=== PATIENT | male | born 1940 | race Caucasian/White ===

== ENCOUNTER 2024-02-17 14:50 | Inpatient (IN) | payer MEDICARE, OTHER, SELFPAY ==
[2024-02-17 15:16] VITALS: BP 117/46; PULSE 66; RESP 18; TEMP 36.5; O2SAT 97
[2024-02-17 15:28] VITALS: BMI 24.0
--- NOTE | 2024-02-17 21:42 | PCM.HP.STD ---
HPI - General General Date of Admission: 02/17/24 Date of Service: 02/17/24 Chief Complaint: Here for rehabilitation, wound care. HPI Narrative MATTY MASON JR, is a 83 M who presents 02/09/2024 Admit to [facility] with change in mental status. Confused, pulled over by police officers. Dizzy while driving, right 5th toe gangrene, patient was driving to urgent care. Presented to [place] [facility], then transferred to [facility]. WBC 18, Troponin ok, Urinalysis okay, CT brain negative. 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 Vancomycin/Zosyn given for right foot infection. Evaluate for stroke. Zosyn/Rocephin, consult podiatry, consult vascular, for right 5th toe wet gangrene. 02/10/2024 Dr. Piper performed right transmetatarsal amputation. 02/11/2024 Rocephin/Zithromax right foot infection. MRI brain showed left occipital stroke. 02/12/2024 Foot culture growing morganella morganii, continue Vancomycin/Rocephin. Vascular surgery recommended no surgery. Aspirin, statin, Eliquis for stroke. 02/13/2024 Right foot wound VAC yesterday. Continue IV antibiotics. Eliquis 5mg bid for stroke 2/2 Xarelto failure. Normal saline 1 liter iv bolus for acute kidney injury. 02/14/2024 PT/OT for discharge planning. 02/15/2024 Right foot incision and drainage, sharp excision, debridement partial right foot, defer primary closure right foot. 02/16/2024 Bactrim for 5 more days. Neurology does not think av fistula is real. Aspirin, statin, Eliquis for stroke. PT/OT SNF. 02/17/2024 Admit to TCU with debility, here for rehabilitation, strengthening, wound care, prior to discharge home with . [facility] Medical History (Updated 02/17/24 @ 22:[address] Nash Horne MD) History of cardioversion Venous insufficiency Coronary artery disease Chronic heart failure with preserved ejection fraction (HFpEF) GERD (gastroesophageal reflux disease) Hyperlipidemia Essential (primary) hypertension Acute kidney injury Stroke Acute encephalopathy Gangrene of toe of right foot Debility Home Medications ?Medication ?Instructions ?Recorded ?Last Taken ?Type acetaminophen 325 mg tablet 1 - 2 tab PO Q6H PRN PRN Mild 12/21/14 Unknown History (Tylenol) pain, headache, fever metoprolol succinate 200 mg 200 mg PO DAILY 12/21/14 Unknown History tablet,extended release 24 hr warfarin 5 mg tablet (Jantoven) 2.5 mg PO SUSA blood thinner 12/21/14 Unknown History warfarin 5 mg tablet (Jantoven) 5 mg PO MOTUWETHFR blood thinner 12/21/14 Unknown History amiodarone 200 mg tablet 200 mg PO DAILYCM Heart rate #24 12/28/14 Unknown Rx TABLETS atorvastatin 40 mg tablet 40 mg PO QHS Cholesterol #30 12/28/14 Unknown Rx TABLETS colchicine 0.6 mg capsule 0.6 mg PO BID gout #11 TABLETS 12/28/14 Unknown Rx colchicine 0.6 mg capsule 0.6 mg PO DAILY Gout #30 TABLETS 12/28/14 Unknown Rx furosemide 20 mg tablet 20 mg PO DAILY Fluid Retention #30 12/28/14 Unknown Rx TABLETS heparin, porcine (PF) 100 unit/mL 500 unit (5 mL) IV UD PRN Heparin 12/28/14 Unknown Rx intravenous syringe (Monoject Flush ##10 Prefill Advanced (PF)) metoprolol succinate 100 mg 100 mg PO DAILY BP #30 TABLETS 12/28/14 Unknown Rx tablet,extended release 24 hr multivitamin with folic acid 400 1 tab PO DAILYCM Supplement #0 12/28/14 Unknown Rx mcg tablet (Thera) TABLETS nafcillin 2 gram solution for 2 g IV Q4 Antibiotic #38 vials 12/28/14 Unknown Rx injection pantoprazole 20 mg tablet,delayed 20 mg PO DAILY GERD #24 TABLETS 12/28/14 Unknown Rx release warfarin 2.5 mg tablet (Jantoven) 2.5 mg PO SuMoTuThFr@1700 Blood 12/28/14 Unknown Rx thinner #30 TABLETS warfarin 3 mg tablet (Jantoven) 3 mg PO WeSa@1700 blood thinner 12/28/14 Unknown Rx #10 TABLETS amlodipine 10 mg tablet 10 mg PO QHS BP 02/17/24 02/16/24 20:25 History apixaban 5 mg tablet 5 mg PO BID Anticoagulant 02/17/24 02/17/24 08:25 History aspirin 81 mg tablet,delayed 81 mg PO DAILY Heart 02/17/24 Unknown History release (Adult Low Dose Aspirin) clobetasol 0.05 % topical ointment 1 applic topical BID Skin treatment 02/17/24 Unknown History ezetimibe 10 mg tablet 10 mg PO DAILY Cholesterol 02/17/24 02/17/24 08:25 History fluticasone propionate 50 2 spray intranasal DAILY Allergies 02/17/24 Unknown History mcg/actuation nasal spray,suspension folic acid 1 mg tablet 1 mg PO DAILY Supplement 02/17/24 02/17/24 08:25 History lisinopril 40 mg tablet 40 mg PO DAILY BP 02/17/24 Unknown History metoprolol succinate 50 mg 100 mg PO DAILY BP 02/17/24 02/17/24 08:25 History tablet,extended release 24 hr rosuvastatin 40 mg tablet 40 mg PO QHS Cholesterol 02/17/24 02/16/24 History sulfamethoxazole 800 1 tab PO BID Antibiotic 02/17/24 02/17/24 08:25 History mg-trimethoprim 160 mg tablet (Bactrim DS) Allergy/AdvReac Type Severity Reaction Status Date / Time hydrochlorothiazide AdvReac Unknown Verified 01/17/15 11:53 Family History (Updated 02/17/24 @ 22:[address] Nash Horne MD) Mother , 56 years old. Breast cancer Sister Breast cancer Grandmother Breast cancer Aunt Breast cancer Father , 78 years old. Prostate cancer PAD (peripheral artery disease) Surgical History (Updated 02/17/24 @ 22:[address] Nash Horne MD) History of right inguinal hernia repair History of cataract surgery History of colonoscopy History of aortic valve replacement Status post transmetatarsal amputation of right foot Social History (Updated 02/17/24 @ 22:[address] Nash Horne MD) household members: spouse Smoking Status: Never smoker alcohol intake: current alcohol intake frequency: 0-2 drinks per day Alcohol type: wine details: 7 glasses of wine per week. substance use type: does not use ROS Constitutional Constitutional: Reports weakness; Denies chills, fever(s) or weight gain ENT HEENT: Denies headache(s), nasal congestion or nasal discharge Cardiovascular Cardiovascular: Denies chest pain or palpitations Respiratory/Chest Respiratory/Chest: Denies cough, excessive phlegm production or shortness of breath with exertion Gastrointestinal Gastrointestinal: Denies abdominal pain, nausea or vomiting Genitourinary Genitourinary: Denies dysuria Musculoskeletal Musculoskeletal: Denies joint pain or joint swelling Integumentary Integumentary: Denies rash or wounds Neurologic Neurologic: Denies focal weakness, numbness or tingling Psychiatric Psychiatric: Denies anxiety, auditory hallucinations, depression, homicidal ideation or suicidal ideation Vital Signs Vital Signs Vital Signs: 02/17/24 15:16 02/17/24 15:16 Temperature 97.7 F L Temperature Source Oral Pulse Rate 66 Pulse Rhythm Regular Pulse Strength Normal (2+) Respiratory Rate 18 Respiratory Effort Normal Non-Labored Respiratory Depth Normal Respiratory Pattern Normal Blood Pressure 117/46 L Blood Pressure Mean 69 Blood Pressure Source Monitor Blood Pressure Position Sitting Blood Pressure Location Left Arm Pulse Ox 97 Oxygen Delivery Method Room Air Room Air Weight Weight: 78.29 kg Body Mass Index (BMI) 24.0 Physical Exam Const alert General Appearance: cooperative HEENT normocephalic Eyes PERRL and EOMs intact bilaterally Neck supple, no JVD and no carotid bruits Resp normal respiratory effort, normal air movement and clear to auscultation bilaterally Cardio regular rate and regular rhythm GI normal to inspection, nondistended, normoactive bowel sounds, non-tender and non-distended Extremity normal capillary refill Extremity Narrative: Right foot dressed. General Extremity: Negative for edema Skin no rashes or lesions noted General Skin Exam: no breakdown Psych affect normal Appearance: appropriate Assessment & Plan Assessment/Plan (1) Debility: (2) Gangrene of toe of right foot: (3) Acute encephalopathy: (4) Stroke: (5) Status post transmetatarsal amputation of right foot: (6) Acute kidney injury: (7) Essential (primary) hypertension: (8) Hyperlipidemia: (9) Atrial fibrillation: (10) GERD (gastroesophageal reflux disease): (11) Chronic heart failure with preserved ejection fraction (HFpEF): (12) Coronary artery disease: (13) MYRON (obstructive sleep apnea): (14) Venous insufficiency: PLAN: Plan 83 year old male with below past medical history hospitalized for acute encephalopathy 2/2 left occipital stroke, complicated by right foot gangrene requiring transmetatarsal amputation, acute kidney injury, admitted to TCU with debility, here for rehabilitation, strengthening, prior to discharge home with . Debility - PT/OT. Pain - Tylenol 1000mg q6 prn pain (1-5), Oxycodone 2.5mg q4 prn pain (6-10). Bowel - senna/colace 1 tablet bid, Magnesium citrate 300ml po daily prn. Adult immunization - Administer pneumonia vaccine, covid vaccine, flu vaccine as appropriate. DVT prophylaxis - on Eliquis. Hypertension - Metoprolol succinate 100mg daily, Lisinopril 40mg daily, Amlodipine 10mg qhs. Atrial fibrillation - Metoprolol succinate 100mg daily, Eliquis 5mg bid. Coronary artery disease - Metoprolol succinate 100mg daily, Lisinopril 40mg daily, Aspirin 81mg daily. Left occipital stroke - Eliquis 5mg bid, Aspirin 81mg daily, consider deescalating to Eliquis alone. Hyperlipidemia - Atorvastatin 80mg qhs, Zetia 10mg daily. Rash - Clobetasol cream topical bid. Allergic rhinitis - Fluticasone nasal spray 2 sprays nasal daily. Folate deficiency - Folic acid 1mg daily. Chronic HFpEF - Metoprolol succinate 100mg daily, Lisinopril 40mg daily, Furosemide 20mg daily. Skin irritation - Calmoseptine topical bid. Right foot gangrene s/p transmetatarsal amputation - culture Morganella Morganii, Bactrim DS 1 tablet bid thru 02/22/2024.
[2024-02-17] MEDS: APIXABAN 5 MG TABLET PO (21:49)
[2024-02-17] MEDS: amLODIPine 10 MG Tablet PO (21:49)
[2024-02-17] MEDS: Atorvastatin Calcium 80 MG Tablet PO (21:49)
[2024-02-17] MEDS: Smz/Tmp Ds Tablet 1 TABLET PO (21:49)
[2024-02-17] MEDS: Clobetasol Propionate 0.05% Ointment 1 APPLIC TOPICAL (21:49)
[2024-02-18] MEDS: Menthol/Lanolin/Calamine/Znox 113 GM Tube 1 APPLIC TOPICAL ×3 (04:10→20:58)
--- NOTE | 2024-02-18 05:39 | NURSING ---
Pt refused labs this morning, when this nurse asked why he stated look at my veins, I do not want labs done today when this nurse stated the importance of labwork pt continued to decline and agreed he would eventually have labs done but not today. Pt has had intermittent confusion throughout this night and is easily redirected but for short periods of time only.
[2024-02-18] MEDS: Folic Acid 1 MG Tablet PO (09:37)
[2024-02-18] MEDS: Smz/Tmp Ds Tablet 1 TABLET PO ×2 (09:37→20:58)
[2024-02-18] MEDS: Ezetimibe 10 MG Tablet PO (09:37)
[2024-02-18] MEDS: Furosemide 20 MG Tablet PO (09:37)
[2024-02-18 09:38] VITALS: BP 129/49; PULSE 74
[2024-02-18] MEDS: Lisinopril 40 MG Tablet PO (09:38)
[2024-02-18] MEDS: Metoprolol(XL)Succ 100 MG Tablet PO (09:38)
[2024-02-18] MEDS: Clobetasol Propionate 0.05% Ointment 1 APPLIC TOPICAL ×2 (09:39→20:54)
[2024-02-18] MEDS: Tuberculin,Purif.prot.deriv. 50 TU/ML Vial 0.1 ML ID (09:39)
[2024-02-18] MEDS: Fluticasone 0.05% 1 SPRAY NASAL.SRY 2 SPRAY NASAL (09:40)
[2024-02-18] MEDS: Aspirin E.C. 81 MG Tablet PO (09:40)
[2024-02-18] MEDS: APIXABAN 5 MG TABLET PO ×2 (09:40→20:58)
--- NOTE | 2024-02-18 09:48 | NURSING ---
Call from Stephanie at [facility], she says resident will have vascular procedure on 02/25/24 in the afternoon. Depending on what they find he may be admitted to the hospital. He need eliquis held starting Thursday02/23/24, and needs to be NPO day of surgery. Ok to continue giving aspirin and for him to take schedule meds morning of surgery. Called to discuss with , left SHEELA.
[2024-02-18 10:05] LABS: Absolute Lymphocyte Count 1.49 X10^3/uL (0.83-4.51); Absolute Neutrophil Count 26.4 X10^3/uL (2.0-7.7); Basophil# 0.07 X10^3/uL; Basophil% 0.2 % (0-1); Eosinophil# 0.02 X10^3/uL; Eosinophils% 0.1 % (0-5); Hematocrit 37.1 % (40-54); Lymphocyte # 1.49 X10^3/ul (0.83-4.51); Lymphocyte % 4.8 % (19-41); Mean Corp Hgb Conc 32.3 g/dL (32-36); Mean Corpuscular Hgb 31.2 pg (27.0-32.0); Mean Corpuscular Volume 96.4 fL (80-94); Mean Platelet Vol. 10.8 fl (6.2-12.0); Monocyte# 3.14 X10^3/uL; NRBC Flagged by Analyzer 0 % (0-5); Neutrophil # 26.35 X10^3/uL (2.7-7.7); Neutrophil % 84.2 % (47-70); POSITIVE COUNT YES; POSITIVE DIFFERENTIAL YES; Platelet Count 348 K/mm3 (150-450); RBC Distribution Width CV 12.2 % (11.6-14.6); RBC Distribution Width SD 43.2 fl (35.1-43.9); Red Blood Count 3.85 M/mm3 (4.6-6.2)
[2024-02-18 10:13] LABS: Anion Gap 6 (5-15); BUN 26 mg/dL (7-18); BUN/Creat Ratio 17.3 RATIO (10-20); Calcium,Total 9.2 mg/dL (8.5-10.1); Chloride 104 mmol/L (98-107); EST Glomerular Filtration Rate 48 mL/min (>60); Est Glom Filt Rate - Afr Amer 57 mL/min (>60); Estimated Creatinine Clearance 39.74 ml/min; Glucose 191 mg/dL (74-106); Potassium 4.9 mmol/L (3.5-5.1); Sodium Level 133 mmol/L (136-145)
[2024-02-18 10:18] LABS: Differential Indicated SCAN CRITERIA MET; White Blood Count 31.3 K/mm3 (4.4-11.0)
--- NOTE | 2024-02-18 10:27 | WOUNDNOTE ---
wound photo: right foot
--- NOTE | 2024-02-18 10:28 | WOUNDNOTE ---
wound photo: right foot
--- NOTE | 2024-02-18 10:30 | NURSING ---
This Nurse received critical lab value for WBC. This nurse notified Dr. Ozzie Christianson received for Chest X-ray, KUB, Urinalysis with culture, resp panel, covid panel, and repeat labs on 02/19/24. Orders read back.
--- NOTE | 2024-02-18 10:50 | RAD_ITS ---
STUDY: X-RAY CHEST REASON FOR EXAM: Male, 83 years old. Increased WBC TECHNIQUE: AP and lateral views of the chest. COMPARISON: Comparison is made with prior study March 25, 2006. FINDINGS: I suspect early left lower lobe infiltrate. Blunting of the left costophrenic angle. Sternal cerclage wires and vascular clips are present from a prior sternotomy and coronary artery bypass graft procedure (CABG). Normal mediastinum and chris. Normal visualized pulmonary arteries. There is atherosclerotic calcification of the aortic arch with tortuosity. There are diffuse degenerative changes of the visualized thoracic spine. Loss of height of the superior endplate of the T12 vertebrae. Normal visualized ribs, clavicles, and shoulders. There is no demonstrated abnormality of the visualized soft tissue structures of the upper abdomen. RAD/Chest PA and Lateral IMPRESSION: I suspect an early left lower lobe infiltrate with blunting of the left costophrenic angle. Electronically Signed: Roc Talley MD at 11:03 EDT ,
--- NOTE | 2024-02-18 10:50 | RAD_ITS ---
STUDY: X-RAY - ABDOMEN/PELVIS REASON FOR EXAM: Male, 83 years old. Increased WBC TECHNIQUE: Single AP view of the abdomen / pelvis. COMPARISON: None. FINDINGS: Small amount of air is seen within the soft tissues overlying the right groin. Clinical correlation recommended. Moderate amount of fecal material is seen in the colon. There is no demonstrated free abdominal air. The visualized liver, spleen and kidneys are grossly normal in size and morphology. Aortic calcification. Evidence of prior right inguinal hernia repair. Mild degree of joint space narrowing of both hip joints. RAD/Abdomen Single View IMPRESSION: Small amount of air is seen within the soft tissues overlying the right groin. Clinical correlation recommended. Electronically Signed: Roc Talley MD at 11:54 EDT ,
[2024-02-18 12:04] LABS: Bacteria 0 SEEN /hpf (None Seen); Mucous, Urine 0 SEEN /hpf (<or=2+); Red Blood Cells-Urine 0 SEEN /hpf (0-5); Squamous Epithelial Cells - UA 0 SEEN /hpf (0-5)
[2024-02-18 12:15] LABS: Color, Urine Yellow (Yellow); Glucose, Dipstick Normal (Normal); Ketone-Dipstick Negative (Negative); Leukocyte Esterase-Dipstick 25 /ul (Negative); Nitrite-Dipstick Negative (Negative); Occult Blood-Urine 10 /ul (Negative); Protein-Dipstick 30 mg/dl (Negative); Specific Gravity, Urine 1.015 (1.002-1.030); Urine Bilirubin Dipstick 1 mg/dL (Negative); Urine Clarity Clear (Clear); Urine Urobilinogen 1 mg/dl (Normal)
[2024-02-18 12:28] LABS: Amorphous Sediment 1+; White Blood Cells 0-5 SEEN /hpf (0-5)
[2024-02-18 14:24] VITALS: BP 108/48; PULSE 66; RESP 16; TEMP 37.2; O2SAT 97
[2024-02-18] MEDS: 0.9% Normal Saline (250mL Bag) 250 ML 15 ML IV (14:54)
[2024-02-18] MEDS: levoFLOXacin IV 750 MG/150 ML BAG 100 MG IV (14:54)
[2024-02-18] MEDS: Atorvastatin Calcium 80 MG Tablet PO (20:58)
[2024-02-18 21:02] VITALS: BP 102/45; RESP 67
[2024-02-19 04:55] VITALS: BP 101/48; PULSE 63; RESP 16; TEMP 36.6; O2SAT 96
--- NOTE | 2024-02-19 05:51 | NURSING ---
[employer] Directional Surveyor reports patient refuses lab draw as ordered this AM, written communication left for Dr. Horne
[2024-02-19] MEDS: Folic Acid 1 MG Tablet PO (08:37)
[2024-02-19] MEDS: APIXABAN 5 MG TABLET PO ×2 (09:15→22:30)
[2024-02-19] MEDS: Furosemide 20 MG Tablet PO (09:15)
[2024-02-19] MEDS: Clobetasol Propionate 0.05% Ointment 1 APPLIC TOPICAL ×2 (09:15→22:31)
[2024-02-19] MEDS: Aspirin E.C. 81 MG Tablet PO (09:15)
[2024-02-19] MEDS: Fluticasone 0.05% 1 SPRAY NASAL.SRY 2 SPRAY NASAL (09:15)
[2024-02-19] MEDS: Smz/Tmp Ds Tablet 1 TABLET PO ×2 (09:16→22:29)
[2024-02-19] MEDS: Menthol/Lanolin/Calamine/Znox 113 GM Tube 1 APPLIC TOPICAL ×2 (09:16→22:29)
[2024-02-19] MEDS: Ezetimibe 10 MG Tablet PO (09:16)
[2024-02-19 09:23] VITALS: BP 90/36; PULSE 63
--- NOTE | 2024-02-19 09:26 | PHA.CONS_ITS ---
Documented by User: Candi Jaquez 02/19/24 09:46 TCU RX Drug Regimen Review Subjective/Objective Subjective/Objective: Subjective: TCU Admission. 83 YOM presented to outside ER with confusion/toe gangrene. Hospitalized for acute encephalopathy 2/2 left occipital stroke, c omplicated by right foot gangrene requiring transmetatarsal amputation, acute kidney injury. Admitted to TCU with debility for strengthening and rehabilitation. Objective: Allergies hydrochlorothiazide Adverse Reaction (Verified 01/17/15 11:53) Unknown Current Medications Generic Name Dose Route Start Last Admin Trade Name Freq PRN Reason Stop Dose Admin Acetaminophen 1,000 mg 02/17/24 22:16 Acetaminophen 500 Mg Tablet PO Q6H PRN PRN Pain Score 1-5 Amlodipine Besylate 10 mg 02/17/24 22:00 02/18/24 20:57 Amlodipine 10 Mg Tablet PO Not Given QHS REAL Protocol Apixaban 5 mg 02/17/24 22:00 02/19/24 09:15 Apixaban 5 Mg Tablet PO 5 mg BID REAL Administration Aspirin 81 mg 02/18/24 10:00 02/19/24 09:15 Aspirin E.C. 81 Mg Tablet PO 81 mg DAILY REAL Administration Atorvastatin Calcium 80 mg 02/17/24 22:00 02/18/24 20:58 Atorvastatin Calcium 80 Mg Tablet PO 80 mg QHS REAL Administration Calamine/Phenol 1 applic 02/17/24 22:00 02/19/24 09:16 Menthol/Lanolin/Calamine/Znox 113 Gm Tube TOPICAL 1 applic BID REAL Administration Protocol Clobetasol Propionate 1 applic 02/17/24 22:00 02/19/24 09:15 Clobetasol Propionate 0.05% Ointment TOPICAL 1 applic BID REAL Administration Protocol Ezetimibe 10 mg 02/18/24 10:00 02/19/24 09:16 Ezetimibe 10 Mg Tablet PO 10 mg DAILY REAL Administration Fluticasone Propionate 2 spray 02/18/24 10:00 02/19/24 09:15 Fluticasone 0.05% 1 [place] Nasal.Sry NASAL 2 spray DAILY REAL Administration Folic Acid 1 mg 02/18/24 08:00 02/19/24 08:37 Folic Acid 1 Mg Tablet PO 1 mg DAILYCM REAL Administration Furosemide 20 mg 02/18/24 10:00 02/19/24 09:15 Furosemide 20 Mg Tablet PO 20 mg DAILY REAL Administration Protocol Sodium Chloride 250 mls @ 15 mls/hr 02/18/24 13:53 02/18/24 23:53 IV 0 mls/hr .[id number] PRN Infusion Additional IVPB Infusion Sodium Chloride 250 mls @ 15 mls/hr 02/18/24 13:53 IV .[id number] PRN Saline Flush Levofloxacin 750 mg in 150 mls @ 100 mls/hr 02/18/24 14:00 02/18/24 16:48 Levaquin Iv IV 02/25/24 14:01 Infused Q48 REAL Infusion Lisinopril 40 mg 02/18/24 10:00 02/19/24 09:25 Lisinopril 40 Mg Tablet PO Not Given DAILY [facility] Protocol Lorazepam 0.5 mg 02/18/24 17:16 Lorazepam 0.5 Mg Tablet PO Q4H PRN PRN ANXIETY/RESTLESSNESS/SLEEP Magnesium Citrate 300 ml 02/17/24 22:16 Magnesium Citrate 300 Ml PO DAILY PRN Constipation Metoprolol Succinate 100 mg 02/18/24 10:00 02/19/24 09:23 Metoprolol(Xl)Succ 100 Mg Tablet PO Not Given DAILY [facility] Protocol Oxycodone HCl 2.5 mg 02/17/24 22:16 Oxycodone 5 Mg Tablet PO Q4H PRN PRN Pain Score 6-10 or Pre PT/OT Senna/Docusate Sodium 1 tablet 02/18/24 10:00 02/19/24 09:16 Senna/Docusate Sodium 1 Tablet PO Not Given BID [facility] Trimethoprim/Sulfamethoxazole 1 tablet 02/17/24 22:00 02/19/24 09:16 Smz/Tmp Ds Tablet PO 02/22/24 22:01 1 tablet BID [facility] Administration Tuberculin PPD 0.1 ml 02/25/24 10:00 Tuberculin,Purif.Prot.Deriv. 50 Tu/Ml Vial ID 02/25/24 10:01 X1 ONE Problem List Venous insufficiency (Acute) Coronary artery disease (Acute) Chronic heart failure with preserved ejection fraction (HFpEF) (Acute) GERD (gastroesophageal reflux disease) (Acute) Hyperlipidemia (Acute) Essential (primary) hypertension (Acute) Acute kidney injury (Acute) Status post transmetatarsal amputation of right foot (Acute) Stroke (Acute) Acute encephalopathy (Acute) Gangrene of toe of right foot (Acute) Debility (Acute) MYRON (obstructive sleep apnea) (Chronic) Atrial fibrillation (Acute) Vital Signs Temp Pulse Resp BP Pulse Ox O2 Del Method 97.8 F 63 16 90/36 L 96 Room Air 02/19/24 04:55 02/19/24 09:23 02/19/24 04:55 02/19/24 09:23 02/19/24 04:55 02/19/24 04:55 Oxygen Delivery Method Room Air Weight: 78.29 kg Body Mass Index (BMI) 24.0 Sodium 133 mmol/L (136-145) L 02/18/24 09:54 Potassium 4.9 mmol/L (3.5-5.1) 02/18/24 09:54 Chloride 104 mmol/L (98-107) 02/18/24 09:54 Carbon Dioxide 23.0 mmol/L (21.0-32.0) 02/18/24 09:54 Anion Gap 6 (5-15) 02/18/24 09:54 BUN 26 mg/dL (7-18) H 02/18/24 09:54 Creatinine 1.50 mg/dL (0.70-1.30) H 02/18/24 09:54 Est GFR (MDRD) Af Amer 57 mL/min (>60) L 02/18/24 09:54 Est GFR (MDRD) Non-Af 48 mL/min (>60) L 02/18/24 09:54 BUN/Creatinine Ratio 17.3 RATIO (10-20) 02/18/24 09:54 Glucose 191 mg/dL (74-106) H 02/18/24 09:54 Assessment/Plan: 1. Pain: acetaminophen 1000mg PO Q6H PRN pain 1-5 and oxycodone 2.5mg PO Q4H PRN pain 6-10. Resident has not had any PRN doses. Please continue to monitor for increased pain and PRN usage. 2. Bowel: senna/docusate 1T PO BID and magnesium citrate 300mg PO daily PRN constipation. Resident has refused 2/2 doses of senna/docusate. Please consider changing to PRN. Thanks. Please continue to monitor for PRN usage (no doses given) and constipation. Last documented bowel movement was 9/12. 3. Hypertension/atrial fibrillation/CAD/stroke/HFpEF: metoprolol succinate 100mg PO daily, furosemide 20mg PO daily, lisinopril 40mg PO daily, amlodipine 10mg PO QHS, aspirin 81mg PO daily, apixaban 5mg PO BID (hold starting 02/22 for procedure). Please continue to monitor BP (last 101/48), HR (last 63), SCr (last 1.5 mg/dL), potassium (last 4.9mmol/L), S/S of bleeding, hemoglobin (last 12g/dL), swelling. 4. Pneumonia (infiltrate on chest X-ray 02/17): levofloxacin 750mg IV Q48 thru 02/25/24. Please continue to monitor for S/S of infection, WBC, renal function, tendon pain (black box warning) and diarrhea. 5. 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 Please continue to monitor for S/S of inf ection, renal function, potassium and rash. 6. Hyperlipidemia: atorvastatin 80mg PO QHS and ezetimibe 10mg PO daily. Please consider ordering a lipid panel as there is no panel in the chart. Thanks. Please continue to monitor for muscle pain. 7. Allergic rhinitis: fluticasone nasal spray 2 sprays nasal daily. Please continue to monitor for S/S of allergies and nosebleeds. 8. Folate deficiency: folic acid 1mg PO daily. Please continue to monitor. 9. Skin irritation/rash: Calmoseptine topical bid and Clobetasol cream topical bid. Please continue to monitor. Assessment/Plan for indications treated with psychotropic medications: 1. Anxiety: lorazepam 0.5mg PO Q4H PRN anxiety/restlessness/sleep. This medication was just started, GDR not appropriate at this time. Please continue to monitor for anxiety/restlessness/sleep and PRN usage. No doses given at this time. Medical chart and medication regimen reviewed. The following medication irregularities or issues were identified: 1. Senna/docusate 1T PO BID. Resident has refused 2/2 doses of senna/docusate. Please consider changing to PRN. Thanks. 2. Atorvastatin 80mg PO QHS and ezetimibe 10mg PO daily. Please consider ordering a lipid panel as there is no panel in the chart. Thanks. Date Date of Note:: 02/19/24 Documented by User: Dr. Nash Horne MD 02/19/24 09:53 TCU RX Drug Regimen Review Provider Comments Provider responsibility Provider Comments to Recommendations by Pharmacy: Agree
[2024-02-19 10:46] VITALS: BP 92/42; PULSE 62; RESP 16; TEMP 36.9; O2SAT 98
[2024-02-19 11:29] LABS: Absolute Lymphocyte Count 1.94 X10^3/uL (0.83-4.51); Absolute Neutrophil Count 21.8 X10^3/uL (2.0-7.7); Basophil# 0.09 X10^3/uL; Basophil% 0.3 % (0-1); Eosinophil# 0.12 X10^3/uL; Eosinophils% 0.4 % (0-5); Hematocrit 34.6 % (40-54); Hemoglobin 10.9 g/dL (13.0-16.5); Lymphocyte # 1.94 X10^3/ul (0.83-4.51); Lymphocyte % 7.2 % (19-41); Mean Corp Hgb Conc 31.5 g/dL (32-36); Mean Corpuscular Hgb 31.3 pg (27.0-32.0); Mean Corpuscular Volume 99.4 fL (80-94); Mean Platelet Vol. 10.8 fl (6.2-12.0); Monocyte# 2.66 X10^3/uL; Monocyte% 9.9 % (0-10); NRBC Flagged by Analyzer 0 % (0-5); Neutrophil # 21.76 X10^3/uL (2.7-7.7); Neutrophil % 81.2 % (47-70); POSITIVE DIFFERENTIAL YES; Platelet Count 327 K/mm3 (150-450); RBC Distribution Width CV 12.8 % (11.6-14.6); RBC Distribution Width SD 46.3 fl (35.1-43.9); Red Blood Count 3.48 M/mm3 (4.6-6.2); White Blood Count 26.8 K/mm3 (4.4-11.0)
[2024-02-19 11:31] LABS: Differential Indicated SCAN CRITERIA MET
[2024-02-19 11:58] LABS: Anion Gap 10 (5-15); BUN 45 mg/dL (7-18); BUN/Creat Ratio 18.5 RATIO (10-20); Calcium,Total 8.5 mg/dL (8.5-10.1); Chloride 105 mmol/L (98-107); Creatinine, Serum 2.43 mg/dL (0.70-1.30); EST Glomerular Filtration Rate 27 mL/min (>60); Est Glom Filt Rate - Afr Amer 33 mL/min (>60); Estimated Creatinine Clearance 24.53 ml/min; Glucose 117 mg/dL (74-106); Potassium 5.2 mmol/L (3.5-5.1); Sodium Level 132 mmol/L (136-145)
[2024-02-19 14:27] LABS: Pathologist Review Reviewed
--- NOTE | 2024-02-19 16:05 | CASEMGMT ---
Social Work SW met with patient to complete initial assessment. Introduced self and role. Verified/updated contacts. Patient confirmed code status as full code. SW requested provide copies of advanced directives. SW educated to Medicare benefit and copay coverage. Encouraged to contact secondary insurance to ensure copay coverage. 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 Pt is confused and disoriented to time. Pt has IV ATB through 02/24 and wound care. SW will continue to follow to assist with DC planning. PATEL Abarca EXTENSION EDGER
[2024-02-19] MEDS: Juven (unflavored) Packet 1 PACKET PO (16:55)
[2024-02-19 17:05] VITALS: BP 91/37
[2024-02-19 19:50] VITALS: BP 101/44; PULSE 63; RESP 16; O2SAT 99
[2024-02-19 20:00] VITALS: PULSE 64; RESP 16; O2SAT 99
--- NOTE | 2024-02-19 20:35 | NURSING ---
Patient BP 101/44, updated on BP, Hold HS dose of Norvasc 10mg.
[2024-02-19] MEDS: Atorvastatin Calcium 80 MG Tablet PO (22:30)
[2024-02-19] MEDS: Nystatin Powder 15gm Bottle 1 APPLIC TOPICAL (22:36)
[2024-02-19] MEDS: 0.9% Saline Lock 10 ML Syringe IV (23:54)
[2024-02-20 02:56] VITALS: PULSE 66; RESP 16; O2SAT 94
[2024-02-20 08:43] LABS: Absolute Lymphocyte Count 1.82 X10^3/uL (0.83-4.51); Absolute Neutrophil Count 15.8 X10^3/uL (2.0-7.7); Basophil# 0.05 X10^3/uL; Basophil% 0.3 % (0-1); Eosinophil# 0.17 X10^3/uL; Eosinophils% 0.9 % (0-5); Hematocrit 31.8 % (40-54); Hemoglobin 10.4 g/dL (13.0-16.5); Lymphocyte # 1.82 X10^3/ul (0.83-4.51); Lymphocyte % 9.5 % (19-41); Mean Corp Hgb Conc 32.7 g/dL (32-36); Mean Corpuscular Hgb 31.4 pg (27.0-32.0); Mean Corpuscular Volume 96.1 fL (80-94); Mean Platelet Vol. 10.8 fl (6.2-12.0); Monocyte# 1.24 X10^3/uL; Monocyte% 6.5 % (0-10); NRBC Flagged by Analyzer 0 % (0-5); Neutrophil # 15.75 X10^3/uL (2.7-7.7); Neutrophil % 81.9 % (47-70); Platelet Count 340 K/mm3 (150-450); RBC Distribution Width CV 12.7 % (11.6-14.6); RBC Distribution Width SD 44.2 fl (35.1-43.9); Red Blood Count 3.31 M/mm3 (4.6-6.2); White Blood Count 19.2 K/mm3 (4.4-11.0)
[2024-02-20 09:26] LABS: Anion Gap 11 (5-15); BUN 63 mg/dL (7-18); BUN/Creat Ratio 22.6 RATIO (10-20); Calcium,Total 8.8 mg/dL (8.5-10.1); Chloride 103 mmol/L (98-107); Creatinine, Serum 2.79 mg/dL (0.70-1.30); EST Glomerular Filtration Rate 23 mL/min (>60); Est Glom Filt Rate - Afr Amer 28 mL/min (>60); Estimated Creatinine Clearance 21.37 ml/min; Glucose 154 mg/dL (74-106); Potassium 4.4 mmol/L (3.5-5.1); Sodium Level 131 mmol/L (136-145)
[2024-02-20 10:10] VITALS: BP 88/40; PULSE 69
--- NOTE | 2024-02-20 10:13 | US_ITS ---
EXAM: US RETROPERITONEAL LIMITED, RENAL CLINICAL INDICATION: Acute kidney injury TECHNIQUE: Limited grayscale and color Doppler sonographic evaluation of the retroperitoneum was performed. COMPARISON: No relevant prior studies available. FINDINGS: RIGHT KIDNEY: Simple right renal cyst measures 5 cm. No required imaging follow-up needed given high likelihood of benign nature. No hydronephrosis. No shadowing calculus. No perinephric collection is demonstrated. LEFT KIDNEY: Unremarkable. No hydronephrosis. No shadowing calculus. No focal lesion. No perinephric collection is demonstrated. BLADDER: No bladder wall thickening. Prostate appears enlarged measuring 66 mL. Right ureter jet is visualized. Left ureteral jet is not seen. Moderate postvoid residual volume (131 mL). US/Kidney and Bladder IMPRESSION: 1. No hydronephrosis. 2. Prostatomegaly. 3. Moderate post void residual retention. Electronically Signed: Malik Miranda MD ([place]) at 15:43 EDT ,
[2024-02-20] MEDS: Folic Acid 1 MG Tablet PO (10:24)
[2024-02-20] MEDS: Aspirin E.C. 81 MG Tablet PO (10:24)
[2024-02-20] MEDS: Fluticasone 0.05% 1 SPRAY NASAL.SRY 2 SPRAY NASAL (10:25)
[2024-02-20] MEDS: Nystatin Powder 15gm Bottle 1 APPLIC TOPICAL ×2 (10:25→23:08)
[2024-02-20] MEDS: Juven (unflavored) Packet 1 PACKET PO ×2 (10:25→17:49)
[2024-02-20] MEDS: Ezetimibe 10 MG Tablet PO (10:25)
[2024-02-20] MEDS: APIXABAN 5 MG TABLET PO ×2 (10:25→23:09)
[2024-02-20] MEDS: Clobetasol Propionate 0.05% Ointment 1 APPLIC TOPICAL ×2 (10:26→22:57)
[2024-02-20] MEDS: Menthol/Lanolin/Calamine/Znox 113 GM Tube 1 APPLIC TOPICAL ×2 (10:26→23:07)
[2024-02-20] MEDS: 0.9% Normal Saline (500mL Bag) 500 ML 999 ML IV (10:27)
[2024-02-20] MEDS: 0.9% Saline Lock 10 ML Syringe IV (10:33)
[2024-02-20] MEDS: Ceftriaxone 1 GM/50 ML BAG IV (11:03)
[2024-02-20] MEDS: 0.9% Normal Saline (1000mL) 1,000 ML 75 ML IV (11:04)
[2024-02-20 12:00] VITALS: BP 98/40
[2024-02-20] MEDS: levoFLOXacin IV 750 MG/150 ML BAG 100 MG IV (12:04)
[2024-02-20 15:32] VITALS: BP 94/42; PULSE 71; RESP 18; TEMP 36.2; O2SAT 98
--- NOTE | 2024-02-20 16:42 | NURSING ---
Pt BP 88/40 Pulse [address] Horne updated on BP, BUN and CR. N.O. received to hold Toprol XL, Discontinue Lisinopril,Amlodipine, give 500ml bolus of NS and repeat CBC BMP on 02/21/24.
--- NOTE | 2024-02-20 16:47 | NURSING ---
Dr. Horne notified this nurse and would like Ahuja inserted for retention and consult Dr. Buck. Dr. Buck updated on consult for Acute Kidney Injury VIA text.
[2024-02-20 22:52] VITALS: BP 105/47; PULSE 70
[2024-02-20] MEDS: Atorvastatin Calcium 80 MG Tablet PO (23:09)
[2024-02-21] MEDS: 0.9% Normal Saline (1000mL) 1,000 ML 75 ML IV ×2 (00:36→14:42)
[2024-02-21 06:52] LABS: Absolute Lymphocyte Count 1.52 X10^3/uL (0.83-4.51); Basophil# 0.06 X10^3/uL; Basophil% 0.4 % (0-1); Eosinophil# 0.05 X10^3/uL; Eosinophils% 0.4 % (0-5); Hematocrit 33.4 % (40-54); Hemoglobin 10.7 g/dL (13.0-16.5); Lymphocyte # 1.52 X10^3/ul (0.83-4.51); Lymphocyte % 10.7 % (19-41); Mean Corpuscular Hgb 31.1 pg (27.0-32.0); Mean Corpuscular Volume 97.1 fL (80-94); Monocyte# 1.43 X10^3/uL; Monocyte% 10.1 % (0-10); NRBC Flagged by Analyzer 0 % (0-5); Neutrophil % 77.4 % (47-70); Platelet Count 298 K/mm3 (150-450); RBC Distribution Width CV 12.9 % (11.6-14.6); RBC Distribution Width SD 45.6 fl (35.1-43.9); Red Blood Count 3.44 M/mm3 (4.6-6.2); White Blood Count 14.2 K/mm3 (4.4-11.0)
[2024-02-21] MEDS: Fluticasone 0.05% 1 SPRAY NASAL.SRY 2 SPRAY NASAL (09:23)
[2024-02-21] MEDS: Clobetasol Propionate 0.05% Ointment 1 APPLIC TOPICAL ×2 (09:24→21:20)
[2024-02-21] MEDS: Ceftriaxone 1 GM/50 ML BAG IV (09:25)
[2024-02-21 09:26] VITALS: BP 117/50; PULSE 70
[2024-02-21] MEDS: Ezetimibe 10 MG Tablet PO (09:26)
[2024-02-21] MEDS: Nystatin Powder 15gm Bottle 1 APPLIC TOPICAL ×2 (09:26→21:18)
[2024-02-21] MEDS: Aspirin E.C. 81 MG Tablet PO (09:26)
[2024-02-21] MEDS: Metoprolol(XL)Succ 100 MG Tablet PO (09:26)
[2024-02-21] MEDS: Folic Acid 1 MG Tablet PO (09:27)
[2024-02-21] MEDS: Juven (unflavored) Packet 1 PACKET PO ×2 (09:27→17:15)
[2024-02-21] MEDS: APIXABAN 5 MG TABLET PO ×2 (09:27→21:21)
[2024-02-21 09:31] LABS: Anion Gap 8 (5-15); BUN 53 mg/dL (7-18); BUN/Creat Ratio 28.5 RATIO (10-20); Calcium,Total 8.6 mg/dL (8.5-10.1); Chloride 111 mmol/L (98-107); Creatinine, Serum 1.86 mg/dL (0.70-1.30); EST Glomerular Filtration Rate 37 mL/min (>60); Est Glom Filt Rate - Afr Amer 45 mL/min (>60); Estimated Creatinine Clearance 32.05 ml/min; Glucose 99 mg/dL (74-106); Potassium 5.3 mmol/L (3.5-5.1); Sodium Level 138 mmol/L (136-145)
[2024-02-21] MEDS: Menthol/Lanolin/Calamine/Znox 113 GM Tube 1 APPLIC TOPICAL ×2 (09:42→21:19)
[2024-02-21] MEDS: Sodium Polystyrene Sulfonate 15 GM/60 ML UDC 30 GM PO (12:44)
[2024-02-21 13:58] VITALS: BP 110/58; PULSE 62; RESP 16; TEMP 36.8; O2SAT 99
[2024-02-21] MEDS: Atorvastatin Calcium 80 MG Tablet PO (21:21)
[2024-02-21 21:30] VITALS: BP 130/54; PULSE 67
[2024-02-22] MEDS: 0.9% Normal Saline (1000mL) 1,000 ML 75 ML IV (04:05)
[2024-02-22 05:57] LABS: Absolute Lymphocyte Count 1.97 X10^3/uL (0.83-4.51); Absolute Neutrophil Count 8.3 X10^3/uL (2.0-7.7); Basophil# 0.09 X10^3/uL; Basophil% 0.7 % (0-1); Eosinophil# 0.55 X10^3/uL; Eosinophils% 4.3 % (0-5); Hematocrit 31.8 % (40-54); Hemoglobin 10.2 g/dL (13.0-16.5); Lymphocyte # 1.97 X10^3/ul (0.83-4.51); Lymphocyte % 15.5 % (19-41); Mean Corp Hgb Conc 32.1 g/dL (32-36); Mean Corpuscular Hgb 30.6 pg (27.0-32.0); Mean Corpuscular Volume 95.5 fL (80-94); Mean Platelet Vol. 10.9 fl (6.2-12.0); Monocyte% 13.3 % (0-10); NRBC Flagged by Analyzer 0 % (0-5); Neutrophil # 8.26 X10^3/uL (2.7-7.7); Neutrophil % 64.9 % (47-70); POSITIVE DIFFERENTIAL YES; Platelet Count 313 K/mm3 (150-450); RBC Distribution Width CV 12.8 % (11.6-14.6); RBC Distribution Width SD 44.7 fl (35.1-43.9); Red Blood Count 3.33 M/mm3 (4.6-6.2); White Blood Count 12.7 K/mm3 (4.4-11.0)
[2024-02-22 06:08] LABS: Differential Indicated SCAN CRITERIA MET
[2024-02-22 06:26] LABS: Anion Gap 3 (5-15); BUN 37 mg/dL (7-18); BUN/Creat Ratio 30.3 RATIO (10-20); Calcium,Total 8.6 mg/dL (8.5-10.1); Chloride 112 mmol/L (98-107); Creatinine, Serum 1.22 mg/dL (0.70-1.30); EST Glomerular Filtration Rate 60 mL/min (>60); Est Glom Filt Rate - Afr Amer 73 mL/min (>60); Estimated Creatinine Clearance 48.86 ml/min; Glucose 106 mg/dL (74-106); Potassium 4.2 mmol/L (3.5-5.1); Sodium Level 138 mmol/L (136-145)
[2024-02-22 06:33] LABS: Differential Comment SCANNED
[2024-02-22 09:14] LABS: Pathologist Review Reviewed
[2024-02-22 09:24] LABS: Pathologist Review Reviewed
[2024-02-22] MEDS: Juven (unflavored) Packet 1 PACKET PO ×2 (09:34→16:30)
[2024-02-22 09:35] VITALS: PULSE 88
[2024-02-22] MEDS: Folic Acid 1 MG Tablet PO (09:35)
[2024-02-22] MEDS: Aspirin E.C. 81 MG Tablet PO (09:35)
[2024-02-22] MEDS: Metoprolol(XL)Succ 100 MG Tablet PO (09:35)
[2024-02-22] MEDS: Ezetimibe 10 MG Tablet PO (09:35)
[2024-02-22] MEDS: APIXABAN 5 MG TABLET PO ×2 (09:35→22:13)
[2024-02-22] MEDS: Fluticasone 0.05% 1 SPRAY NASAL.SRY 2 SPRAY NASAL (09:36)
[2024-02-22] MEDS: Nystatin Powder 15gm Bottle 1 APPLIC TOPICAL ×2 (09:36→22:13)
[2024-02-22] MEDS: Ceftriaxone 1 GM/50 ML BAG IV (09:42)
[2024-02-22] MEDS: Clobetasol Propionate 0.05% Ointment 1 APPLIC TOPICAL ×2 (09:45→22:13)
[2024-02-22] MEDS: Menthol/Lanolin/Calamine/Znox 113 GM Tube 1 APPLIC TOPICAL ×2 (09:46→22:12)
[2024-02-22 10:00] VITALS: PULSE 65; RESP 14; O2SAT 95
[2024-02-22 14:26] VITALS: BP 108/45; PULSE 71; RESP 16; TEMP 36.4; O2SAT 97
--- NOTE | 2024-02-22 15:08 | NURSING ---
wound nurse changed dressing to rt foot today.
--- NOTE | 2024-02-22 15:15 | WOUNDNOTE ---
wound photo: right foot
--- NOTE | 2024-02-22 15:16 | WOUNDNOTE ---
wound photo: right lateral foot
--- NOTE | 2024-02-22 15:16 | WOUNDNOTE ---
wound photo: right foot
[2024-02-22] MEDS: Tamsulosin HCl 0.4 MG Capsule PO (16:30)
[2024-02-22] MEDS: Atorvastatin Calcium 80 MG Tablet PO (22:13)
[2024-02-22] MEDS: 0.9% Saline Lock 10 ML Syringe IV (22:17)
--- NOTE | 2024-02-22 22:21 | NURSING ---
Addendum entered by Sasha Horne 02/23/24 07:08: Pt allowed this nurse to d/c IV at this time. Original Note: When this nurse attempted to flush pt's IV, it was noted to be occluded and pt yelled out that it was painful; pt refused to let this nurse d/c IV and stated it can wait until the morning.
[2024-02-23 06:03] LABS: Absolute Lymphocyte Count 2.01 X10^3/uL (0.83-4.51); Absolute Neutrophil Count 7.2 X10^3/uL (2.0-7.7); Basophil# 0.06 X10^3/uL; Basophil% 0.5 % (0-1); Eosinophil# 0.53 X10^3/uL; Eosinophils% 4.5 % (0-5); Hematocrit 30.6 % (40-54); Hemoglobin 9.8 g/dL (13.0-16.5); Lymphocyte # 2.01 X10^3/ul (0.83-4.51); Lymphocyte % 16.9 % (19-41); Mean Corpuscular Hgb 30.8 pg (27.0-32.0); Mean Corpuscular Volume 96.2 fL (80-94); Mean Platelet Vol. 10.7 fl (6.2-12.0); Monocyte# 1.87 X10^3/uL; Monocyte% 15.7 % (0-10); NRBC Flagged by Analyzer 0 % (0-5); Neutrophil # 7.22 X10^3/uL (2.7-7.7); Neutrophil % 60.7 % (47-70); POSITIVE DIFFERENTIAL YES; Platelet Count 274 K/mm3 (150-450); RBC Distribution Width CV 12.8 % (11.6-14.6); RBC Distribution Width SD 45.4 fl (35.1-43.9); Red Blood Count 3.18 M/mm3 (4.6-6.2); White Blood Count 11.9 K/mm3 (4.4-11.0)
[2024-02-23 06:06] LABS: Differential Indicated SCAN CRITERIA MET
[2024-02-23 06:35] LABS: Anion Gap 4 (5-15); BUN 31 mg/dL (7-18); BUN/Creat Ratio 30.7 RATIO (10-20); Calcium,Total 8.5 mg/dL (8.5-10.1); Chloride 108 mmol/L (98-107); Creatinine, Serum 1.01 mg/dL (0.70-1.30); EST Glomerular Filtration Rate 75 mL/min (>60); Est Glom Filt Rate - Afr Amer 91 mL/min (>60); Estimated Creatinine Clearance 59.02 ml/min; Glucose 109 mg/dL (74-106); Potassium 4.2 mmol/L (3.5-5.1); Sodium Level 136 mmol/L (136-145)
[2024-02-23] MEDS: Juven (unflavored) Packet 1 PACKET PO ×2 (08:05→18:03)
[2024-02-23] MEDS: Folic Acid 1 MG Tablet PO (08:05)
[2024-02-23] MEDS: Fluticasone 0.05% 1 SPRAY NASAL.SRY 2 SPRAY NASAL (08:05)
[2024-02-23] MEDS: Clobetasol Propionate 0.05% Ointment 1 APPLIC TOPICAL ×2 (08:06→20:39)
[2024-02-23] MEDS: Ezetimibe 10 MG Tablet PO (08:06)
[2024-02-23] MEDS: Aspirin E.C. 81 MG Tablet PO (08:06)
[2024-02-23] MEDS: Menthol/Lanolin/Calamine/Znox 113 GM Tube 1 APPLIC TOPICAL ×2 (08:08→20:37)
[2024-02-23] MEDS: Nystatin Powder 15gm Bottle 1 APPLIC TOPICAL ×2 (08:08→20:39)
[2024-02-23] MEDS: 0.9% Saline Lock 10 ML Syringe IV ×3 (08:13→19:24)
[2024-02-23 08:14] VITALS: BP 107/53; PULSE 64
[2024-02-23] MEDS: Metoprolol(XL)Succ 100 MG Tablet PO (08:14)
[2024-02-23 08:34] LABS: Differential Comment SCANNED
[2024-02-23 08:47] VITALS: BMI 24.6
[2024-02-23] MEDS: Ceftriaxone 1 GM/50 ML BAG IV (09:36)
[2024-02-23 09:46] VITALS: BP 102/42; PULSE 63; RESP 18; TEMP 36.7; O2SAT 96
--- NOTE | 2024-02-23 13:02 | NURSING ---
Offered covid vaccine, VIS provided. Resident refuses.
--- NOTE | 2024-02-23 13:14 | CASEMGMT ---
Social Work SW conducted BIMS (02/20) and PHQ-2 () completed for MDS assessment. Emily Green MSW STATE ATTORNEY
[2024-02-23] MEDS: Tamsulosin HCl 0.4 MG Capsule PO (18:03)
[2024-02-23 20:00] VITALS: PULSE 64; RESP 16; O2SAT 95
[2024-02-23] MEDS: Atorvastatin Calcium 80 MG Tablet PO (20:40)
--- NOTE | 2024-02-23 22:39 | NURSING ---
Patient and family requesting A&D ointment for buttock, family brought in A&D ointment, Dr. Horne updated on request via communication board.
[2024-02-24 06:45] VITALS: PULSE 66; RESP 16; O2SAT 98
[2024-02-24] MEDS: Ceftriaxone 1 GM/50 ML BAG IV (10:06)
[2024-02-24] MEDS: Folic Acid 1 MG Tablet PO (10:07)
[2024-02-24] MEDS: Ezetimibe 10 MG Tablet PO (10:07)
[2024-02-24] MEDS: Juven (unflavored) Packet 1 PACKET PO ×2 (10:07→17:23)
[2024-02-24] MEDS: Nystatin Powder 15gm Bottle 1 APPLIC TOPICAL ×2 (10:07→20:12)
[2024-02-24] MEDS: Fluticasone 0.05% 1 SPRAY NASAL.SRY 2 SPRAY NASAL (10:07)
[2024-02-24] MEDS: Aspirin E.C. 81 MG Tablet PO (10:07)
[2024-02-24] MEDS: 0.9% Saline Lock 10 ML Syringe IV ×2 (10:07→20:07)
[2024-02-24] MEDS: Menthol/Lanolin/Calamine/Znox 113 GM Tube 1 APPLIC TOPICAL ×2 (10:08→20:12)
[2024-02-24 10:18] VITALS: BP 108/45; PULSE 66
[2024-02-24] MEDS: Metoprolol(XL)Succ 100 MG Tablet PO (10:18)
[2024-02-24] MEDS: Clobetasol Propionate 0.05% Ointment 1 APPLIC TOPICAL ×2 (10:18→20:11)
--- NOTE | 2024-02-24 10:39 | CASEMGMT ---
Social Work IDT met with patient, and son for care plan meeting. Discussed patient's progress in PT/OT/ST/SN. Educated to Medicare benefit. Provided pt/family with written communication on insurance process and copay coverage during stay. stated she canceled the procedure in [place] on 02/24. Pt is on IV ATB scheduled to stop 02/24. Pt is NWB RLE and using knee sling to walker. If pt needs DME at DC, SW to coordinate. is unable to physically assist pt at DC. Broached topic of needing an alternative plan for DC. Educated to option of nonskilled ESCAPEMENT MATCHER if pt can improve to x1 assist but if is x2 assist, recommending SNF for care. Educated to financial liability for both options. is also strong-willed and voices her concerns and opinions. appears unrealistic to pt's deficits and prognosis. requesting to see how pt is next week and would like to reschedule procedure for next week when feels pt will be able to transport pt and undergo procedure. IDT currently recommending take over all IADLs, meds/finances, and pt will not be cleared to drive until PCP determines pt is safe to drive. SW educated and provided resources for [employer] [facility]. SW will continue to follow along with pt's progress and assist with DC planning. PATEL Abarca
[2024-02-24 11:16] VITALS: BP 103/49; PULSE 73; RESP 14; TEMP 36; O2SAT 100
--- NOTE | 2024-02-24 13:26 | NURSING ---
This nurse talked with Leni from [facility] [phone]) Procedure is rescheduled for 03/01/24 @1130am and procedure hold Eliquis Starting Tuesday 02/27 all other meds okay to give prior to surgery. PT to Be NPO after midnight on 03/01/24. Will talk to about getting wheelchair transport.
[2024-02-24] MEDS: Tamsulosin HCl 0.4 MG Capsule PO (17:23)
[2024-02-24] MEDS: Atorvastatin Calcium 80 MG Tablet PO (20:14)
[2024-02-24] MEDS: Senna/Docusate Sodium 1 Tablet PO (20:21)
[2024-02-25 09:15] VITALS: BP 117/52; PULSE 62; RESP 15; TEMP 37; O2SAT 95
[2024-02-25] MEDS: Aspirin E.C. 81 MG Tablet PO (09:18)
[2024-02-25 09:19] VITALS: PULSE 62
[2024-02-25] MEDS: Menthol/Lanolin/Calamine/Znox 113 GM Tube 1 APPLIC TOPICAL ×2 (09:19→21:58)
[2024-02-25] MEDS: Juven (unflavored) Packet 1 PACKET PO ×2 (09:19→16:39)
[2024-02-25] MEDS: Metoprolol(XL)Succ 100 MG Tablet PO (09:19)
[2024-02-25] MEDS: Folic Acid 1 MG Tablet PO (09:19)
[2024-02-25] MEDS: Clobetasol Propionate 0.05% Ointment 1 APPLIC TOPICAL ×2 (09:20→21:59)
[2024-02-25] MEDS: Nystatin Powder 15gm Bottle 1 APPLIC TOPICAL ×2 (09:20→21:59)
[2024-02-25] MEDS: Fluticasone 0.05% 1 SPRAY NASAL.SRY 2 SPRAY NASAL (09:20)
[2024-02-25] MEDS: Ezetimibe 10 MG Tablet PO (09:21)
[2024-02-25] MEDS: Ceftriaxone 1 GM/50 ML BAG IV (09:26)
[2024-02-25] MEDS: APIXABAN 5 MG TABLET PO ×2 (09:27→22:00)
--- NOTE | 2024-02-25 10:39 | NURSING ---
Addendum entered by Tigist He 02/25/24 11:50: Talked with Leni at vascular [facility], per her they plan to keep resident overnight for observation after procedure. Original Note: and son at bedside, discussed transport to procedure on 03/01. They say they are able to take patient. Expressed concern with them transporting patient as he's been a x2 assist for staff. They are open to trying a transfer with therapy. Discussed with Lyn ACE. She will speak with .
[2024-02-25] MEDS: Tuberculin,Purif.prot.deriv. 50 TU/ML Vial 0.1 ML ID (11:44)
[2024-02-25 13:03] LABS: Pathologist Review Reviewed
[2024-02-25 14:26] VITALS: PULSE 70; RESP 15; O2SAT 96
[2024-02-25] MEDS: Tamsulosin HCl 0.4 MG Capsule PO (16:39)
--- NOTE | 2024-02-25 18:49 | NURSING ---
Addendum entered by Tigist He 02/26/24 10:18: and son came to desk, said Leandra had left them a VM yesterday. Updated them about stool sample and EGD. Instructed them not to let give patient anything to eat/drink. Original Note: Attempted to notify of pt having EGD tomorrow. message left on phone, awaiting return call.
[2024-02-25] MEDS: 0.9% Saline Lock 10 ML Syringe IV (20:28)
[2024-02-25] MEDS: Atorvastatin Calcium 80 MG Tablet PO (22:00)
--- NOTE | 2024-02-26 09:08 | NURSING ---
Sports Complex Attendant Note; MDS for 02/24/2024 Complete
[2024-02-26] MEDS: Ceftriaxone 1 GM/50 ML BAG IV (09:26)
[2024-02-26] MEDS: 0.9% Saline Lock 10 ML Syringe IV (09:27)
[2024-02-26] MEDS: Clobetasol Propionate 0.05% Ointment 1 APPLIC TOPICAL ×2 (10:45→23:14)
[2024-02-26] MEDS: Nystatin Powder 15gm Bottle 1 APPLIC TOPICAL ×2 (10:46→23:15)
[2024-02-26] MEDS: Menthol/Lanolin/Calamine/Znox 113 GM Tube 1 APPLIC TOPICAL ×2 (10:47→23:14)
[2024-02-26 15:02] VITALS: BP 113/48; PULSE 60
[2024-02-26] MEDS: Metoprolol(XL)Succ 100 MG Tablet PO (15:02)
[2024-02-26] MEDS: Ezetimibe 10 MG Tablet PO (15:03)
[2024-02-26] MEDS: Fluticasone 0.05% 1 SPRAY NASAL.SRY 2 SPRAY NASAL (15:03)
[2024-02-26] MEDS: Folic Acid 1 MG Tablet PO (15:03)
[2024-02-26] MEDS: Aspirin E.C. 81 MG Tablet PO (15:03)
[2024-02-26 15:07] VITALS: BP 113/48; PULSE 60; RESP 18; TEMP 36.4; O2SAT 96
--- NOTE | 2024-02-26 15:19 | NURSING ---
Pt returned from Surgery no new orders.
[2024-02-26] MEDS: Tamsulosin HCl 0.4 MG Capsule PO (17:17)
[2024-02-26] MEDS: Juven (unflavored) Packet 1 PACKET PO (17:17)
[2024-02-26 20:00] VITALS: PULSE 68; RESP 16; O2SAT 97
[2024-02-26] MEDS: APIXABAN 5 MG TABLET PO (23:16)
[2024-02-26] MEDS: Atorvastatin Calcium 80 MG Tablet PO (23:16)
[2024-02-27 06:32] VITALS: PULSE 70; RESP 16; O2SAT 94
[2024-02-27 09:22] VITALS: BP 108/50; PULSE 58; RESP 17; TEMP 36.6; O2SAT 98
[2024-02-27] MEDS: Folic Acid 1 MG Tablet PO (09:25)
[2024-02-27] MEDS: Aspirin E.C. 81 MG Tablet PO (09:26)
[2024-02-27] MEDS: Menthol/Lanolin/Calamine/Znox 113 GM Tube 1 APPLIC TOPICAL ×2 (09:26→22:49)
[2024-02-27] MEDS: Juven (unflavored) Packet 1 PACKET PO ×2 (09:26→17:15)
[2024-02-27] MEDS: Fluticasone 0.05% 1 SPRAY NASAL.SRY 2 SPRAY NASAL (09:26)
[2024-02-27] MEDS: APIXABAN 5 MG TABLET PO ×2 (09:26→22:50)
[2024-02-27] MEDS: Clobetasol Propionate 0.05% Ointment 1 APPLIC TOPICAL ×2 (09:27→22:50)
[2024-02-27] MEDS: Nystatin Powder 15gm Bottle 1 APPLIC TOPICAL ×2 (09:27→22:50)
[2024-02-27 09:28] VITALS: PULSE 58
[2024-02-27] MEDS: Metoprolol(XL)Succ 100 MG Tablet PO (09:28)
[2024-02-27] MEDS: Ezetimibe 10 MG Tablet PO (09:28)
[2024-02-27] MEDS: Tamsulosin HCl 0.4 MG Capsule PO (17:15)
[2024-02-27] MEDS: Atorvastatin Calcium 80 MG Tablet PO (22:50)
[2024-02-28 08:35] VITALS: BP 114/46; PULSE 58; RESP 16; TEMP 36.6; O2SAT 98
[2024-02-28] MEDS: Folic Acid 1 MG Tablet PO (08:37)
[2024-02-28] MEDS: Juven (unflavored) Packet 1 PACKET PO ×2 (08:37→17:17)
[2024-02-28] MEDS: Menthol/Lanolin/Calamine/Znox 113 GM Tube 1 APPLIC TOPICAL ×2 (08:37→22:33)
[2024-02-28] MEDS: Aspirin E.C. 81 MG Tablet PO (08:38)
[2024-02-28] MEDS: Clobetasol Propionate 0.05% Ointment 1 APPLIC TOPICAL ×2 (08:38→22:34)
[2024-02-28] MEDS: Fluticasone 0.05% 1 SPRAY NASAL.SRY 2 SPRAY NASAL (08:38)
[2024-02-28] MEDS: Nystatin Powder 15gm Bottle 1 APPLIC TOPICAL ×2 (08:38→22:34)
[2024-02-28 08:39] VITALS: PULSE 58
[2024-02-28] MEDS: Ezetimibe 10 MG Tablet PO (08:39)
[2024-02-28] MEDS: Metoprolol(XL)Succ 100 MG Tablet PO (08:39)
[2024-02-28 10:00] VITALS: PULSE 66; O2SAT 95
[2024-02-28] MEDS: Tamsulosin HCl 0.4 MG Capsule PO (17:17)
[2024-02-28] MEDS: Atorvastatin Calcium 80 MG Tablet PO (22:34)
--- NOTE | 2024-02-29 02:53 | NURSING ---
This nurse noted a skin tear to pt's left AC, pt stated it was because of tape from a recent lab draw. Area cleansed with soap and water, adaptic and gauze applied and wrapped with kerlix. No tape applied to pt's direct skin as his skin is very fragile. Pt marian. well and denied further needs at this time.
[2024-02-29 08:16] VITALS: BP 114/53; PULSE 60
[2024-02-29] MEDS: Metoprolol(XL)Succ 100 MG Tablet PO (08:16)
[2024-02-29] MEDS: Juven (unflavored) Packet 1 PACKET PO ×2 (08:16→16:53)
[2024-02-29] MEDS: Aspirin E.C. 81 MG Tablet PO (08:18)
[2024-02-29] MEDS: Fluticasone 0.05% 1 SPRAY NASAL.SRY 2 SPRAY NASAL (08:18)
[2024-02-29] MEDS: Ezetimibe 10 MG Tablet PO (08:18)
[2024-02-29] MEDS: Folic Acid 1 MG Tablet PO (08:18)
[2024-02-29] MEDS: Clobetasol Propionate 0.05% Ointment 1 APPLIC TOPICAL ×2 (08:18→22:08)
[2024-02-29] MEDS: Nystatin Powder 15gm Bottle 1 APPLIC TOPICAL ×2 (08:19→22:08)
[2024-02-29] MEDS: Menthol/Lanolin/Calamine/Znox 113 GM Tube 1 APPLIC TOPICAL ×2 (08:19→22:08)
--- NOTE | 2024-02-29 15:45 | WOUNDNOTE ---
wound photo: right foot
--- NOTE | 2024-02-29 15:46 | WOUNDNOTE ---
wound photo: right foot
[2024-02-29 16:00] VITALS: BP 110/48; PULSE 59; RESP 16; TEMP 36.6; O2SAT 97
[2024-02-29] MEDS: Tamsulosin HCl 0.4 MG Capsule PO (16:53)
[2024-02-29] MEDS: Atorvastatin Calcium 80 MG Tablet PO (22:07)
[2024-03-01] MEDS: Juven (unflavored) Packet 1 PACKET PO (08:45)
[2024-03-01] MEDS: Folic Acid 1 MG Tablet PO (08:45)
[2024-03-01] MEDS: Aspirin E.C. 81 MG Tablet PO (08:45)
[2024-03-01 08:48] VITALS: BP 120/62; PULSE 54; RESP 16; TEMP 36.6; O2SAT 98
[2024-03-01 08:50] VITALS: PULSE 54
[2024-03-01] MEDS: Ezetimibe 10 MG Tablet PO (08:50)
[2024-03-01] MEDS: Metoprolol(XL)Succ 100 MG Tablet PO (08:50)
[2024-03-01] MEDS: Clobetasol Propionate 0.05% Ointment 1 APPLIC TOPICAL ×2 (08:51→20:53)
[2024-03-01] MEDS: Nystatin Powder 15gm Bottle 1 APPLIC TOPICAL ×2 (08:52→20:53)
[2024-03-01] MEDS: Menthol/Lanolin/Calamine/Znox 113 GM Tube 1 APPLIC TOPICAL ×2 (08:52→20:53)
[2024-03-01] MEDS: Fluticasone 0.05% 1 SPRAY NASAL.SRY 2 SPRAY NASAL (08:52)
--- NOTE | 2024-03-01 08:58 | MDS.RN ---
Information for the MDS was obtained from review of the clinical record, interview of resident, staff, and direct observation of resident?s care.
[2024-03-01 09:12] VITALS: PULSE 55; RESP 16; O2SAT 95
--- NOTE | 2024-03-01 10:35 | NURSING ---
pt off unit via WC with , son & CLOTH LAMINATING SUPERVISOR for WC transfer to personal vehicle.
--- NOTE | 2024-03-01 15:55 | CASEMGMT ---
Social Work SW conducted BIMS (12/20) and PHQ-2 () for MDS assessment PATEL AbarcaW
--- NOTE | 2024-03-01 17:01 | NURSING ---
report called from [facility], pt will be done with Bedrest at 7pm and family to transport back to [facility].
[2024-03-01 20:10] VITALS: BP 125/47; PULSE 56; RESP 16; TEMP 36.4; O2SAT 99
--- NOTE | 2024-03-01 20:10 | NURSING ---
Patient arrived back on unit via WC with family, per report pt is to have dressing removed tomorrow morning, ok to shower, no lifting more than 10lbs for 24 hours, no strenuous activity for 5 days, if incision bleeds for greater than 2 minutes nursing to notify MD.
[2024-03-01] MEDS: Tamsulosin HCl 0.4 MG Capsule PO (20:50)
[2024-03-01] MEDS: Atorvastatin Calcium 80 MG Tablet PO (20:50)
--- NOTE | 2024-03-02 06:54 | NURSING ---
PER AFTER VISIT SUMMARY FROM [facility] POST-OP INSTRUCTION PROVIDED BY SPOUSE, PORTER KLINE 03/02/24
[2024-03-02 09:11] VITALS: BP 116/55; PULSE 56; RESP 16; TEMP 36.5; O2SAT 99
[2024-03-02 09:13] VITALS: PULSE 56
[2024-03-02] MEDS: Aspirin E.C. 81 MG Tablet PO (09:13)
[2024-03-02] MEDS: Folic Acid 1 MG Tablet PO (09:13)
[2024-03-02] MEDS: Clobetasol Propionate 0.05% Ointment 1 APPLIC TOPICAL ×2 (09:13→21:16)
[2024-03-02] MEDS: Metoprolol(XL)Succ 100 MG Tablet PO (09:13)
[2024-03-02] MEDS: Ezetimibe 10 MG Tablet PO (09:13)
[2024-03-02] MEDS: Juven (unflavored) Packet 1 PACKET PO ×2 (09:13→17:03)
[2024-03-02] MEDS: Menthol/Lanolin/Calamine/Znox 113 GM Tube 1 APPLIC TOPICAL ×2 (09:14→21:17)
[2024-03-02] MEDS: Fluticasone 0.05% 1 SPRAY NASAL.SRY 2 SPRAY NASAL (09:14)
[2024-03-02] MEDS: Nystatin Powder 15gm Bottle 1 APPLIC TOPICAL ×2 (09:14→21:16)
[2024-03-02] MEDS: APIXABAN 5 MG TABLET PO ×2 (10:00→21:18)
--- NOTE | 2024-03-02 10:43 | CASEMGMT ---
Social Work SW notified by [facility] Electrocardiograph Repairer that pt is now accepted to transfer to IRU. SW phoned to offer transfer. does not recall original plan for pt to transfer to [facility] once improved, but does not want pt transferred. states pt has adjusted well to TCU and improving. SW expressed understanding and pt will remain on TCU. SW updated Electrocardiograph Repairer. Emily Green, COUNSELOR AIDE ACCESS COORDINATOR
--- NOTE | 2024-03-02 12:50 | NURSING ---
lt groin dressing removed at this time, area with puncture site, scabbed over. left ROWENA. pt tolerated fairly well, skin very sensitive. Mepilex applied to RT andrade abrasion to protect from rubbing when using knee walker with therapy.
[2024-03-02] MEDS: Tamsulosin HCl 0.4 MG Capsule PO (17:03)
[2024-03-02 20:00] VITALS: PULSE 66; O2SAT 97
[2024-03-02] MEDS: Atorvastatin Calcium 80 MG Tablet PO (21:18)
[2024-03-03 07:29] LABS: Absolute Lymphocyte Count 2.71 X10^3/uL (0.83-4.51); Absolute Neutrophil Count 7.7 X10^3/uL (2.0-7.7); Basophil# 0.06 X10^3/uL; Basophil% 0.5 % (0-1); Eosinophils% 5.6 % (0-5); Hematocrit 32.8 % (40-54); Hemoglobin 10.4 g/dL (13.0-16.5); Lymphocyte # 2.71 X10^3/ul (0.83-4.51); Lymphocyte % 21.5 % (19-41); Mean Corp Hgb Conc 31.7 g/dL (32-36); Mean Corpuscular Hgb 30.5 pg (27.0-32.0); Mean Corpuscular Volume 96.2 fL (80-94); Mean Platelet Vol. 10.9 fl (6.2-12.0); Monocyte# 1.26 X10^3/uL; NRBC Flagged by Analyzer 0 % (0-5); Neutrophil # 7.74 X10^3/uL (2.7-7.7); Neutrophil % 61.5 % (47-70); Platelet Count 222 K/mm3 (150-450); RBC Distribution Width CV 13.5 % (11.6-14.6); RBC Distribution Width SD 47.4 fl (35.1-43.9); Red Blood Count 3.41 M/mm3 (4.6-6.2); White Blood Count 12.6 K/mm3 (4.4-11.0)
[2024-03-03 07:48] LABS: Anion Gap 4 (5-15); BUN 26 mg/dL (7-18); BUN/Creat Ratio 29.9 RATIO (10-20); Calcium,Total 8.9 mg/dL (8.5-10.1); Chloride 111 mmol/L (98-107); Creatinine, Serum 0.87 mg/dL (0.70-1.30); EST Glomerular Filtration Rate 89 mL/min (>60); Est Glom Filt Rate - Afr Amer 108 mL/min (>60); Estimated Creatinine Clearance 66.43 ml/min; Glucose 107 mg/dL (74-106); Potassium 4.4 mmol/L (3.5-5.1); Sodium Level 139 mmol/L (136-145)
[2024-03-03 08:43] VITALS: BP 121/44; PULSE 62
[2024-03-03] MEDS: Juven (unflavored) Packet 1 PACKET PO ×2 (08:43→17:48)
[2024-03-03] MEDS: Aspirin E.C. 81 MG Tablet PO (08:43)
[2024-03-03] MEDS: Metoprolol(XL)Succ 100 MG Tablet PO (08:43)
[2024-03-03] MEDS: Menthol/Lanolin/Calamine/Znox 113 GM Tube 1 APPLIC TOPICAL ×2 (08:44→21:14)
[2024-03-03] MEDS: Fluticasone 0.05% 1 SPRAY NASAL.SRY 2 SPRAY NASAL (08:44)
[2024-03-03] MEDS: APIXABAN 5 MG TABLET PO ×2 (08:44→21:15)
[2024-03-03] MEDS: Folic Acid 1 MG Tablet PO (08:44)
[2024-03-03] MEDS: Nystatin Powder 15gm Bottle 1 APPLIC TOPICAL ×2 (08:45→21:14)
[2024-03-03] MEDS: Clobetasol Propionate 0.05% Ointment 1 APPLIC TOPICAL ×2 (08:45→21:14)
[2024-03-03 09:03] VITALS: BP 121/44; PULSE 62; RESP 19; TEMP 35.8; O2SAT 99
[2024-03-03] MEDS: Ezetimibe 10 MG Tablet PO (11:11)
[2024-03-03 13:43] VITALS: BP 106/46; PULSE 53; RESP 16; TEMP 35.9; O2SAT 100
[2024-03-03] MEDS: Tamsulosin HCl 0.4 MG Capsule PO (17:48)
[2024-03-03] MEDS: Atorvastatin Calcium 80 MG Tablet PO (21:15)
[2024-03-04 09:18] VITALS: BP 108/44; PULSE 56; RESP 16; TEMP 36.3; O2SAT 99
[2024-03-04] MEDS: Clobetasol Propionate 0.05% Ointment 1 APPLIC TOPICAL ×2 (09:22→20:14)
[2024-03-04] MEDS: Juven (unflavored) Packet 1 PACKET PO ×2 (09:22→17:03)
[2024-03-04] MEDS: Folic Acid 1 MG Tablet PO (09:22)
[2024-03-04] MEDS: Aspirin E.C. 81 MG Tablet PO (09:22)
[2024-03-04] MEDS: Fluticasone 0.05% 1 SPRAY NASAL.SRY 2 SPRAY NASAL (09:22)
[2024-03-04] MEDS: APIXABAN 5 MG TABLET PO ×2 (09:22→20:14)
[2024-03-04 09:23] VITALS: PULSE 56
[2024-03-04] MEDS: Metoprolol(XL)Succ 100 MG Tablet PO (09:23)
[2024-03-04] MEDS: Ezetimibe 10 MG Tablet PO (09:23)
[2024-03-04] MEDS: Menthol/Lanolin/Calamine/Znox 113 GM Tube 1 APPLIC TOPICAL ×2 (09:26→20:15)
[2024-03-04] MEDS: Nystatin Powder 15gm Bottle 1 APPLIC TOPICAL ×2 (09:26→20:15)
[2024-03-04] MEDS: Tamsulosin HCl 0.4 MG Capsule PO (17:03)
[2024-03-04] MEDS: Atorvastatin Calcium 80 MG Tablet PO (20:15)
[2024-03-05 08:33] VITALS: BP 114/45; PULSE 67; RESP 18; TEMP 37.1; O2SAT 99
[2024-03-05] MEDS: Folic Acid 1 MG Tablet PO (08:35)
[2024-03-05] MEDS: Fluticasone 0.05% 1 SPRAY NASAL.SRY 2 SPRAY NASAL (08:35)
[2024-03-05] MEDS: Menthol/Lanolin/Calamine/Znox 113 GM Tube 1 APPLIC TOPICAL ×2 (08:35→20:01)
[2024-03-05] MEDS: APIXABAN 5 MG TABLET PO ×2 (08:35→20:01)
[2024-03-05] MEDS: Aspirin E.C. 81 MG Tablet PO (08:35)
[2024-03-05] MEDS: Juven (unflavored) Packet 1 PACKET PO ×2 (08:35→17:03)
[2024-03-05 08:36] VITALS: PULSE 67
[2024-03-05] MEDS: Metoprolol(XL)Succ 100 MG Tablet PO (08:36)
[2024-03-05] MEDS: Nystatin Powder 15gm Bottle 1 APPLIC TOPICAL ×2 (08:36→20:02)
[2024-03-05] MEDS: Clobetasol Propionate 0.05% Ointment 1 APPLIC TOPICAL ×2 (08:36→20:00)
[2024-03-05] MEDS: Ezetimibe 10 MG Tablet PO (08:36)
[2024-03-05] MEDS: Tamsulosin HCl 0.4 MG Capsule PO (17:03)
[2024-03-05] MEDS: Atorvastatin Calcium 80 MG Tablet PO (20:01)
[2024-03-06 08:39] VITALS: BP 104/47; PULSE 60; RESP 16; O2SAT 99
[2024-03-06] MEDS: Juven (unflavored) Packet 1 PACKET PO ×2 (08:41→17:12)
[2024-03-06] MEDS: Menthol/Lanolin/Calamine/Znox 113 GM Tube 1 APPLIC TOPICAL ×2 (08:41→22:40)
[2024-03-06] MEDS: Folic Acid 1 MG Tablet PO (08:41)
[2024-03-06] MEDS: Aspirin E.C. 81 MG Tablet PO (08:42)
[2024-03-06] MEDS: APIXABAN 5 MG TABLET PO ×2 (08:42→22:40)
[2024-03-06] MEDS: Clobetasol Propionate 0.05% Ointment 1 APPLIC TOPICAL ×2 (08:42→22:40)
[2024-03-06] MEDS: Nystatin Powder 15gm Bottle 1 APPLIC TOPICAL ×2 (08:42→22:40)
[2024-03-06] MEDS: Fluticasone 0.05% 1 SPRAY NASAL.SRY 2 SPRAY NASAL (08:42)
[2024-03-06 08:43] VITALS: PULSE 60
[2024-03-06] MEDS: Metoprolol(XL)Succ 100 MG Tablet PO (08:43)
[2024-03-06] MEDS: Ezetimibe 10 MG Tablet PO (08:43)
[2024-03-06 11:58] VITALS: TEMP 36.3
[2024-03-06] MEDS: Tamsulosin HCl 0.4 MG Capsule PO (17:12)
[2024-03-06] MEDS: Atorvastatin Calcium 80 MG Tablet PO (22:40)
[2024-03-07] MEDS: Aspirin E.C. 81 MG Tablet PO (08:02)
[2024-03-07] MEDS: Ezetimibe 10 MG Tablet PO (08:02)
[2024-03-07 08:03] VITALS: PULSE 76
[2024-03-07] MEDS: Menthol/Lanolin/Calamine/Znox 113 GM Tube 1 APPLIC TOPICAL ×2 (08:03→22:01)
[2024-03-07] MEDS: Metoprolol(XL)Succ 100 MG Tablet PO (08:03)
[2024-03-07] MEDS: Folic Acid 1 MG Tablet PO (08:03)
[2024-03-07] MEDS: Juven (unflavored) Packet 1 PACKET PO ×2 (08:03→18:03)
[2024-03-07] MEDS: Fluticasone 0.05% 1 SPRAY NASAL.SRY 2 SPRAY NASAL (08:03)
[2024-03-07] MEDS: APIXABAN 5 MG TABLET PO ×2 (08:03→22:00)
[2024-03-07] MEDS: Clobetasol Propionate 0.05% Ointment 1 APPLIC TOPICAL ×2 (08:03→22:01)
[2024-03-07] MEDS: Nystatin Powder 15gm Bottle 1 APPLIC TOPICAL ×2 (08:03→22:01)
--- NOTE | 2024-03-07 14:09 | NURSING ---
Addendum entered by Rosenda Kearns 03/07/24 16:41: [facility] called, xrays were already prior completed before transfer back to TCU. Original Note: Resident returned from wound center appt, order for doxycycline 100mg BID x10 days. Instructions mention xrays. RN called to clarify if xrays need done at [facility]. Await return call.
[2024-03-07 16:00] VITALS: BP 106/78; PULSE 67; RESP 14; TEMP 36.4; O2SAT 98
--- NOTE | 2024-03-07 16:37 | NURSING ---
[facility]. They removed a foreign object and biopsied the 4th toe on the left foot. Foot was still bleeding upon arrival to unit. Packed w/ surgifoam and wrapped with a guaze and rodrigo. It is a 1x1x1 surgical wound that is open and bone/tendon is visible
[2024-03-07] MEDS: Tamsulosin HCl 0.4 MG Capsule PO (18:03)
[2024-03-07] MEDS: Doxycycline 100 MG CAPSULE PO (22:01)
[2024-03-07] MEDS: Atorvastatin Calcium 80 MG Tablet PO (22:01)
[2024-03-08 09:07] VITALS: BP 120/53; PULSE 63
[2024-03-08] MEDS: Juven (unflavored) Packet 1 PACKET PO ×2 (09:09→17:08)
[2024-03-08] MEDS: APIXABAN 5 MG TABLET PO ×2 (09:09→22:22)
[2024-03-08 09:10] VITALS: PULSE 63
[2024-03-08] MEDS: Fluticasone 0.05% 1 SPRAY NASAL.SRY 2 SPRAY NASAL (09:10)
[2024-03-08] MEDS: Folic Acid 1 MG Tablet PO (09:10)
[2024-03-08] MEDS: Ezetimibe 10 MG Tablet PO (09:10)
[2024-03-08] MEDS: Metoprolol(XL)Succ 100 MG Tablet PO (09:10)
[2024-03-08] MEDS: Aspirin E.C. 81 MG Tablet PO (09:10)
[2024-03-08] MEDS: Doxycycline 100 MG CAPSULE PO ×2 (09:10→22:22)
[2024-03-08] MEDS: Nystatin Powder 15gm Bottle 1 APPLIC TOPICAL ×2 (09:11→22:21)
[2024-03-08] MEDS: Menthol/Lanolin/Calamine/Znox 113 GM Tube 1 APPLIC TOPICAL ×2 (09:11→22:20)
[2024-03-08] MEDS: Clobetasol Propionate 0.05% Ointment 1 APPLIC TOPICAL ×2 (09:18→22:21)
[2024-03-08 11:38] VITALS: BMI 24.7
--- NOTE | 2024-03-08 12:51 | NURSING ---
Addendum entered by Tigist He 03/08/24 14:55: Call back that wound care orders are the same for all wounds, including new left foot toe site. Original Note: CALLED [facility] (R' APPT FROM YESTERDAY) TO VERIFY WOUND ORDERS TO LEFT FOOT 4TH TOE. LEFT VM.
[2024-03-08 13:58] VITALS: BP 116/47; PULSE 54; RESP 17; TEMP 37; O2SAT 99
--- NOTE | 2024-03-08 14:53 | WOUNDNOTE ---
wound photo: right foot
--- NOTE | 2024-03-08 14:53 | WOUNDNOTE ---
wound photo: right foot
--- NOTE | 2024-03-08 14:54 | WOUNDNOTE ---
wound photo: right foot
--- NOTE | 2024-03-08 14:55 | WOUNDNOTE ---
wound photo: right heel
--- NOTE | 2024-03-08 14:55 | WOUNDNOTE ---
wound photo: left 3rd toe
[2024-03-08] MEDS: Tamsulosin HCl 0.4 MG Capsule PO (17:08)
[2024-03-08] MEDS: Atorvastatin Calcium 80 MG Tablet PO (22:22)
[2024-03-09 09:26] VITALS: BP 110/47; PULSE 64; RESP 16; TEMP 36.6; O2SAT 96
[2024-03-09 09:29] VITALS: PULSE 64
[2024-03-09] MEDS: Folic Acid 1 MG Tablet PO (09:29)
[2024-03-09] MEDS: Aspirin E.C. 81 MG Tablet PO (09:29)
[2024-03-09] MEDS: Metoprolol(XL)Succ 100 MG Tablet PO (09:29)
[2024-03-09] MEDS: Doxycycline 100 MG CAPSULE PO ×2 (09:29→19:58)
[2024-03-09] MEDS: Juven (unflavored) Packet 1 PACKET PO ×2 (09:29→17:46)
[2024-03-09] MEDS: APIXABAN 5 MG TABLET PO ×2 (09:29→19:58)
[2024-03-09] MEDS: Ezetimibe 10 MG Tablet PO (09:29)
[2024-03-09] MEDS: Nystatin Powder 15gm Bottle 1 APPLIC TOPICAL ×2 (09:30→19:59)
[2024-03-09] MEDS: Clobetasol Propionate 0.05% Ointment 1 APPLIC TOPICAL ×2 (09:30→19:59)
[2024-03-09] MEDS: Fluticasone 0.05% 1 SPRAY NASAL.SRY 2 SPRAY NASAL (09:30)
[2024-03-09] MEDS: Tamsulosin HCl 0.4 MG Capsule PO (17:46)
[2024-03-09] MEDS: Atorvastatin Calcium 80 MG Tablet PO (19:58)
[2024-03-10 05:59] LABS: Absolute Lymphocyte Count 2.11 X10^3/uL (0.83-4.51); Absolute Neutrophil Count 5.2 X10^3/uL (2.0-7.7); Basophil# 0.03 X10^3/uL; Basophil% 0.3 % (0-1); Eosinophil# 0.53 X10^3/uL; Eosinophils% 5.9 % (0-5); Hematocrit 33.2 % (40-54); Hemoglobin 10.4 g/dL (13.0-16.5); Lymphocyte # 2.11 X10^3/ul (0.83-4.51); Lymphocyte % 23.6 % (19-41); Mean Corp Hgb Conc 31.3 g/dL (32-36); Mean Corpuscular Hgb 30.1 pg (27.0-32.0); Mean Platelet Vol. 11.8 fl (6.2-12.0); Monocyte# 1.01 X10^3/uL; Monocyte% 11.3 % (0-10); NRBC Flagged by Analyzer 0 % (0-5); Neutrophil # 5.22 X10^3/uL (2.7-7.7); Neutrophil % 58.3 % (47-70); Platelet Count 161 K/mm3 (150-450); RBC Distribution Width CV 13.8 % (11.6-14.6); RBC Distribution Width SD 48.3 fl (35.1-43.9); Red Blood Count 3.46 M/mm3 (4.6-6.2)
[2024-03-10 06:52] LABS: Anion Gap 3 (5-15); BUN 31 mg/dL (7-18); BUN/Creat Ratio 35.5 RATIO (10-20); Calcium,Total 8.8 mg/dL (8.5-10.1); Chloride 112 mmol/L (98-107); Creatinine, Serum 0.87 mg/dL (0.70-1.30); EST Glomerular Filtration Rate 89 mL/min (>60); Est Glom Filt Rate - Afr Amer 107 mL/min (>60); Estimated Creatinine Clearance 66.43 ml/min; Glucose 104 mg/dL (74-106); Potassium 4.4 mmol/L (3.5-5.1); Sodium Level 141 mmol/L (136-145)
[2024-03-10 08:10] VITALS: PULSE 74
[2024-03-10] MEDS: Aspirin E.C. 81 MG Tablet PO (08:10)
[2024-03-10] MEDS: Folic Acid 1 MG Tablet PO (08:10)
[2024-03-10] MEDS: Doxycycline 100 MG CAPSULE PO ×2 (08:10→21:31)
[2024-03-10] MEDS: Juven (unflavored) Packet 1 PACKET PO ×2 (08:10→17:41)
[2024-03-10] MEDS: APIXABAN 5 MG TABLET PO ×2 (08:10→21:31)
[2024-03-10] MEDS: Metoprolol(XL)Succ 100 MG Tablet PO (08:10)
[2024-03-10] MEDS: Ezetimibe 10 MG Tablet PO (08:11)
[2024-03-10] MEDS: Fluticasone 0.05% 1 SPRAY NASAL.SRY 2 SPRAY NASAL (08:11)
[2024-03-10] MEDS: Nystatin Powder 15gm Bottle 1 APPLIC TOPICAL ×2 (08:11→21:32)
[2024-03-10] MEDS: Clobetasol Propionate 0.05% Ointment 1 APPLIC TOPICAL ×2 (08:11→21:31)
[2024-03-10 10:29] VITALS: BP 135/45; PULSE 74; RESP 16; TEMP 36.3; O2SAT 97
[2024-03-10] MEDS: Tamsulosin HCl 0.4 MG Capsule PO (17:41)
[2024-03-10] MEDS: Atorvastatin Calcium 80 MG Tablet PO (21:31)
[2024-03-11 09:01] VITALS: PULSE 88
[2024-03-11] MEDS: Juven (unflavored) Packet 1 PACKET PO ×2 (09:01→16:11)
[2024-03-11] MEDS: Metoprolol(XL)Succ 100 MG Tablet PO (09:01)
[2024-03-11] MEDS: Doxycycline 100 MG CAPSULE PO ×2 (09:01→22:31)
[2024-03-11] MEDS: APIXABAN 5 MG TABLET PO ×2 (09:01→22:31)
[2024-03-11] MEDS: Folic Acid 1 MG Tablet PO (09:01)
[2024-03-11] MEDS: Aspirin E.C. 81 MG Tablet PO (09:01)
[2024-03-11] MEDS: Fluticasone 0.05% 1 SPRAY NASAL.SRY 2 SPRAY NASAL (09:02)
[2024-03-11] MEDS: Ezetimibe 10 MG Tablet PO (09:02)
[2024-03-11] MEDS: Clobetasol Propionate 0.05% Ointment 1 APPLIC TOPICAL ×2 (09:03→22:31)
[2024-03-11] MEDS: Nystatin Powder 15gm Bottle 1 APPLIC TOPICAL ×2 (09:03→22:31)
--- NOTE | 2024-03-11 09:23 | CASEMGMT ---
Social Work SW left VM with , requesting a return call. Son's phone number is not in chart. PATEL AbarcaW
--- NOTE | 2024-03-11 14:33 | CASEMGMT ---
Social Work SW phoned to request son's phone number - received. stated son works from 12-5 today, and it would be better to call him another day. SW to follow up on the next business day (Thursday). Emily Green, SALES AND MANAGEMENT TRAINEE BLACKTOP SPREADER
[2024-03-11 14:48] VITALS: BP 125/47; PULSE 58; RESP 19; TEMP 35.8; O2SAT 98
[2024-03-11] MEDS: Tamsulosin HCl 0.4 MG Capsule PO (16:11)
[2024-03-11 22:30] VITALS: PULSE 70; O2SAT 99
[2024-03-11] MEDS: Atorvastatin Calcium 80 MG Tablet PO (22:31)
[2024-03-12 05:14] VITALS: PULSE 59; O2SAT 98
[2024-03-12] MEDS: Doxycycline 100 MG CAPSULE PO ×2 (07:55→22:38)
[2024-03-12] MEDS: Fluticasone 0.05% 1 SPRAY NASAL.SRY 2 SPRAY NASAL (07:55)
[2024-03-12] MEDS: Juven (unflavored) Packet 1 PACKET PO ×2 (07:55→16:41)
[2024-03-12] MEDS: APIXABAN 5 MG TABLET PO ×2 (07:55→22:38)
[2024-03-12] MEDS: Folic Acid 1 MG Tablet PO (07:55)
[2024-03-12] MEDS: Aspirin E.C. 81 MG Tablet PO (07:55)
[2024-03-12] MEDS: Ezetimibe 10 MG Tablet PO (07:56)
[2024-03-12] MEDS: Nystatin Powder 15gm Bottle 1 APPLIC TOPICAL ×2 (07:56→22:37)
[2024-03-12] MEDS: Clobetasol Propionate 0.05% Ointment 1 APPLIC TOPICAL ×2 (07:56→22:39)
[2024-03-12 07:57] VITALS: PULSE 63
[2024-03-12] MEDS: Metoprolol(XL)Succ 100 MG Tablet PO (07:57)
[2024-03-12 13:02] VITALS: BP 142/76; PULSE 63; RESP 18; TEMP 36.3; O2SAT 99
[2024-03-12] MEDS: Tamsulosin HCl 0.4 MG Capsule PO (16:41)
[2024-03-12] MEDS: Atorvastatin Calcium 80 MG Tablet PO (22:38)
[2024-03-13] MEDS: Folic Acid 1 MG Tablet PO (08:18)
[2024-03-13] MEDS: Juven (unflavored) Packet 1 PACKET PO ×2 (08:18→16:49)
[2024-03-13] MEDS: APIXABAN 5 MG TABLET PO ×2 (10:13→20:46)
[2024-03-13] MEDS: Aspirin E.C. 81 MG Tablet PO (10:13)
[2024-03-13] MEDS: Doxycycline 100 MG CAPSULE PO ×2 (10:13→20:45)
[2024-03-13] MEDS: Ezetimibe 10 MG Tablet PO (10:14)
[2024-03-13] MEDS: Fluticasone 0.05% 1 SPRAY NASAL.SRY 2 SPRAY NASAL (10:14)
[2024-03-13] MEDS: Clobetasol Propionate 0.05% Ointment 1 APPLIC TOPICAL ×2 (10:16→20:46)
[2024-03-13] MEDS: Nystatin Powder 15gm Bottle 1 APPLIC TOPICAL ×2 (10:16→20:46)
--- NOTE | 2024-03-13 12:02 | NURSING ---
Pt noted to DRAPERY HEAD FORMER this am that his was planning to take him out today at lunch.DRAPERY HEAD FORMER informed pt that AMANDO is required. This nurse spoke with pt and confirmed this policy. Pt verbalized understanding an acknowledged that his would bring dinner here. Discussed alternative of leaving the floor in wheelchair for change of scenery as long as he stayed on hospital grounds. Pt spouse arrived and expressed frustration that no one had previously advised them of this policy.
[2024-03-13 15:03] VITALS: BP 124/46; PULSE 63; RESP 17; TEMP 36.6; O2SAT 99
[2024-03-13] MEDS: Tamsulosin HCl 0.4 MG Capsule PO (16:49)
[2024-03-13 20:00] VITALS: PULSE 66; RESP 16; O2SAT 94
[2024-03-13] MEDS: Atorvastatin Calcium 80 MG Tablet PO (20:46)
[2024-03-14 07:51] VITALS: BP 143/47; PULSE 73; RESP 17; TEMP 36.5; O2SAT 97
[2024-03-14] MEDS: APIXABAN 5 MG TABLET PO ×2 (07:59→21:01)
[2024-03-14] MEDS: Doxycycline 100 MG CAPSULE PO ×2 (07:59→21:01)
[2024-03-14] MEDS: Folic Acid 1 MG Tablet PO (07:59)
[2024-03-14] MEDS: Aspirin E.C. 81 MG Tablet PO (07:59)
[2024-03-14 08:00] VITALS: PULSE 73
[2024-03-14] MEDS: Fluticasone 0.05% 1 SPRAY NASAL.SRY 2 SPRAY NASAL (08:00)
[2024-03-14] MEDS: Nystatin Powder 15gm Bottle 1 APPLIC TOPICAL ×2 (08:00→21:01)
[2024-03-14] MEDS: Clobetasol Propionate 0.05% Ointment 1 APPLIC TOPICAL (08:00)
[2024-03-14] MEDS: Metoprolol(XL)Succ 100 MG Tablet PO (08:00)
[2024-03-14] MEDS: Ezetimibe 10 MG Tablet PO (08:01)
[2024-03-14] MEDS: Juven (unflavored) Packet 1 PACKET PO ×2 (08:42→17:41)
--- NOTE | 2024-03-14 15:05 | CASEMGMT ---
Social Work SW left with son requesting return call. Emily Green, MILLER HELPER DISTILLERY CROSSCUTTER ROLLED GLASS
[2024-03-14] MEDS: Tamsulosin HCl 0.4 MG Capsule PO (17:41)
--- NOTE | 2024-03-14 20:00 | PN.TCU_ITS ---
Subjective Subjective Resident seen, examined. He is in good spirits. He has no new problems, concerns, issues, complaints. Objective Data Objective Data Vital Signs: Vital Signs Temp Pulse Resp BP Pulse Ox O2 Del Method 97.7 F L 73 17 143/47 H 97 Room Air 03/14/24 07:51 03/14/24 08:00 03/14/24 07:51 03/14/24 07:51 03/14/24 07:51 03/14/24 07:51 Oxygen Delivery Method Room Air Weight: 78.018 kg Body Mass Index (BMI) 24.7 Intake & Output: Intake and Output for Last 24 Hours 03/12/24 03/13/24 03/14/24 23:59 23:59 23:59 Intake Total 1200 / 1200 1020 / 1020 960 / 960 Output Total 400 / 400 900 / 900 Balance 800 / 800 1020 / 1020 60 / 60 Lab / Micro Data 03/10/24 05:08 03/10/24 05:08 Micro: Microbiology 03/08/24 05:00 Nasal Secretion SARS-CoV-2 Antigen (Rapid) - Final 02/25/24 07:15 Stool Stool Occult Blood (BRIANA) - Final Occult Blood Positive 02/18/24 11:41 Urine, Catheterized Urine Culture - Final Culture exhibits no growth. 02/18/24 11:12 Mucosa - Nasopharyngeal Respiratory Panel (PCR) - Final 02/18/24 11:17 Nasal Secretion SARS-CoV-2 Antigen (Rapid) - Final Physical Exam Const alert General Appearance: cooperative HEENT normocephalic Eyes PERRL and EOMs intact bilaterally Neck supple, no JVD and no carotid bruits Resp normal respiratory effort, normal air movement and clear to auscultation bilaterally Cardio regular rate and regular rhythm GI normal to inspection, nondistended, normoactive bowel sounds, non-tender and non-distended Extremity normal capillary refill Extremity Narrative: Right foot dressed. General Extremity: Negative for edema Skin no rashes or lesions noted General Skin Exam: no breakdown Psych affect normal Appearance: appropriate Assessment & Plan Assessment/Plan (1) Debility: (2) Gangrene of toe of right foot: (3) Acute encephalopathy: (4) Stroke: (5) Status post transmetatarsal amputation of right foot: (6) Acute kidney injury: (7) Essential (primary) hypertension: (8) Hyperlipidemia: (9) Atrial fibrillation: (10) GERD (gastroesophageal reflux disease): (11) Chronic heart failure with preserved ejection fraction (HFpEF): (12) Coronary artery disease: (13) MYRON (obstructive sleep apnea): (14) Venous insufficiency: PLAN: Plan 83 year old male with below past medical history hospitalized for acute encephalopathy 2/2 left occipital stroke, complicated by right foot gangrene requiring transmetatarsal amputation, acute kidney injury, admitted to TCU with debility, here for rehabilitation, strengthening, prior to discharge home with . * Debility - PT/OT/ST. * Pain - Tylenol 1000mg q6 prn pain (1-5), Oxycodone 2.5mg q4 prn pain (6-10). * Bowel - senna/colace 1 tablet bid prn, Magnesium citrate 300ml po daily prn. * Adult immunization - Administer pneumonia vaccine, covid vaccine, flu vaccine as appropriate. * DVT prophylaxis - on Eliquis. * Hypertension - Metoprolol succinate 100mg daily. * Atrial fibrillation - Metoprolol succinate 100mg daily, Eliquis 5mg bid. * Coronary artery disease - Metoprolol succinate 100mg daily, Aspirin 81mg daily. * Left occipital stroke - Eliquis 5mg bid, Aspirin 81mg daily, consider deescalating to Eliquis alone. * Hyperlipidemia - Atorvastatin 80mg qhs, Zetia 10mg daily. * Rash - Clobetasol cream topical bid. * Allergic rhinitis - Fluticasone nasal spray 2 sprays nasal daily. * Folate deficiency - Folic acid 1mg daily. * Chronic HFpEF - Metoprolol succinate 100mg daily. * Skin irritation - Calmoseptine topical bid. * Right foot gangrene s/p transmetatarsal amputation - culture Morganella Morganii, Doxycycline 100mg bid thru 03/17/2024, Prasanth 1 packet bidcm. * Alcohol withdrawal - Lorazepam 0.5mg q4 prn. * Tinea corporis - Nystatin powder topical bid. * BPH - Tamsulosin 0.4mg daily.
[2024-03-14] MEDS: Atorvastatin Calcium 80 MG Tablet PO (21:01)
[2024-03-15] MEDS: Doxycycline 100 MG CAPSULE PO ×2 (08:16→19:58)
[2024-03-15] MEDS: Nystatin Powder 15gm Bottle 1 APPLIC TOPICAL (08:16)
[2024-03-15] MEDS: Folic Acid 1 MG Tablet PO (08:16)
[2024-03-15] MEDS: APIXABAN 5 MG TABLET PO ×2 (08:16→19:59)
[2024-03-15] MEDS: Juven (unflavored) Packet 1 PACKET PO ×2 (08:16→16:50)
[2024-03-15] MEDS: Fluticasone 0.05% 1 SPRAY NASAL.SRY 2 SPRAY NASAL (08:16)
[2024-03-15] MEDS: Aspirin E.C. 81 MG Tablet PO (08:16)
[2024-03-15 08:17] VITALS: PULSE 60
[2024-03-15] MEDS: Metoprolol(XL)Succ 100 MG Tablet PO (08:17)
[2024-03-15] MEDS: Clobetasol Propionate 0.05% Ointment 1 APPLIC TOPICAL (08:17)
[2024-03-15] MEDS: Ezetimibe 10 MG Tablet PO (08:17)
[2024-03-15 09:55] VITALS: BMI 25.3
--- NOTE | 2024-03-15 10:41 | CASEMGMT ---
Social Work SW received return call from son. Son has returned to [place] and states is aware of pt's needs and can be involved in DC planning, though questioned DC timeframe as son thought pt had 70 days remaining under insurance. SW educated to Medicare benefit - 100 days in the period, but no days are automatic; pt has to continue meeting skilled criteria for Medicare to continue with coverage. SW explained IDT is unsure how much longer pt will be admitted, but this worker is proactively planning for DC as recommendations at the time of DC will not change from 24/ care. Son expressed understanding and deferred to his mother for further discussion. SW phoned to discuss DC planning. immediately yelled at this worker, he's not ready for discharge!. SW agreed and explained this worker is proactively planning for DC to ensure when the time arrives, DC is smooth and well prepared. SW explained the DC recommendation for 247 care and inquired if that would be in a SNF or in the home with assistance. replied, you're not putting him in a mcfp! He can't even come home yet. He can't put weight on that foot. Why are wanting to kick him out?!. SW again reiterated the purpose of the phone call is to plan for DC, not setting a DC date, acknowledging pt does have nursing and therapy needs. However, explained, unsure how long Medicare will approve continued stay and this worker wanted to prepare for DC and assist with the planning. replied that she needed to consult her attorney law clerk with what the plans will be, but he is coming home. SW explained additional assistance will be needed at home, as pt cannot be left alone. Offered to send list of nonskilled OFFICE SERVICES REPRESENTATIVE resources to begin contacting for availability and pricing. continued to refute pt's readiness to DC, raising her voice and arguing with this worker. SW continued to attempt to explain the purpose of the phone call and offering this worker's assistance for planning. stated, we will just wait to see when Medicare kicks him out and make a decision then. SW explained the DC planning is better to ocur prior to when that decision is made, as Medicare only requires a 3 day advanced notice for a DC date. This worker explained the goal is to be prepared and have a smooth DC. Again offering to send list of resources to begin contacting agencies. did agree to get an email of resources. SW sent email and will continue to follow for DC planning assistance. Emily Green, EXTRACTOR MACHINE OPERATOR HYDROGEN PLANT OPERATIONS MANAGER
[2024-03-15 10:54] VITALS: BP 113/50; PULSE 60; RESP 18; TEMP 36.4; O2SAT 97
--- NOTE | 2024-03-15 15:48 | WOUNDNOTE ---
Pt off unit for appt.
--- NOTE | 2024-03-15 16:18 | NURSING ---
returned for appointment. NNO.
[2024-03-15] MEDS: Tamsulosin HCl 0.4 MG Capsule PO (16:50)
[2024-03-15] MEDS: Atorvastatin Calcium 80 MG Tablet PO (19:59)
[2024-03-16 08:59] VITALS: PULSE 68
[2024-03-16] MEDS: Juven (unflavored) Packet 1 PACKET PO ×2 (08:59→16:22)
[2024-03-16] MEDS: Metoprolol(XL)Succ 100 MG Tablet PO (08:59)
[2024-03-16] MEDS: Folic Acid 1 MG Tablet PO (09:00)
[2024-03-16] MEDS: APIXABAN 5 MG TABLET PO ×2 (09:01→20:26)
[2024-03-16] MEDS: Doxycycline 100 MG CAPSULE PO ×2 (09:01→20:26)
[2024-03-16] MEDS: Aspirin E.C. 81 MG Tablet PO (09:01)
[2024-03-16] MEDS: Ezetimibe 10 MG Tablet PO (09:01)
[2024-03-16] MEDS: Fluticasone 0.05% 1 SPRAY NASAL.SRY 2 SPRAY NASAL (09:03)
[2024-03-16] MEDS: Clobetasol Propionate 0.05% Ointment 1 APPLIC TOPICAL ×2 (09:04→20:27)
[2024-03-16] MEDS: Nystatin Powder 15gm Bottle 1 APPLIC TOPICAL ×2 (09:07→20:27)
[2024-03-16 14:54] VITALS: BP 113/70; PULSE 64; RESP 18; TEMP 36.2; O2SAT 99
--- NOTE | 2024-03-16 14:58 | WOUNDNOTE ---
wound photo: right foot
--- NOTE | 2024-03-16 14:58 | WOUNDNOTE ---
wound photo: right foot
--- NOTE | 2024-03-16 14:59 | WOUNDNOTE ---
wound photo: right heel
[2024-03-16] MEDS: Tamsulosin HCl 0.4 MG Capsule PO (16:30)
[2024-03-16] MEDS: Atorvastatin Calcium 80 MG Tablet PO (20:26)
--- NOTE | 2024-03-17 05:17 | NURSING ---
patient refused labs this AM per armed custom protection officer, written communication left for Dr. Horne
[2024-03-17] MEDS: Fluticasone 0.05% 1 SPRAY NASAL.SRY 2 SPRAY NASAL (07:51)
[2024-03-17] MEDS: Aspirin E.C. 81 MG Tablet PO (07:52)
[2024-03-17] MEDS: Ezetimibe 10 MG Tablet PO (07:52)
[2024-03-17] MEDS: Folic Acid 1 MG Tablet PO (07:52)
[2024-03-17] MEDS: Juven (unflavored) Packet 1 PACKET PO ×2 (07:54→17:21)
[2024-03-17] MEDS: Doxycycline 100 MG CAPSULE PO ×2 (07:54→20:47)
[2024-03-17] MEDS: APIXABAN 5 MG TABLET PO ×2 (07:54→20:46)
[2024-03-17] MEDS: Clobetasol Propionate 0.05% Ointment 1 APPLIC TOPICAL ×2 (08:00→20:47)
[2024-03-17] MEDS: Nystatin Powder 15gm Bottle 1 APPLIC TOPICAL ×2 (08:01→20:47)
[2024-03-17 09:07] LABS: Absolute Lymphocyte Count 2.27 X10^3/uL (0.83-4.51); Absolute Neutrophil Count 6.4 X10^3/uL (2.0-7.7); Basophil# 0.05 X10^3/uL; Basophil% 0.5 % (0-1); Eosinophil# 0.53 X10^3/uL; Eosinophils% 5.2 % (0-5); Hematocrit 37.6 % (40-54); Hemoglobin 11.5 g/dL (13.0-16.5); Lymphocyte # 2.27 X10^3/ul (0.83-4.51); Lymphocyte % 22.3 % (19-41); Mean Corp Hgb Conc 30.6 g/dL (32-36); Mean Corpuscular Hgb 30.2 pg (27.0-32.0); Mean Corpuscular Volume 98.7 fL (80-94); Mean Platelet Vol. 11.9 fl (6.2-12.0); Monocyte# 0.85 X10^3/uL; Monocyte% 8.4 % (0-10); NRBC Flagged by Analyzer 0 % (0-5); Neutrophil # 6.41 X10^3/uL (2.7-7.7); Platelet Count 172 K/mm3 (150-450); RBC Distribution Width CV 14.3 % (11.6-14.6); RBC Distribution Width SD 51.7 fl (35.1-43.9); Red Blood Count 3.81 M/mm3 (4.6-6.2); White Blood Count 10.2 K/mm3 (4.4-11.0)
[2024-03-17 09:26] LABS: Anion Gap 7 (5-15); BUN 29 mg/dL (7-18); BUN/Creat Ratio 29.7 RATIO (10-20); Calcium,Total 9.2 mg/dL (8.5-10.1); Chloride 110 mmol/L (98-107); Creatinine, Serum 0.98 mg/dL (0.70-1.30); EST Glomerular Filtration Rate 78 mL/min (>60); Est Glom Filt Rate - Afr Amer 94 mL/min (>60); Estimated Creatinine Clearance 58.97 ml/min; Glucose 169 mg/dL (74-106); Potassium 4.3 mmol/L (3.5-5.1); Sodium Level 140 mmol/L (136-145)
[2024-03-17 10:00] VITALS: BP 160/46; PULSE 65
[2024-03-17] MEDS: Metoprolol(XL)Succ 100 MG Tablet PO (10:00)
[2024-03-17 10:06] VITALS: BP 160/46; PULSE 65; RESP 18; TEMP 36.6; O2SAT 98
--- NOTE | 2024-03-17 14:18 | NURSING ---
pt received skin tear to left lower leg during therapy, hitting leg on wheel chair. Wound cleaned and DSD applied. pt tolerated well and continued with therapy.
[2024-03-17] MEDS: Tamsulosin HCl 0.4 MG Capsule PO (17:21)
[2024-03-17] MEDS: Atorvastatin Calcium 80 MG Tablet PO (20:46)
[2024-03-17 21:50] VITALS: O2SAT 97
[2024-03-18 06:51] VITALS: PULSE 70; O2SAT 99
[2024-03-18 08:07] VITALS: BP 127/46; PULSE 60; RESP 17; TEMP 36.1; O2SAT 97
[2024-03-18] MEDS: Folic Acid 1 MG Tablet PO (08:10)
[2024-03-18] MEDS: Juven (unflavored) Packet 1 PACKET PO ×2 (08:10→16:30)
[2024-03-18] MEDS: Aspirin E.C. 81 MG Tablet PO (08:11)
[2024-03-18] MEDS: Fluticasone 0.05% 1 SPRAY NASAL.SRY 2 SPRAY NASAL (08:11)
[2024-03-18] MEDS: Clobetasol Propionate 0.05% Ointment 1 APPLIC TOPICAL ×2 (08:11→20:41)
[2024-03-18] MEDS: Nystatin Powder 15gm Bottle 1 APPLIC TOPICAL ×2 (08:11→20:39)
[2024-03-18] MEDS: APIXABAN 5 MG TABLET PO ×2 (08:11→20:39)
[2024-03-18 08:12] VITALS: PULSE 60
[2024-03-18] MEDS: Metoprolol(XL)Succ 100 MG Tablet PO (08:12)
[2024-03-18] MEDS: Ezetimibe 10 MG Tablet PO (08:12)
--- NOTE | 2024-03-18 13:15 | CASEMGMT ---
Social Work SW received call from [facility], attorney law clerk of pt and , to request updates and discuss DC needs. Field Superintendent explained is under the understanding that pt is being discharged on 03/23. SW corrected attorney law clerk, there is not DC date. SW explained this worker's conversation with . Explaining the goal was to plan for DC as IDT is recommending 24/7 care and wanted to discuss those options. SW expressed IDTs concern with 's ability to remember and comprehend information. Field Superintendent acknowledged, hence, his involvement now with discharge planning. After much explanation and discussion, attorney law clerk is in agreement with IDT on pt transferring to SNF to continue meeting his care needs. is unable to care for pt at home. SW explained this worker can provide SNF list and complete referrals. Field Superintendent appreciative and will follow up with . Field Superintendent will contact this worker with outcome and obtain list to select preferences. Field Superintendent is going to discuss information with pt's butcher's assistant as well. SW appreciative of phone call and assistance in DC planning. Will continue to follow. PATEL AbarcaW
[2024-03-18] MEDS: Tamsulosin HCl 0.4 MG Capsule PO (16:30)
[2024-03-18] MEDS: Atorvastatin Calcium 80 MG Tablet PO (20:39)
[2024-03-19] MEDS: Juven (unflavored) Packet 1 PACKET PO ×2 (10:16→17:06)
[2024-03-19 10:17] VITALS: BP 126/48; PULSE 54
[2024-03-19] MEDS: Folic Acid 1 MG Tablet PO (10:17)
[2024-03-19] MEDS: Metoprolol(XL)Succ 100 MG Tablet PO (10:17)
[2024-03-19] MEDS: Aspirin E.C. 81 MG Tablet PO (10:19)
[2024-03-19] MEDS: Ezetimibe 10 MG Tablet PO (10:19)
[2024-03-19] MEDS: Nystatin Powder 15gm Bottle 1 APPLIC TOPICAL ×2 (10:21→20:22)
[2024-03-19 12:03] VITALS: BP 126/48; PULSE 54; RESP 16; TEMP 36.6; O2SAT 98
--- NOTE | 2024-03-19 15:22 | NURSING ---
Dr. Horne contacted regarding patient having nose bleeds and on Eliquis. Eliquis placed on hold until 02/19 and NO for saline nasal spray.
[2024-03-19] MEDS: Tamsulosin HCl 0.4 MG Capsule PO (17:06)
[2024-03-19 20:15] VITALS: PULSE 55; O2SAT 95
[2024-03-19] MEDS: Clobetasol Propionate 0.05% Ointment 1 APPLIC TOPICAL (20:22)
[2024-03-19] MEDS: Atorvastatin Calcium 80 MG Tablet PO (20:22)
[2024-03-20] MEDS: Aspirin E.C. 81 MG Tablet PO (09:52)
[2024-03-20] MEDS: Juven (unflavored) Packet 1 PACKET PO ×2 (09:52→17:47)
[2024-03-20] MEDS: Folic Acid 1 MG Tablet PO (09:52)
[2024-03-20] MEDS: Ezetimibe 10 MG Tablet PO (09:54)
[2024-03-20 10:03] VITALS: BP 123/48; PULSE 65
[2024-03-20] MEDS: Metoprolol(XL)Succ 100 MG Tablet PO (10:03)
[2024-03-20] MEDS: Nystatin Powder 15gm Bottle 1 APPLIC TOPICAL ×2 (10:14→20:39)
[2024-03-20 11:01] VITALS: PULSE 62; RESP 16; O2SAT 97
[2024-03-20 11:24] VITALS: BP 123/48; PULSE 65; RESP 18; TEMP 36.6; O2SAT 97
[2024-03-20] MEDS: Tamsulosin HCl 0.4 MG Capsule PO (17:47)
[2024-03-20] MEDS: Clobetasol Propionate 0.05% Ointment 1 APPLIC TOPICAL (20:39)
[2024-03-20] MEDS: Atorvastatin Calcium 80 MG Tablet PO (20:39)
[2024-03-21] MEDS: Aspirin E.C. 81 MG Tablet PO (09:21)
[2024-03-21] MEDS: Folic Acid 1 MG Tablet PO (09:21)
[2024-03-21] MEDS: APIXABAN 5 MG TABLET PO ×2 (09:21→20:54)
[2024-03-21] MEDS: Juven (unflavored) Packet 1 PACKET PO ×2 (09:21→18:07)
[2024-03-21] MEDS: Nystatin Powder 15gm Bottle 1 APPLIC TOPICAL ×2 (09:22→20:55)
[2024-03-21] MEDS: Ezetimibe 10 MG Tablet PO (09:22)
[2024-03-21 09:27] VITALS: PULSE 53
[2024-03-21 09:30] VITALS: BP 115/47; PULSE 53; RESP 16; O2SAT 97
[2024-03-21 12:45] VITALS: BP 132/48; PULSE 57; RESP 18; TEMP 36.4; O2SAT 96
--- NOTE | 2024-03-21 14:36 | WOUNDNOTE ---
wound photo: right foot
--- NOTE | 2024-03-21 14:37 | WOUNDNOTE ---
wound photo: right foot
--- NOTE | 2024-03-21 14:37 | WOUNDNOTE ---
wound photo: right heel
[2024-03-21] MEDS: Tamsulosin HCl 0.4 MG Capsule PO (18:06)
[2024-03-21 20:00] VITALS: PULSE 62; O2SAT 98
[2024-03-21] MEDS: Atorvastatin Calcium 80 MG Tablet PO (20:55)
[2024-03-21] MEDS: Clobetasol Propionate 0.05% Ointment 1 APPLIC TOPICAL (20:55)
[2024-03-22 09:00] VITALS: BMI 25.6
[2024-03-22] MEDS: APIXABAN 5 MG TABLET PO ×2 (09:34→22:23)
[2024-03-22] MEDS: Folic Acid 1 MG Tablet PO (09:34)
[2024-03-22] MEDS: Juven (unflavored) Packet 1 PACKET PO ×2 (09:34→17:17)
[2024-03-22] MEDS: Aspirin E.C. 81 MG Tablet PO (09:34)
[2024-03-22] MEDS: Clobetasol Propionate 0.05% Ointment 1 APPLIC TOPICAL ×2 (09:34→22:23)
[2024-03-22] MEDS: Ezetimibe 10 MG Tablet PO (09:34)
[2024-03-22 09:35] VITALS: PULSE 90
[2024-03-22] MEDS: Metoprolol(XL)Succ 100 MG Tablet PO (09:35)
[2024-03-22] MEDS: Nystatin Powder 15gm Bottle 1 APPLIC TOPICAL ×2 (09:35→22:23)
[2024-03-22 11:13] VITALS: BP 154/61; PULSE 90; RESP 18; TEMP 36.5; O2SAT 96
[2024-03-22] MEDS: Tamsulosin HCl 0.4 MG Capsule PO (17:17)
[2024-03-22] MEDS: Atorvastatin Calcium 80 MG Tablet PO (22:23)
[2024-03-23 08:44] VITALS: BP 109/50; PULSE 67; RESP 17; TEMP 36.8; O2SAT 95
[2024-03-23] MEDS: Juven (unflavored) Packet 1 PACKET PO ×2 (08:46→17:33)
[2024-03-23] MEDS: Aspirin E.C. 81 MG Tablet PO (08:46)
[2024-03-23] MEDS: Folic Acid 1 MG Tablet PO (08:46)
[2024-03-23 08:47] VITALS: PULSE 67
[2024-03-23] MEDS: Clobetasol Propionate 0.05% Ointment 1 APPLIC TOPICAL ×2 (08:47→21:13)
[2024-03-23] MEDS: Metoprolol(XL)Succ 100 MG Tablet PO (08:47)
[2024-03-23] MEDS: APIXABAN 5 MG TABLET PO ×2 (08:47→21:15)
[2024-03-23] MEDS: Fluticasone 0.05% 1 SPRAY NASAL.SRY 2 SPRAY NASAL (08:47)
[2024-03-23] MEDS: Ezetimibe 10 MG Tablet PO (08:48)
[2024-03-23] MEDS: Nystatin Powder 15gm Bottle 1 APPLIC TOPICAL ×2 (08:52→21:14)
--- NOTE | 2024-03-23 11:22 | NURSING ---
Addendum entered by Gerber Beauchamp 03/23/24 15:10: Patient returned to the unit at this time. Original Note: Patient exiting the unit at this time for appt.
--- NOTE | 2024-03-23 16:34 | CASEMGMT ---
Addendum entered by Emily Green 03/24/24 16:26: SW sent referral to [facility] via [facility]Port. Original Note: Social Work SW contacted [facility], requested wholesale agronomist Marc Manzano's email address to follow up with DC planning discussions. Email received. KEILA sent secure email to follow up. Marc responded for this worker to contact pt's assistant food service director, Erin Mahan, to send SNF list for her to discuss with on decisions. All parties in agreement pt will need SNF at [place]. Erin's email provided to this worker. SW emailed Erin and sent list of SNFs in [facility] including quality and resource data via CarePort Guide link, requesting list of choices to place referrals. Once there is an accepting facility, IDT to set DC date. KEILA will continue to follow. PATEL Abarca
[2024-03-23] MEDS: Tamsulosin HCl 0.4 MG Capsule PO (17:33)
[2024-03-23 21:15] VITALS: PULSE 70; O2SAT 94
[2024-03-23] MEDS: Atorvastatin Calcium 80 MG Tablet PO (21:15)
[2024-03-24] MEDS: Juven (unflavored) Packet 1 PACKET PO ×2 (07:55→17:55)
[2024-03-24] MEDS: Folic Acid 1 MG Tablet PO (07:55)
[2024-03-24] MEDS: Fluticasone 0.05% 1 SPRAY NASAL.SRY 2 SPRAY NASAL (07:56)
[2024-03-24] MEDS: Aspirin E.C. 81 MG Tablet PO (07:56)
[2024-03-24] MEDS: APIXABAN 5 MG TABLET PO ×2 (07:56→21:57)
[2024-03-24] MEDS: Nystatin Powder 15gm Bottle 1 APPLIC TOPICAL ×2 (07:58→21:58)
[2024-03-24] MEDS: Ezetimibe 10 MG Tablet PO (08:00)
[2024-03-24 08:01] VITALS: BP 154/59; PULSE 62
[2024-03-24] MEDS: Clobetasol Propionate 0.05% Ointment 1 APPLIC TOPICAL ×2 (08:01→21:58)
[2024-03-24] MEDS: Metoprolol(XL)Succ 100 MG Tablet PO (08:01)
[2024-03-24 09:00] VITALS: BP 154/59; PULSE 62; RESP 18; TEMP 36.7; O2SAT 98
[2024-03-24] MEDS: Tamsulosin HCl 0.4 MG Capsule PO (17:56)
[2024-03-24] MEDS: Atorvastatin Calcium 80 MG Tablet PO (21:58)
[2024-03-25] MEDS: Folic Acid 1 MG Tablet PO (07:45)
[2024-03-25] MEDS: Juven (unflavored) Packet 1 PACKET PO ×2 (07:45→18:20)
[2024-03-25 10:00] VITALS: PULSE 62; O2SAT 97
[2024-03-25] MEDS: Ezetimibe 10 MG Tablet PO (10:17)
[2024-03-25] MEDS: Aspirin E.C. 81 MG Tablet PO (10:17)
[2024-03-25] MEDS: APIXABAN 5 MG TABLET PO ×2 (10:17→20:17)
[2024-03-25] MEDS: Fluticasone 0.05% 1 SPRAY NASAL.SRY 2 SPRAY NASAL (10:17)
[2024-03-25] MEDS: Nystatin Powder 15gm Bottle 1 APPLIC TOPICAL ×2 (10:18→20:15)
[2024-03-25] MEDS: Clobetasol Propionate 0.05% Ointment 1 APPLIC TOPICAL ×2 (10:18→20:16)
[2024-03-25 10:27] VITALS: BP 130/52; PULSE 57
[2024-03-25] MEDS: Metoprolol(XL)Succ 100 MG Tablet PO (10:27)
--- NOTE | 2024-03-25 15:00 | WOUNDNOTE ---
wound photo: right foot
--- NOTE | 2024-03-25 15:01 | WOUNDNOTE ---
wound photo: right foot
[2024-03-25 15:10] VITALS: BP 120/49; PULSE 59; RESP 18; TEMP 36.2; O2SAT 99
[2024-03-25] MEDS: Tamsulosin HCl 0.4 MG Capsule PO (18:20)
[2024-03-25] MEDS: Atorvastatin Calcium 80 MG Tablet PO (20:18)
[2024-03-26 09:15] VITALS: PULSE 56
[2024-03-26] MEDS: Folic Acid 1 MG Tablet PO (09:15)
[2024-03-26] MEDS: Fluticasone 0.05% 1 SPRAY NASAL.SRY 2 SPRAY NASAL (09:15)
[2024-03-26] MEDS: Nystatin Powder 15gm Bottle 1 APPLIC TOPICAL ×2 (09:15→20:52)
[2024-03-26] MEDS: Aspirin E.C. 81 MG Tablet PO (09:15)
[2024-03-26] MEDS: Juven (unflavored) Packet 1 PACKET PO ×2 (09:15→17:09)
[2024-03-26] MEDS: Metoprolol(XL)Succ 100 MG Tablet PO (09:15)
[2024-03-26] MEDS: Clobetasol Propionate 0.05% Ointment 1 APPLIC TOPICAL (09:15)
[2024-03-26] MEDS: APIXABAN 5 MG TABLET PO ×2 (09:15→20:49)
[2024-03-26] MEDS: Ezetimibe 10 MG Tablet PO (09:16)
[2024-03-26 13:54] VITALS: BP 118/43; PULSE 56; RESP 18; TEMP 36.2; O2SAT 97
[2024-03-26] MEDS: Tamsulosin HCl 0.4 MG Capsule PO (17:09)
[2024-03-26] MEDS: Atorvastatin Calcium 80 MG Tablet PO (20:50)
[2024-03-27] MEDS: Juven (unflavored) Packet 1 PACKET PO ×2 (08:51→17:13)
[2024-03-27] MEDS: APIXABAN 5 MG TABLET PO ×2 (08:51→20:18)
[2024-03-27] MEDS: Fluticasone 0.05% 1 SPRAY NASAL.SRY 2 SPRAY NASAL (08:51)
[2024-03-27] MEDS: Folic Acid 1 MG Tablet PO (08:51)
[2024-03-27] MEDS: Aspirin E.C. 81 MG Tablet PO (08:51)
[2024-03-27 08:52] VITALS: PULSE 65
[2024-03-27] MEDS: Ezetimibe 10 MG Tablet PO (08:52)
[2024-03-27] MEDS: Metoprolol(XL)Succ 100 MG Tablet PO (08:52)
[2024-03-27] MEDS: Clobetasol Propionate 0.05% Ointment 1 APPLIC TOPICAL (08:52)
[2024-03-27] MEDS: Nystatin Powder 15gm Bottle 1 APPLIC TOPICAL ×2 (08:53→20:19)
[2024-03-27 09:59] VITALS: BP 129/49; PULSE 76; RESP 16; TEMP 36.4; O2SAT 98
[2024-03-27] MEDS: Tamsulosin HCl 0.4 MG Capsule PO (17:13)
[2024-03-27] MEDS: Atorvastatin Calcium 80 MG Tablet PO (20:18)
[2024-03-28 09:01] VITALS: PULSE 57
[2024-03-28] MEDS: Ezetimibe 10 MG Tablet PO (09:01)
[2024-03-28] MEDS: APIXABAN 5 MG TABLET PO ×2 (09:01→20:50)
[2024-03-28] MEDS: Fluticasone 0.05% 1 SPRAY NASAL.SRY 2 SPRAY NASAL (09:01)
[2024-03-28] MEDS: Metoprolol(XL)Succ 100 MG Tablet PO (09:01)
[2024-03-28] MEDS: Folic Acid 1 MG Tablet PO (09:02)
[2024-03-28] MEDS: Aspirin E.C. 81 MG Tablet PO (09:02)
[2024-03-28] MEDS: Juven (unflavored) Packet 1 PACKET PO ×2 (09:03→16:41)
[2024-03-28] MEDS: Nystatin Powder 15gm Bottle 1 APPLIC TOPICAL ×2 (09:06→20:49)
--- NOTE | 2024-03-28 09:10 | CASEMGMT ---
Social Work [facility] clinically accepted pt, but needs to verify financial means for official accepted. KEILA followed up again with Marc and Erin via email, pt's commercial real estate attorney and office clerk assistant, to inquire about FOC, as IDT is going to set a DC date for pt. Emily Green ,FISHING VESSEL MATE SAFETY COUNCIL DIRECTOR
[2024-03-28 14:32] VITALS: BP 125/50; PULSE 55; RESP 16; TEMP 36.4; O2SAT 98
[2024-03-28] MEDS: Tamsulosin HCl 0.4 MG Capsule PO (16:40)
[2024-03-28] MEDS: Clobetasol Propionate 0.05% Ointment 1 APPLIC TOPICAL (20:49)
[2024-03-28] MEDS: Atorvastatin Calcium 80 MG Tablet PO (20:50)
[2024-03-29 09:00] VITALS: BMI 25.8
[2024-03-29] MEDS: Juven (unflavored) Packet 1 PACKET PO ×2 (09:12→16:47)
[2024-03-29] MEDS: Aspirin E.C. 81 MG Tablet PO (09:12)
[2024-03-29] MEDS: Clobetasol Propionate 0.05% Ointment 1 APPLIC TOPICAL ×2 (09:12→20:22)
[2024-03-29] MEDS: APIXABAN 5 MG TABLET PO ×2 (09:12→20:23)
[2024-03-29] MEDS: Folic Acid 1 MG Tablet PO (09:12)
[2024-03-29] MEDS: Fluticasone 0.05% 1 SPRAY NASAL.SRY 2 SPRAY NASAL (09:12)
[2024-03-29] MEDS: Ezetimibe 10 MG Tablet PO (09:12)
[2024-03-29 09:13] VITALS: PULSE 61
[2024-03-29] MEDS: Nystatin Powder 15gm Bottle 1 APPLIC TOPICAL ×2 (09:13→20:20)
[2024-03-29] MEDS: Metoprolol(XL)Succ 100 MG Tablet PO (09:13)
[2024-03-29 13:20] VITALS: BP 132/60; PULSE 61; RESP 18; TEMP 36.5; O2SAT 96
--- NOTE | 2024-03-29 14:12 | CASEMGMT ---
Social Work KEILA sent another email to assistant Erin, under different email address obtained from pt, as no response was being received from Erin. Carried returned email to this worker stating: I received them. I am not the decision maker. I am also confused why there would be a discharge date even his [facility] doctor documented last week concerns with healing and wound care and stated he needed to stay at [facility]. KEILA replied apologizing for the confusion as Marc, pt's commercial attorney, instructed this worker several times to contact Erin and have her assistance with making the DC decision. Upon reply to that email, Marc coincidently phoned this worker. KEILA explained the email correspondence to Marc. Marc was unaware of this response, but will follow up with Erin on the plan moving forward. Marc inquired about the DC planning and options for pt as Marc is understanding a DC date is going to be set, but pt/ have not decided on a plan. KEILA explained the private pay pricing of $660/day, all included, 21 days up front; if pt DCs prior, pt will be reimbursed for funds not used. Marc explained that is likely the route family will choose, as they are comfortable with TCU, but will revisit with Erin and notify this worker. Marc expressed appreciation for this worker's assistance. -- Pt requesting being transferred to IRU. KEILA spoke with appropriate deciding parties, and pt does not qualify for IRU. KEILA spoke with pt to explain pt does not qualify, and reiterated options for discharging home or to W. Pt is adamant about not discharging to W, and will talk to Leandra Monreal [] about going home. but she doesn't want anyone else in the home. KEILA explained this worker is having an IDT meeting and will revisit the timeline for DC and follow up with pt. -- After IDT meeting, the following was concluded, and this worker sent secure email to both Marc, commercial attorney, and assistant Erin. Hi Marc and Erin, I want to make sure we are all on the same page moving forward. I just spoke with our team and concluded the following: Delgado does not qualify to transfer to our Inpatient Rehab Unit. We offered it a few days after his admission, and he and Leandra Monreal denied. Now that he has remained in our TCU under Medicare for this long length of stay, Medicare is not going to pay for him to transfer to that Rehab Unit. He has plateaued in his progress in therapy on TCU, which is also another reason why he cannot transfer units. With that being said, beginning tomorrow, 03/30, he will have 30 minutes per day of therapy, alternating OT and PT. Then OT will stop treating him altogether on 04/06. PT will continue three times a week with 30-minute sessions with an anticipated discharge on 04/13. Starting on 04/14, nursing care will be his primary service. The reduction in therapy is actually a positive because it shows Delgado is doing so well physically, there are no other needs for continued therapy at this high level. However, Delgado will be encouraged to continue participating in the therapy exercises in his room to maintain his strength. If there is a change in his functional levels, therapy will reevaluate. Due to the wound care, Medicare will continue covering his stay on TCU for those needs. Medicare will make the decision on when this service will stop and provide at least a 3-day notice before discharge. The team is in agreement that Delgado can return home at his current level, with 29/12 supervision due to safety, along with someone providing wound care. Medicare will cover a nurse in the home 1-2 times per week and therapy about twice a week, when he does return home. Using the chair-stair method that Carol Ann and Erin observed in therapy, Delgado can complete steps but will need two handrails installed in the entry way steps prior to returning home, or a ramp. I am also going to be providing this exact email to Delgado for his knowledge, which he will share with Leandra Monreal. I hope this is helpful. I am available for any further questions or clarification. Thank you both for your time and assistance with and Mrs. Byers. Erin promptly replied: Thank you for the update!? I will talk with BASIA and make?sure she understands. We are getting railings put in the garage steps at the house but I don't have a definite date from the contractor. This is helpful in planning. Have a nice afternoon and thanks again- SW will continue to follow. PATEL Abarca
--- NOTE | 2024-03-29 15:16 | WOUNDNOTE ---
Nursing had changed dressing with students this am.
[2024-03-29] MEDS: Tamsulosin HCl 0.4 MG Capsule PO (16:47)
[2024-03-29] MEDS: Atorvastatin Calcium 80 MG Tablet PO (20:23)
[2024-03-30] MEDS: Folic Acid 1 MG Tablet PO (08:55)
[2024-03-30] MEDS: Aspirin E.C. 81 MG Tablet PO (08:55)
[2024-03-30] MEDS: Juven (unflavored) Packet 1 PACKET PO ×2 (08:55→16:48)
[2024-03-30] MEDS: APIXABAN 5 MG TABLET PO ×2 (08:55→20:16)
[2024-03-30] MEDS: Ezetimibe 10 MG Tablet PO (08:55)
[2024-03-30 08:56] VITALS: BP 130/58; PULSE 68
[2024-03-30] MEDS: Nystatin Powder 15gm Bottle 1 APPLIC TOPICAL ×2 (08:56→20:17)
[2024-03-30] MEDS: Metoprolol(XL)Succ 100 MG Tablet PO (08:56)
[2024-03-30] MEDS: Fluticasone 0.05% 1 SPRAY NASAL.SRY 2 SPRAY NASAL (08:56)
[2024-03-30] MEDS: Clobetasol Propionate 0.05% Ointment 1 APPLIC TOPICAL ×2 (08:57→20:18)
[2024-03-30 14:13] VITALS: BP 122/50; PULSE 56; RESP 14; TEMP 36.8; O2SAT 96
--- NOTE | 2024-03-30 15:41 | WOUNDNOTE ---
wound photo: right foot
--- NOTE | 2024-03-30 15:42 | WOUNDNOTE ---
wound photo: right foot
[2024-03-30] MEDS: Tamsulosin HCl 0.4 MG Capsule PO (16:48)
[2024-03-30 20:00] VITALS: PULSE 74; RESP 16; O2SAT 95
[2024-03-30] MEDS: Atorvastatin Calcium 80 MG Tablet PO (20:17)
[2024-03-31 08:00] VITALS: BP 152/71; PULSE 63; RESP 17; TEMP 36.7; O2SAT 96
[2024-03-31] MEDS: Juven (unflavored) Packet 1 PACKET PO ×2 (08:01→16:51)
[2024-03-31 08:02] VITALS: BP 152/71; PULSE 63
[2024-03-31] MEDS: Metoprolol(XL)Succ 100 MG Tablet PO (08:02)
[2024-03-31] MEDS: APIXABAN 5 MG TABLET PO ×2 (08:02→20:25)
[2024-03-31] MEDS: Nystatin Powder 15gm Bottle 1 APPLIC TOPICAL (08:02)
[2024-03-31] MEDS: Ezetimibe 10 MG Tablet PO (08:02)
[2024-03-31] MEDS: Aspirin E.C. 81 MG Tablet PO (08:02)
[2024-03-31] MEDS: Fluticasone 0.05% 1 SPRAY NASAL.SRY 2 SPRAY NASAL (08:02)
[2024-03-31] MEDS: Folic Acid 1 MG Tablet PO (08:02)
[2024-03-31] MEDS: Clobetasol Propionate 0.05% Ointment 1 APPLIC TOPICAL (08:03)
[2024-03-31] MEDS: Tamsulosin HCl 0.4 MG Capsule PO (16:51)
[2024-03-31] MEDS: Atorvastatin Calcium 80 MG Tablet PO (20:25)
[2024-04-01 08:28] VITALS: BP 113/44; PULSE 74; RESP 17; TEMP 36.4; O2SAT 92
[2024-04-01] MEDS: Clobetasol Propionate 0.05% Ointment 1 APPLIC TOPICAL ×2 (08:31→20:42)
[2024-04-01] MEDS: Juven (unflavored) Packet 1 PACKET PO ×2 (08:31→17:06)
[2024-04-01] MEDS: APIXABAN 5 MG TABLET PO ×2 (08:31→20:42)
[2024-04-01] MEDS: Aspirin E.C. 81 MG Tablet PO (08:31)
[2024-04-01] MEDS: Nystatin Powder 15gm Bottle 1 APPLIC TOPICAL ×2 (08:31→20:42)
[2024-04-01] MEDS: Folic Acid 1 MG Tablet PO (08:31)
[2024-04-01] MEDS: Fluticasone 0.05% 1 SPRAY NASAL.SRY 2 SPRAY NASAL (08:31)
[2024-04-01 08:32] VITALS: PULSE 74
[2024-04-01] MEDS: Metoprolol(XL)Succ 100 MG Tablet PO (08:32)
[2024-04-01] MEDS: Ezetimibe 10 MG Tablet PO (08:32)
--- NOTE | 2024-04-01 10:31 | NURSING ---
Patient refusing routine weekly labs.
[2024-04-01] MEDS: Tamsulosin HCl 0.4 MG Capsule PO (17:06)
[2024-04-01] MEDS: Atorvastatin Calcium 80 MG Tablet PO (20:41)
[2024-04-01 20:45] VITALS: PULSE 80; RESP 16
[2024-04-02] MEDS: Juven (unflavored) Packet 1 PACKET PO ×2 (08:37→18:11)
[2024-04-02] MEDS: Folic Acid 1 MG Tablet PO (08:38)
[2024-04-02] MEDS: Aspirin E.C. 81 MG Tablet PO (08:38)
[2024-04-02] MEDS: APIXABAN 5 MG TABLET PO ×2 (08:38→20:26)
[2024-04-02] MEDS: Ezetimibe 10 MG Tablet PO (08:39)
[2024-04-02] MEDS: Nystatin Powder 15gm Bottle 1 APPLIC TOPICAL ×2 (08:40→20:26)
[2024-04-02] MEDS: Fluticasone 0.05% 1 SPRAY NASAL.SRY 2 SPRAY NASAL (08:40)
[2024-04-02] MEDS: Clobetasol Propionate 0.05% Ointment 1 APPLIC TOPICAL ×2 (08:44→20:27)
[2024-04-02 08:50] VITALS: BP 139/53; PULSE 71
[2024-04-02] MEDS: Metoprolol(XL)Succ 100 MG Tablet PO (08:50)
[2024-04-02 16:00] VITALS: BP 113/57; PULSE 54; RESP 12; TEMP 36.8; O2SAT 95
[2024-04-02] MEDS: Tamsulosin HCl 0.4 MG Capsule PO (18:11)
[2024-04-02 20:00] VITALS: PULSE 64; O2SAT 96
[2024-04-02] MEDS: Atorvastatin Calcium 80 MG Tablet PO (20:26)
[2024-04-03] MEDS: Fluticasone 0.05% 1 SPRAY NASAL.SRY 2 SPRAY NASAL (10:39)
[2024-04-03] MEDS: Aspirin E.C. 81 MG Tablet PO (10:39)
[2024-04-03] MEDS: Juven (unflavored) Packet 1 PACKET PO ×2 (10:39→17:27)
[2024-04-03] MEDS: APIXABAN 5 MG TABLET PO ×2 (10:39→20:31)
[2024-04-03] MEDS: Folic Acid 1 MG Tablet PO (10:40)
[2024-04-03] MEDS: Nystatin Powder 15gm Bottle 1 APPLIC TOPICAL ×2 (10:40→20:31)
[2024-04-03] MEDS: Clobetasol Propionate 0.05% Ointment 1 APPLIC TOPICAL ×2 (10:41→20:32)
[2024-04-03 10:42] VITALS: PULSE 78
[2024-04-03] MEDS: Ezetimibe 10 MG Tablet PO (10:42)
[2024-04-03] MEDS: Metoprolol(XL)Succ 100 MG Tablet PO (10:42)
[2024-04-03 11:24] VITALS: BP 122/42; PULSE 62; RESP 16; TEMP 36.4; O2SAT 95
[2024-04-03] MEDS: Tamsulosin HCl 0.4 MG Capsule PO (17:27)
[2024-04-03 20:00] VITALS: PULSE 66; RESP 16; O2SAT 97
[2024-04-03] MEDS: Atorvastatin Calcium 80 MG Tablet PO (20:31)
[2024-04-04 09:07] VITALS: BP 131/50; PULSE 62; RESP 16; TEMP 36.3; O2SAT 93
[2024-04-04] MEDS: Aspirin E.C. 81 MG Tablet PO (09:10)
[2024-04-04] MEDS: Folic Acid 1 MG Tablet PO (09:10)
[2024-04-04] MEDS: Juven (unflavored) Packet 1 PACKET PO ×2 (09:10→17:21)
[2024-04-04 09:11] VITALS: PULSE 62
[2024-04-04] MEDS: Metoprolol(XL)Succ 100 MG Tablet PO (09:11)
[2024-04-04] MEDS: Fluticasone 0.05% 1 SPRAY NASAL.SRY 2 SPRAY NASAL (09:11)
[2024-04-04] MEDS: Nystatin Powder 15gm Bottle 1 APPLIC TOPICAL ×2 (09:11→21:20)
[2024-04-04] MEDS: Clobetasol Propionate 0.05% Ointment 1 APPLIC TOPICAL ×2 (09:11→21:21)
[2024-04-04] MEDS: APIXABAN 5 MG TABLET PO ×2 (09:11→21:20)
[2024-04-04] MEDS: Ezetimibe 10 MG Tablet PO (09:11)
[2024-04-04] MEDS: Tamsulosin HCl 0.4 MG Capsule PO (17:21)
[2024-04-04] MEDS: Atorvastatin Calcium 80 MG Tablet PO (21:20)
[2024-04-05 09:00] VITALS: BMI 26.6
[2024-04-05] MEDS: Juven (unflavored) Packet 1 PACKET PO ×2 (09:09→16:38)
[2024-04-05] MEDS: Aspirin E.C. 81 MG Tablet PO (09:09)
[2024-04-05] MEDS: Ezetimibe 10 MG Tablet PO (09:09)
[2024-04-05] MEDS: Folic Acid 1 MG Tablet PO (09:09)
[2024-04-05] MEDS: Fluticasone 0.05% 1 SPRAY NASAL.SRY 2 SPRAY NASAL (09:09)
[2024-04-05] MEDS: APIXABAN 5 MG TABLET PO ×2 (09:09→20:26)
[2024-04-05 09:10] VITALS: PULSE 60
[2024-04-05] MEDS: Clobetasol Propionate 0.05% Ointment 1 APPLIC TOPICAL ×2 (09:10→20:26)
[2024-04-05] MEDS: Metoprolol(XL)Succ 100 MG Tablet PO (09:10)
[2024-04-05] MEDS: Nystatin Powder 15gm Bottle 1 APPLIC TOPICAL ×2 (09:13→20:28)
--- NOTE | 2024-04-05 14:44 | PHA.CONS_ITS ---
Documented by User: Candi Jaquez 04/05/24 15:03 TCU RX Drug Regimen Review Subjective/Objective Subjective/Objective: Subjective: TCU March note. 83 YOM hospitalized for acute encephalopathy 2/2 left occipital stroke, complicated by right foot gangrene requiring transm etatarsal amputation, acute kidney injury. Admitted to TCU with debility for strengthening and rehabilitation. Objective: Allergies hydrochlorothiazide Adverse Reaction (Verified 02/26/24 12:56) Unknown Current Medications Generic Name Dose Route Start Last Admin Trade Name Freq PRN Reason Stop Dose Admin Acetaminophen 1,000 mg 02/17/24 22:16 Acetaminophen 500 Mg Tablet PO Q6H PRN PRN Pain Score 1-5 Apixaban 5 mg 02/17/24 22:00 04/05/24 09:09 Apixaban 5 Mg Tablet PO 5 mg BID REAL Administration Aspirin 81 mg 02/18/24 10:00 04/05/24 09:09 Aspirin E.C. 81 Mg Tablet PO 81 mg DAILY REAL Administration Atorvastatin Calcium 80 mg 02/17/24 22:00 04/04/24 21:20 Atorvastatin Calcium 80 Mg Tablet PO 80 mg QHS REAL Administration Clobetasol Propionate 1 applic 02/17/24 22:00 04/05/24 09:10 Clobetasol Propionate 0.05% Ointment TOPICAL 1 applic BID REAL Administration Protocol Ezetimibe 10 mg 02/18/24 10:00 04/05/24 09:09 Ezetimibe 10 Mg Tablet PO 10 mg DAILY REAL Administration Fluticasone Propionate 2 spray 02/18/24 10:00 04/05/24 09:09 Fluticasone 0.05% 1 [place] Nasal.Sry NASAL 2 spray DAILY REAL Administration Folic Acid 1 mg 02/18/24 08:00 04/05/24 09:09 Folic Acid 1 Mg Tablet PO 1 mg DAILYCM REAL Administration Sodium Chloride 250 mls @ 15 mls/hr 02/18/24 13:53 03/05/24 12:58 IV Infused .[id number] PRN Infusion Additional IVPB Infusion Sodium Chloride 250 mls @ 15 mls/hr 02/18/24 13:53 IV .[id number] PRN Saline Flush L-Arginine/L-Glutamine/Calcium HMB 1 packet 02/19/24 17:00 04/05/24 09:09 Prasanth (Unflavored) Packet PO 1 packet BIDCM REAL Administration Lorazepam 0.5 mg 02/18/24 17:16 Lorazepam 0.5 Mg Tablet PO Q4H PRN PRN ANXIETY/RESTLESSNESS/SLEEP Magnesium Citrate 300 ml 02/17/24 22:16 Magnesium Citrate 300 Ml PO DAILY PRN Constipation Metoprolol Succinate 100 mg 02/18/24 10:00 04/05/24 09:10 Metoprolol(Xl)Succ 100 Mg Tablet PO 100 mg DAILY [facility] Administration Protocol Nystatin 1 applic 02/19/24 22:00 04/05/24 09:13 Nystatin Powder 15gm Bottle TOPICAL 1 applic BID [facility] Administration Protocol Oxycodone HCl 2.5 mg 02/17/24 22:16 Oxycodone 5 Mg Tablet PO Q4H PRN PRN Pain Score 6-10 or Pre PT/OT Senna/Docusate Sodium 1 tablet 02/19/24 09:53 02/24/24 20:21 Senna/Docusate Sodium 1 Tablet PO 1 tablet BID PRN Administration Constipation Sodium Chloride 10 - 40 ml 02/19/24 23:48 02/26/24 09:27 0.9% Saline Lock 10 Ml Syringe IV 20 ml UD PRN Administration SALINE FLUSH Sodium Chloride 2 spray 03/19/24 22:00 04/05/24 09:14 Sodium Chloride 0.65% 1 [place].Btl NASAL Not Given BID [facility] Tamsulosin HCl 0.4 mg 02/22/24 17:30 04/04/24 17:21 Tamsulosin Hcl 0.4 Mg Capsule PO 0.4 mg DAILY@1730 [facility] Administration Problem List Venous insufficiency (Acute) Coronary artery disease (Acute) Chronic heart failure with preserved ejection fraction (HFpEF) (Acute) GERD (gastroesophageal reflux disease) (Acute) Hyperlipidemia (Acute) Essential (primary) hypertension (Acute) Acute kidney injury (Acute) Status post transmetatarsal amputation of right foot (Acute) Stroke (Acute) Acute encephalopathy (Acute) Gangrene of toe of right foot (Acute) Debility (Acute) MYRON (obstructive sleep apnea) (Chronic) Atrial fibrillation (Acute) Vital Signs Temp Pulse Resp BP Pulse Ox O2 Del Method O2 Flow Rate 97.3 F L 60 16 131/50 H 93 Room Air 0 04/04/24 09:07 04/05/24 09:10 04/04/24 09:07 04/04/24 09:07 04/04/24 09:07 04/04/24 16:02 03/17/24 21:50 FiO2 21 03/17/24 21:50 Oxygen Flow Rate (L/min) 0 Oxygen Delivery Method Room Air Weight: 84.141 kg Body Mass Index (BMI) 26.6 Sodium 140 mmol/L (136-145) 03/17/24 08:45 Potassium 4.3 mmol/L (3.5-5.1) 03/17/24 08:45 Chloride 110 mmol/L (98-107) H 03/17/24 08:45 Carbon Dioxide 24.0 mmol/L (21.0-32.0) 03/17/24 08:45 Anion Gap 7 (5-15) 03/17/24 08:45 BUN 29 mg/dL (7-18) H 03/17/24 08:45 Creatinine 0.98 mg/dL (0.70-1.30) 03/17/24 08:45 Est GFR (MDRD) Af Amer 94 mL/min (>60) 03/17/24 08:45 Est GFR (MDRD) Non-Af 78 mL/min (>60) 03/17/24 08:45 BUN/Creatinine Ratio 29.7 RATIO (10-20) H 03/17/24 08:45 Glucose 169 mg/dL (74-106) H 03/17/24 08:45 Assessment/Plan: 1. Pain: acetaminophen 1000mg PO Q6H PRN pain 1-5 and oxycodone 2.5mg PO Q4H PRN pain 6-10. Resident has not had any PRN doses. Please continue to monitor for increased pain and PRN usage. 2. Bowel: senna/docusate 1T PO BID PRN constipation and magnesium citrate 300mg PO daily PRN constipation. Please continue to monitor for PRN usage (no doses given) and constipation. Last documented bowel movement was 04/04/24. 3. Hypertension/atrial fibrillation/CAD/stroke/HFpEF: metoprolol succinate 100mg PO daily, aspirin 81mg PO daily, apixaban 5mg PO BID. Please continue to monitor BP (last 131/50), HR (last 60), S/S of bleeding, hemoglobin (last 11.5g/dL). 4. Hyperlipidemia: atorvastatin 80mg PO QHS and ezetimibe 10mg PO daily. Please see previous note for recommendations. Please continue to monitor for muscle pain. 6. Allergic rhinitis/dry nares: fluticasone nasal spray 2 sprays nasal daily and [place] Nasal spray 2 sprays nasal BID. Please continue to monitor for S/S of allergies and nosebleeds. 7. BPH: tamsulosin 0.4mg PO daily. Please continue to monitor for S/S of BPH and BP. 8. Tinea corporis: Nystatin powder topical bid. 9. Folate deficiency: folic acid 1mg PO daily. Please continue to monitor. 10. Skin irritation/rash: Calmoseptine topical bid and Clobetasol cream topical bid. Please continue to monitor. Assessment/Plan for indications treated with psychotropic medications: 1. Anxiety/restlessness/sleep: lorazepam 0.5mg PO Q4H PRN anxiety/restlessness/sleep. This medication was just started and resident has not had any doses, GDR not appropriate at this time. Please continue to monitor for anxiety/restlessness/sleep and PRN usage. Medical chart and medication regimen reviewed. The following medication irregularities or issues were identified: None Date Date of Note:: 04/05/24 Documented by User: Dr. Nash Horne MD 04/05/24 16:00 TCU RX Drug Regimen Review Provider Comments Provider responsibility Provider Comments to Recommendations by Pharmacy: Agree
--- NOTE | 2024-04-05 14:44 | WOUNDNOTE ---
wound photo: right foot
--- NOTE | 2024-04-05 14:44 | WOUNDNOTE ---
wound photo: right foot
[2024-04-05 14:59] VITALS: BP 125/49; PULSE 60; RESP 17; O2SAT 96
[2024-04-05] MEDS: Tamsulosin HCl 0.4 MG Capsule PO (16:38)
[2024-04-05] MEDS: Atorvastatin Calcium 80 MG Tablet PO (20:25)
[2024-04-05] MEDS: Sodium Chloride 0.65% 1 SPRAY SPRAY.BTL 2 SPRAY NASAL (20:25)
[2024-04-06] MEDS: Juven (unflavored) Packet 1 PACKET PO ×2 (08:05→17:15)
[2024-04-06] MEDS: Folic Acid 1 MG Tablet PO (08:05)
[2024-04-06] MEDS: Aspirin E.C. 81 MG Tablet PO (08:05)
[2024-04-06] MEDS: APIXABAN 5 MG TABLET PO ×2 (08:05→19:53)
[2024-04-06] MEDS: Fluticasone 0.05% 1 SPRAY NASAL.SRY 2 SPRAY NASAL (08:05)
[2024-04-06] MEDS: Nystatin Powder 15gm Bottle 1 APPLIC TOPICAL ×2 (08:06→19:54)
[2024-04-06] MEDS: Clobetasol Propionate 0.05% Ointment 1 APPLIC TOPICAL ×2 (08:07→19:52)
[2024-04-06 08:09] VITALS: BP 127/73; PULSE 64
[2024-04-06] MEDS: Metoprolol(XL)Succ 100 MG Tablet PO (08:09)
[2024-04-06] MEDS: Ezetimibe 10 MG Tablet PO (08:09)
--- NOTE | 2024-04-06 10:46 | NURSING ---
Pt left unit with for appointment at 10:35
[2024-04-06 16:00] VITALS: BP 131/54; PULSE 63; RESP 18; TEMP 36.3; O2SAT 96
--- NOTE | 2024-04-06 16:32 | NURSING ---
Returned from appt with Dr. Carey wound orders updated and ensure ordered. Per order Dr. Carey was concerned of the left lateral lower leg wound ordered Betadine and a Mepilex to be placed pt refused. F/U with Dr. Carey in 2 weeks.
[2024-04-06] MEDS: Tamsulosin HCl 0.4 MG Capsule PO (17:15)
[2024-04-06] MEDS: Ensure Plus High Protein 120 ML LIQUID PO (17:19)
[2024-04-06] MEDS: Atorvastatin Calcium 80 MG Tablet PO (19:52)
[2024-04-07] MEDS: Ensure Plus High Protein 120 ML LIQUID PO ×3 (08:19→16:27)
[2024-04-07] MEDS: Clobetasol Propionate 0.05% Ointment 1 APPLIC TOPICAL (08:24)
[2024-04-07] MEDS: Fluticasone 0.05% 1 SPRAY NASAL.SRY 2 SPRAY NASAL (08:26)
[2024-04-07] MEDS: Nystatin Powder 15gm Bottle 1 APPLIC TOPICAL (08:27)
[2024-04-07 08:28] VITALS: BP 122/54; PULSE 71
[2024-04-07] MEDS: Metoprolol(XL)Succ 100 MG Tablet PO (08:28)
[2024-04-07] MEDS: Aspirin E.C. 81 MG Tablet PO (08:28)
[2024-04-07] MEDS: Folic Acid 1 MG Tablet PO (08:28)
[2024-04-07] MEDS: Juven (unflavored) Packet 1 PACKET PO ×2 (08:28→16:28)
[2024-04-07] MEDS: APIXABAN 5 MG TABLET PO ×2 (08:28→20:54)
[2024-04-07] MEDS: Ezetimibe 10 MG Tablet PO (08:29)
[2024-04-07 13:57] VITALS: BP 126/51; PULSE 54; RESP 16; TEMP 37.1; O2SAT 94
[2024-04-07] MEDS: Tamsulosin HCl 0.4 MG Capsule PO (16:27)
[2024-04-07] MEDS: Atorvastatin Calcium 80 MG Tablet PO (20:54)
[2024-04-08 08:55] VITALS: BP 112/53; PULSE 73
[2024-04-08] MEDS: Folic Acid 1 MG Tablet PO (08:55)
[2024-04-08] MEDS: Ensure Plus High Protein 120 ML LIQUID PO ×2 (08:55→18:05)
[2024-04-08] MEDS: Juven (unflavored) Packet 1 PACKET PO ×2 (08:55→18:05)
[2024-04-08] MEDS: Metoprolol(XL)Succ 100 MG Tablet PO (08:55)
[2024-04-08] MEDS: Aspirin E.C. 81 MG Tablet PO (08:55)
[2024-04-08] MEDS: APIXABAN 5 MG TABLET PO (08:55)
[2024-04-08] MEDS: Fluticasone 0.05% 1 SPRAY NASAL.SRY 2 SPRAY NASAL (08:56)
[2024-04-08] MEDS: Clobetasol Propionate 0.05% Ointment 1 APPLIC TOPICAL ×2 (08:57→20:49)
[2024-04-08] MEDS: Ezetimibe 10 MG Tablet PO (08:58)
[2024-04-08] MEDS: Nystatin Powder 15gm Bottle 1 APPLIC TOPICAL ×2 (09:02→20:48)
[2024-04-08 10:00] VITALS: BP 112/53; PULSE 73; RESP 18; TEMP 36.6; O2SAT 95
[2024-04-08] MEDS: Tamsulosin HCl 0.4 MG Capsule PO (18:05)
[2024-04-08] MEDS: Atorvastatin Calcium 80 MG Tablet PO (20:48)
[2024-04-09 08:05] VITALS: PULSE 58; RESP 16
[2024-04-09] MEDS: Clobetasol Propionate 0.05% Ointment 1 APPLIC TOPICAL ×2 (08:18→20:13)
[2024-04-09] MEDS: Aspirin E.C. 81 MG Tablet PO (08:18)
[2024-04-09] MEDS: Juven (unflavored) Packet 1 PACKET PO ×2 (08:18→17:59)
[2024-04-09] MEDS: Nystatin Powder 15gm Bottle 1 APPLIC TOPICAL ×2 (08:19→20:05)
[2024-04-09] MEDS: Folic Acid 1 MG Tablet PO (08:19)
[2024-04-09] MEDS: Fluticasone 0.05% 1 SPRAY NASAL.SRY 2 SPRAY NASAL (08:20)
[2024-04-09] MEDS: APIXABAN 5 MG TABLET PO ×2 (08:22→20:05)
[2024-04-09] MEDS: Ezetimibe 10 MG Tablet PO (08:22)
[2024-04-09] MEDS: Ensure Plus High Protein 120 ML LIQUID PO ×3 (08:24→17:59)
[2024-04-09 10:33] VITALS: BP 123/52; PULSE 60
[2024-04-09] MEDS: Metoprolol(XL)Succ 100 MG Tablet PO (10:33)
[2024-04-09 14:06] VITALS: BP 116/70; PULSE 57; RESP 16; TEMP 36.3; O2SAT 96
[2024-04-09] MEDS: Tamsulosin HCl 0.4 MG Capsule PO (17:59)
[2024-04-09] MEDS: Atorvastatin Calcium 80 MG Tablet PO (20:05)
[2024-04-10 07:55] VITALS: BP 158/65; PULSE 67
[2024-04-10] MEDS: Ensure Plus High Protein 120 ML LIQUID PO ×3 (07:55→18:06)
[2024-04-10] MEDS: Folic Acid 1 MG Tablet PO (07:55)
[2024-04-10] MEDS: Metoprolol(XL)Succ 100 MG Tablet PO (07:55)
[2024-04-10] MEDS: Juven (unflavored) Packet 1 PACKET PO ×2 (07:55→18:06)
[2024-04-10] MEDS: Ezetimibe 10 MG Tablet PO (07:56)
[2024-04-10] MEDS: Aspirin E.C. 81 MG Tablet PO (07:56)
[2024-04-10] MEDS: APIXABAN 5 MG TABLET PO (07:57)
[2024-04-10] MEDS: Fluticasone 0.05% 1 SPRAY NASAL.SRY 2 SPRAY NASAL (07:57)
[2024-04-10] MEDS: Nystatin Powder 15gm Bottle 1 APPLIC TOPICAL ×2 (07:57→21:25)
[2024-04-10] MEDS: Clobetasol Propionate 0.05% Ointment 1 APPLIC TOPICAL ×2 (07:58→21:25)
[2024-04-10 10:00] VITALS: PULSE 60; RESP 14; O2SAT 94
[2024-04-10 16:00] VITALS: BP 158/65; PULSE 67; RESP 16; TEMP 36.7; O2SAT 98
[2024-04-10] MEDS: Tamsulosin HCl 0.4 MG Capsule PO (18:06)
[2024-04-10] MEDS: Atorvastatin Calcium 80 MG Tablet PO (21:24)
[2024-04-10] MEDS: Sodium Chloride 0.65% 1 SPRAY SPRAY.BTL 2 SPRAY NASAL (21:25)
[2024-04-11] MEDS: Ensure Plus High Protein 120 ML LIQUID PO ×3 (08:32→18:01)
[2024-04-11] MEDS: Clobetasol Propionate 0.05% Ointment 1 APPLIC TOPICAL ×2 (08:33→23:09)
[2024-04-11] MEDS: Juven (unflavored) Packet 1 PACKET PO ×2 (08:33→18:00)
[2024-04-11] MEDS: Fluticasone 0.05% 1 SPRAY NASAL.SRY 2 SPRAY NASAL (08:33)
[2024-04-11] MEDS: APIXABAN 2.5 MG TABLET (WCH) PO ×2 (08:34→23:06)
[2024-04-11] MEDS: Aspirin E.C. 81 MG Tablet PO (08:34)
[2024-04-11 08:35] VITALS: BP 135/59; PULSE 71
[2024-04-11] MEDS: Metoprolol(XL)Succ 100 MG Tablet PO (08:35)
[2024-04-11] MEDS: Folic Acid 1 MG Tablet PO (08:35)
[2024-04-11] MEDS: Ezetimibe 10 MG Tablet PO (08:37)
[2024-04-11] MEDS: Nystatin Powder 15gm Bottle 1 APPLIC TOPICAL ×2 (08:38→23:05)
--- NOTE | 2024-04-11 14:37 | WOUNDNOTE ---
wound photo: right foot
--- NOTE | 2024-04-11 14:38 | WOUNDNOTE ---
wound photo: right foot
[2024-04-11 15:12] VITALS: BP 135/59; PULSE 71; RESP 14; TEMP 36.1; O2SAT 95
[2024-04-11] MEDS: Tamsulosin HCl 0.4 MG Capsule PO (18:01)
--- NOTE | 2024-04-11 19:20 | PN.TCU_ITS ---
Subjective Subjective Resident seen, examined for regulatory visit. He complained of nosebleeds, I decreased his Eliquis dose to 2.5mg twice daily, will also stop his aspirin 81mg daily. He is otherwise doing well, no new problems, concerns, issues, complaints. His was Roberto was present for visit. His right transmetatarsal amputation incision still has wound, continues to be NWB left lower extremity. Objective Data Objective Data Vital Signs: Vital Signs Temp Pulse Resp BP Pulse Ox O2 Del Method O2 Flow Rate 97.0 F L 71 14 135/59 H 95 Room Air 0 04/11/24 15:12 04/11/24 15:12 04/11/24 15:12 04/11/24 15:12 04/11/24 15:12 04/11/24 15:12 03/17/24 21:50 FiO2 21 03/17/24 21:50 Oxygen Flow Rate (L/min) 0 Oxygen Delivery Method Room Air Weight: 84.141 kg Body Mass Index (BMI) 26.6 Intake & Output: Intake and Output for Last 24 Hours 04/09/24 04/10/24 04/11/24 23:59 22:59 23:59 Intake Total 1340 / 1340 1320 / 1320 720 / 720 Output Total 400 / 400 Balance 940 / 940 1320 / 1320 720 / 720 Lab / Micro Data 03/17/24 08:45 03/17/24 08:45 Micro: Microbiology 03/22/24 06:35 Nasal Secretion SARS-CoV-2 Antigen (Rapid) - Final 03/15/24 06:03 Nasal Secretion SARS-CoV-2 Antigen (Rapid) - Final 03/08/24 05:00 Nasal Secretion SARS-CoV-2 Antigen (Rapid) - Final 02/25/24 07:15 Stool Stool Occult Blood (BRIANA) - Final Occult Blood Positive 02/18/24 11:41 Urine, Catheterized Urine Culture - Final Culture exhibits no growth. 02/18/24 11:12 Mucosa - Nasopharyngeal Respiratory Panel (PCR) - Final 02/18/24 11:17 Nasal Secretion SARS-CoV-2 Antigen (Rapid) - Final Physical Exam Const alert General Appearance: cooperative HEENT normocephalic Eyes PERRL and EOMs intact bilaterally Neck supple, no JVD and no carotid bruits Resp normal respiratory effort, normal air movement and clear to auscultation bilaterally Cardio regular rate and regular rhythm GI normal to inspection, nondistended, normoactive bowel sounds, non-tender and non-distended Extremity normal capillary refill Extremity Narrative: Right foot dressed. General Extremity: Negative for edema Skin no rashes or lesions noted General Skin Exam: no breakdown Psych affect normal Appearance: appropriate Assessment & Plan Assessment/Plan (1) Debility: (2) Gangrene of toe of right foot: (3) Acute encephalopathy: (4) Stroke: (5) Status post transmetatarsal amputation of right foot: (6) Acute kidney injury: (7) Essential (primary) hypertension: (8) Hyperlipidemia: (9) Atrial fibrillation: (10) GERD (gastroesophageal reflux disease): (11) Chronic heart failure with preserved ejection fraction (HFpEF): (12) Coronary artery disease: (13) MYRON (obstructive sleep apnea): (14) Venous insufficiency: PLAN: Plan 83 year old male with below past medical history hospitalized for acute encephalopathy 2/2 left occipital stroke, complicated by right foot gangrene requiring transmetatarsal amputation, acute kidney injury, admitted to TCU with debility, here for rehabilitation, strengthening, prior to discharge home with . * Debility - PT/OT/ST. * Pain - Tylenol 1000mg q6 prn pain (1-5), Oxycodone 2.5mg q4 prn pain (6-10). * Bowel - senna/colace 1 tablet bid prn, Magnesium citrate 300ml po daily prn. * Adult immunization - Administer pneumonia vaccine, covid vaccine, flu vaccine as appropriate. * DVT prophylaxis - on Eliquis. * Hypertension - Metoprolol succinate 100mg daily. * Atrial fibrillation - Metoprolol succinate 100mg daily, Lower Eliquis to 2.5mg bid 2/2 epistaxis. * Coronary artery disease - Metoprolol succinate 100mg daily, Stop Aspirin 81mg 2/2 epistaxis. * Left occipital stroke - Eliquis 5mg bid, Stop Aspirin 81mg 2/2 epistaxis. * Hyperlipidemia - Atorvastatin 80mg qhs, Zetia 10mg daily. * Rash - Clobetasol cream topical bid. * Allergic rhinitis - Fluticasone nasal spray 2 sprays nasal daily. * Folate deficiency - Folic acid 1mg daily. * Chronic HFpEF - Metoprolol succinate 100mg daily. * Skin irritation - Calmoseptine topical bid. * Right foot gangrene s/p transmetatarsal amputation - Prasanth 1 packet bidcm. * Alcohol withdrawal - Lorazepam 0.5mg q4 prn. * Tinea corporis - Nystatin powder topical bid. * BPH - Tamsulosin 0.4mg daily. * Nutrition - Ensure Plus 120mL po tidcm. * Dry nose - Sodium chloride 2 sprays nasal bid.
[2024-04-11] MEDS: Atorvastatin Calcium 80 MG Tablet PO (23:06)
[2024-04-12 08:18] VITALS: BP 133/59; PULSE 71; RESP 18; TEMP 36.5; O2SAT 96
[2024-04-12] MEDS: Folic Acid 1 MG Tablet PO (08:19)
[2024-04-12] MEDS: Ensure Plus High Protein 120 ML LIQUID PO ×3 (08:19→16:56)
[2024-04-12 08:20] VITALS: PULSE 71
[2024-04-12] MEDS: Juven (unflavored) Packet 1 PACKET PO ×2 (08:20→16:57)
[2024-04-12] MEDS: Metoprolol(XL)Succ 100 MG Tablet PO (08:20)
[2024-04-12] MEDS: APIXABAN 2.5 MG TABLET (WCH) PO ×2 (08:20→20:15)
[2024-04-12] MEDS: Ezetimibe 10 MG Tablet PO (08:21)
[2024-04-12] MEDS: Fluticasone 0.05% 1 SPRAY NASAL.SRY 2 SPRAY NASAL (08:21)
[2024-04-12] MEDS: Nystatin Powder 15gm Bottle 1 APPLIC TOPICAL ×2 (08:21→20:15)
[2024-04-12] MEDS: Sodium Chloride 0.65% 1 SPRAY SPRAY.BTL 2 SPRAY NASAL (08:21)
[2024-04-12] MEDS: Clobetasol Propionate 0.05% Ointment 1 APPLIC TOPICAL (08:24)
[2024-04-12 09:00] VITALS: BMI 27.6
[2024-04-12] MEDS: Tamsulosin HCl 0.4 MG Capsule PO (16:56)
[2024-04-12 20:00] VITALS: PULSE 65; RESP 15
[2024-04-12] MEDS: Atorvastatin Calcium 80 MG Tablet PO (20:15)
[2024-04-13] MEDS: Folic Acid 1 MG Tablet PO (08:20)
[2024-04-13] MEDS: Juven (unflavored) Packet 1 PACKET PO ×2 (08:20→17:49)
[2024-04-13] MEDS: Fluticasone 0.05% 1 SPRAY NASAL.SRY 2 SPRAY NASAL (08:20)
[2024-04-13] MEDS: APIXABAN 2.5 MG TABLET (WCH) PO ×2 (08:20→20:10)
[2024-04-13 08:21] VITALS: BP 143/58; PULSE 80; RESP 16; TEMP 36.2; O2SAT 93
[2024-04-13] MEDS: Nystatin Powder 15gm Bottle 1 APPLIC TOPICAL ×2 (08:21→20:11)
[2024-04-13 08:23] VITALS: PULSE 80
[2024-04-13] MEDS: Metoprolol(XL)Succ 100 MG Tablet PO (08:23)
[2024-04-13] MEDS: Ezetimibe 10 MG Tablet PO (08:24)
[2024-04-13] MEDS: Ensure Plus High Protein 120 ML LIQUID PO ×3 (08:24→17:49)
[2024-04-13] MEDS: Tamsulosin HCl 0.4 MG Capsule PO (17:49)
[2024-04-13] MEDS: Atorvastatin Calcium 80 MG Tablet PO (20:10)
[2024-04-14 10:15] VITALS: BP 127/54; PULSE 58; RESP 16; TEMP 37; O2SAT 94
[2024-04-14 10:17] VITALS: BP 127/54; PULSE 58
[2024-04-14] MEDS: Metoprolol(XL)Succ 100 MG Tablet PO (10:17)
[2024-04-14] MEDS: APIXABAN 2.5 MG TABLET (WCH) PO ×2 (10:17→20:14)
[2024-04-14] MEDS: Folic Acid 1 MG Tablet PO (10:17)
[2024-04-14] MEDS: Fluticasone 0.05% 1 SPRAY NASAL.SRY 2 SPRAY NASAL (10:19)
[2024-04-14] MEDS: Juven (unflavored) Packet 1 PACKET PO ×2 (10:19→17:03)
[2024-04-14] MEDS: Ensure Plus High Protein 120 ML LIQUID PO ×3 (10:21→17:03)
[2024-04-14] MEDS: Nystatin Powder 15gm Bottle 1 APPLIC TOPICAL (10:22)
[2024-04-14] MEDS: Ezetimibe 10 MG Tablet PO (10:23)
[2024-04-14] MEDS: Tamsulosin HCl 0.4 MG Capsule PO (17:03)
[2024-04-14 17:08] VITALS: PULSE 68; RESP 16; O2SAT 98
[2024-04-14] MEDS: Atorvastatin Calcium 80 MG Tablet PO (20:26)
[2024-04-15] MEDS: Juven (unflavored) Packet 1 PACKET PO ×2 (08:09→16:55)
[2024-04-15] MEDS: APIXABAN 2.5 MG TABLET (WCH) PO ×2 (08:10→22:52)
[2024-04-15] MEDS: Folic Acid 1 MG Tablet PO (08:10)
[2024-04-15] MEDS: Fluticasone 0.05% 1 SPRAY NASAL.SRY 2 SPRAY NASAL (08:10)
[2024-04-15] MEDS: Nystatin Powder 15gm Bottle 1 APPLIC TOPICAL ×2 (08:11→22:53)
[2024-04-15] MEDS: Ezetimibe 10 MG Tablet PO (08:11)
[2024-04-15] MEDS: Clobetasol Propionate 0.05% Ointment 1 APPLIC TOPICAL ×2 (08:12→22:53)
[2024-04-15] MEDS: Sodium Chloride 0.65% 1 SPRAY SPRAY.BTL 2 SPRAY NASAL (08:13)
[2024-04-15] MEDS: Ensure Plus High Protein 120 ML LIQUID PO ×2 (08:14→13:32)
[2024-04-15 08:18] VITALS: BP 137/60; PULSE 76
[2024-04-15] MEDS: Metoprolol(XL)Succ 100 MG Tablet PO (08:18)
[2024-04-15 13:50] VITALS: BP 137/60; PULSE 76; RESP 16; TEMP 36.5; O2SAT 94
[2024-04-15] MEDS: Tamsulosin HCl 0.4 MG Capsule PO (16:55)
[2024-04-15] MEDS: Atorvastatin Calcium 80 MG Tablet PO (22:53)
[2024-04-16 09:10] VITALS: BP 134/63; PULSE 77; RESP 18; TEMP 36.6; O2SAT 95
[2024-04-16] MEDS: Folic Acid 1 MG Tablet PO (09:12)
[2024-04-16] MEDS: Juven (unflavored) Packet 1 PACKET PO ×2 (09:12→18:05)
[2024-04-16] MEDS: APIXABAN 2.5 MG TABLET (WCH) PO ×2 (09:13→20:57)
[2024-04-16] MEDS: Fluticasone 0.05% 1 SPRAY NASAL.SRY 2 SPRAY NASAL (09:13)
[2024-04-16] MEDS: Nystatin Powder 15gm Bottle 1 APPLIC TOPICAL ×2 (09:13→20:58)
[2024-04-16 09:14] VITALS: PULSE 77
[2024-04-16] MEDS: Metoprolol(XL)Succ 100 MG Tablet PO (09:14)
[2024-04-16] MEDS: Ezetimibe 10 MG Tablet PO (09:14)
[2024-04-16] MEDS: Clobetasol Propionate 0.05% Ointment 1 APPLIC TOPICAL (09:14)
[2024-04-16] MEDS: Tamsulosin HCl 0.4 MG Capsule PO (18:01)
[2024-04-16] MEDS: Atorvastatin Calcium 80 MG Tablet PO (20:57)
[2024-04-17 09:06] VITALS: BP 137/51; PULSE 68; RESP 16; TEMP 36.4; O2SAT 95
[2024-04-17] MEDS: Juven (unflavored) Packet 1 PACKET PO ×2 (09:09→18:25)
[2024-04-17] MEDS: Folic Acid 1 MG Tablet PO (09:09)
[2024-04-17 09:10] VITALS: PULSE 68
[2024-04-17] MEDS: APIXABAN 2.5 MG TABLET (WCH) PO ×2 (09:10→21:10)
[2024-04-17] MEDS: Metoprolol(XL)Succ 100 MG Tablet PO (09:10)
[2024-04-17] MEDS: Nystatin Powder 15gm Bottle 1 APPLIC TOPICAL (09:10)
[2024-04-17] MEDS: Clobetasol Propionate 0.05% Ointment 1 APPLIC TOPICAL (09:10)
[2024-04-17] MEDS: Ezetimibe 10 MG Tablet PO (09:11)
[2024-04-17] MEDS: Fluticasone 0.05% 1 SPRAY NASAL.SRY 2 SPRAY NASAL (11:16)
[2024-04-17] MEDS: Tamsulosin HCl 0.4 MG Capsule PO (18:25)
--- NOTE | 2024-04-17 18:35 | NURSING ---
Entered patient's room to administer evening medications. Patient agitated with nurse. States I'm full from dinner and now you want to give me all this medication? Nurse explained medication administration times to patient. Patient more agitated with nurse, raising his voice. You mean to tell me they are going to come in here and give me more medication at 10 o'clock? I'll tell them to get the hell out of here! Nurse used de-escalation techniques attempting to calm and reassure patient. Nurse explained medication regimen and medication scheduling windows. Patient remained agitated with nurse and yelling I don't need you telling me what to do because of your stupid policies and procedures! Patient pointing finger at RN and computer. Patient pointed to door for RN to exited. Call light within reach. Patient safe at this time. RN exited the room per patient request. payment rep updated.
[2024-04-17] MEDS: Atorvastatin Calcium 80 MG Tablet PO (21:10)
[2024-04-18] MEDS: APIXABAN 2.5 MG TABLET (WCH) PO ×2 (08:27→18:57)
[2024-04-18] MEDS: Juven (unflavored) Packet 1 PACKET PO ×2 (08:27→17:03)
[2024-04-18] MEDS: Ezetimibe 10 MG Tablet PO (08:27)
[2024-04-18] MEDS: Fluticasone 0.05% 1 SPRAY NASAL.SRY 2 SPRAY NASAL (08:27)
[2024-04-18] MEDS: Folic Acid 1 MG Tablet PO (08:27)
[2024-04-18] MEDS: Nystatin Powder 15gm Bottle 1 APPLIC TOPICAL ×2 (08:36→18:57)
[2024-04-18] MEDS: Clobetasol Propionate 0.05% Ointment 1 APPLIC TOPICAL ×2 (08:36→18:56)
[2024-04-18 15:12] VITALS: BP 128/56; PULSE 60; RESP 14; TEMP 36.6; O2SAT 96
[2024-04-18] MEDS: Tamsulosin HCl 0.4 MG Capsule PO (17:03)
[2024-04-18 17:06] VITALS: PULSE 62
[2024-04-18] MEDS: Metoprolol(XL)Succ 100 MG Tablet PO (17:06)
[2024-04-18] MEDS: Atorvastatin Calcium 80 MG Tablet PO (18:57)
[2024-04-19 08:05] VITALS: BP 136/55; PULSE 86; RESP 16; TEMP 36.6; O2SAT 94
[2024-04-19 09:00] VITALS: BMI 27.7
[2024-04-19] MEDS: APIXABAN 2.5 MG TABLET (WCH) PO ×2 (09:13→20:00)
[2024-04-19] MEDS: Folic Acid 1 MG Tablet PO (09:13)
[2024-04-19] MEDS: Juven (unflavored) Packet 1 PACKET PO ×2 (09:13→16:53)
[2024-04-19] MEDS: Fluticasone 0.05% 1 SPRAY NASAL.SRY 2 SPRAY NASAL (09:14)
[2024-04-19] MEDS: Nystatin Powder 15gm Bottle 1 APPLIC TOPICAL ×2 (09:15→19:56)
[2024-04-19] MEDS: Clobetasol Propionate 0.05% Ointment 1 APPLIC TOPICAL (09:15)
[2024-04-19 09:16] VITALS: BP 136/55; PULSE 86
[2024-04-19] MEDS: Metoprolol(XL)Succ 100 MG Tablet PO (09:16)
[2024-04-19] MEDS: Ezetimibe 10 MG Tablet PO (09:17)
--- NOTE | 2024-04-19 13:09 | CASEMGMT ---
Social Work KEILA reviewed pt's chart and spoke with charge nurse. Pt has no new orders from Dr lopez yesterday, but does have several upcoming appts. Pt is still receiving daily wound care. KEILA sent secure email to Yosvany, credit charge authorizer with the following: I wanted to touch base on Mr. Byers. He returned from the wound appointment yesterday with no new orders. He is not receiving therapy any longer. He is currently on day 63/100 of his Medicare days. Usually, we recommend having patients save some of their Medicare days when/if they would need skilled therapy again. If he exhausts his 100 days, he needs to have a 60 consecutive day break in service to receive a new 100-day benefit period. Meaning, he cannot even come to the Emergency Room for 60 days. I want to make sure you both understand that, and to assist in helping and Mrs. Byers understand that coverage. KEILA will continue to follow. PATEL Abarca
[2024-04-19 15:13] VITALS: BP 140/58; PULSE 80; RESP 18; TEMP 36.3; O2SAT 96
--- NOTE | 2024-04-19 15:43 | WOUNDNOTE ---
wound photo: right foot
--- NOTE | 2024-04-19 15:44 | WOUNDNOTE ---
wound photo: right foot
[2024-04-19] MEDS: Tamsulosin HCl 0.4 MG Capsule PO (16:53)
[2024-04-19] MEDS: Atorvastatin Calcium 80 MG Tablet PO (20:00)
[2024-04-20] MEDS: Fluticasone 0.05% 1 SPRAY NASAL.SRY 2 SPRAY NASAL (08:33)
[2024-04-20 08:34] VITALS: BP 143/56; PULSE 67
[2024-04-20] MEDS: Juven (unflavored) Packet 1 PACKET PO ×2 (08:34→16:56)
[2024-04-20] MEDS: APIXABAN 2.5 MG TABLET (WCH) PO ×2 (08:34→19:55)
[2024-04-20] MEDS: Ezetimibe 10 MG Tablet PO (08:34)
[2024-04-20] MEDS: Folic Acid 1 MG Tablet PO (08:34)
[2024-04-20] MEDS: Multivitamins,Therapeutic Tablet 1 TABLET PO (08:34)
[2024-04-20] MEDS: Ascorbic Acid 500 MG Tablet PO ×2 (08:34→16:56)
[2024-04-20] MEDS: Metoprolol(XL)Succ 100 MG Tablet PO (08:34)
[2024-04-20] MEDS: Clobetasol Propionate 0.05% Ointment 1 APPLIC TOPICAL ×2 (08:35→19:58)
--- NOTE | 2024-04-20 11:12 | NURSING ---
Pt's took pt to Dr. Edmonds.
[2024-04-20 16:00] VITALS: BP 117/49; PULSE 61; RESP 16; TEMP 36.2; O2SAT 95
[2024-04-20] MEDS: Tamsulosin HCl 0.4 MG Capsule PO (16:56)
[2024-04-20] MEDS: Atorvastatin Calcium 80 MG Tablet PO (19:55)
[2024-04-20] MEDS: Nystatin Powder 15gm Bottle 1 APPLIC TOPICAL (19:59)
[2024-04-21 08:02] VITALS: BP 147/64; PULSE 68; RESP 16; TEMP 36.7; O2SAT 94
[2024-04-21] MEDS: Folic Acid 1 MG Tablet PO (08:08)
[2024-04-21] MEDS: Juven (unflavored) Packet 1 PACKET PO ×2 (08:08→16:47)
[2024-04-21] MEDS: Multivitamins,Therapeutic Tablet 1 TABLET PO (08:08)
[2024-04-21] MEDS: Nystatin Powder 15gm Bottle 1 APPLIC TOPICAL ×2 (08:09→21:44)
[2024-04-21] MEDS: Fluticasone 0.05% 1 SPRAY NASAL.SRY 2 SPRAY NASAL (08:09)
[2024-04-21] MEDS: Ascorbic Acid 500 MG Tablet PO ×2 (08:09→16:47)
[2024-04-21] MEDS: APIXABAN 2.5 MG TABLET (WCH) PO ×2 (08:09→21:42)
[2024-04-21 08:12] VITALS: PULSE 68
[2024-04-21] MEDS: Metoprolol(XL)Succ 100 MG Tablet PO (08:12)
[2024-04-21] MEDS: Ezetimibe 10 MG Tablet PO (08:13)
[2024-04-21] MEDS: Tamsulosin HCl 0.4 MG Capsule PO (16:47)
--- NOTE | 2024-04-21 16:52 | NURSING ---
pt and updated on + covid staff member.
[2024-04-21] MEDS: Atorvastatin Calcium 80 MG Tablet PO (21:42)
[2024-04-21 22:00] VITALS: O2SAT 95
[2024-04-22 08:56] VITALS: BP 129/56; PULSE 68; RESP 17; TEMP 36.4; O2SAT 93
[2024-04-22] MEDS: Multivitamins,Therapeutic Tablet 1 TABLET PO (08:58)
[2024-04-22] MEDS: Ascorbic Acid 500 MG Tablet PO ×2 (08:58→17:06)
[2024-04-22] MEDS: Fluticasone 0.05% 1 SPRAY NASAL.SRY 2 SPRAY NASAL (08:58)
[2024-04-22] MEDS: APIXABAN 2.5 MG TABLET (WCH) PO ×2 (08:58→20:09)
[2024-04-22] MEDS: Folic Acid 1 MG Tablet PO (08:58)
[2024-04-22] MEDS: Juven (unflavored) Packet 1 PACKET PO ×2 (08:58→17:06)
[2024-04-22 08:59] VITALS: PULSE 68
[2024-04-22] MEDS: Nystatin Powder 15gm Bottle 1 APPLIC TOPICAL ×2 (08:59→20:10)
[2024-04-22] MEDS: Metoprolol(XL)Succ 100 MG Tablet PO (08:59)
[2024-04-22] MEDS: Ezetimibe 10 MG Tablet PO (09:00)
[2024-04-22] MEDS: Tamsulosin HCl 0.4 MG Capsule PO (17:06)
[2024-04-22] MEDS: Atorvastatin Calcium 80 MG Tablet PO (20:09)
[2024-04-22] MEDS: Sodium Chloride 0.65% 1 SPRAY SPRAY.BTL 2 SPRAY NASAL (20:10)
[2024-04-23 08:36] VITALS: BP 144/60; PULSE 71
[2024-04-23] MEDS: Juven (unflavored) Packet 1 PACKET PO ×2 (08:36→17:39)
[2024-04-23] MEDS: Folic Acid 1 MG Tablet PO (08:36)
[2024-04-23] MEDS: APIXABAN 2.5 MG TABLET (WCH) PO ×2 (08:36→20:16)
[2024-04-23] MEDS: Ezetimibe 10 MG Tablet PO (08:36)
[2024-04-23] MEDS: Multivitamins,Therapeutic Tablet 1 TABLET PO (08:36)
[2024-04-23] MEDS: Metoprolol(XL)Succ 100 MG Tablet PO (08:36)
[2024-04-23] MEDS: Ascorbic Acid 500 MG Tablet PO ×2 (08:36→17:39)
[2024-04-23] MEDS: Fluticasone 0.05% 1 SPRAY NASAL.SRY 2 SPRAY NASAL (08:37)
[2024-04-23] MEDS: Nystatin Powder 15gm Bottle 1 APPLIC TOPICAL ×2 (08:38→20:16)
[2024-04-23 14:26] VITALS: BP 117/50; PULSE 58; RESP 16; TEMP 36.7; O2SAT 96
[2024-04-23] MEDS: Tamsulosin HCl 0.4 MG Capsule PO (17:39)
[2024-04-23] MEDS: Atorvastatin Calcium 80 MG Tablet PO (20:16)
[2024-04-24] MEDS: Juven (unflavored) Packet 1 PACKET PO ×2 (08:07→17:20)
[2024-04-24 08:08] VITALS: BP 148/69; PULSE 72
[2024-04-24] MEDS: Metoprolol(XL)Succ 100 MG Tablet PO (08:08)
[2024-04-24] MEDS: Ezetimibe 10 MG Tablet PO (08:08)
[2024-04-24] MEDS: APIXABAN 2.5 MG TABLET (WCH) PO ×2 (08:09→20:17)
[2024-04-24] MEDS: Fluticasone 0.05% 1 SPRAY NASAL.SRY 2 SPRAY NASAL (08:09)
[2024-04-24] MEDS: Multivitamins,Therapeutic Tablet 1 TABLET PO (08:09)
[2024-04-24] MEDS: Ascorbic Acid 500 MG Tablet PO ×2 (08:09→17:20)
[2024-04-24] MEDS: Folic Acid 1 MG Tablet PO (08:09)
[2024-04-24 13:47] VITALS: BP 127/52; PULSE 62; RESP 19; TEMP 36.8; O2SAT 97
[2024-04-24] MEDS: Tamsulosin HCl 0.4 MG Capsule PO (17:20)
[2024-04-24] MEDS: Atorvastatin Calcium 80 MG Tablet PO (20:17)
[2024-04-25 08:37] VITALS: BP 138/58; PULSE 83; TEMP 36.6; O2SAT 94
[2024-04-25] MEDS: Nystatin Powder 15gm Bottle 1 APPLIC TOPICAL (08:41)
[2024-04-25] MEDS: Fluticasone 0.05% 1 SPRAY NASAL.SRY 2 SPRAY NASAL (08:41)
[2024-04-25] MEDS: Folic Acid 1 MG Tablet PO (08:41)
[2024-04-25] MEDS: APIXABAN 2.5 MG TABLET (WCH) PO ×2 (08:41→20:15)
[2024-04-25] MEDS: Juven (unflavored) Packet 1 PACKET PO ×2 (08:41→16:18)
[2024-04-25] MEDS: Ascorbic Acid 500 MG Tablet PO ×2 (08:41→16:18)
[2024-04-25] MEDS: Multivitamins,Therapeutic Tablet 1 TABLET PO (08:41)
[2024-04-25] MEDS: Clobetasol Propionate 0.05% Ointment 1 APPLIC TOPICAL (08:42)
[2024-04-25 08:43] VITALS: PULSE 83
[2024-04-25] MEDS: Metoprolol(XL)Succ 100 MG Tablet PO (08:43)
[2024-04-25] MEDS: Ezetimibe 10 MG Tablet PO (08:43)
--- NOTE | 2024-04-25 14:02 | WOUNDNOTE ---
wound photo: right foot
--- NOTE | 2024-04-25 14:03 | WOUNDNOTE ---
wound photo: right foot
[2024-04-25] MEDS: Tamsulosin HCl 0.4 MG Capsule PO (16:18)
[2024-04-25] MEDS: Atorvastatin Calcium 80 MG Tablet PO (20:15)
[2024-04-26 08:00] VITALS: BP 141/64; PULSE 73; RESP 16; TEMP 36.6; O2SAT 96
[2024-04-26] MEDS: Ezetimibe 10 MG Tablet PO (08:31)
[2024-04-26] MEDS: Ascorbic Acid 500 MG Tablet PO ×2 (08:31→16:39)
[2024-04-26] MEDS: Multivitamins,Therapeutic Tablet 1 TABLET PO (08:31)
[2024-04-26] MEDS: APIXABAN 2.5 MG TABLET (WCH) PO ×2 (08:31→19:42)
[2024-04-26] MEDS: Folic Acid 1 MG Tablet PO (08:31)
[2024-04-26] MEDS: Clobetasol Propionate 0.05% Ointment 1 APPLIC TOPICAL (08:31)
[2024-04-26 08:32] VITALS: PULSE 73
[2024-04-26] MEDS: Juven (unflavored) Packet 1 PACKET PO ×2 (08:32→16:39)
[2024-04-26] MEDS: Metoprolol(XL)Succ 100 MG Tablet PO (08:32)
[2024-04-26] MEDS: Fluticasone 0.05% 1 SPRAY NASAL.SRY 2 SPRAY NASAL (08:33)
[2024-04-26] MEDS: Nystatin Powder 15gm Bottle 1 APPLIC TOPICAL ×2 (08:33→19:43)
[2024-04-26 09:00] VITALS: BMI 27.6
--- NOTE | 2024-04-26 10:30 | NURSING ---
pt left unit with spouse to DR lopez
--- NOTE | 2024-04-26 14:13 | NURSING ---
pt returned from DR lopez
[2024-04-26] MEDS: Tamsulosin HCl 0.4 MG Capsule PO (16:39)
[2024-04-26] MEDS: Atorvastatin Calcium 80 MG Tablet PO (19:42)
--- NOTE | 2024-04-26 19:46 | NURSING ---
Per patient's request, HS medications given early, refer to [facility].
[2024-04-27 08:05] VITALS: BP 163/71; PULSE 73; RESP 16; TEMP 36.4
[2024-04-27] MEDS: Ascorbic Acid 500 MG Tablet PO ×2 (08:06→16:56)
[2024-04-27] MEDS: Multivitamins,Therapeutic Tablet 1 TABLET PO (08:06)
[2024-04-27] MEDS: Folic Acid 1 MG Tablet PO (08:06)
[2024-04-27] MEDS: Juven (unflavored) Packet 1 PACKET PO ×2 (08:06→16:56)
[2024-04-27] MEDS: APIXABAN 2.5 MG TABLET (WCH) PO ×2 (08:07→19:58)
[2024-04-27] MEDS: Clobetasol Propionate 0.05% Ointment 1 APPLIC TOPICAL ×2 (08:07→19:57)
[2024-04-27] MEDS: Nystatin Powder 15gm Bottle 1 APPLIC TOPICAL ×2 (08:07→19:58)
[2024-04-27] MEDS: Fluticasone 0.05% 1 SPRAY NASAL.SRY 2 SPRAY NASAL (08:07)
[2024-04-27 08:08] VITALS: PULSE 73
[2024-04-27] MEDS: Ezetimibe 10 MG Tablet PO (08:08)
[2024-04-27] MEDS: Metoprolol(XL)Succ 100 MG Tablet PO (08:08)
[2024-04-27] MEDS: Tamsulosin HCl 0.4 MG Capsule PO (16:56)
[2024-04-27] MEDS: Atorvastatin Calcium 80 MG Tablet PO ×2 (19:57)
[2024-04-28 08:10] VITALS: BP 146/59; PULSE 67; TEMP 36.7; O2SAT 95
[2024-04-28] MEDS: Multivitamins,Therapeutic Tablet 1 TABLET PO (08:12)
[2024-04-28] MEDS: Ascorbic Acid 500 MG Tablet PO ×2 (08:12→16:29)
[2024-04-28] MEDS: Folic Acid 1 MG Tablet PO (08:12)
[2024-04-28] MEDS: Juven (unflavored) Packet 1 PACKET PO ×2 (08:12→16:29)
[2024-04-28 08:13] VITALS: PULSE 67
[2024-04-28] MEDS: Metoprolol(XL)Succ 100 MG Tablet PO (08:13)
[2024-04-28] MEDS: APIXABAN 2.5 MG TABLET (WCH) PO ×2 (08:13→19:53)
[2024-04-28] MEDS: Clobetasol Propionate 0.05% Ointment 1 APPLIC TOPICAL ×2 (08:13→19:54)
[2024-04-28] MEDS: Ezetimibe 10 MG Tablet PO (08:13)
[2024-04-28] MEDS: Nystatin Powder 15gm Bottle 1 APPLIC TOPICAL ×2 (08:14→19:54)
[2024-04-28] MEDS: Fluticasone 0.05% 1 SPRAY NASAL.SRY 2 SPRAY NASAL (08:14)
--- NOTE | 2024-04-28 12:03 | CASEMGMT ---
Social Work SW continues to stay up-to-date on pt's wound care and receives hand-offs from PT weekly check-ins. Pt is planning an AMANDO home on . Will determine the success of that AMANDO to potential plan for DC. However, currently, as long as pt remains skilled, pt will remain until days are exhausted- whichever comes first. Emily Green, PATEL BAHW
[2024-04-28] MEDS: Tamsulosin HCl 0.4 MG Capsule PO (16:29)
[2024-04-29 09:13] VITALS: BP 128/51; PULSE 63; RESP 17; TEMP 36.1; O2SAT 98
[2024-04-29] MEDS: Juven (unflavored) Packet 1 PACKET PO ×2 (09:16→17:20)
[2024-04-29] MEDS: Multivitamins,Therapeutic Tablet 1 TABLET PO (09:16)
[2024-04-29] MEDS: Folic Acid 1 MG Tablet PO (09:16)
[2024-04-29 09:17] VITALS: PULSE 63
[2024-04-29] MEDS: Metoprolol(XL)Succ 100 MG Tablet PO (09:17)
[2024-04-29] MEDS: Clobetasol Propionate 0.05% Ointment 1 APPLIC TOPICAL (09:17)
[2024-04-29] MEDS: APIXABAN 2.5 MG TABLET (WCH) PO ×2 (09:17→21:21)
[2024-04-29] MEDS: Fluticasone 0.05% 1 SPRAY NASAL.SRY 2 SPRAY NASAL (09:17)
[2024-04-29] MEDS: Ascorbic Acid 500 MG Tablet PO ×2 (09:17→17:20)
[2024-04-29] MEDS: Nystatin Powder 15gm Bottle 1 APPLIC TOPICAL (09:18)
[2024-04-29] MEDS: Ezetimibe 10 MG Tablet PO (09:18)
[2024-04-29] MEDS: Tamsulosin HCl 0.4 MG Capsule PO (17:20)
[2024-04-29] MEDS: Atorvastatin Calcium 80 MG Tablet PO (21:21)
[2024-04-30 09:09] VITALS: BP 137/60; PULSE 65; RESP 16; TEMP 36.6; O2SAT 96
[2024-04-30] MEDS: Fluticasone 0.05% 1 SPRAY NASAL.SRY 2 SPRAY NASAL (09:11)
[2024-04-30] MEDS: Ezetimibe 10 MG Tablet PO (09:11)
[2024-04-30] MEDS: Juven (unflavored) Packet 1 PACKET PO ×2 (09:11→17:02)
[2024-04-30 09:12] VITALS: PULSE 65
[2024-04-30] MEDS: Multivitamins,Therapeutic Tablet 1 TABLET PO (09:12)
[2024-04-30] MEDS: Folic Acid 1 MG Tablet PO (09:12)
[2024-04-30] MEDS: Metoprolol(XL)Succ 100 MG Tablet PO (09:12)
[2024-04-30] MEDS: Ascorbic Acid 500 MG Tablet PO ×2 (09:12→17:02)
[2024-04-30] MEDS: Clobetasol Propionate 0.05% Ointment 1 APPLIC TOPICAL ×2 (09:13→22:28)
[2024-04-30] MEDS: APIXABAN 2.5 MG TABLET (WCH) PO ×2 (09:13→22:29)
[2024-04-30] MEDS: Nystatin Powder 15gm Bottle 1 APPLIC TOPICAL ×2 (09:18→22:27)
[2024-04-30] MEDS: Tamsulosin HCl 0.4 MG Capsule PO (17:03)
[2024-04-30] MEDS: Atorvastatin Calcium 80 MG Tablet PO (22:28)
[2024-05-01] MEDS: Ascorbic Acid 500 MG Tablet PO ×2 (09:49→18:04)
[2024-05-01] MEDS: Folic Acid 1 MG Tablet PO (09:49)
[2024-05-01] MEDS: Ezetimibe 10 MG Tablet PO (09:49)
[2024-05-01] MEDS: APIXABAN 2.5 MG TABLET (WCH) PO ×2 (09:49→21:42)
[2024-05-01 09:50] VITALS: PULSE 88
[2024-05-01] MEDS: Juven (unflavored) Packet 1 PACKET PO ×2 (09:50→18:04)
[2024-05-01] MEDS: Fluticasone 0.05% 1 SPRAY NASAL.SRY 2 SPRAY NASAL (09:50)
[2024-05-01] MEDS: Metoprolol(XL)Succ 100 MG Tablet PO (09:50)
[2024-05-01] MEDS: Multivitamins,Therapeutic Tablet 1 TABLET PO (09:50)
[2024-05-01] MEDS: Clobetasol Propionate 0.05% Ointment 1 APPLIC TOPICAL ×2 (09:55→21:44)
[2024-05-01] MEDS: Nystatin Powder 15gm Bottle 1 APPLIC TOPICAL ×2 (09:55→21:43)
--- NOTE | 2024-05-01 14:40 | NURSING ---
Dressing change completed. Patient tolerated well.
[2024-05-01 15:37] VITALS: BP 132/68; PULSE 70; RESP 14; TEMP 36.6; O2SAT 97
[2024-05-01] MEDS: Tamsulosin HCl 0.4 MG Capsule PO (18:04)
[2024-05-01] MEDS: Atorvastatin Calcium 80 MG Tablet PO (21:42)
[2024-05-02] MEDS: Fluticasone 0.05% 1 SPRAY NASAL.SRY 2 SPRAY NASAL (08:23)
[2024-05-02 08:24] VITALS: BP 137/60; PULSE 79
[2024-05-02] MEDS: Metoprolol(XL)Succ 100 MG Tablet PO (08:24)
[2024-05-02] MEDS: Ezetimibe 10 MG Tablet PO (08:24)
[2024-05-02] MEDS: Multivitamins,Therapeutic Tablet 1 TABLET PO (08:24)
[2024-05-02] MEDS: APIXABAN 2.5 MG TABLET (WCH) PO ×2 (08:24→20:07)
[2024-05-02] MEDS: Folic Acid 1 MG Tablet PO (08:24)
[2024-05-02] MEDS: Juven (unflavored) Packet 1 PACKET PO ×2 (08:24→16:46)
[2024-05-02] MEDS: Clobetasol Propionate 0.05% Ointment 1 APPLIC TOPICAL (08:26)
[2024-05-02] MEDS: Nystatin Powder 15gm Bottle 1 APPLIC TOPICAL ×2 (08:28→20:08)
[2024-05-02] MEDS: Ascorbic Acid 500 MG Tablet PO ×2 (10:27→16:46)
[2024-05-02 13:42] VITALS: BP 139/61; PULSE 61; RESP 16; TEMP 36.4; O2SAT 97
--- NOTE | 2024-05-02 14:50 | WOUNDNOTE ---
wound photo: right foot
--- NOTE | 2024-05-02 14:51 | WOUNDNOTE ---
wound photo: right foot
[2024-05-02] MEDS: Tamsulosin HCl 0.4 MG Capsule PO (16:46)
[2024-05-02] MEDS: Atorvastatin Calcium 80 MG Tablet PO (20:08)
[2024-05-03 07:55] VITALS: BP 157/69; PULSE 67; RESP 16; TEMP 36.6; O2SAT 95
[2024-05-03 07:58] VITALS: PULSE 67
[2024-05-03] MEDS: Fluticasone 0.05% 1 SPRAY NASAL.SRY 2 SPRAY NASAL (07:58)
[2024-05-03] MEDS: Multivitamins,Therapeutic Tablet 1 TABLET PO (07:58)
[2024-05-03] MEDS: Juven (unflavored) Packet 1 PACKET PO ×2 (07:58→16:53)
[2024-05-03] MEDS: Metoprolol(XL)Succ 100 MG Tablet PO (07:58)
[2024-05-03] MEDS: APIXABAN 2.5 MG TABLET (WCH) PO ×2 (07:58→20:18)
[2024-05-03] MEDS: Ezetimibe 10 MG Tablet PO (07:58)
[2024-05-03] MEDS: Folic Acid 1 MG Tablet PO (07:58)
[2024-05-03] MEDS: Ascorbic Acid 500 MG Tablet PO ×2 (07:58→16:53)
[2024-05-03] MEDS: Clobetasol Propionate 0.05% Ointment 1 APPLIC TOPICAL (07:59)
[2024-05-03] MEDS: Nystatin Powder 15gm Bottle 1 APPLIC TOPICAL (08:00)
[2024-05-03 09:00] VITALS: BMI 28.0
[2024-05-03 14:34] VITALS: RESP 16
--- NOTE | 2024-05-03 15:47 | PCM.PN.DRR ---
Documented by User: Candi Jaquez 05/03/24 15:57 TCU RX Drug Regimen Review Subjective/Objective Subjective/Objective Subjective: TCU April note. 83 YOM hospitalized for acute encephalopathy 2/2 left occipital stroke, complicated by right foot gangrene requiring transmetatarsal amputation, acute kidney injury. Admitted to TCU with debility for strengthening and rehabilitation. Objective: Allergies hydrochlorothiazide Adverse Reaction (Verified 02/26/24 12:56) Unknown Current Medications Generic Name Dose Route Start Last Admin Trade Name Freq PRN Reason Stop Dose Admin Acetaminophen 1,000 mg 02/17/24 22:16 Acetaminophen 500 Mg Tablet PO Q6H PRN PRN Pain Score 1-5 Apixaban 2.5 mg 04/11/24 10:00 05/03/24 07:58 Apixaban 2.5 Mg Tablet ([employer]) PO 2.5 mg BID REAL Administration Ascorbic Acid 500 mg 04/20/24 08:00 05/03/24 07:58 Ascorbic Acid 500 Mg Tablet PO 500 mg BID REAL Administration Atorvastatin Calcium 80 mg 02/17/24 22:00 05/02/24 20:08 Atorvastatin Calcium 80 Mg Tablet PO 80 mg QHS REAL Administration Clobetasol Propionate 1 applic 02/17/24 22:00 05/03/24 07:59 Clobetasol Propionate 0.05% Ointment TOPICAL 1 applic BID REAL Administration Protocol Ezetimibe 10 mg 02/18/24 10:00 05/03/24 07:58 Ezetimibe 10 Mg Tablet PO 10 mg DAILY REAL Administration Fluticasone Propionate 2 spray 02/18/24 10:00 05/03/24 07:58 Fluticasone 0.05% 1 [place] Nasal.Sry NASAL 2 spray DAILY REAL Administration Folic Acid 1 mg 02/18/24 08:00 05/03/24 07:58 Folic Acid 1 Mg Tablet PO 1 mg DAILYCM REAL Administration Sodium Chloride 250 mls @ 15 mls/hr 02/18/24 13:53 03/05/24 12:58 IV Infused .[id number] PRN Infusion Additional IVPB Infusion Sodium Chloride 250 mls @ 15 mls/hr 02/18/24 13:53 IV .[id number] PRN Saline Flush L-Arginine/L-Glutamine/Calcium HMB 1 packet 02/19/24 17:00 05/03/24 07:58 Prasanth (Unflavored) Packet PO 1 packet BIDCM REAL Administration Lorazepam 0.5 mg 02/18/24 17:16 Lorazepam 0.5 Mg Tablet PO Q4H PRN PRN ANXIETY/RESTLESSNESS/SLEEP Magnesium Citrate 300 ml 02/17/24 22:16 Magnesium Citrate 300 Ml PO DAILY PRN Constipation Metoprolol Succinate 100 mg 02/18/24 10:00 05/03/24 07:58 Metoprolol(Xl)Succ 100 Mg Tablet PO 100 mg DAILY REAL Administration Protocol Multivitamins 1 tablet 04/20/24 08:00 05/03/24 07:58 Multivitamins,Therapeutic Tablet PO 1 tablet BREAKFAST REAL Administration Nystatin 1 applic 02/19/24 22:00 05/03/24 08:00 Nystatin Powder 15gm Bottle TOPICAL 1 applic BID [facility] Administration Protocol Oxycodone HCl 2.5 mg 02/17/24 22:16 Oxycodone 5 Mg Tablet PO Q4H PRN PRN Pain Score 6-10 or Pre PT/OT Senna/Docusate Sodium 1 tablet 02/19/24 09:53 02/24/24 20:21 Senna/Docusate Sodium 1 Tablet PO 1 tablet BID PRN Administration Constipation Sodium Chloride 10 - 40 ml 02/19/24 23:48 02/26/24 09:27 0.9% Saline Lock 10 Ml Syringe IV 20 ml UD PRN Administration SALINE FLUSH Sodium Chloride 2 spray 04/25/24 07:37 Sodium Chloride 0.65% 1 [place].Btl NASAL BID PRN Nasal Dryness Tamsulosin HCl 0.4 mg 02/22/24 17:30 05/02/24 16:46 Tamsulosin Hcl 0.4 Mg Capsule PO 0.4 mg DAILY@1730 [facility] Administration Problem List Venous insufficiency (Acute) Coronary artery disease (Acute) Chronic heart failure with preserved ejection fraction (HFpEF) (Acute) GERD (gastroesophageal reflux disease) (Acute) Hyperlipidemia (Acute) Essential (primary) hypertension (Acute) Acute kidney injury (Acute) Status post transmetatarsal amputation of right foot (Acute) Stroke (Acute) Acute encephalopathy (Acute) Gangrene of toe of right foot (Acute) Debility (Acute) MYRON (obstructive sleep apnea) (Chronic) Atrial fibrillation (Acute) Vital Signs Temp Pulse Resp BP Pulse Ox O2 Del Method O2 Flow Rate 98 F 67 16 157/69 H 95 Room Air 0 05/03/24 07:55 05/03/24 07:58 05/03/24 14:34 05/03/24 07:55 05/03/24 07:55 05/03/24 14:34 03/17/24 21:50 FiO2 21 03/17/24 21:50 Oxygen Flow Rate (L/min) 0 Oxygen Delivery Method Room Air Weight: 87.453 kg Body Mass Index (BMI) 27.6 Sodium 140 mmol/L (136-145) 03/17/24 08:45 Potassium 4.3 mmol/L (3.5-5.1) 03/17/24 08:45 Chloride 110 mmol/L (98-107) H 03/17/24 08:45 Carbon Dioxide 24.0 mmol/L (21.0-32.0) 03/17/24 08:45 Anion Gap 7 (5-15) 03/17/24 08:45 BUN 29 mg/dL (7-18) H 03/17/24 08:45 Creatinine 0.98 mg/dL (0.70-1.30) 03/17/24 08:45 Est GFR (MDRD) Af Amer 94 mL/min (>60) 03/17/24 08:45 Est GFR (MDRD) Non-Af 78 mL/min (>60) 03/17/24 08:45 BUN/Creatinine Ratio 29.7 RATIO (10-20) H 03/17/24 08:45 Glucose 169 mg/dL (74-106) H 03/17/24 08:45 Assessment/Plan: 1. Pain: acetaminophen 1000mg PO Q6H PRN pain 1-5 and oxycodone 2.5mg PO Q4H PRN pain 6-10. Resident has not had any PRN doses. Please continue to monitor for increased pain and PRN usage. 2. Bowel: senna/docusate 1T PO BID PRN constipation and magnesium citrate 300mg PO daily PRN constipation. Please continue to monitor for PRN usage (no doses given since February) and constipation. Last documented bowel movement was 05/03/24. 3. Hypertension/atrial fibrillation/CAD/stroke/HFpEF: metoprolol succinate 100mg PO daily, apixaban 2.5mg PO BID. Apixaban decreased to 2.5mg and aspirin stopped due to epistaxis. Please continue to monitor BP (last 157/69), HR (last 67), S/S of bleeding, hemoglobin (last 11.5g/dL). 4. Hyperlipidemia: atorvastatin 80mg PO QHS and ezetimibe 10mg PO daily. Please see previous note for recommendations. Please continue to monitor for muscle pain. 6. Allergic rhinitis/dry nares: fluticasone nasal spray 2 sprays nasal daily and [place] Nasal spray 2 sprays nasal BID PRN nasal dryness. No PRN doses given. Please continue to monitor for S/S of allergies, PRN doses and nosebleeds. 7. BPH: tamsulosin 0.4mg PO daily. Please continue to monitor for S/S of BPH and BP. 8. Tinea corporis: Nystatin powder topical bid. 9. Folate deficiency: folic acid 1mg PO daily. Please continue to monitor. 10. Skin irritation/rash: Calmoseptine topical bid and Clobetasol cream topical bid. Please continue to monitor. 11. Nutrition/wound: multivitamin 1T PO daily and Prasanth 1 packet PO BID. Please continue to monitor. Assessment/Plan for indications treated with psychotropic medications: 1. Anxiety/restlessness/sleep: lorazepam 0.5mg PO Q4H PRN anxiety/restlessness/sleep. This medication was just started and resident has not had any doses, GDR not appropriate at this time. Please continue to monitor for anxiety/restlessness/sleep and PRN usage. Medical chart and medication regimen reviewed. The following medication irregularities or issues were identified: None Date Date of Note: 05/03/24 Documented by User: Dr. Nash Horne MD 05/03/24 16:32 TCU RX Drug Regimen Review Provider Comments Provider responsibility Provider Comments to Recommendations by Pharmacy Agree
[2024-05-03] MEDS: Tamsulosin HCl 0.4 MG Capsule PO (16:52)
[2024-05-03] MEDS: Atorvastatin Calcium 80 MG Tablet PO (20:18)
[2024-05-04 08:07] VITALS: BP 150/61; PULSE 66
[2024-05-04] MEDS: Folic Acid 1 MG Tablet PO (08:07)
[2024-05-04] MEDS: Juven (unflavored) Packet 1 PACKET PO ×2 (08:07→17:53)
[2024-05-04] MEDS: Ascorbic Acid 500 MG Tablet PO ×2 (08:07→17:53)
[2024-05-04] MEDS: Nystatin Powder 15gm Bottle 1 APPLIC TOPICAL (08:07)
[2024-05-04] MEDS: Multivitamins,Therapeutic Tablet 1 TABLET PO (08:07)
[2024-05-04] MEDS: Ezetimibe 10 MG Tablet PO (08:07)
[2024-05-04] MEDS: APIXABAN 2.5 MG TABLET (WCH) PO ×2 (08:07→20:14)
[2024-05-04] MEDS: Metoprolol(XL)Succ 100 MG Tablet PO (08:07)
[2024-05-04] MEDS: Clobetasol Propionate 0.05% Ointment 1 APPLIC TOPICAL (08:08)
[2024-05-04] MEDS: Fluticasone 0.05% 1 SPRAY NASAL.SRY 2 SPRAY NASAL (08:08)
[2024-05-04 09:15] VITALS: BP 150/61; PULSE 66; RESP 16; TEMP 36.6; O2SAT 93
[2024-05-04] MEDS: Tamsulosin HCl 0.4 MG Capsule PO (17:53)
[2024-05-04] MEDS: Atorvastatin Calcium 80 MG Tablet PO (20:14)
[2024-05-05] MEDS: Folic Acid 1 MG Tablet PO (08:06)
[2024-05-05] MEDS: Ascorbic Acid 500 MG Tablet PO ×2 (08:07→18:56)
[2024-05-05] MEDS: Multivitamins,Therapeutic Tablet 1 TABLET PO (08:07)
[2024-05-05] MEDS: APIXABAN 2.5 MG TABLET (WCH) PO ×2 (08:07→20:05)
[2024-05-05] MEDS: Juven (unflavored) Packet 1 PACKET PO ×2 (08:07→18:54)
[2024-05-05] MEDS: Clobetasol Propionate 0.05% Ointment 1 APPLIC TOPICAL ×2 (08:08→20:04)
[2024-05-05] MEDS: Ezetimibe 10 MG Tablet PO (08:08)
[2024-05-05 08:09] VITALS: BP 148/62; PULSE 64
[2024-05-05] MEDS: Fluticasone 0.05% 1 SPRAY NASAL.SRY 2 SPRAY NASAL (08:09)
[2024-05-05] MEDS: Metoprolol(XL)Succ 100 MG Tablet PO (08:09)
[2024-05-05] MEDS: Nystatin Powder 15gm Bottle 1 APPLIC TOPICAL (08:13)
[2024-05-05] MEDS: Tamsulosin HCl 0.4 MG Capsule PO (18:55)
--- NOTE | 2024-05-05 19:37 | NURSING ---
AMANDO from 1100 to 1650 today and patient tolerated well.
[2024-05-05] MEDS: Atorvastatin Calcium 80 MG Tablet PO (20:05)
[2024-05-06 08:27] VITALS: BP 148/63; PULSE 73; RESP 17; TEMP 36.7; O2SAT 95
[2024-05-06] MEDS: Ascorbic Acid 500 MG Tablet PO ×2 (08:30→17:32)
[2024-05-06] MEDS: APIXABAN 2.5 MG TABLET (WCH) PO ×2 (08:30→20:03)
[2024-05-06] MEDS: Multivitamins,Therapeutic Tablet 1 TABLET PO (08:30)
[2024-05-06] MEDS: Fluticasone 0.05% 1 SPRAY NASAL.SRY 2 SPRAY NASAL (08:30)
[2024-05-06] MEDS: Juven (unflavored) Packet 1 PACKET PO ×2 (08:30→17:32)
[2024-05-06] MEDS: Folic Acid 1 MG Tablet PO (08:30)
[2024-05-06] MEDS: Clobetasol Propionate 0.05% Ointment 1 APPLIC TOPICAL ×2 (08:31→20:02)
[2024-05-06] MEDS: Nystatin Powder 15gm Bottle 1 APPLIC TOPICAL (08:31)
[2024-05-06 08:32] VITALS: PULSE 73
[2024-05-06] MEDS: Metoprolol(XL)Succ 100 MG Tablet PO (08:32)
[2024-05-06] MEDS: Ezetimibe 10 MG Tablet PO (08:32)
[2024-05-06] MEDS: Tamsulosin HCl 0.4 MG Capsule PO (17:32)
[2024-05-06] MEDS: Atorvastatin Calcium 80 MG Tablet PO (20:03)
[2024-05-07 08:01] VITALS: BP 168/82; PULSE 63; TEMP 36.6; O2SAT 93
[2024-05-07] MEDS: Ascorbic Acid 500 MG Tablet PO ×2 (08:07→16:20)
[2024-05-07] MEDS: Multivitamins,Therapeutic Tablet 1 TABLET PO (08:07)
[2024-05-07] MEDS: Juven (unflavored) Packet 1 PACKET PO ×2 (08:07→16:20)
[2024-05-07] MEDS: APIXABAN 2.5 MG TABLET (WCH) PO ×2 (08:07→19:51)
[2024-05-07] MEDS: Folic Acid 1 MG Tablet PO (08:07)
[2024-05-07 08:08] VITALS: PULSE 63
[2024-05-07] MEDS: Metoprolol(XL)Succ 100 MG Tablet PO (08:08)
[2024-05-07] MEDS: Nystatin Powder 15gm Bottle 1 APPLIC TOPICAL (08:08)
[2024-05-07] MEDS: Clobetasol Propionate 0.05% Ointment 1 APPLIC TOPICAL ×2 (08:08→19:51)
[2024-05-07] MEDS: Fluticasone 0.05% 1 SPRAY NASAL.SRY 2 SPRAY NASAL (08:08)
[2024-05-07] MEDS: Ezetimibe 10 MG Tablet PO (08:09)
[2024-05-07] MEDS: Tamsulosin HCl 0.4 MG Capsule PO (16:20)
[2024-05-07] MEDS: Atorvastatin Calcium 80 MG Tablet PO (19:50)
[2024-05-08 08:10] VITALS: BP 161/68; PULSE 68; RESP 16; TEMP 36.3; O2SAT 94
[2024-05-08 08:16] VITALS: PULSE 68
[2024-05-08] MEDS: Ezetimibe 10 MG Tablet PO (08:16)
[2024-05-08] MEDS: Fluticasone 0.05% 1 SPRAY NASAL.SRY 2 SPRAY NASAL (08:16)
[2024-05-08] MEDS: Metoprolol(XL)Succ 100 MG Tablet PO (08:16)
[2024-05-08] MEDS: Juven (unflavored) Packet 1 PACKET PO ×2 (08:16→17:39)
[2024-05-08] MEDS: Multivitamins,Therapeutic Tablet 1 TABLET PO (08:16)
[2024-05-08] MEDS: APIXABAN 2.5 MG TABLET (WCH) PO ×2 (08:16→20:12)
[2024-05-08] MEDS: Ascorbic Acid 500 MG Tablet PO ×2 (08:16→17:39)
[2024-05-08] MEDS: Clobetasol Propionate 0.05% Ointment 1 APPLIC TOPICAL (08:16)
[2024-05-08] MEDS: Folic Acid 1 MG Tablet PO (08:16)
[2024-05-08] MEDS: Nystatin Powder 15gm Bottle 1 APPLIC TOPICAL (08:17)
--- NOTE | 2024-05-08 15:58 | NURSING ---
pt updated that staff member tested for covid this AM
[2024-05-08] MEDS: Tamsulosin HCl 0.4 MG Capsule PO (17:39)
--- NOTE | 2024-05-08 18:11 | NURSING ---
dressings changed to RT andrade and foot. mini shifter reported that pt slipped while using knee walker and caused skin abrasions to andrade. mepilex applied to protect area.
[2024-05-08] MEDS: Atorvastatin Calcium 80 MG Tablet PO (20:12)
[2024-05-09] MEDS: Ascorbic Acid 500 MG Tablet PO ×2 (07:58→17:25)
[2024-05-09] MEDS: Folic Acid 1 MG Tablet PO (07:59)
[2024-05-09] MEDS: Juven (unflavored) Packet 1 PACKET PO ×2 (07:59→17:25)
[2024-05-09] MEDS: Multivitamins,Therapeutic Tablet 1 TABLET PO (07:59)
[2024-05-09] MEDS: Fluticasone 0.05% 1 SPRAY NASAL.SRY 2 SPRAY NASAL (08:00)
[2024-05-09] MEDS: Clobetasol Propionate 0.05% Ointment 1 APPLIC TOPICAL (08:00)
[2024-05-09] MEDS: APIXABAN 2.5 MG TABLET (WCH) PO ×2 (08:00→20:23)
[2024-05-09] MEDS: Nystatin Powder 15gm Bottle 1 APPLIC TOPICAL (08:00)
[2024-05-09 08:01] VITALS: BP 135/52; PULSE 58
[2024-05-09] MEDS: Metoprolol(XL)Succ 100 MG Tablet PO (08:01)
[2024-05-09] MEDS: Ezetimibe 10 MG Tablet PO (08:02)
--- NOTE | 2024-05-09 10:00 | NURSING ---
Addendum entered by Svetlana Reynolds 05/09/24 13:59: Pt returns (family transport) from sports writer appointment. See chart for new orders. Original Note: Pt leaves for [facility] appt ~[id number].
--- NOTE | 2024-05-09 12:27 | NURSING ---
Faxed orders received from solar hot water installer follow-up. Wound care to incision site to continue daily. New orders to place bordered foam dressing to right anterior ankle to protect skin.
[2024-05-09] MEDS: Tamsulosin HCl 0.4 MG Capsule PO (17:25)
--- NOTE | 2024-05-09 19:28 | PN.TCU_ITS ---
Subjective Subjective Resident seen, examined for regulatory visit. He has no new problems, concerns, issues, complaints. He is NWB right lower extremity for 2 more weeks. He inquired about hyperbaric oxygen treatment for his right foot wound, I asked him to discuss with Megha Fajardo, and if appropriate, will refer to wound center to see if he would benefit from hyperbaric dives. Objective Data Objective Data Vital Signs: Vital Signs Temp Pulse Resp BP Pulse Ox O2 Del Method O2 Flow Rate 97.3 F L 58 L 16 135/52 H 94 Room Air 0 05/08/24 08:10 05/09/24 08:01 05/08/24 08:10 05/09/24 08:01 05/08/24 08:10 05/09/24 10:00 03/17/24 21:50 FiO2 21 03/17/24 21:50 Oxygen Flow Rate (L/min) 0 Oxygen Delivery Method Room Air Weight: 87.453 kg Body Mass Index (BMI) 28.0 Intake & Output: Intake and Output for Last 24 Hours 05/07/24 05/08/24 05/09/24 23:59 23:59 23:59 Intake Total 1140 / 1140 1220 / 1220 320 / 320 Output Total 450 / 450 Balance 690 / 690 1220 / 1220 320 / 320 Lab / Micro Data 03/17/24 08:45 03/17/24 08:45 Micro: Microbiology 05/09/24 07:00 Nasal Secretion SARS-CoV-2 Antigen (Rapid) - Final 04/29/24 06:00 Nasal Secretion SARS-CoV-2 Antigen (Rapid) - Final 04/22/24 08:30 Nasal Secretion SARS-CoV-2 Antigen (Rapid) - Final 03/22/24 06:35 Nasal Secretion SARS-CoV-2 Antigen (Rapid) - Final 03/15/24 06:03 Nasal Secretion SARS-CoV-2 Antigen (Rapid) - Final 03/08/24 05:00 Nasal Secretion SARS-CoV-2 Antigen (Rapid) - Final 02/25/24 07:15 Stool Stool Occult Blood (BRIANA) - Final Occult Blood Positive 02/18/24 11:41 Urine, Catheterized Urine Culture - Final Culture exhibits no growth. 02/18/24 11:12 Mucosa - Nasopharyngeal Respiratory Panel (PCR) - Final 02/18/24 11:17 Nasal Secretion SARS-CoV-2 Antigen (Rapid) - Final Physical Exam Const alert General Appearance: cooperative HEENT normocephalic Eyes PERRL and EOMs intact bilaterally Neck supple, no JVD and no carotid bruits Resp normal respiratory effort, normal air movement and clear to auscultation bilaterally Cardio regular rate and regular rhythm GI normal to inspection, nondistended, normoactive bowel sounds, non-tender and non-distended Extremity normal capillary refill Extremity Narrative: Right foot dressed. General Extremity: Negative for edema Skin no rashes or lesions noted General Skin Exam: no breakdown Psych affect normal Appearance: appropriate Assessment & Plan Assessment/Plan (1) Debility: (2) Gangrene of toe of right foot: (3) Acute encephalopathy: (4) Stroke: (5) Status post transmetatarsal amputation of right foot: (6) Acute kidney injury: (7) Essential (primary) hypertension: (8) Hyperlipidemia: (9) Atrial fibrillation: (10) GERD (gastroesophageal reflux disease): (11) Chronic heart failure with preserved ejection fraction (HFpEF): (12) Coronary artery disease: (13) MYRON (obstructive sleep apnea): (14) Venous insufficiency: PLAN: Plan 83 year old male with below past medical history hospitalized for acute encephalopathy 2/2 left occipital stroke, complicated by right foot gangrene requiring transmetatarsal amputation, acute kidney injury, admitted to TCU with debility, here for rehabilitation, strengthening, prior to discharge home with . * Debility - PT/OT/ST. * Pain - Tylenol 1000mg q6 prn pain (1-5), Oxycodone 2.5mg q4 prn pain (6-10). * Bowel - senna/colace 1 tablet bid prn, Magnesium citrate 300ml po daily prn. * Adult immunization - Administer pneumonia vaccine, covid vaccine, flu vaccine as appropriate. * DVT prophylaxis - on Eliquis. * Hypertension - Metoprolol succinate 100mg daily. * Atrial fibrillation - Metoprolol succinate 100mg daily, Lower Eliquis to 2.5mg bid 2/2 epistaxis. * Coronary artery disease - Metoprolol succinate 100mg daily, Stop Aspirin 81mg 2/2 epistaxis. * Left occipital stroke - Eliquis 5mg bid, Stop Aspirin 81mg 2/2 epistaxis. * Hyperlipidemia - Atorvastatin 80mg qhs, Zetia 10mg daily. * Rash - Clobetasol cream topical bid. * Allergic rhinitis - Fluticasone nasal spray 2 sprays nasal daily. * Folate deficiency - Folic acid 1mg daily. * Chronic HFpEF - Metoprolol succinate 100mg daily. * Right foot gangrene s/p transmetatarsal amputation - Prasanth 1 packet bidcm, Podiatry following in office. * Alcohol withdrawal - Lorazepam 0.5mg q4 prn. * Tinea corporis - Nystatin powder topical bid. * BPH - Tamsulosin 0.4mg daily. * Nutrition - MVI 1 tablet daily. * Dry nose - Sodium chloride 2 sprays nasal bid.
[2024-05-09] MEDS: Atorvastatin Calcium 80 MG Tablet PO (20:23)
[2024-05-10] MEDS: Multivitamins,Therapeutic Tablet 1 TABLET PO (08:59)
[2024-05-10] MEDS: Ascorbic Acid 500 MG Tablet PO ×2 (08:59→17:42)
[2024-05-10] MEDS: Fluticasone 0.05% 1 SPRAY NASAL.SRY 2 SPRAY NASAL (08:59)
[2024-05-10] MEDS: Nystatin Powder 15gm Bottle 1 APPLIC TOPICAL (08:59)
[2024-05-10] MEDS: APIXABAN 2.5 MG TABLET (WCH) PO ×2 (08:59→20:04)
[2024-05-10] MEDS: Juven (unflavored) Packet 1 PACKET PO ×2 (08:59→17:42)
[2024-05-10] MEDS: Folic Acid 1 MG Tablet PO (08:59)
[2024-05-10 09:00] VITALS: BMI 27.7
[2024-05-10] MEDS: Clobetasol Propionate 0.05% Ointment 1 APPLIC TOPICAL (09:00)
[2024-05-10] MEDS: Ezetimibe 10 MG Tablet PO (09:00)
[2024-05-10 09:01] VITALS: PULSE 71
[2024-05-10] MEDS: Metoprolol(XL)Succ 100 MG Tablet PO (09:01)
[2024-05-10 11:14] VITALS: BP 146/58; PULSE 71; RESP 16; TEMP 36.5; O2SAT 95
[2024-05-10] MEDS: Tamsulosin HCl 0.4 MG Capsule PO (17:42)
[2024-05-10] MEDS: Atorvastatin Calcium 80 MG Tablet PO (20:04)
[2024-05-11 08:27] VITALS: BP 137/56; PULSE 76; RESP 16; TEMP 36.2; O2SAT 96
[2024-05-11 08:29] VITALS: PULSE 76
[2024-05-11] MEDS: APIXABAN 2.5 MG TABLET (WCH) PO ×2 (08:29→19:37)
[2024-05-11] MEDS: Ezetimibe 10 MG Tablet PO (08:29)
[2024-05-11] MEDS: Metoprolol(XL)Succ 100 MG Tablet PO (08:29)
[2024-05-11] MEDS: Folic Acid 1 MG Tablet PO (08:29)
[2024-05-11] MEDS: Ascorbic Acid 500 MG Tablet PO ×2 (08:29→18:04)
[2024-05-11] MEDS: Juven (unflavored) Packet 1 PACKET PO ×2 (08:29→18:03)
[2024-05-11] MEDS: Multivitamins,Therapeutic Tablet 1 TABLET PO (08:29)
[2024-05-11] MEDS: Fluticasone 0.05% 1 SPRAY NASAL.SRY 2 SPRAY NASAL (08:30)
[2024-05-11] MEDS: Nystatin Powder 15gm Bottle 1 APPLIC TOPICAL (08:31)
[2024-05-11] MEDS: Clobetasol Propionate 0.05% Ointment 1 APPLIC TOPICAL (08:32)
--- NOTE | 2024-05-11 15:27 | WOUNDNOTE ---
wound photo: right andrade
--- NOTE | 2024-05-11 15:27 | WOUNDNOTE ---
wound photo: right foot
--- NOTE | 2024-05-11 15:28 | WOUNDNOTE ---
wound photo: right foot
[2024-05-11] MEDS: Tamsulosin HCl 0.4 MG Capsule PO (18:04)
[2024-05-11] MEDS: Atorvastatin Calcium 80 MG Tablet PO (19:37)
[2024-05-12 08:47] VITALS: BP 124/53; PULSE 76; RESP 16; TEMP 36.1; O2SAT 94
[2024-05-12 08:49] VITALS: PULSE 76
[2024-05-12] MEDS: Folic Acid 1 MG Tablet PO (08:49)
[2024-05-12] MEDS: Multivitamins,Therapeutic Tablet 1 TABLET PO (08:49)
[2024-05-12] MEDS: APIXABAN 2.5 MG TABLET (WCH) PO ×2 (08:49→19:58)
[2024-05-12] MEDS: Juven (unflavored) Packet 1 PACKET PO ×2 (08:49→18:13)
[2024-05-12] MEDS: Metoprolol(XL)Succ 100 MG Tablet PO (08:49)
[2024-05-12] MEDS: Ascorbic Acid 500 MG Tablet PO ×2 (08:49→18:13)
[2024-05-12] MEDS: Ezetimibe 10 MG Tablet PO (08:50)
[2024-05-12] MEDS: Fluticasone 0.05% 1 SPRAY NASAL.SRY 2 SPRAY NASAL (08:50)
[2024-05-12] MEDS: Nystatin Powder 15gm Bottle 1 APPLIC TOPICAL (08:53)
--- NOTE | 2024-05-12 09:06 | NURSING ---
pt showed this nurse summary papers from recent appt with athletic coach, pt stating they want me to continue with therapy copies made of summary, placed in chart. MATA Diaz updated and will speak with pt today.
[2024-05-12 13:23] VITALS: PULSE 63; RESP 14; O2SAT 96
--- NOTE | 2024-05-12 16:08 | CASEMGMT ---
Social Work SW spoke with pt at [facility]. Pt remembered this worker. Pt and SW exchanged niceties, discussed pt's work, until pt asked the nature of this worker's visit. SW explained Medicare coverage is ending 05/26; pt exhausted 100 days in his benefit period. SW inquired about pt's [facility]O home on [address]. Pt responded, my can't take care of me at home. SW offered hiring aides in the home who could. Pt stated well I guess that's what I'm going to have to do. SW offered to provide pt with resources of private duty agencies. Pt then provided this worker with a piece of paper, asking if this worker had seen it. SW read it and it appeared to be progress notes from pt's most recent Drs appt written from Dr. Tatum Carey to the effect of pt to remain in TCU continuing with therapy and wound care to prevent the risk of amputation, until wound is healed. SW acknowledged the Drs recommendation, however, explained that does not change the insurance coverage. SW explained the patient can transfer to another SNF and pay privately and offered to provided SNF list, or DC home. Pt visibly upset with this information, crossing his arms over his chest, puffing out his chest, using an assertive tone toward this worker. Pt stated, well you'll be hearing from me. SW confirmed that this worker does want to hear from pt as this workers role is to assist with DC planning. SW offered to provide information to Yosvany as well. Pt denied and stated that pt or real estate associate attorney will be contacting this worker. SW thanked pt and provided pt with business card. Pt asked, are you going to be giving me a form with all of this explained to me?. SW offered to provide NOMNC to formalize the DC date. Pt agreed. SW returned to room and pt signed NOMNC. SW did indicate on the form, as a NOMNC does not need issued with a Medicare benefit exhaustion, that pt has exhausted his [facility] skilled days, therefore, the expedited appeal rights are not available to the pt. SW provided copy to provide and placed copy in medical chart. SW thanked pt for time. Will continue to follow. Emily Green, AUTOMOTIVE CENTER MANAGER CLINICAL TRIALS SPECIALIST
--- NOTE | 2024-05-12 16:21 | CASEMGMT ---
Social Work SW spoke with pt at [facility]. Pt remembered this worker. Pt and SW exchanged niceties, discussed pt's work, until pt asked the nature of this worker's visit. SW explained Medicare coverage is ending 05/26; pt exhausted 100 days in his benefit period. SW inquired about pt's [facility] home on [address]. Pt responded, my can't take care of me at home. SW offered hiring aides in the home who could. Pt stated well I guess that's what I'm going to have to do. SW offered to provide pt with resources of private duty agencies. Pt then provided this worker with a piece of paper, asking if this worker had seen it. SW read it and it appeared to be progress notes from pt's most recent Drs appt written from Dr. Tatum Carey to the effect of pt to remain in TCU continuing with therapy and wound care to prevent the risk of amputation, until wound is healed. SW acknowledged the Drs recommendation and noted pt has not been receiving therapy for several weeks now; however, explained that does not change the insurance coverage. SW explained the patient can transfer to another SNF and pay privately and offered to provided SNF list, or DC home. Pt visibly upset with this information, crossing his arms over his chest, puffing out his chest, using an assertive tone toward this worker. Pt stated, well you'll be hearing from me. SW confirmed that this worker does want to hear from pt as this workers role is to assist with DC planning. SW offered to provide information to Yosvany as well. Pt denied and stated that pt or senior trial attorney will be contacting this worker. KEILA thanked pt and provided pt with business card. Pt asked, are you going to be giving me a form with all of this explained to me?. SW offered to provide NOMNC to formalize the DC date. Pt agreed. SW returned to room and pt signed NOMNC. SW did indicate on the form, as a NOMNC does not need issued with a Medicare benefit exhaustion, that pt has exhausted his [facility] skilled days, therefore, the expedited appeal rights are not available to the pt. SW provided copy to provide and placed copy in medical chart. SW thanked pt for time. Will continue to follow to finalize DC plans. Plan: DC 05/26 d/t exhaustion of Medicare benefit PATEL AbarcaW
--- NOTE | 2024-05-12 17:00 | CASEMGMT ---
Social Work Pt requested a visit from [facility] SHAFT SINKER to inform him of this worker's conversation and NOMNC. SHAFT SINKER presented to this worker's office to follow up from conversation. SHAFT SINKER and SW conversed about situation. SW educated to Medicare benefit and pt exhausting his 100 days, thus leaving him with no further SNF benefit until there is 60 consecutive day break in service, and no appeal rights for DC. Explained pt has not received therapy in almost 30 days and has not initiated utilizing therapy gym independently during that time. Therapy Campus Director follows up with pt routinely to assess for decline and pt denies decline/restart therapy services. SW educated the NOMNC only requires a 3 day notice and this worker provided about 2 weeks. SHAFT SINKER expressed understanding and appreciative of team effort to meet pt's needs. SHAFT SINKER understands pts DC options are to hire assistance in his room or go to another SNF to pay privately. However, pts stay in TCU will be ending on 05/26. SHAFT SINKER recommends pt participate in therapy until his DC date to ensure strength and abilities have not changed and home remains a safe plan. SW agreed and will follow up with pt and IDT. Emily Green, PATEL BAHW
[2024-05-12] MEDS: Tamsulosin HCl 0.4 MG Capsule PO (18:13)
[2024-05-12] MEDS: Atorvastatin Calcium 80 MG Tablet PO (19:57)
--- NOTE | 2024-05-13 07:59 | DS.PCM_ITS ---
Providers Date of Admission: 02/17/24 Primary Care Physician: Dr. Omar Yen MD Consultations 02/17/24 15:42 Consult: Onc/Wound/ordnance keeper Routine Comment: Reason for Consult:: 5th right toe amputation 02/25/24 11:26 Consult: Gastroenterology Routine Consulting Provider: [facility] Reason for Consult: + occult stool EMERGENT Consult: No MD Notified: Yes Date Notified: 02/25/24 Time Notified: 11:26 Method of Notification: Text Reason For Visit: AMS GANGRENOUS R TOE Diagnosis Discharge Diagnosis (1) Debility: Status: Acute Code(s): R53.81 - Other malaise (2) Gangrene of toe of right foot: Status: Acute Code(s): I96 - Gangrene, not elsewhere classified (3) Acute encephalopathy: Status: Acute Code(s): G93.40 - Encephalopathy, unspecified (4) Stroke: Status: Acute Code(s): I63.9 - Cerebral infarction, unspecified (5) Status post transmetatarsal amputation of right foot: Status: Acute Code(s): Z89.431 - Acquired absence of right foot (6) Acute kidney injury: Status: Acute Code(s): N17.9 - Acute kidney failure, unspecified (7) Essential (primary) hypertension: Status: Acute Code(s): I10 - Essential (primary) hypertension (8) Hyperlipidemia: Status: Acute Code(s): E78.5 - Hyperlipidemia, unspecified (9) Atrial fibrillation: Status: Acute Code(s): I48.91 - Unspecified atrial fibrillation (10) GERD (gastroesophageal reflux disease): Status: Acute Code(s): K21.9 - Gastro-esophageal reflux disease without esophagitis (11) Chronic heart failure with preserved ejection fraction (HFpEF): Status: Acute Code(s): I50.32 - Chronic diastolic (congestive) heart failure (12) Coronary artery disease: Status: Acute Code(s): I25.10 - Atherosclerotic heart disease of [place] coronary artery without angina pectoris (13) MYRON (obstructive sleep apnea): Status: Chronic Code(s): G47.33 - Obstructive sleep apnea (adult) (pediatric) (14) Venous insufficiency: Status: Acute Code(s): I87.2 - Venous insufficiency (chronic) (peripheral) Plan 83 year old male with below past medical history hospitalized for acute encephalopathy 2/2 left occipital stroke, complicated by right foot gangrene requiring transmetatarsal amputation, acute kidney injury, admitted to TCU with debility, here for rehabilitation, strengthening, prior to discharge home with . * Debility - PT/OT/ST. * Pain - Tylenol 1000mg q6 prn pain (1-5), Oxycodone 2.5mg q4 prn pain (6-10). * Bowel - senna/colace 1 tablet bid prn, Magnesium citrate 300ml po daily prn. * Adult immunization - Administer pneumonia vaccine, covid vaccine, flu vaccine as appropriate. * DVT prophylaxis - on Eliquis. * Hypertension - Metoprolol succinate 100mg daily. * Atrial fibrillation - Metoprolol succinate 100mg daily, Lower Eliquis to 2.5mg bid 2/2 epistaxis. * Coronary artery disease - Metoprolol succinate 100mg daily, Stop Aspirin 81mg 2/2 epistaxis. * Left occipital stroke - Eliquis 5mg bid, Stop Aspirin 81mg 2/2 epistaxis. * Hyperlipidemia - Atorvastatin 80mg qhs, Zetia 10mg daily. * Rash - Clobetasol cream topical bid. * Allergic rhinitis - Fluticasone nasal spray 2 sprays nasal daily. * Folate deficiency - Folic acid 1mg daily. * Chronic HFpEF - Metoprolol succinate 100mg daily. * Right foot gangrene s/p transmetatarsal amputation - Prasanth 1 packet bidcm, Podiatry following in office. * Alcohol withdrawal - Lorazepam 0.5mg q4 prn. * Tinea corporis - Nystatin powder topical bid. * BPH - Tamsulosin 0.4mg daily. * Nutrition - MVI 1 tablet daily. * Dry nose - Sodium chloride 2 sprays nasal bid. Medications at Discharge Home Medications metoprolol succinate 100 mg tablet,extended release 24 hr 100 mg PO DAILY BP #30 TABLETS 12/28/14 ezetimibe 10 mg tablet 10 mg PO DAILY Cholesterol 02/17/24 fluticasone propionate 50 mcg/actuation nasal spray,suspension 2 spray intranasal DAILY Allergies 02/17/24 folic acid 1 mg tablet 1 mg PO DAILY Supplement 02/17/24 apixaban 5 mg tablet (Eliquis) 2.5 mg (1/2 x 5 mg) PO BID 30 days #30 tabs 05/13/24 arginine 7 gram-glutam 7 gram-CaHMB 1.5 [id number]-iu-min oral pwd pkt (Prasanth (with collagen)) 1 packet PO BIDCM 30 days #60 ea 05/13/24 ascorbic acid (vitamin C) 500 mg tablet 500 mg PO BIDCM 30 days #60 tabs 05/13/24 atorvastatin 80 mg tablet 80 mg PO QHS 30 days #30 tabs 05/13/24 tamsulosin 0.4 mg capsule 0.4 mg PO DAILY@1730 30 days #30 caps 05/13/24 Hospital Course Operations - (See below.) Procedures EGD Summary of Care Provided Minutes Spent on Discharge: 35 Hospital Course: 83 year old male with below past medical history hospitalized for acute encephalopathy 2/2 left occipital stroke, complicated by right foot gangrene requiring transmetatarsal amputation, acute kidney injury, admitted to TCU with debility, here for rehabilitation, strengthening, prior to discharge home with . 02/26/2024 Dr. Dobson EGD: Impressions : - No gross lesions in the entire esophagus. - Medium-sized hiatal hernia. - Enlarged gastric folds. - No gross lesions in the second portion of the duodenum. - No specimens collected. Recommendations : - Discharge patient to a senior living. - Resume regular diet. - Continue present medications. - Colonoscopy Plan: DC 05/26 d/t exhaustion of Medicare benefit Physical Exam Const alert General Appearance: cooperative HEENT normocephalic Eyes PERRL and EOMs intact bilaterally Neck supple, no JVD and no carotid bruits Resp normal respiratory effort, normal air movement and clear to auscultation bilaterally Cardio regular rate and regular rhythm GI normal to inspection, nondistended, normoactive bowel sounds, non-tender and non-distended Extremity normal capillary refill Extremity Narrative: Right foot dressed. General Extremity: Negative for edema Skin no rashes or lesions noted General Skin Exam: no breakdown Psych affect normal Appearance: appropriate Weight / BMI Weight Weight: 87.906 kg Body Mass Index (BMI) 27.7 ABG / Lab / Microbiology Data 03/17/24 08:45 03/17/24 08:45 Microbiology: Microbiology 05/09/24 07:00 Nasal Secretion SARS-CoV-2 Antigen (Rapid) - Final 04/29/24 06:00 Nasal Secretion SARS-CoV-2 Antigen (Rapid) - Final 04/22/24 08:30 Nasal Secretion SARS-CoV-2 Antigen (Rapid) - Final 03/22/24 06:35 Nasal Secretion SARS-CoV-2 Antigen (Rapid) - Final 03/15/24 06:03 Nasal Secretion SARS-CoV-2 Antigen (Rapid) - Final 03/08/24 05:00 Nasal Secretion SARS-CoV-2 Antigen (Rapid) - Final 02/25/24 07:15 Stool Stool Occult Blood (BRIANA) - Final Occult Blood Positive 02/18/24 11:41 Urine, Catheterized Urine Culture - Final Culture exhibits no growth. 02/18/24 11:12 Mucosa - Nasopharyngeal Respiratory Panel (PCR) - Final 02/18/24 11:17 Nasal Secretion SARS-CoV-2 Antigen (Rapid) - Final D/C Instructions Discharge Diet: No restrictions Discharge Activity: Return to Normal Activity, May Shower and Use Walker Weight Bearing Status: No weight bearing (Right lower extremity.) Call your doctor if you observe: Fever of 101 or Higher, Inability to urinate, Inability to have a bowel movement, Shortness of breath, Dizziness, Fainting spells, Swelling in the ankles, Chest pain and Uncontrolled pain DC O2, CPAP, BIPAP Needs PSN CPAP & BiPAP: BiPAP & CPAP Settings per PSN Fraction of Inspired Oxygen ( 21 03/17/24 21:50 FIO2) Additional Home O2 Discharge instructions: No DC home with Oxygen: No Please Follow Up With: GONZALEZ ZAVALETA DO When: Within 1 week. Meaningful Use Info Meaningful Use Meaningful Use Diagnoses (Choose all that apply): Ischemic CVA CVA Therapy Assessed for PT,OT and/or ST?: Yes Ischemic Stroke Antithrombotic order at d/c?: Yes Dx of Atrial fib/flutter?: Yes Anticoagulant at discharge?: Yes Statin Dosing Therapy Reference: STATIN DOSE THERAPY REFERENCE: * Patients > 75 years receive moderate or high dose statin therapy. * Patients 75 years or YOUNGER should receive HIGH intensity statin dose unless contraindicated. You will be required to document reason for non-treatment if statin daily dose does not meet guidelines. HIGH DOSE STATIN THERAPY DAILY Atorvastatin > than or = to 40 mg Rosuvastatin > than or = to 20 mg Amlodipine + Atorvastatin > than or = to 2.5/40 mg Ezetimibe + Simvastatin 10/80 mg Simvastatin 80mg Statins at discharge?: Yes Primary Dx Acute Ischemic CVA?: Yes IV thrombolytic ordered during stay?: No Reason IV thrombolytic not ordered: Treatment not Indicated Discharge Plan Admission Admit Date/Time: 02/17/24 14:50 Primary Reason for Your Visit: Debility. Attending Provider: Nash Horne Chi Primary Care Provider: Omar Yen Instructions Additional Instructions / Restrictions: Plan: [place] 05/26 d/t exhaustion of Medicare benefit Discharge Orders/Prescriptions Prescriptions: New ascorbic acid (vitamin C) 500 mg Tablet 500 mg PO BIDCM 30 Days Qty: 60 0RF Eliquis 5 mg Tablet 2.5 mg PO BID 30 Days Qty: 30 0RF Prasanth (with collagen) 7-7-1.5 gram Powder In Packet 1 packet PO BIDCM 30 Days Qty: 60 0RF atorvastatin 80 mg Tablet 80 mg PO QHS 30 Days Qty: 30 0RF tamsulosin 0.4 mg Capsule 0.4 mg PO DAILY@1730 30 Days Qty: 30 0RF Continued metoprolol succinate 100 MG tablet 100 mg PO DAILY Qty: 30 0RF Patient Comments: blood pressure ezetimibe 10 mg tablet 10 mg PO DAILY fluticasone propionate 50 mcg/actuation spray,suspension 2 spray INTRANASAL DAILY folic acid 1 mg tablet 1 mg PO DAILY Discontinued acetaminophen [Tylenol] 325 MG tablet 1 - 2 tab PO Q6H PRN PRN (Reason: Mild pain, headache, fever) Patient Comments: As needed for mild pain, headache, fever atorvastatin 40 MG tablet 40 mg PO QHS Qty: 30 0RF Patient Comments: cholesterol clobetasol 0.05 % ointment 1 applic topical BID aspirin [Adult Low Dose Aspirin] 81 mg tablet,delayed release (DR/EC) 81 mg PO DAILY apixaban 5 mg tablet 5 mg PO BID Referrals / Follow Up: gonzalez zavaleta [Other] Omar Yen MD [Primary Care Provider] - Disposition Disposition (needs filled in before D/C Order can be placed): Home, Self Care
[2024-05-13 09:40] VITALS: BP 134/50; PULSE 63; RESP 16; TEMP 36.8; O2SAT 94
[2024-05-13] MEDS: Fluticasone 0.05% 1 SPRAY NASAL.SRY 2 SPRAY NASAL (09:41)
[2024-05-13 09:42] VITALS: PULSE 63
[2024-05-13] MEDS: APIXABAN 2.5 MG TABLET (WCH) PO ×2 (09:42→22:07)
[2024-05-13] MEDS: Ezetimibe 10 MG Tablet PO (09:42)
[2024-05-13] MEDS: Nystatin Powder 15gm Bottle 1 APPLIC TOPICAL ×2 (09:42→22:07)
[2024-05-13] MEDS: Juven (unflavored) Packet 1 PACKET PO ×2 (09:42→17:09)
[2024-05-13] MEDS: Folic Acid 1 MG Tablet PO (09:42)
[2024-05-13] MEDS: Metoprolol(XL)Succ 100 MG Tablet PO (09:42)
[2024-05-13] MEDS: Ascorbic Acid 500 MG Tablet PO ×2 (09:42→17:09)
[2024-05-13] MEDS: Multivitamins,Therapeutic Tablet 1 TABLET PO (09:42)
--- NOTE | 2024-05-13 16:08 | CASEMGMT ---
Social Work SW spoke with Therapy Certified Coatings Inspector to update on recommendation from ATOMIC PHYSICS TEACHER to start therapy with pt again until DC, if pt agrees. Certified Coatings Inspector spoke with pt and pt agreed. Certified Coatings Inspector assisted pt in better understanding skilled HHC services and confidence in pt being safe at home with additional assistance. Pt agreed. SW followed up with pt to confirm pts agreement to start with therapy Offered further education to skilled and nonskilled HHC. SW provided list of both resource lists. SW will coordinate skilled PT/OT/nursing, and pt understands he contacts the private duty agencies to meet his needs. Pt expressed understanding and will contact this worker with further questions and/or skilled HHC agency choices. SW will continue to follow. PATEL Abarca
[2024-05-13] MEDS: Tamsulosin HCl 0.4 MG Capsule PO (17:09)
[2024-05-13 17:12] VITALS: PULSE 60; RESP 16; O2SAT 96
[2024-05-13] MEDS: Atorvastatin Calcium 80 MG Tablet PO (22:07)
[2024-05-14 09:14] VITALS: BP 147/57; PULSE 64; RESP 16; TEMP 36.2; O2SAT 95
[2024-05-14] MEDS: Juven (unflavored) Packet 1 PACKET PO ×2 (09:17→17:28)
[2024-05-14] MEDS: Folic Acid 1 MG Tablet PO (09:17)
[2024-05-14] MEDS: Multivitamins,Therapeutic Tablet 1 TABLET PO (09:17)
[2024-05-14] MEDS: Fluticasone 0.05% 1 SPRAY NASAL.SRY 2 SPRAY NASAL (09:17)
[2024-05-14] MEDS: APIXABAN 2.5 MG TABLET (WCH) PO ×2 (09:17→21:43)
[2024-05-14] MEDS: Ascorbic Acid 500 MG Tablet PO ×2 (09:17→17:28)
[2024-05-14 09:18] VITALS: PULSE 64
[2024-05-14] MEDS: Ezetimibe 10 MG Tablet PO (09:18)
[2024-05-14] MEDS: Nystatin Powder 15gm Bottle 1 APPLIC TOPICAL ×2 (09:18→21:43)
[2024-05-14] MEDS: Metoprolol(XL)Succ 100 MG Tablet PO (09:18)
[2024-05-14] MEDS: Tamsulosin HCl 0.4 MG Capsule PO (17:28)
[2024-05-14] MEDS: Atorvastatin Calcium 80 MG Tablet PO (21:43)
[2024-05-15 08:51] VITALS: BP 133/52; PULSE 72; RESP 14; TEMP 36.3; O2SAT 94
[2024-05-15] MEDS: Ascorbic Acid 500 MG Tablet PO ×2 (08:53→18:08)
[2024-05-15] MEDS: Juven (unflavored) Packet 1 PACKET PO ×2 (08:53→18:08)
[2024-05-15] MEDS: Folic Acid 1 MG Tablet PO (08:53)
[2024-05-15] MEDS: Multivitamins,Therapeutic Tablet 1 TABLET PO (08:53)
[2024-05-15 08:54] VITALS: PULSE 72
[2024-05-15] MEDS: Ezetimibe 10 MG Tablet PO (08:54)
[2024-05-15] MEDS: Fluticasone 0.05% 1 SPRAY NASAL.SRY 2 SPRAY NASAL (08:54)
[2024-05-15] MEDS: Metoprolol(XL)Succ 100 MG Tablet PO (08:54)
[2024-05-15] MEDS: APIXABAN 2.5 MG TABLET (WCH) PO ×2 (08:54→20:00)
[2024-05-15] MEDS: Nystatin Powder 15gm Bottle 1 APPLIC TOPICAL ×2 (08:54→20:00)
[2024-05-15] MEDS: Tamsulosin HCl 0.4 MG Capsule PO (18:10)
[2024-05-15] MEDS: Atorvastatin Calcium 80 MG Tablet PO (20:00)
[2024-05-16] MEDS: Juven (unflavored) Packet 1 PACKET PO ×2 (08:28→17:04)
[2024-05-16] MEDS: Folic Acid 1 MG Tablet PO (08:28)
[2024-05-16] MEDS: Multivitamins,Therapeutic Tablet 1 TABLET PO (08:28)
[2024-05-16] MEDS: Ascorbic Acid 500 MG Tablet PO ×2 (08:28→17:04)
[2024-05-16 08:29] VITALS: BP 136/54; PULSE 73
[2024-05-16] MEDS: Nystatin Powder 15gm Bottle 1 APPLIC TOPICAL (08:29)
[2024-05-16] MEDS: Fluticasone 0.05% 1 SPRAY NASAL.SRY 2 SPRAY NASAL (08:29)
[2024-05-16] MEDS: APIXABAN 2.5 MG TABLET (WCH) PO ×2 (08:29→19:56)
[2024-05-16] MEDS: Metoprolol(XL)Succ 100 MG Tablet PO (08:29)
[2024-05-16] MEDS: Ezetimibe 10 MG Tablet PO (08:30)
[2024-05-16 08:37] VITALS: BP 136/54; PULSE 73; RESP 17; TEMP 36.2; O2SAT 93
--- NOTE | 2024-05-16 12:53 | MDS.RN ---
spoke to resident and resident's spouse about scheduling another care plan conference. Phoned spouse , spouse loudly stated she does not want to attend. Spoke with resident in room, states he would like this nurse to check back with him 05/18/24 and he will let me know if and when he wants to schedule a plan of care conference. Will follow up as planned.
--- NOTE | 2024-05-16 14:15 | CASEMGMT ---
Addendum entered by Emily Green 05/16/24 14:19: Plan: DC home with 05/26, [facility] PT/OT/SN, w/c Original Note: Social Work SW followed up with pt to finalize DC plans. Pt requesting 20 inch w/c w/ELR. Pt would prefer the exact replicable of the w/c pt is using on the unit. [place] [facility] [place] and inquire about [facility] coverage. Pt stated he is not willing to pay more than $200 for it. SW noted. Pt prefers [facility] for skilled. SW to place referral. SW phoned referral to [facility] for PT/OT/SN [place] [facility] [place]/c w/ELR that is collapsable and has moving arm rests. Emily Green, PATEL BAHW
[2024-05-16] MEDS: Tamsulosin HCl 0.4 MG Capsule PO (17:04)
[2024-05-16] MEDS: Atorvastatin Calcium 80 MG Tablet PO (19:57)
[2024-05-17] MEDS: Multivitamins,Therapeutic Tablet 1 TABLET PO (09:38)
[2024-05-17] MEDS: Juven (unflavored) Packet 1 PACKET PO ×2 (09:38→16:26)
[2024-05-17] MEDS: Folic Acid 1 MG Tablet PO (09:38)
[2024-05-17] MEDS: Ascorbic Acid 500 MG Tablet PO ×2 (09:38→16:26)
[2024-05-17] MEDS: Nystatin Powder 15gm Bottle 1 APPLIC TOPICAL ×2 (09:39→22:06)
[2024-05-17] MEDS: Fluticasone 0.05% 1 SPRAY NASAL.SRY 2 SPRAY NASAL (09:39)
[2024-05-17] MEDS: Ezetimibe 10 MG Tablet PO (09:39)
[2024-05-17] MEDS: APIXABAN 2.5 MG TABLET (WCH) PO ×2 (09:39→22:03)
[2024-05-17 09:46] VITALS: BP 140/51; PULSE 58
[2024-05-17] MEDS: Metoprolol(XL)Succ 100 MG Tablet PO (09:46)
[2024-05-17 10:20] VITALS: BP 140/51; PULSE 58; RESP 16; TEMP 36.3; O2SAT 97
[2024-05-17 15:39] VITALS: BMI 28.0
--- NOTE | 2024-05-17 15:39 | WOUNDNOTE ---
wound photo: right foot
--- NOTE | 2024-05-17 15:39 | WOUNDNOTE ---
wound photo: right foot
--- NOTE | 2024-05-17 15:40 | WOUNDNOTE ---
wound photo: right andrade
[2024-05-17] MEDS: Tamsulosin HCl 0.4 MG Capsule PO (16:26)
[2024-05-17] MEDS: Atorvastatin Calcium 80 MG Tablet PO (22:03)
[2024-05-18 08:30] VITALS: BP 139/58; PULSE 72; RESP 16; TEMP 36.1; O2SAT 96
[2024-05-18] MEDS: Clobetasol Propionate 0.05% Ointment 1 APPLIC TOPICAL (08:38)
[2024-05-18] MEDS: Fluticasone 0.05% 1 SPRAY NASAL.SRY 2 SPRAY NASAL (08:39)
[2024-05-18 08:40] VITALS: BP 139/58; PULSE 72
[2024-05-18] MEDS: Ezetimibe 10 MG Tablet PO (08:40)
[2024-05-18] MEDS: Juven (unflavored) Packet 1 PACKET PO ×2 (08:40→16:31)
[2024-05-18] MEDS: Multivitamins,Therapeutic Tablet 1 TABLET PO (08:40)
[2024-05-18] MEDS: Ascorbic Acid 500 MG Tablet PO ×2 (08:40→16:31)
[2024-05-18] MEDS: Nystatin Powder 15gm Bottle 1 APPLIC TOPICAL (08:40)
[2024-05-18] MEDS: Folic Acid 1 MG Tablet PO (08:40)
[2024-05-18] MEDS: APIXABAN 2.5 MG TABLET (WCH) PO ×2 (08:40→19:50)
[2024-05-18] MEDS: Metoprolol(XL)Succ 100 MG Tablet PO (08:40)
--- NOTE | 2024-05-18 08:49 | NURSING ---
Paraoptometric Note; Quarterly Review for 05/18/2024 Complete
--- NOTE | 2024-05-18 09:45 | MDS.RN ---
Followed up with resident regarding scheduling a care plan meeting prior to DC. Resident states he does not want another care plan meeting to be scheduled.
[2024-05-18 10:00] VITALS: PULSE 72
--- NOTE | 2024-05-18 11:22 | CASEMGMT ---
Social Work SW completed BIMS (04/22) and PHQ-2 () for MDS assessment. SW updated pt that [facility] can accept and referred to [facility] for w/c. Pt appreciative. Emily Green, CONDUIT INSTALLER HEALTH AND SAFETY INSTRUCTOR
[2024-05-18] MEDS: Tamsulosin HCl 0.4 MG Capsule PO (16:30)
[2024-05-18] MEDS: Atorvastatin Calcium 80 MG Tablet PO (19:50)
[2024-05-19] MEDS: APIXABAN 2.5 MG TABLET (WCH) PO ×2 (09:08→19:53)
[2024-05-19] MEDS: Multivitamins,Therapeutic Tablet 1 TABLET PO (09:08)
[2024-05-19] MEDS: Juven (unflavored) Packet 1 PACKET PO ×2 (09:08→17:13)
[2024-05-19] MEDS: Ascorbic Acid 500 MG Tablet PO ×2 (09:08→17:13)
[2024-05-19] MEDS: Folic Acid 1 MG Tablet PO (09:08)
[2024-05-19] MEDS: Fluticasone 0.05% 1 SPRAY NASAL.SRY 2 SPRAY NASAL (09:09)
[2024-05-19] MEDS: Ezetimibe 10 MG Tablet PO (09:09)
[2024-05-19 09:12] VITALS: BP 151/64; PULSE 66
[2024-05-19] MEDS: Metoprolol(XL)Succ 100 MG Tablet PO (09:12)
[2024-05-19] MEDS: Nystatin Powder 15gm Bottle 1 APPLIC TOPICAL (09:12)
[2024-05-19 13:45] VITALS: BP 131/48; PULSE 53; RESP 14; TEMP 36.8; O2SAT 96
[2024-05-19] MEDS: Tamsulosin HCl 0.4 MG Capsule PO (17:13)
[2024-05-19] MEDS: Atorvastatin Calcium 80 MG Tablet PO (19:53)
[2024-05-19 20:00] VITALS: PULSE 64; RESP 16; O2SAT 98
[2024-05-20] MEDS: Folic Acid 1 MG Tablet PO (09:14)
[2024-05-20] MEDS: Multivitamins,Therapeutic Tablet 1 TABLET PO (09:14)
[2024-05-20] MEDS: Fluticasone 0.05% 1 SPRAY NASAL.SRY 2 SPRAY NASAL (09:14)
[2024-05-20] MEDS: Ascorbic Acid 500 MG Tablet PO ×2 (09:14→17:17)
[2024-05-20] MEDS: APIXABAN 2.5 MG TABLET (WCH) PO ×2 (09:14→20:29)
[2024-05-20] MEDS: Juven (unflavored) Packet 1 PACKET PO ×2 (09:14→17:17)
[2024-05-20 09:15] VITALS: BP 119/46; PULSE 64
[2024-05-20] MEDS: Ezetimibe 10 MG Tablet PO (09:15)
[2024-05-20] MEDS: Metoprolol(XL)Succ 100 MG Tablet PO (09:15)
[2024-05-20 15:10] VITALS: BP 134/54; PULSE 57; RESP 12; TEMP 36.7; O2SAT 98
[2024-05-20] MEDS: Tamsulosin HCl 0.4 MG Capsule PO (17:17)
[2024-05-20] MEDS: Atorvastatin Calcium 80 MG Tablet PO (20:29)
[2024-05-21 08:36] VITALS: BP 135/55; PULSE 68; RESP 17; TEMP 36.3; O2SAT 96
[2024-05-21 08:40] VITALS: PULSE 68
[2024-05-21] MEDS: Folic Acid 1 MG Tablet PO (08:40)
[2024-05-21] MEDS: Metoprolol(XL)Succ 100 MG Tablet PO (08:40)
[2024-05-21] MEDS: Multivitamins,Therapeutic Tablet 1 TABLET PO (08:40)
[2024-05-21] MEDS: APIXABAN 2.5 MG TABLET (WCH) PO ×2 (08:40→21:01)
[2024-05-21] MEDS: Ascorbic Acid 500 MG Tablet PO ×2 (08:40→15:57)
[2024-05-21] MEDS: Juven (unflavored) Packet 1 PACKET PO ×2 (08:40→15:56)
[2024-05-21] MEDS: Ezetimibe 10 MG Tablet PO (08:41)
[2024-05-21] MEDS: Fluticasone 0.05% 1 SPRAY NASAL.SRY 2 SPRAY NASAL (11:30)
[2024-05-21] MEDS: Nystatin Powder 15gm Bottle 1 APPLIC TOPICAL (11:30)
[2024-05-21] MEDS: Tamsulosin HCl 0.4 MG Capsule PO (15:57)
[2024-05-21] MEDS: Atorvastatin Calcium 80 MG Tablet PO (21:00)
[2024-05-22 08:25] VITALS: BP 140/59; PULSE 71; RESP 17; TEMP 36.4; O2SAT 95
[2024-05-22] MEDS: Juven (unflavored) Packet 1 PACKET PO ×2 (08:29→17:03)
[2024-05-22] MEDS: Folic Acid 1 MG Tablet PO (08:29)
[2024-05-22] MEDS: Multivitamins,Therapeutic Tablet 1 TABLET PO (08:29)
[2024-05-22] MEDS: Ascorbic Acid 500 MG Tablet PO ×2 (08:29→17:03)
[2024-05-22] MEDS: Nystatin Powder 15gm Bottle 1 APPLIC TOPICAL (08:35)
[2024-05-22] MEDS: Fluticasone 0.05% 1 SPRAY NASAL.SRY 2 SPRAY NASAL (08:35)
[2024-05-22] MEDS: APIXABAN 2.5 MG TABLET (WCH) PO ×2 (08:35→20:09)
[2024-05-22 08:36] VITALS: PULSE 71
[2024-05-22] MEDS: Ezetimibe 10 MG Tablet PO (08:36)
[2024-05-22] MEDS: Metoprolol(XL)Succ 100 MG Tablet PO (08:36)
[2024-05-22] MEDS: Tamsulosin HCl 0.4 MG Capsule PO (17:03)
[2024-05-22] MEDS: Atorvastatin Calcium 80 MG Tablet PO (20:09)
[2024-05-23 07:57] VITALS: BP 137/61; PULSE 59
[2024-05-23] MEDS: Ezetimibe 10 MG Tablet PO (07:57)
[2024-05-23] MEDS: Ascorbic Acid 500 MG Tablet PO ×2 (07:57→16:54)
[2024-05-23] MEDS: APIXABAN 2.5 MG TABLET (WCH) PO ×2 (07:57→20:22)
[2024-05-23] MEDS: Metoprolol(XL)Succ 100 MG Tablet PO (07:57)
[2024-05-23] MEDS: Folic Acid 1 MG Tablet PO (07:57)
[2024-05-23] MEDS: Multivitamins,Therapeutic Tablet 1 TABLET PO (07:57)
[2024-05-23] MEDS: Juven (unflavored) Packet 1 PACKET PO ×2 (07:57→16:54)
[2024-05-23] MEDS: Fluticasone 0.05% 1 SPRAY NASAL.SRY 2 SPRAY NASAL (07:58)
[2024-05-23 08:03] VITALS: BP 137/61; PULSE 59; RESP 16; TEMP 36.6; O2SAT 99
--- NOTE | 2024-05-23 09:58 | NURSING ---
Pt off unit for Dr. Edmonds.
--- NOTE | 2024-05-23 11:46 | NURSING ---
Received faxed wound care orders/note from podiatry appt. Wound care to remain the same.
--- NOTE | 2024-05-23 15:31 | NURSING ---
Pt returned from Dr. Edmonds no new orders at this time.
[2024-05-23] MEDS: Tamsulosin HCl 0.4 MG Capsule PO (16:54)
[2024-05-23] MEDS: Atorvastatin Calcium 80 MG Tablet PO (20:22)
[2024-05-24] MEDS: Fluticasone 0.05% 1 SPRAY NASAL.SRY 2 SPRAY NASAL (08:08)
[2024-05-24] MEDS: Juven (unflavored) Packet 1 PACKET PO ×2 (08:09→17:17)
[2024-05-24] MEDS: APIXABAN 2.5 MG TABLET (WCH) PO ×2 (08:09→20:40)
[2024-05-24 08:10] VITALS: BP 130/63; PULSE 71
[2024-05-24] MEDS: Metoprolol(XL)Succ 100 MG Tablet PO (08:10)
[2024-05-24] MEDS: Multivitamins,Therapeutic Tablet 1 TABLET PO (08:10)
[2024-05-24] MEDS: Folic Acid 1 MG Tablet PO (08:10)
[2024-05-24] MEDS: Ezetimibe 10 MG Tablet PO (08:10)
[2024-05-24] MEDS: Ascorbic Acid 500 MG Tablet PO ×2 (08:10→17:17)
--- NOTE | 2024-05-24 13:54 | WOUNDNOTE ---
wound photo: right foot
--- NOTE | 2024-05-24 13:54 | WOUNDNOTE ---
wound photo: right foot
[2024-05-24 15:00] VITALS: BMI 27.8
[2024-05-24 16:00] VITALS: BP 132/49; PULSE 62; RESP 19; TEMP 36.8; O2SAT 95
[2024-05-24] MEDS: Tamsulosin HCl 0.4 MG Capsule PO (17:17)
[2024-05-24] MEDS: Atorvastatin Calcium 80 MG Tablet PO (20:40)
[2024-05-25] MEDS: Ascorbic Acid 500 MG Tablet PO ×2 (08:57→17:19)
[2024-05-25] MEDS: Folic Acid 1 MG Tablet PO (08:57)
[2024-05-25] MEDS: Ezetimibe 10 MG Tablet PO (08:58)
[2024-05-25] MEDS: APIXABAN 2.5 MG TABLET (WCH) PO ×2 (08:58→19:36)
[2024-05-25] MEDS: Fluticasone 0.05% 1 SPRAY NASAL.SRY 2 SPRAY NASAL (08:58)
[2024-05-25 09:00] VITALS: PULSE 77
[2024-05-25] MEDS: Juven (unflavored) Packet 1 PACKET PO ×2 (09:00→17:19)
[2024-05-25] MEDS: Metoprolol(XL)Succ 100 MG Tablet PO (09:00)
[2024-05-25] MEDS: Multivitamins,Therapeutic Tablet 1 TABLET PO (09:00)
[2024-05-25 09:07] VITALS: BP 128/51; PULSE 77; RESP 15; TEMP 36.8; O2SAT 97
[2024-05-25] MEDS: Tamsulosin HCl 0.4 MG Capsule PO (17:19)
[2024-05-25] MEDS: Atorvastatin Calcium 80 MG Tablet PO (19:36)
[2024-05-26 08:40] VITALS: PULSE 71
[2024-05-26] MEDS: Ascorbic Acid 500 MG Tablet PO (08:40)
[2024-05-26] MEDS: Juven (unflavored) Packet 1 PACKET PO (08:40)
[2024-05-26] MEDS: Metoprolol(XL)Succ 100 MG Tablet PO (08:40)
[2024-05-26] MEDS: Folic Acid 1 MG Tablet PO (08:40)
[2024-05-26] MEDS: Ezetimibe 10 MG Tablet PO (08:40)
[2024-05-26] MEDS: Multivitamins,Therapeutic Tablet 1 TABLET PO (08:40)
[2024-05-26] MEDS: APIXABAN 2.5 MG TABLET (WCH) PO (08:41)
[2024-05-26] MEDS: Fluticasone 0.05% 1 SPRAY NASAL.SRY 2 SPRAY NASAL (08:42)
[2024-05-26 08:44] VITALS: BP 153/63; PULSE 63; RESP 15; TEMP 36.8; O2SAT 97
--- NOTE | 2024-05-26 11:46 | CASEMGMT ---
Social Work SW completed BIMS (05/22) and PHQ-2 () for MDS assessment. Emily Green, WILL CALL CLERK HIGH SCHOOL MATHEMATICS TEACHER
== END 2024-05-26 14:30 | disposition home health service (06) | DRG 560 ==
PROVIDERS: Admitting Provider Family Medicine Geriatric Medicine; PCP Internal Medicine; Visit Provider Family Medicine Geriatric Medicine
DX: Z47.81 Encounter for orthopedic aftercare following surgical amputation (principal); G93.40 Encephalopathy, unspecified; I96 Gangrene, not elsewhere classified; N17.9 Acute kidney failure, unspecified; I50.32 Chronic diastolic (congestive) heart failure; F10.939 Alcohol use, unspecified with withdrawal, unspecified; E53.8 Deficiency of other specified B group vitamins; E78.5 Hyperlipidemia, unspecified; D64.9 Anemia, unspecified; B35.4 Tinea corporis; I11.0 Hypertensive heart disease with heart failure; I69.398 Other sequelae of cerebral infarction; I48.91 Unspecified atrial fibrillation; I25.10 Atherosclerotic heart disease of native coronary artery without angina pectoris; K44.9 Diaphragmatic hernia without obstruction or gangrene; Z89.431 Acquired absence of right foot; G47.33 Obstructive sleep apnea (adult) (pediatric); K21.9 Gastro-esophageal reflux disease without esophagitis; J30.9 Allergic rhinitis, unspecified; I87.2 Venous insufficiency (chronic) (peripheral); F41.9 Anxiety disorder, unspecified; Z79.01 Long term (current) use of anticoagulants; Z79.899 Other long term (current) drug therapy; N40.0 Benign prostatic hyperplasia without lower urinary tract symptoms; R04.0 Epistaxis
CPT/HCPCS: 36415; 71046; 74018; 76770; 80048; 81001; 82274; 85025; 87086; 87633; 87811; 92507; 92523; 92610; 94762; 97110; 97116; 97129; 97130; 97162; 97165; 97166; 97530; 97535; 97802; J7030; J7040; J7050; A4216

== ENCOUNTER 2024-02-26 12:14 | Day surgery (SDC) | payer MEDICARE, OTHER, SELFPAY ==
[2024-02-26] VITALS (7 sets, daily range): BP systolic 99–132; BP diastolic 47–80; PULSE 62–72; RESP 16–18; TEMP 36.2–36.8; O2SAT 96–100; BMI 25.8
--- NOTE | 2024-02-26 12:57 | PRE.ANES_ITS ---
ASA Classification* ASA Classification ASA Classification: 3 Assessment & Plan Anesthesia* Anesthesia Assessment Anesthesia Assessment: Discussed sedation and/or anesthesia options, risks, benefits, and alternatives with patient/parents/legal guardian/POA. Questions invited. The patient/parents/legal guardian/POA seems to understand and agrees to proceed with anesthesia plan. Reviewed the physical assessment, medical history, allergy history and patient home medications list prior to surgery/procedure/anesthetic and documented any changes. Performed airway and anesthesia risk assessments. Anesthesia Type Anesthesia Type: MAC Anesthesia Focused Assessment* Airway Assessment Mouth opens: >3 cm Mallampati Score: II Focused Labs Anesthesia Preop lab: CBC WBC 11.9 K/mm3 (4.4-11.0) H 02/23/24 05:22 RBC 3.18 M/mm3 (4.6-6.2) L 02/23/24 05:22 Hgb 9.8 g/dL (13.0-16.5) L 02/23/24 05:22 Hct 30.6 % (40-54) L 02/23/24 05:22 Plt Count 274 K/mm3 (150-450) 02/23/24 05:22 CHEMISTRY Potassium 4.2 mmol/L (3.5-5.1) 02/23/24 05:22 Sodium 136 mmol/L (136-145) 02/23/24 05:22 BUN 31 mg/dL (7-18) H 02/23/24 05:22 Creatinine 1.01 mg/dL (0.70-1.30) 02/23/24 05:22 Glucose 109 mg/dL (74-106) H 02/23/24 05:22 COAG PT 17.3 SECONDS (11.7-14.9) H 12/28/14 10:41 Pre-Assessment Diagnosis/Proposed Procedure Planned Operative Procedure(s): EGD Anesthesia History Anesthesia History - oracle r12 developer: Anesthesia History - oracle r12 developer Hx Hospitalization Any Problems With Anesthesia Cholinesterase deficiency You/Your Family Experience fever (hyperthermia) with Relationship Recent Exposure to Contagious Disease Does patient have nerve stimulator Patient instructed to have device shut off --Does patient have Pacemaker or ICD? When Was Last Pacemaker Check QUESTION #4 FULL TEXT: You/Your Family Experience fever (hyperthermia) with Anesthesia Last Oral Intake Last Oral intake: Last Oral Intake NPO since Meds taken in AM with sips of water? Meds patient instructed to take am of surgery PONV PONV - oracle r12 developer: PONV - oracle r12 developer Female HX of Motion Sickness HX of N/V After Surgery Non-Smoker Duration of Surgery greater than 60 minutes Number of Risk Factors PONV Score Height & Weight Height & Weight: Anesthesia: Height & Weight Height 5 ft 11 in 02/24/24 11:13 Respiratory Assessment Respiratory Assessment - oracle r12 developer: Respiratory Tract Infection Hx - oracle r12 developer Hx Respiratory Tract Infection STOP Sleep Apnea STOP Sleep Apnea - oracle r12 developer: STOP Sleep Apnea - oracle r12 developer Hx Hypertension No 02/18/24 13:42 Hx Sleep Apnea Yes 02/17/24 15:18 CPAP No 02/17/24 15:18 BIPAP No: has but doesn't use 02/17/24 15:18 Do you snore loudly (louder than talking or can be heard Do you often feel tired/ fatigued/ sleepy during daytime? Has anyone observed you stop breathing during sleep? STOP Results QUESTION #5 FULL TEXT : Do you snore loudly (louder than talking or can be heard through closed doors)? Tobacco Use History Tobacco Use History - oracle r12 developer: Tobacco Use History - oracle r12 developer Tobacco Use Smoking Status Never smoker 02/17/24 22:05 Hx Tobacco Use No 02/17/24 15:18 Years Smoking Packs Smoked per Day Smoking Cessation Date was within the last 15 years Hx Smoking Cessation Date Hx Smoking Cessation Counseling Hematologic Medial History Hematologic Hx - oracle r12 developer: Hematologic Medical Hx - documentation analyst Hx of Blood Transfusion Hx of Transfusion in last 3 Months Date of Last Transfusion (if within last 3 months) Ever experience any problems with transfusion(s)? Specify any problems Hx of Preganancy in last 3 Months Nurse Filling Out Transfusion & Questions: Date: Time: Patient unable to answer at this time (ie. confused, unrespo /Reproduction History /Reproductive History - oracle r12 developer: /Reproductive Hx- oracle r12 developer Hx Now Gestational Age (in weeks): EDC: Hx Hx Para Hx Section SAB Active Medications Active Medications: Current Medications Generic Name Dose Route Start Last Admin Trade Name Freq PRN Reason Stop Dose Admin Lactated Ringer's 1,000 mls @ 15 mls/hr 02/26/24 12:30 IV .Q48H REAL PFSH Medical History History of cardioversion Venous insufficiency Coronary artery disease Chronic heart failure with preserved ejection fraction (HFpEF) GERD (gastroesophageal reflux disease) Hyperlipidemia Essential (primary) hypertension Acute kidney injury Stroke Acute encephalopathy Gangrene of toe of right foot Debility Home Medications ?Medication ?Instructions ?Recorded ?Last Taken ?Type acetaminophen 325 mg tablet 1 - 2 tab PO Q6H PRN PRN Mild 12/21/14 Unknown History (Tylenol) pain, headache, fever atorvastatin 40 mg tablet 40 mg PO QHS Cholesterol #30 12/28/14 02/25/24 Rx TABLETS metoprolol succinate 100 mg 100 mg PO DAILY BP #30 TABLETS 12/28/14 02/25/24 Rx tablet,extended release 24 hr apixaban 5 mg tablet 5 mg PO BID Anticoagulant 02/17/24 02/25/24 History aspirin 81 mg tablet,delayed 81 mg PO DAILY Heart 02/17/24 02/26/24 History release (Adult Low Dose Aspirin) clobetasol 0.05 % topical ointment 1 applic topical BID Skin treatment 02/17/24 Unknown History ezetimibe 10 mg tablet 10 mg PO DAILY Cholesterol 02/17/24 02/25/24 History fluticasone propionate 50 2 spray intranasal DAILY Allergies 02/17/24 02/25/24 History mcg/actuation nasal spray,suspension folic acid 1 mg tablet 1 mg PO DAILY Supplement 02/17/24 02/25/24 History Allergy/AdvReac Type Severity Reaction Status Date / Time hydrochlorothiazide AdvReac Unknown Verified 02/26/24 12:56 Family History Mother , 56 years old. Breast cancer Sister Breast cancer Grandmother Breast cancer Aunt Breast cancer Father , 78 years old. Prostate cancer PAD (peripheral artery disease) Surgical History History of right inguinal hernia repair History of cataract surgery History of colonoscopy History of aortic valve replacement Status post transmetatarsal amputation of right foot Social History household members: spouse Smoking Status: Never smoker alcohol intake: current alcohol intake frequency: 0-2 drinks per day Alcohol type: wine details: 7 glasses of wine per week. substance use type: does not use Review of Systems (Anesthesia) ROS Narrative System reviewed and no additional complaints, except as documented.
[2024-02-26] MEDS: Lactated Ringers 1,000 ML 15 ML IV (13:12)
--- NOTE | 2024-02-26 13:25 | HP.PCM_ITS ---
HPI - General General Date of Admission: 02/26/24 Date of Service: 02/26/24 Chief Complaint: Anemia HPI Narrative MATTY MASON, is a 83 M who presents today for evaluation of his acute on chronic anemia. He recently was transferred from [facility] for rehab after being diagnosed with sepsis secondary to fifth toe wet gangrene diagnosis. He was put on IV medications and then because of auto mental status was diagnosed with a possible stroke. He was started on Eliquis 5 mg twice daily due to his stroke on Eliquis. I was asked to see him due to worsening anemia and Hemoccult positive stools. [facility] Medical History History of cardioversion Venous insufficiency Coronary artery disease Chronic heart failure with preserved ejection fraction (HFpEF) GERD (gastroesophageal reflux disease) Hyperlipidemia Essential (primary) hypertension Acute kidney injury Stroke Acute encephalopathy Gangrene of toe of right foot Debility Home Medications ?Medication ?Instructions ?Recorded ?Last Taken ?Type acetaminophen 325 mg tablet 1 - 2 tab PO Q6H PRN PRN Mild 12/21/14 Unknown History (Tylenol) pain, headache, fever atorvastatin 40 mg tablet 40 mg PO QHS Cholesterol #30 12/28/14 02/25/24 Rx TABLETS metoprolol succinate 100 mg 100 mg PO DAILY BP #30 TABLETS 12/28/14 02/25/24 Rx tablet,extended release 24 hr apixaban 5 mg tablet 5 mg PO BID Anticoagulant 02/17/24 02/25/24 History aspirin 81 mg tablet,delayed 81 mg PO DAILY Heart 02/17/24 02/26/24 History release (Adult Low Dose Aspirin) clobetasol 0.05 % topical ointment 1 applic topical BID Skin treatment 02/17/24 Unknown History ezetimibe 10 mg tablet 10 mg PO DAILY Cholesterol 02/17/24 02/25/24 History fluticasone propionate 50 2 spray intranasal DAILY Allergies 02/17/24 02/25/24 History mcg/actuation nasal spray,suspension folic acid 1 mg tablet 1 mg PO DAILY Supplement 02/17/24 02/25/24 History Allergy/AdvReac Type Severity Reaction Status Date / Time hydrochlorothiazide AdvReac Unknown Verified 02/26/24 12:56 Family History Mother , 56 years old. Breast cancer Sister Breast cancer Grandmother Breast cancer Aunt Breast cancer Father , 78 years old. Prostate cancer PAD (peripheral artery disease) Surgical History History of right inguinal hernia repair History of cataract surgery History of colonoscopy History of aortic valve replacement Status post transmetatarsal amputation of right foot Social History household members: spouse Smoking Status: Never smoker alcohol intake: current alcohol intake frequency: 0-2 drinks per day Alcohol type: wine details: 7 glasses of wine per week. substance use type: does not use ROS Constitutional Constitutional: Reports weakness; Denies chills, fever(s) or weight gain ENT HEENT: Denies headache(s), nasal congestion or nasal discharge Cardiovascular Cardiovascular: Denies chest pain or palpitations Respiratory/Chest Respiratory/Chest: Denies cough, excessive phlegm production or shortness of breath with exertion Gastrointestinal Gastrointestinal: Denies abdominal pain, nausea or vomiting Genitourinary Genitourinary: Denies dysuria Musculoskeletal Musculoskeletal: Denies joint pain or joint swelling Integumentary Integumentary: Denies rash or wounds Neurologic Neurologic: Denies focal weakness, numbness or tingling Psychiatric Psychiatric: Denies anxiety, auditory hallucinations, depression, homicidal ideation or suicidal ideation Vital Signs Vital Signs Vital Signs: 02/26/24 12:57 02/26/24 12:57 Temperature 97.2 F L Temperature Source Temporal Pulse Rate 62 Respiratory Rate 18 Respiratory Pattern Normal Blood Pressure 132/47 H Blood Pressure Mean 75 Blood Pressure Source Monitor Blood Pressure Position Semi-Fowlers Blood Pressure Location Left Arm Pulse Ox 100 Oxygen Delivery Method Room Air Weight Weight: 180 lb Body Mass Index (BMI) 25.8 Physical Exam Const alert General Appearance: cooperative HEENT normocephalic Eyes PERRL and EOMs intact bilaterally Neck supple, no JVD and no carotid bruits Resp normal respiratory effort, normal air movement and clear to auscultation bilaterally Cardio regular rate and regular rhythm GI normal to inspection, nondistended, normoactive bowel sounds, non-tender and non-distended Extremity normal capillary refill Extremity Narrative: Right foot dressed. General Extremity: Negative for edema Skin no rashes or lesions noted General Skin Exam: no breakdown Psych affect normal Appearance: appropriate Assessment & Plan Assessment/Plan (1) Anemia: PLAN: 83 old gentleman with past medical history of CAD status post PTCA with stents, CHF, venous insufficiency on Eliquis therapy who presented to outside institution with auto mental status and determined to have sepsis secondary to left foot gangrene status post amputation and patient now on Xarelto therapy for a presumed acute CVA. He has been having decreasing hemoglobin since being admitted and he will need to undergo an upper endoscopy and possible colonoscopy for evaluation of his anemia and need for anticoagulation. He was explained alternatives, risk, benefits include not withstanding bleeding, infection, sepsis, perforation, need for charge and . He will have an ASA of 3.
--- NOTE | 2024-02-26 13:43 | OP.CCLET_ITS ---
02/26/2024 Omar Yen [address] [place] [address] Re : Upper GI endoscopy procedure for Delgado Byers Dear Dr. Yen This procedure was performed on Monday, February 26, 2024. My impressions and recommendations are as follows: Impressions : - No gross lesions in the entire esophagus. - Medium-sized hiatal hernia. - Enlarged gastric folds. - No gross lesions in the second portion of the duodenum. - No specimens collected. Recommendations : - Discharge patient to a fpc. - Resume regular diet. - Continue present medications. - Colonoscopy My findings are described in the full procedure note, which is enclosed. If I can be of further assistance, please feel free to contact me at . Sincerely, Mele Dobson, 02/26/2024 1:42:56 PM This report has been signed electronically.
--- NOTE | 2024-02-26 13:43 | OP.EGD_ITS ---
Patient Name: Delgado Byers Procedure Date: 02/26/2024 1:25 PM Date of : 1940 Age: 83 Procedure: Upper GI endoscopy Indications: Iron deficiency anemia Providers: Mele Dobson DO Referring MD: Omar Yen Medicines: Monitored Anesthesia Care Patient Profile: This is an 83 year old male. Refer to note in patient chart for documentation of history and physical. Patient has symptoms. Complications: No immediate complications. Procedure: Pre-Anesthesia Assessment: - Prior to the procedure, a History and Physical was performed, and patient medications and allergies were reviewed. The patient is competent. The risks and benefits of the procedure and the sedation options and risks were discussed with the patient. All questions were answered and informed consent was obtained. Patient identification and proposed procedure were verified by the physician in the pre-procedure area. Mental Status Examination: alert and oriented. Airway Examination: normal oropharyngeal airway and neck mobility. Respiratory Examination: clear to auscultation. CV Examination: normal. Prophylactic Antibiotics: The patient does not require prophylactic antibiotics. Prior Anticoagulants: The patient has taken no anticoagulant or antiplatelet agents except for NSAID medication. ASA Grade Assessment: II - A patient with mild systemic disease. After reviewing the risks and benefits, the patient was deemed in satisfactory condition to undergo the procedure. The anesthesia plan was to use monitored anesthesia care (MAC). Immediately prior to administration of medications, the patient was re-assessed for adequacy to receive sedatives. The heart rate, respiratory rate, oxygen saturations, blood pressure, adequacy of pulmonary ventilation, and response to care were monitored throughout the procedure. The physical status of the patient was re-assessed after the procedure. After obtaining informed consent, the endoscope was passed under direct vision. Throughout the procedure, the patient's blood pressure, pulse, and oxygen saturations were monitored continuously. The gastroscope was introduced through the mouth, and advanced to the second part of duodenum. The upper GI endoscopy was accomplished without difficulty. The patient tolerated the procedure well. Scope In: 1:38:17 PM Scope Out: 1:39:54 PM Total Procedure Duration Time 0 hours 1 minute 37 seconds Findings: No gross lesions were noted in the entire esophagus. A medium-sized hiatal hernia was present. Diffuse prominent gastric folds were found in the entire examined stomach. No gross lesions were noted in the second portion of the duodenum. Impression: - No gross lesions in the entire esophagus. - Medium-sized hiatal hernia. - Enlarged gastric folds. - No gross lesions in the second portion of the duodenum. - No specimens collected. Recommendation: - Discharge patient to a snf. - Resume regular diet. - Continue present medications. - Colonoscopy Procedure Code(s): --- Professional --- 60153, Esophagogastroduodenoscopy, flexible, transoral; diagnostic, including collection of specimen(s) by brushing or washing, when performed (separate procedure) CPT copyright 2021 [employer]. All rights reserved. The codes documented in this report are preliminary and upon hospital supervisor review may be revised to meet current compliance requirements. Mele Dobson DO 02/26/2024 1:42:56 PM This report has been signed electronically. Number of Addenda: 0 Note Initiated On: 02/26/2024 1:25 PM
--- NOTE | 2024-02-26 13:55 | PCM.POST.ANE ---
Anesthesia: Postop Eval I Current Vital Signs Temperature: 98.3 F Pulse Rate: 72 Blood Pressure: 99/61 Respiratory Rate: 16 Pulse Ox: 99 Oxygen Delivery Method: Room Air Assessment Airway patent: Yes Spontaneous unlabored respirations: Yes Mental status: Awake and Calm nausea: No Vomiting: No Anesthesia Complication: No Fluid Hydration Crystalloid volume administer (ml): 300 Total IV fluid infused: 300 Progress Note Anesthesia document: Postop Eval 1 completed: Yes
--- NOTE | 2024-02-26 13:59 | PCM.POSTANE2 ---
Anesthesia Postop Eval I Sum Postop Eval Completion status Anesthesia document: Postop Eval 1 completed: Yes Anesthesia Postop Eval I Summary Anesthesia Postop Eval I Summary: Anesthesia Postop Eval I: Assessment Summary Airway patent Yes 02/26/24 13:56 [email or web address] Spontaneous unlabored Yes 02/26/24 13:56 [email or web address] respirations Mental status Awake,Calm 02/26/24 13:56 [email or web address] nausea No 02/26/24 13:56 [email or web address] Vomiting No 02/26/24 13:56 [email or web address] Anesthesia Postop Eval I: Fluid Summary Crystalloid volume administer 300 02/26/24 13:56 [email or web address] (ml) Colloids volume administered ( ml) Blood Product volume administered (ml) Total IV fluid infused 300 02/26/24 13:56 [email or web address] Anesthesia Postop Eval I: Summary Notes Anesthesia Complication No 02/26/24 13:56 [email or web address] Anesthesia Complication Comment: Post-operative progress note Anesthesia: Postop Eval II Evaluation Mental status: Awake Pain Level: 0 nausea: No Vomiting: No
== END 2024-02-26 14:40 | disposition skilled nursing facility (03) ==
LOC: EN 12:18 → AC 12:19
PROVIDERS: PCP Internal Medicine; Referring Provider Internal Medicine; Visit Provider Internal Medicine Gastroenterology
PROC: 0DJ08ZZ Inspection of Upper Intestinal Tract, Via Natural or Artificial Opening Endoscopic (ICD-10-PCS; CPT 43235; principal; 2024-02-26 13:10)
DX: D50.9 Iron deficiency anemia, unspecified (principal); Z89.431 Acquired absence of right foot; I50.32 Chronic diastolic (congestive) heart failure; I11.0 Hypertensive heart disease with heart failure; K44.9 Diaphragmatic hernia without obstruction or gangrene; E78.5 Hyperlipidemia, unspecified; I87.2 Venous insufficiency (chronic) (peripheral); I25.10 Atherosclerotic heart disease of native coronary artery without angina pectoris; Z79.01 Long term (current) use of anticoagulants; Z95.2 Presence of prosthetic heart valve; Z98.61 Coronary angioplasty status; Z86.19 Personal history of other infectious and parasitic diseases; Z86.73 Personal history of transient ischemic attack (TIA), and cerebral infarction without residual deficits; Z79.82 Long term (current) use of aspirin; Z79.899 Other long term (current) drug therapy
CPT/HCPCS: 43235; J7120; J2405

== ENCOUNTER 2025-02-02 11:00 | Outpatient (RCR) | payer MEDICARE, OTHER, SELFPAY ==
--- NOTE | 2024-10-11 13:15 | HP.PTEVAL_ITS ---
Patient's Visit Information Visit Information Visit Information: MATTY MASON Jr. is a 84 year old M referred to Physical Therapy by Dr. Omar Yen MD with a diagnosis of R foot toe amputation. Date of Evaluation: 10/11/24 Physical Therapist: Jl Lowry, PT, ATC Visit Plan Frequency: 2-3x /Week Duration: 4-6 Weeks Plan: B LE strengthening, balance and proprio, core strengthening, gait training, nustep, and HEP Subjective Subjective: DOS: 02/17/24. Pt reports he had a transmetatarsal amputation at that time of his R foot. Pt reports he was splitting wood at the time. Pt reports he had a cut on his R little toe at the time. Pt reports he had been taking care of the wound but his little toe became infected and gangrenous. Pt reports he was issued a brace three days ago that he has been wearing which has really helped his walking. Pt reports he has not been able to walk well yet, and that is why he is here today. Pt also notes he doesn't have good balance at this time and would like to improve that. Pt reports he has good feeling in his feet on this date. 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 Pt denies any pain this date. Pt notes he lives in a big house which has 3 stairs to enter the house that he negotiates one step at a time. Objective Objective: Neuro: B LE sensation is WNL to light touch. MMT: B LE's are grossly 4/5 throughout TU sec Sit to stand: 9 sit to stands Balance/Special Test Scores Lower Extremity Functional Score: 40 Goals Goal 1:: Pt will be able to perform 12 sit to stands in 20 seconds to aid with transfer efficiency Goal Time Frame: 4-6 Weeks Goal 2:: Pt will perform the TUG test in under 15 seconds to aid with ambulation Goal Time Frame: 4-6 Weeks Goal 3:: Increase B LE strength x 1 grade to aid with stair negotiation Goal Time Frame: 4-6 Weeks Goal 4:: I with HEP Goal Time Frame: 4-6 Weeks Rehabilitation Potential Physical Therapy Diagnosis: Pt has B LE weakness, unsteady gait, and limitations with gait secondary to R foot toe amputations Rehabilitation Potential: Good Anticipated Interventions Patient/Client Instruction: Educate patient on: Condition and Plan of Care For the Purpose of:: To improve self management Therapeutic Exercise to Include: Strength training, Endurance training, Balance training, Gait and locomotor training and Dynamic Lumbar Stabilization For the Purpose of:: To improve muscle performance and motor function, To increase tolerance to activity/condition/position and To improve ability of physical actions for home/community/work/leisure Text: Thank you for the opportunity to evaluate your patient. For Medicare and Medicare HMO plans, please review the plan of care and approve it. It will need to be FAXED BACK to us at [phone] for Medicare purposes. For Medicare only, by signing this I certify the plan of care. Please let me know if there are questions or concerns regarding this plan of care. Physician Signature: Date:
--- NOTE | 2024-11-11 15:59 | HP.PTREVAL ---
Re-Evaluation Intro: Dr. Omar Yen MD, It has been my pleasure to treat MATTY MASON Jr. over the last 7 visits for R foot toe amputation. Please see the progress note below for an update on the physical therapy plan of care! Subjective Subjective: I am improving, but I still have a lot to go. Objective Objective/Function: R LE strength is 4+/5 throughout with the exception of knee flex and ext 4-/5 TUG 12 sec sit to stand 12 reps Pt is able to ambulate 680 feet without AD until needing to rest FGA - mild risk of falling Pt is progressing well at this time, but still lacks functional strength at this time. Plan Plan Plan: 11/11/24- Continue with strengthening of R LE and dynamic gait and balance activity at this time Balance/Gait/Functional tests Balance/Special Test Scores Functional Gait Assessment Score: 19 % Disability: 36.6700 Lower Extremity Functional Score: 40 Goals Goals Goal 1:: Pt will be able to perform 12 sit to stands in 30 seconds to aid with transfer efficiency Goal Time Frame: 4-6 Weeks Goal Progress: Goal Met Goal 2:: Pt will perform the TUG test in under 15 seconds to aid with ambulation Goal Time Frame: 4-6 Weeks Goal Progress: Goal Met Goal 3:: Increase B LE strength x 1 grade to aid with stair negotiation Goal Time Frame: 4-6 Weeks Goal Progress: Progressing Goal 4:: I with HEP Goal Time Frame: 4-6 Weeks Goal Progress: Progressing Goal 5:: Pt will be able to ambulate greater than 1000 feet until needing to rest to aid with RTW Goal Time Frame: 2-4 Weeks Goal Progress: New goal Goal 6:: Increase FGA x 1-2 points to aid with preventing future falls Goal Time Frame: 2-4 Weeks Goal Progress: New goal Anticipated Interventions Anticipated Interventions Patient/Client Instruction: Educate patient on: Condition and Plan of Care For the Purpose of:: To improve self management Therapeutic Exercise to Include: Strength training, Endurance training, Balance training, Gait and locomotor training and Dynamic Lumbar Stabilization For the Purpose of:: To improve muscle performance and motor function, To increase tolerance to activity/condition/position and To improve ability of physical actions for home/community/work/leisure Re-Evaluation Ending Re-evaluation ending: Please do not hesitate to contact me at [phone] by phone or if you have questions or concerns regarding this new plan of care! Sincerely, Jl Lowry, PT, ATC
--- NOTE | 2025-02-02 11:53 | HP.PTREVAL ---
Re-Evaluation Intro: Dr. Omar Yen MD, It has been my pleasure to treat MATTY MASON Jr. over the last 18 visits for R foot toe amputation. Please see the progress note below for an update on the physical therapy plan of care! Subjective Subjective: Pt reports he has made significant gains, but knows he is still a bit unsteady on his feet Objective Objective/Function: sit to stands 10 reps TUG 10 sec FGA 18/30 MMT: B hips are rated at 5/5 compared bilaterally. B knee flex and ext 4/5. Gait: Pt is able to ambulate 510 feet with no AD prior to needing to rest secondary to fatigue Pt is showing excellent progress at this time but continues to demo functional weakness and an unsteady gait at times Plan Plan Plan: Continue with strengthening and balance activity when patient returns from his work trip in 3 weeks Balance/Gait/Functional tests Balance/Special Test Scores Functional Gait Assessment Score: 18 % Disability: 40.0000 Lower Extremity Functional Score: 40 Goals Goals Goal 1:: Pt will be able to perform 12 sit to stands in 30 seconds to aid with transfer efficiency Goal Time Frame: 4-6 Weeks Goal Progress: Progressing Goal 2:: Pt will perform the TUG test in under 15 seconds to aid with ambulation Goal Time Frame: 4-6 Weeks Goal Progress: Goal Met Goal 3:: Increase B LE strength x 1 grade to aid with stair negotiation Goal Time Frame: 4-6 Weeks Goal Progress: Progressing Goal 4:: I with HEP Goal Time Frame: 4-6 Weeks Goal Progress: Progressing Goal 5:: Pt will be able to ambulate greater than 1000 feet until needing to rest to aid with RTW Goal Time Frame: 2-4 Weeks Goal Progress: Progressing Goal 6:: Increase FGA x 1-2 points to aid with preventing future falls Goal Time Frame: 2-4 Weeks Goal Progress: New goal Anticipated Interventions Anticipated Interventions Patient/Client Instruction: Educate patient on: Condition and Plan of Care For the Purpose of:: To improve self management Therapeutic Exercise to Include: Strength training, Endurance training, Balance training, Gait and locomotor training and Dynamic Lumbar Stabilization For the Purpose of:: To improve muscle performance and motor function, To increase tolerance to activity/condition/position and To improve ability of physical actions for home/community/work/leisure Re-Evaluation Ending Re-evaluation ending: Please do not hesitate to contact me at [phone] by phone or if you have questions or concerns regarding this new plan of care! Sincerely, Jl Lowry, PT, ATC
== END 2025-02-02 19:00 | disposition home or self-care (01) ==
LOC: PT 11:00
PROVIDERS: PCP Internal Medicine; Referring Provider Internal Medicine; Visit Provider Internal Medicine
DX: I73.9 Peripheral vascular disease, unspecified (principal); Z86.73 Personal history of transient ischemic attack (TIA), and cerebral infarction without residual deficits
CPT/HCPCS: 97110; 97161; 97530

== ENCOUNTER 2025-03-09 08:39 | Day surgery (SDC) | payer MEDICARE, OTHER, SELFPAY ==
[2025-03-08 09:47] VITALS: BMI 29.4
[2025-03-09 09:06] LABS: Hematocrit 43.5 % (40-54); Hemoglobin 14.3 g/dL (13.0-16.5); Mean Corp Hgb Conc 32.9 g/dL (32-36); Mean Corpuscular Volume 96.5 fL (80-94); Mean Platelet Vol. 10.9 fl (6.2-12.0); Platelet Count 182 K/mm3 (150-450); RBC Distribution Width CV 13.1 % (11.6-14.6); RBC Distribution Width SD 46.9 fl (35.1-43.9); Red Blood Count 4.51 M/mm3 (4.6-6.2); White Blood Count 10.9 K/mm3 (4.4-11.0)
[2025-03-09 09:22] LABS: Anion Gap 11 (5-15); BUN 23 mg/dL (4-19); BUN/Creat Ratio 18.3 RATIO (10-20); Calcium,Total 8.7 mg/dL (7.6-11.0); Carbon Dioxide 19.2 mmol/L (21.0-32.0); Chloride 102 mmol/L (98-108); Estimated Creatinine Clearance 50.00 ml/min (50-250); Glucose 124 mg/dL (70-99); Potassium 4.7 mmol/L (3.3-5.1)
[2025-03-09 12:22] LABS: ACT Activated Clotting Time 250 sec (74-137)
--- NOTE | 2025-03-09 16:33 | OP.PCM_ITS ---
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
--- NOTE | 2025-03-09 16:33 | PCM.OPRPT ---
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 Post-Operative Diagnosis: Same Surgery/Procedure Performed: Aortogram, right lower extremity angiogram Intravascular ultrasound right popliteal and superficial femoral artery Atherectomy and DCB right popliteal artery environmental remediation consultant: No Type of Anesthesia: Local and Sedation,Conscious Procedure Start Time: 10:30 Procedure Stop Time: 11:50 Select all DRAINS/GRAFTS/IMPLANTS that apply: None Estimated Blood Loss: 3 Specimen collected: No Description of surgery: HPI: Patient is an 84-year-old male with a prior right transmetatarsal amputation which had initially healed entirely. He subsequently developed a new wound adjacent to the incision due to excessive friction in his boot. He had previously undergone an SFA popliteal intervention outside facility at the time of his transmetatarsal amputation. Noninvasive vascular studies suggested reocclusion at this location so he presents now for angiography with possible intervention. Description of procedure: Upon obtaining informed consent and verification correct patient procedure and site the patient was taken to the Photo Cartographer where he was positioned prepped and draped in usual sterile fashion. Timeout was then performed and conscious sedation administered with Versed and fentanyl. Skin overlying the left common femoral artery was anesthetized with 1% lidocaine the vessel accessed under ultrasound guidance with a micropuncture needle wire. This then exchanged for micropuncture sheath through which hand-injection iliofemoral angiogram was performed revealing satisfactory position with no extravasation dissection. Through the micropuncture sheath a Bentson wire is advanced into the abdominal aorta and the micropuncture sheath exchanged for a short 6 Syrian sheath. Through this an Omni Flush catheter was advanced into the abdominal aorta and a digital subtraction aortogram pelvic angiograms performed. This revealed normal caliber abdominal aorta with moderate diffuse calcified atherosclerosis but no stenosis. The left common iliac artery had moderate diffuse calcified atherosclerosis in the left external leg artery had no significant atherosclerosis or stenosis. The right common iliac artery had moderate diffuse calcified atherosclerosis but no stenosis in the right external with artery had no significant atherosclerosis or stenosis. Utilizing the Bentson wire we navigated into the contralateral iliac system and advancing her catheter into the distal external iliac artery. From this position subtraction angiography was performed sequentially the right lower extremity which revealed patent common femoral artery, profundofemoral artery, superficial femoral artery with no significant atherosclerosis or stenosis. The vsvvn-rcy-soca popliteal artery had a short segment total occlusion with several centimeters of moderate to severe calcified atherosclerosis proximally. The distal popliteal artery was widely patent with no significant atherosclerosis or stenosis. The anterior tibial artery was a dominant runoff to the foot however at the ankle it slowly tapered and branching to multiple collaterals. The peroneal artery was occluded in the proximal lower leg with no significant reconstitution. The posterior tibial artery was patent with 2 focal areas of high-grade stenosis in the mid lower leg and total occlusion of the ankle with significant collaterals filling the hindfoot. It was felt that the superficial femoral artery lesion was likely the primary culprit in his poor wound healing and that this was appropriate for endovascular treatment. He was then heparinized and allowed to circulate for 3 minutes. A glide advantage wire was then advanced through the Omni Flush cath and advanced in the proximal superficial femoral artery. The Omni Flush cath and short 6 Syrian sheath and exchanged for a 6 Syrian 65 destination sheath advanced into the common femoral artery. From this position utilizing a quick cross catheter and a command 18 wire we were able to traverse the total occlusion appearing to stay within true lumen. Once the catheter was advanced by the lesion the wire was withdrawn a hand-injection subtraction angiography revealed position within the true lumen with no extravasation or dissection noted. The command wire then readvanced and the catheter withdrawn. An intravascular ultrasound probe was advanced and recorded pullback performed of the popliteal and superficial femoral artery. This confirmed position within the true lumen throughout the lesion and provided reference vessel size proximal and distal as well as the extent of disease requiring treatment. A Bard Rota Myke rotational atherectomy device was then brought in the field prep manufactures instructions. This was engaged for 2 passes along the entirety of the lesion and withdrawn. Repeat angiography revealed satisfactory luminal gain with no extravasation of dissection or fistula noted. Next a Cortez angio sculpt 5 x 100 was advanced to nominal for multiple inflations. repeat angiography revealed satisfactory result with no extravasation or dissection no residual stenosis. Next a Volta Heather OB10s 6 x 220 angioplasty balloon was advanced in the position inflated to nominal for 2 minutes and deflated withdrawn. Completion angiography revealed satisfactory result with no extravasation or dissection and brisk contrast transit across the treatment zone. Imaging of the runoff confirmed preserved anterior tibial posterior tibial runoff to the ankle with continued indirect perfusion of the foot. Wires and catheters were withdrawn and the long 6 Syrian sheath exchanged for a short 6 Syrian sheath. A Mynx closure device was then deployed followed by 5 minutes mini pressure which point the patient was taken recovery room for bedrest prior to discharge to home. Surgical Findings: See above Complications Complications: No
== END 2025-03-09 16:00 | disposition home or self-care (01) ==
PROVIDERS: PCP Internal Medicine; Referring Provider Surgery Trauma Surgery; Visit Provider Surgery Trauma Surgery
DX: I70.231 Atherosclerosis of native arteries of right leg with ulceration of thigh (principal); I11.0 Hypertensive heart disease with heart failure; I50.32 Chronic diastolic (congestive) heart failure; Z89.421 Acquired absence of other right toe(s); I70.92 Chronic total occlusion of artery of the extremities; Z79.899 Other long term (current) drug therapy; Z79.01 Long term (current) use of anticoagulants; K21.9 Gastro-esophageal reflux disease without esophagitis; E78.5 Hyperlipidemia, unspecified; I70.0 Atherosclerosis of aorta; I70.202 Unspecified atherosclerosis of native arteries of extremities, left leg
CPT/HCPCS: 36200; 36245; 36415; 37225; 37252; 75625; 75710; 76937; 80048; 85027; 85347; 99152; 99153; C1724; C1725; C1753; C1760; C1769; C1887; C1894; C2623; Q9967

== ENCOUNTER 2025-04-05 15:15 | Outpatient (RCR) | payer MEDICARE, OTHER, SELFPAY ==
[2025-03-13 15:20] VITALS: BP 146/55; PULSE 66; RESP 16; TEMP 36.2; BMI 27.3
--- NOTE | 2025-03-13 15:50 | PCM.WC.HP ---
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 Patient underwent the above-noted vascular surgery intervention last week on 09 March 2025, with noted improvement of blood flow. I spoke to the vascular surgeon, Dr. Rascon, who suggested that we evaluate the wound and the wound care center and also have Dr. Ruiz, podiatry, evaluate the wound. Today at the wound care center the patient reports no fevers chills or drainage. He is not interested in amputation. His previous auto parts manager recommended amputation but he feels that he would like to attempt limb salvage. Reports that he is nondiabetic, although did not see an A1c in the computer (he reports that is just under the threshold for diabetes). He was never a smoker. [facility] Medical History History of cardioversion Venous insufficiency Coronary artery disease Chronic heart failure with preserved ejection fraction (HFpEF) GERD (gastroesophageal reflux disease) Hyperlipidemia Essential (primary) hypertension Acute kidney injury Stroke Acute encephalopathy Gangrene of toe of right foot Debility Home Medications Medication Instructions Recorded Last Taken Type metoprolol succinate 100 mg 100 mg PO DAILY BP #30 TABLETS 12/28/14 02/25/24 Rx tablet,extended release 24 hr ezetimibe 10 mg tablet 10 mg PO DAILY Cholesterol 02/17/24 02/25/24 History fluticasone propionate 50 2 spray intranasal DAILY Allergies 02/17/24 02/25/24 History mcg/actuation nasal spray,suspension folic acid 1 mg tablet 1 mg PO DAILY Supplement 02/17/24 02/25/24 History apixaban 5 mg tablet (Eliquis) 2.5 mg (1/2 x 5 mg) PO BID 30 days 05/13/24 03/08/25 Rx #30 tabs arginine 7 gram-glutam 7 1 packet PO BIDCM 30 days #60 ea 05/13/24 Unknown Rx gram-CaHMB 1.5 qydf-japly-lh-min oral pwd pkt (Prasanth (with collagen)) ascorbic acid (vitamin C) 500 mg 500 mg PO BIDCM 30 days #60 tabs 05/13/24 Unknown Rx tablet atorvastatin 80 mg tablet 80 mg PO QHS 30 days #30 tabs 05/13/24 Unknown Rx tamsulosin 0.4 mg capsule 0.4 mg PO DAILY@1730 30 days #30 05/13/24 Unknown Rx caps Allergy/AdvReac Type Severity Reaction Status Date / Time hydrochlorothiazide AdvReac Unknown Verified 02/23/25 09:32 Family History Mother , 56 years old. Breast cancer Sister Breast cancer Grandmother Breast cancer Aunt Breast cancer Father , 78 years old. Prostate cancer PAD (peripheral artery disease) Surgical History History of right inguinal hernia repair History of cataract surgery History of colonoscopy History of aortic valve replacement Status post transmetatarsal amputation of right foot Social History household members: spouse Smoking Status: Never smoker alcohol intake: current alcohol intake frequency: 0-2 drinks per day Alcohol type: wine details: 7 glasses of wine per week. substance use type: does not use Vital Signs Vital Signs Vital Signs: 03/13/25 15:20 Temperature 97.1 F L Temperature Source Temporal Pulse Rate 66 Respiratory Rate 16 Blood Pressure 146/55 H Blood Pressure Mean 85 Blood Pressure Source Monitor Blood Pressure Position Sitting Blood Pressure Location Right Arm Oxygen Delivery Method Room Air Weight Weight: 196 lb Body Mass Index (BMI) 27.3 Physical Exam Narrative Right foot TMA wound with exposed tarsal bone No fluid collections No surrounding induration No significant wounds in the plantar surface, rather the wound is on the anterior/dorsal surface. Edges of the wound appear to be bleeding Debridement Note Debridement Note Post-Debridement Measurements and Additional Note: Post-Debridement Measurements/Treatment GABRIELLE - Nurse 1 - General Ulcer Assessment Start: 03/13/25 15:20 Freq: Status: Active Protocol: [facility] Activity Type Activity Date Activity User E-sign Co-sign Detail Recorded Client Recorded Date Recorded By Document 03/13/25 15:20 [id number] 03/13/25 15:44 GM 03/13/25 15:20 WC - Today's Visit Information Type of service Initial Visit Arrival Mode Ambulatory Transfer Assistance None Accompanied by Patient Identification Verified (Name & Yes ) Height and Weight Height 5 ft 11 in Weight 196 lb Weight in Pounds 196.0 lbs Body Mass Index (BMI) 27.3 BMI Classification Overweight Vital Signs Temperature (97.8 F-99.1 F) 97.1 F L Temperature Source Temporal Pulse Rate (60-100) 66 Pulse Location Monitor Respiratory Rate (12-18) 16 Respiratory rate source Observation Oxygen Delivery Method Room Air Blood Pressure (90/60-120/80) 146/55 H Blood Pressure Mean 85 Source Monitor Position Sitting Blood Pressure Location Right Arm History Since Last Visit- (Skip if this is Patient's initial visit) Have you changed medications since your No last visit? Any new allergies or adverse reactions No Had a fall/change in ADL's that may No increase risk of falls Signs or symptoms of abuse and/or No neglect since last visit Have you been in the hospital since your No last visit? Left Footwear Regular Shoe Right Footwear Regular Shoe Pain Scale: 0-10 Numeric Is Patient Pain Free? Yes Lower Extremity Assessment/ Foot Assessment/ Toe Nail Assessment Right -Extremity Color Hyperpigmented, Hemosiderin -Hair Growth on Legs No -Temperature of Extremity Warm -Dependent Rubor No -Foot Assessment Not Applicable -Prior Foot Ulcer Yes Teaching Assessment Preferences Verbal Barriers to Learning None Readiness To Learn Excellent Willingness to Engage in Self Management High Activies Readiness to Engage in Self Management High Activities Anxiety Level Calm Cooperation Cooperative Perception Coherent Interest in Health Problem Asks Questions Education Importance Acknowledges Need Does Patient Smoke tobacco or other No substances Smoking Status Never smoker Functional Assessment Recent Decline in Ability to Perform Denies Any Declines Culture/Presybeterian/Supervisor Pipeline Maintenance Cultural/Presybeterian Needs that may affect No Treatment Plan Would you allow our hospital reinspector to No meet you for the purpose of spiritual/ emotional support? Supervisor Pipeline Maintenance to contact place of scientology No WC - Nurse 1 - General Ulcer Measurement Start: 03/13/25 15:20 Freq: Status: Active Protocol: Activity Type Activity Date Activity User E-sign Co-sign Detail Recorded Client Recorded Date Recorded By Document 03/13/25 15:20 [id number] 03/13/25 15:44 GM 03/13/25 15:20 Wound Center Nurse 1 Right Lateral Leg -Current Size (cm) - Length 1.0 -Current Size (cm) - Width 1.2 -Current Size (cm) - Depth 0.1 -Total Square Cm 1.20 -Date of Last Picture (Recall this 03/13/25 field) -Photo Taken Yes -Tunneling No -Undermining/Tunneling No -Circular Undermining No -Change in Wound Grade/Stage No -Exudate Amt Small -Exudate Type Yellow/Green -Wound Margin Distinct, Outline Attached -Granulation Amt Small (1-33%) -Granulation Quality [place] -Slough/Fibrin Yes -Necrotic Tissue Type Adherent Slough -Texture (Marta-wound Skin Appearance) Assessed -Moisture (Marta-wound Skin Appearance) Assessed,Dry/ Scaly -Color (Marta-wound Skin Appearance) Assessed -Temperature (Marta-wound Skin No Abnormality Appearance) (Pt Warm) -Tenderness on Palpation (Marta-wound No Skin Appearance) -Ulcer Cleansing Soap and Water -Foul Odor after Cleansing No -Anesthetic Used 5% Lidocaine Gel Right Dorsum -Current Size (cm) - Length 0.8 -Current Size (cm) - Width 1.8 -Current Size (cm) - Depth 0.1 -Total Square Cm 1.44 -Date of Last Picture (Recall this 03/13/25 field) -Photo Taken Yes -Epithelialization None Present -Tunneling No -Undermining/Tunneling No -Circular Undermining No -Exudate Amt Medium -Exudate Type Yellow/Green -Wound Margin Distinct, Outline Attached -Granulation Amt None Present (0 %) -Slough/Fibrin Yes -Necrosis Amt Medium (34-66%) -Necrotic Tissue Type Adherent Slough -Texture (Marta-wound Skin Appearance) Assessed, Localized Edema -Moisture (Marta-wound Skin Appearance) Assessed -Color (Marta-wound Skin Appearance) Assessed, Erythema -Temperature (Marta-wound Skin No Abnormality Appearance) (Pt Warm) -Tenderness on Palpation (Marta-wound No Skin Appearance) -Ulcer Cleansing Soap and Water -Foul Odor after Cleansing No -Anesthetic Used 5% Lidocaine Gel Left TMA -Combined with other wound No -Current Size (cm) - Length 4.5 -Current Size (cm) - Width 6.0 -Current Size (cm) - Depth 0.1 -Total Square Cm 27.00 -Date of Last Picture (Recall this 03/13/25 field) -Photo Taken Yes -Epithelialization None Present -Tunneling No -Undermining/Tunneling No -Circular Undermining No -Classification - Thickness Full Thickness with Exposed Support Structure -Exudate Amt Medium -Exudate Type Yellow/Green -Wound Margin Distinct, Outline Attached -Granulation Amt Small (1-33%) -Slough/Fibrin Yes -Necrosis Amt Medium (34-66%) -Necrotic Tissue Type Eschar -Texture (Marta-wound Skin Appearance) Assessed, Localized Edema -Moisture (Marta-wound Skin Appearance) Assessed,Dry/ Scaly -Color (Marta-wound Skin Appearance) Assessed, Erythema -Temperature (Marta-wound Skin No Abnormality Appearance) (Pt Warm) -Tenderness on Palpation (Marta-wound No Skin Appearance) -Ulcer Cleansing Soap and Water -Foul Odor after Cleansing No -Anesthetic Used 5% Lidocaine Gel Lower Limb Edema Present Yes Right Calf (cm) 40.5 Right Ankle (cm) 27.5 Charges/Coding Visit Charges Office Visits / Consults: [id number] OV L3 New 30min Assessment/Plan Assessment/Plan (1) Status post transmetatarsal amputation of right foot: CODE(S): Z89.431 - Acquired absence of right foot (2) Unspecified open wound, right foot, initial encounter: CODE(S): S91.301A - Unspecified open wound, right foot, initial encounter (3) 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 Ruiz Plastic surgery will be available as needed for assistance with reconstruction. My plan would be debridement, rongeuring the bone back to healthy bleeding tissue, and taking bone cultures, followed by irrigating wound VAC and eventual reconstruction with Integra then skin graft. I can be available for assistance with podiatry, but I agree with Dr. Rascon that podiatry should weigh in. I will coordinate with Dr. Ruiz and Dr. Rascon. In the meantime I recommended Dakin's wet-to-dry dressings twice daily The patient is on Eliquis for heart valve replacement, and therefore would recommend debridement in the operating room as the wound edges are already bleeding from just dressing removal (appears to have restored blood flow).
[2025-03-15 15:43] VITALS: BP 148/58; PULSE 69; RESP 18; TEMP 36.1; BMI 27.3
--- NOTE | 2025-03-15 15:49 | PCM.WC.HP ---
History of Present Illness Date of Service: 03/15/25 Chief Complaint: Full-thickness wound to the TMA site right lower extremity History of Wound: Evidence of traumatic full-thickness wound to the right TMA site after striking it on oil rig gear. Wound has been treated with Betadine soaked gauze as well as on oral doxycycline 100 mg twice daily. Patient is borderline diabetic. Progress of Wound: Patient is 84-year-old diabetic male seen at the wound care center today referral from plastic surgery for right lower extremity TMA full-thickness wound with exposed bone secondary to mechanical trauma. Patient was seen by an outside provider in [place] who performed the transmetatarsal amputation. He admits that the surgical site healed but unfortunately was hiking on his property and struck his foot on a piece of oil drilling gear causing the breakdown of skin and leading to a wound with exposed bone. Patient did undergo vascular intervention on 03/09/2025 with noted improvement in blood flow. Patient states that the swelling is more notable to the right lower extremity secondary to intervention by vascular. They have been taking oral antibiotics as prescribed and doing home dressing changes with Betadine soaked gauze. His blood sugar has been well-controlled. He denies trauma. Denies constitutional symptoms. No other pedal complaints at this time. [facility] Medical History History of cardioversion Venous insufficiency Coronary artery disease Chronic heart failure with preserved ejection fraction (HFpEF) GERD (gastroesophageal reflux disease) Hyperlipidemia Essential (primary) hypertension Acute kidney injury Stroke Acute encephalopathy Gangrene of toe of right foot Debility Home Medications Medication Instructions Recorded Last Taken Type metoprolol succinate 100 mg 100 mg PO DAILY BP #30 TABLETS 12/28/14 02/25/24 Rx tablet,extended release 24 hr ezetimibe 10 mg tablet 10 mg PO DAILY Cholesterol 02/17/24 02/25/24 History fluticasone propionate 50 2 spray intranasal DAILY Allergies 02/17/24 02/25/24 History mcg/actuation nasal spray,suspension folic acid 1 mg tablet 1 mg PO DAILY Supplement 02/17/24 02/25/24 History apixaban 5 mg tablet (Eliquis) 2.5 mg (1/2 x 5 mg) PO BID 30 days 05/13/24 03/08/25 Rx #30 tabs arginine 7 gram-glutam 7 1 packet PO BIDCM 30 days #60 ea 05/13/24 Unknown Rx gram-CaHMB 1.5 [id number] oral pwd pkt (Prasanth (with collagen)) ascorbic acid (vitamin C) 500 mg 500 mg PO BIDCM 30 days #60 tabs 05/13/24 Unknown Rx tablet atorvastatin 80 mg tablet 80 mg PO QHS 30 days #30 tabs 05/13/24 Unknown Rx tamsulosin 0.4 mg capsule 0.4 mg PO DAILY@1730 30 days #30 05/13/24 Unknown Rx caps ciprofloxacin HCl 750 mg tablet 750 mg PO BID 2 weeks #28 tabs 03/16/25 Unknown Rx Allergy/AdvReac Type Severity Reaction Status Date / Time hydrochlorothiazide AdvReac Unknown Verified 02/23/25 09:32 Family History Mother , 56 years old. Breast cancer Sister Breast cancer Grandmother Breast cancer Aunt Breast cancer Father , 78 years old. Prostate cancer PAD (peripheral artery disease) Surgical History History of right inguinal hernia repair History of cataract surgery History of colonoscopy History of aortic valve replacement Status post transmetatarsal amputation of right foot Social History household members: spouse Smoking Status: Never smoker alcohol intake: current alcohol intake frequency: 0-2 drinks per day Alcohol type: wine details: 7 glasses of wine per week. substance use type: does not use Vital Signs Vital Signs Vital Signs: 03/15/25 15:43 Temperature 96.9 F L Temperature Source Temporal Pulse Rate 69 Respiratory Rate 18 Blood Pressure 148/58 H Blood Pressure Mean 88 Blood Pressure Source Monitor Blood Pressure Position Semi-Fowlers Blood Pressure Location Left Arm Weight Weight: 88.904 kg Body Mass Index (BMI) 27.3 Physical Exam Narrative Vascular: Peroneal, AT and PT pulses are monophasic on Doppler to the right lower extremity. DP and PT pulses are nonpalpable. CFT is brisk to the TMA site. Skin temperature gradient is warm to warm from proximal ankles to 2 TMA stump with mild focal increase. Blanchable erythema is appreciated. Neurological: Light touch is intact. Protective station is absent. Dermatological: Evidence of full-thickness wound with exposed bone to the right lower extremity TMA site measuring 6.2 x 6.5 x 0.3 cm. Wound base is fibrogranular nature. Positive probe to bone. No malodor is appreciated. Evidence of full-thickness wound to the right proximal lateral leg measuring 1.0 x 1.4 x 0.3 cm. Wound base is fibrogranular nature. Serous drainage is noted. Excisional debridement down to and including subcutaneous tissue, fascia muscle and bone to the right lower extremity TMA site done with a rongeur to remove the bone and a 5 mm dermal curette to clean up the full-thickness wound done without incident. Predebridement measurement 6.0 x 6.3 x 0.3 cm. Postdebridement measurement is 6.2 x 6.5 x 0.3 cm. Excisional debridement down to and including subcutaneous tissue with a number 5 mm dermal curette the right proximal lateral full-thickness wound done without incident.. Right measurement 0.8 x 0.2 x 0.2 cm. Postdebridement measurement is 1.0 x 1.4 x 0.3 cm. Muscle skeletal: No pain to palpation to the full-thickness wounds to the right lower extremity. No pain with calf pressure. Const alert, oriented x3 and no apparent distress Debridement Note Debridement Note Debridement Free Text: Excisional debridement down to and including subcutaneous tissue, fascia muscle and bone to the right lower extremity TMA site done with a rongeur to remove the bone and a 5 mm dermal curette to clean up the full-thickness wound done without incident. Predebridement measurement 6.0 x 6.3 x 0.3 cm. Postdebridement measurement is 6.2 x 6.5 x 0.3 cm. Excisional debridement down to and including subcutaneous tissue with a number 5 mm dermal curette the right proximal lateral full-thickness wound done without incident.. Right measurement 0.8 x 0.2 x 0.2 cm. Postdebridement measurement is 1.0 x 1.4 x 0.3 cm. Post-Debridement Measurements and Additional Note: Post-Debridement Measurements/Treatment GABRIELLE - Nurse 1 - General Ulcer Assessment Start: 03/13/25 15:20 Freq: Status: Active Protocol: LOWEXT Activity Type Activity Date Activity User E-sign Co-sign Detail Recorded Client Recorded Date Recorded By Document 03/13/25 15:20 GM [id number] 03/13/25 15:44 GM Document 03/15/25 15:43 RB [id number] 03/15/25 15:48 RB 03/13/25 03/15/25 15:20 15:43 WC - Today's Visit Information Type of service Initial Visit Follow-up Visit (Physician/MACHINE GUIDE BASE WINDER ) Arrival Mode Ambulatory Ambulatory Transfer Assistance None Manual Accompanied by Patient Identification Verified (Name & Yes Yes ) Patient Requires Transmission-Based No Precautions Height and Weight Height 5 ft 11 in Weight 88.904 kg Weight in Pounds 196.0 lbs Body Mass Index (BMI) 27.3 27.3 BMI Classification Overweight Overweight Vital Signs Temperature (97.8 F-99.1 F) 97.1 F L 96.9 F L Temperature Source Temporal Temporal Pulse Rate (60-100) 66 69 Pulse Location Monitor Monitor Respiratory Rate (12-18) 16 18 Respiratory rate source Observation Observation Oxygen Delivery Method Room Air Blood Pressure (90/60-120/80) 146/55 H 148/58 H Blood Pressure Mean 85 88 Source Monitor Monitor Position Sitting Semi-Fowlers Blood Pressure Location Right Arm Left Arm History Since Last Visit- (Skip if this is Patient's initial visit) Have you changed medications since your No No last visit? Any new allergies or adverse reactions No No Had a fall/change in ADL's that may No No increase risk of falls Signs or symptoms of abuse and/or No No neglect since last visit Have you been in the hospital since your No No last visit? Has dressing in place as prescribed Yes Has compression in place as prescribed N/A Has offloadiing in place as prescribed N/A Experienced any changes in pain level or No management Left Footwear Regular Shoe Regular Shoe Right Footwear Regular Shoe Regular Shoe Pain Scale: 0-10 Numeric Is Patient Pain Free? Yes Yes Lower Extremity Assessment/ Foot Assessment/ Toe Nail Assessment Right -Extremity Color Hyperpigmented, Hemosiderin -Hair Growth on Legs No -Temperature of Extremity Warm -Dependent Rubor No -Foot Assessment Not Applicable -Prior Foot Ulcer Yes Teaching Assessment Preferences Verbal Barriers to Learning None Readiness To Learn Excellent Willingness to Engage in Self Management High Activies Readiness to Engage in Self Management High Activities Anxiety Level Calm Cooperation Cooperative Perception Coherent Interest in Health Problem Asks Questions Education Importance Acknowledges Need Does Patient Smoke tobacco or other No substances Smoking Status Never smoker Functional Assessment Recent Decline in Ability to Perform Denies Any Declines Culture/Scientology/Certified Medical Aide Cultural/Scientology Needs that may affect No Treatment Plan Would you allow our hospital intranet support to No meet you for the purpose of spiritual/ emotional support? Certified Medical Aide to contact place of baptism No WC - Nurse 1 - General Ulcer Measurement Start: 03/13/25 15:20 Freq: Status: Active Protocol: Activity Type Activity Date Activity User E-sign Co-sign Detail Recorded Client Recorded Date Recorded By Document 03/13/25 15:20 GM [id number] 03/13/25 15:44 GM Document 03/15/25 15:43 RB [id number] 03/15/25 15:48 RB 03/13/25 03/15/25 15:20 15:43 Wound Center Nurse 1 Right Lateral Leg -Combined with other wound No -Current Size (cm) - Length 1.0 1 -Current Size (cm) - Width 1.2 1 -Current Size (cm) - Depth 0.1 0.4 -Total Square Cm 1.20 1 -Date of Last Picture (Recall this 03/13/25 field) -Photo Taken Yes -Tunneling No No -Undermining/Tunneling No No -Circular Undermining No No -Change in Wound Grade/Stage No -Exudate Amt Small Medium -Exudate Type Yellow/Green Serosanguineous -Wound Margin Distinct, Thickened & Outline Rolled Under Attached -Granulation Amt Small (1-33%) Medium (34-66%) -Granulation Quality [place] -Slough/Fibrin Yes Yes -Necrosis Amt Medium (34-66%) -Necrotic Tissue Type Adherent Slough Adherent Slough -Structure Exposed N/A -Texture (Marta-wound Skin Appearance) Assessed Assessed -Moisture (Marta-wound Skin Appearance) Assessed,Dry/ Assessed Scaly -Color (Marta-wound Skin Appearance) Assessed Assessed, Hemosiderin Staining -Temperature (Marta-wound Skin No Abnormality No Abnormality Appearance) (Pt Warm) (Pt Warm) -Tenderness on Palpation (Marta-wound No No Skin Appearance) -Ulcer Cleansing Soap and Water Wound Cleanser -Foul Odor after Cleansing No No -Anesthetic Used 5% Lidocaine 4% Lidocaine Gel Solution Right Dorsum -Combined with other wound No -Current Size (cm) - Length 0.8 0.1 -Current Size (cm) - Width 1.8 0.1 -Current Size (cm) - Depth 0.1 0.1 -Total Square Cm 1.44 0.01 -Date of Last Picture (Recall this 03/13/25 field) -Photo Taken Yes -Epithelialization None Present -Tunneling No No -Undermining/Tunneling No No -Circular Undermining No No -Exudate Amt Medium Small -Exudate Type Yellow/Green Serosanguineous -Wound Margin Distinct, Distinct, Outline Outline Attached Attached -Granulation Amt None Present (0 Medium (34-66%) %) -Granulation Quality [place] -Slough/Fibrin Yes Yes -Necrosis Amt Medium (34-66%) Medium (34-66%) -Necrotic Tissue Type Adherent Slough Adherent Slough -Structure Exposed N/A -Texture (Marta-wound Skin Appearance) Assessed, Assessed Localized Edema -Moisture (Marta-wound Skin Appearance) Assessed Assessed -Color (Marta-wound Skin Appearance) Assessed, Assessed Erythema -Temperature (Marta-wound Skin No Abnormality No Abnormality Appearance) (Pt Warm) (Pt Warm) -Tenderness on Palpation (Marta-wound No No Skin Appearance) -Ulcer Cleansing Soap and Water Wound Cleanser -Foul Odor after Cleansing No No -Anesthetic Used 5% Lidocaine 4% Lidocaine Gel Solution Left TMA -Combined with other wound No No -Current Size (cm) - Length 4.5 5 -Current Size (cm) - Width 6.0 5.5 -Current Size (cm) - Depth 0.1 0.5 -Total Square Cm 27.00 27.5 -Date of Last Picture (Recall this 03/13/25 field) -Photo Taken Yes -Epithelialization None Present -Tunneling No No -Undermining/Tunneling No No -Circular Undermining No No -Classification - Thickness Full Thickness with Exposed Support Structure -Exudate Amt Medium Medium -Exudate Type Yellow/Green Serosanguineous -Wound Margin Distinct, Thickened & Outline Rolled Under Attached -Granulation Amt Small (1-33%) Medium (34-66%) -Granulation Quality [place] -Slough/Fibrin Yes Yes -Necrosis Amt Medium (34-66%) Medium (34-66%) -Necrotic Tissue Type Eschar Adherent Slough -Structure Exposed N/A -Texture (Marta-wound Skin Appearance) Assessed, Assessed, Localized Edema Friable -Moisture (Marta-wound Skin Appearance) Assessed,Dry/ Assessed Scaly -Color (Marta-wound Skin Appearance) Assessed, Assessed, Erythema Erythema -Temperature (Marta-wound Skin No Abnormality No Abnormality Appearance) (Pt Warm) (Pt Warm) -Tenderness on Palpation (Marta-wound No No Skin Appearance) -Ulcer Cleansing Soap and Water Wound Cleanser -Foul Odor after Cleansing No No -Anesthetic Used 5% Lidocaine 4% Lidocaine Gel Solution Lower Limb Edema Present Yes Right Calf (cm) 40.5 Right Ankle (cm) 27.5 WC - Nurse 2 - General Ulcer CM Notes Start: 03/13/25 15:20 Freq: Status: Active Protocol: Activity Type Activity Date Activity User E-sign Co-sign Detail Recorded Client Recorded Date Recorded By Document 03/13/25 16:03 DS [id number] 03/13/25 16:11 DS 03/13/25 16:03 Wound Center Nurse 2 Right Lateral Leg -Time 16:03 -Correct Patient Yes -Correct Side, Site, Position Yes -Procedure Performed No -Wound/Ulcer Outcome Not Healed Right Dorsum -Time 16:03 -Correct Patient Yes -Correct Side, Site, Position Yes -Procedure Performed No -Wound/Ulcer Outcome Not Healed Left TMA -Time 16:03 -Correct Patient Yes -Correct Side, Site, Position Yes -Procedure Performed No -Wound/Ulcer Outcome Not Healed Pain Scale: 0-10 Numeric Is Patient Pain Free? Yes - Nurse 3 - General Ulcer D/C NN Start: 03/13/25 15:20 Freq: Status: Active Protocol: Activity Type Activity Date Activity User E-sign Co-sign Detail Recorded Client Recorded Date Recorded By Document 03/13/25 16:20 GM [id number] 03/13/25 16:21 GM Edit Result 03/13/25 16:20 GM (1) [id number] 03/13/25 16:25 GM (1) RLE - Lotion applied to leg before => No compression wrap - Tubular Bandage => Single Layer - Size of Tubigrip Used => Size D - Size D ($) => 1 03/13/25 16:20 Wound Care Center Nurse 3 Right Lateral Leg -Ulcer Cleansing Not Cleansed -Foul Odor after Cleansing No -Primary Dressing Covered/Secured with Dry Gauze Right Dorsum -Ulcer Cleansing Not Cleansed -Foul Odor after Cleansing No -Other Dressing Dakins wet to dry -Primary Dressing Covered/Secured with Dry Gauze Left TMA -Ulcer Cleansing Not Cleansed -Foul Odor after Cleansing No -Primary Dressing Applied Hysept -Primary Dressing Covered/Secured with Dry Gauze,Dry Gauze & Roll Gauze,Secured with Tape -Hysept 1 RLE -Lotion applied to leg before No compression wrap -Tubular Bandage Single Layer -Size of Tubigrip Used Size D -Size D ($) 1 Pain Scale: 0-10 Numeric Is Patient Pain Free? Yes WC - Visit Discharge Discharge Condition Stable Ambulatory Status Ambulatory Transportation Private Auto Assessment/Plan Assessment/Plan (1) Non-pressure chronic ulcer of other part of right foot with necrosis of bone: CODE(S): L97.514 - Non-pressure chronic ulcer of other part of right foot with necrosis of bone PLAN: Patient was examined and evaluated. All findings were discussed with the patient. All questions were answered to the patient satisfaction. After exam the patient has evidence of a full-thickness wound to the TMA site and proximal right lower extremity leg wound. There is evidence of exposed bone to the TMA site which is stable with hard cortex. Exposed bone was removed with sharp rongeur in office today. The bone was passed the back table to be sent off for microbiology culture and sensitivity. Patient will continue his doxycycline 100 mg twice daily I will add ciprofloxacin 750 mg twice daily for Pseudomonas coverage especially due to the traumatic history of the wound. Excisional debridement down to and including subcutaneous tissue, fascia muscle and bone to the right lower extremity TMA site done with a rongeur to remove the bone and a 5 mm dermal curette to clean up the full-thickness wound done without incident. Predebridement measurement 6.0 x 6.3 x 0.3 cm. Postdebridement measurement is 6.2 x 6.5 x 0.3 cm. Excisional debridement down to and including subcutaneous tissue with a number 5 mm dermal curette the right proximal lateral full-thickness wound done without incident.. Right measurement 0.8 x 0.2 x 0.2 cm. Postdebridement measurement is 1.0 x 1.4 x 0.3 cm. The right lower extremity was wiped clean and patted dry. We will stop Betadine paint as it is causing drying of the wound and causing necrosis. We will switch to Dakin's 4 x 4 soaked gauze followed by dry sterile dressing and light compression wrap to the right lower extremity. I educated the patient on the importance of elevation and watch his walking. He was understanding this. Even though the patient is not diabetic I educated the patient to watch what he eats and to increase his protein intake and continue to drink Prasanth. If the patient shows delayed healing we will recommend either surgical washout with graft placement versus washout and wound VAC placement to right lower extremity as well as consideration for HBO. I entrusted the patient that we will make sure to do everything that we can to prevent any type of below-knee amputation which she was grateful for. Ciprofloxacin was sent to the patient's pharmacy. Patient will follow-up with Dr. 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
[2025-03-22 14:00] VITALS: BP 147/74; PULSE 77; RESP 16; TEMP 36.3; BMI 27.3
--- NOTE | 2025-03-22 15:22 | RAD_ITS ---
PROCEDURE: RIGHT FOOT MIN 3 VIEWS 03/22/2025 REASON FOR EXAM: PAIN, ULCER, OSTEOMYCLITIS, AMPUTATION TO TOES ON 02/16 TECHNIQUE: Procedure Code: RADFO Modality: DX Procedure: FOOT MIN 3 VIEWS Laterality: Right COMPARISON: None available. FINDINGS: Postoperative changes of forefoot amputation at the level of the tarsometatarsal joints. Generalized soft tissue swelling and shallow ulceration of the foot stump more pronounced at the medial aspect. Subtle cortical lucency/erosion involving the distal aspect of the medial and intermediate cuneiform bones suspicious for osteomyelitis. No acute fracture or dislocation. RAD/Foot min 3 Views IMPRESSION: Status post forefoot amputation. Subtle cortical lucency/erosion at the distal aspect of the medial and intermediate cuneiform bones suspicious for osteomyelitis. Reading Location: [id number]
--- NOTE | 2025-03-23 10:30 | WC ---
PHOTO-RIGHT LAT LEG 03/22/25
--- NOTE | 2025-03-23 10:31 | WC ---
PHOTO-RIGHT LAT LEG CLEAR PICTURE
--- NOTE | 2025-03-23 10:32 | WC ---
PHOTO-RIGHT TRANSMET 03/22/25
--- NOTE | 2025-03-23 10:34 | WC ---
PHOTO-RIGHT PLANTAR 03/22/25
[2025-03-24 05:07] LABS: Prealbumin 14 mg/dL (9-32)
--- NOTE | 2025-03-25 11:14 | PCM.WC.PN ---
History of Present Illness Date of Service: 03/22/25 Chief Complaint: Full-thickness wound to the TMA site right lower extremity History of Wound: Evidence of traumatic full-thickness wound to the right TMA site after striking it on oil rig gear. Wound has been treated with Betadine soaked gauze as well as on oral doxycycline 100 mg twice daily. Patient is borderline diabetic. Progress of Wound: Slow healing full-thickness wound right TMA site Subjective Subjective Patient is 84-year-old male presenting to clinic today for follow-up evaluation of full-thickness wound to the right TMA site secondary to trauma. Patient has been compliant with dressing changes with Dakin soaked gauze. He has taken the new antibiotic as prescribed. He made some improvement to the wound. He does admit to swelling. Not using compression. Denies trauma. Denies constitutional symptoms. No other pedal complaints at this time. Objective Data Objective Data Vital Signs: Vital Signs Temp Pulse Resp BP O2 Del Method 97.4 F L 77 16 147/74 H Room Air 03/22/25 14:00 03/22/25 14:00 03/22/25 14:00 03/22/25 14:00 03/13/25 15:20 Oxygen Delivery Method Room Air Weight: 88.904 kg Body Mass Index (BMI) 27.3 Lab / Micro Data Micro: Microbiology 03/15/25 15:55 Bone - Right Foot Gram Stain - Final 03/15/25 15:55 Bone - Right Foot Wound Culture - Final Klebsiella pneumoniae sp pneum Escherichia coli Stenotrophomonas maltophilia Staphylococcus aureus Staphylococcus epidermidis Enterococcus faecalis Corynebacterium amycolatum 03/15/25 15:55 Bone - Right Foot Anaerobic Culture - Final No anaerobic bacteria isolated. Physical Exam Narrative Vascular: Peroneal, AT and PT pulses are monophasic on Doppler to the right lower extremity. DP and PT pulses are nonpalpable. CFT is brisk to the TMA site. Skin temperature gradient is warm to warm from proximal ankles to TMA stump with mild focal increase. Blanchable erythema is appreciated. Neurological: Light touch is intact. Protective station is absent. Dermatological: Evidence of full-thickness wound with exposed bone to the right lower extremity TMA site measuring 5.5 x 5.5 x 0.7 cm. Wound base is fibrogranular nature. Positive probe to bone. No malodor is appreciated. Evidence of full-thickness wound to the right proximal lateral leg measuring 1.2 x 1.2 x 0.2 cm. Wound base is fibrogranular nature. Serous drainage is noted. Right plantar full-thickness wound with central eschar measuring 0.7 x 2.2 x 0.1 cm. Wound base is central eschar with fibrogranular tissue surrounding. Evidence of small full-thickness wound to the ankle measuring 1.2 x 1.8 x 0.2 cm. Wound base is fibrogranular nature. Excisional debridement down to and including subcutaneous tissue, fascia muscle and bone to the right lower extremity TMA site done with a rongeur to remove the bone and a 5 mm dermal curette to clean up the full-thickness wound done without incident. Predebridement measurement 5.3 x 6.4 x 0.4 cm. Postdebridement measurement is 5.5 x 5.5 x 0.7 cm. Excisional debridement down to and including subcutaneous tissue with a number 5 mm dermal curette the right proximal lateral full-thickness wound done without incident. Predebridement measurement 1.0 x 0.9 x 0.1 cm. Postdebridement measurement is 1.2 x 1.2 x 0.2 cm. Excisional debridement down to and including subcutaneous tissue with a number 5 mm dermal curette the right ankle lateral full-thickness wound done without incident. Predebridement measurement 1.0 x 1.6 x 0.1 cm. Postdebridement measurement is 1.2 x 1.8 x 0.2 cm. Muscle skeletal: No pain to palpation to the full-thickness wounds to the right lower extremity. No pain with calf pressure. Const alert, oriented x3 and no apparent distress Debridement Note Debridement Note Debridement Free Text: Excisional debridement down to and including subcutaneous tissue, fascia muscle and bone to the right lower extremity TMA site done with a rongeur to remove the bone and a 5 mm dermal curette to clean up the full-thickness wound done without incident. Predebridement measurement 5.3 x 6.4 x 0.4 cm. Postdebridement measurement is 5.5 x 5.5 x 0.7 cm. Excisional debridement down to and including subcutaneous tissue with a number 5 mm dermal curette the right proximal lateral full-thickness wound done without incident. Predebridement measurement 1.0 x 0.9 x 0.1 cm. Postdebridement measurement is 1.2 x 1.2 x 0.2 cm. Excisional debridement down to and including subcutaneous tissue with a number 5 mm dermal curette the right ankle lateral full-thickness wound done without incident. Predebridement measurement 1.0 x 1.6 x 0.1 cm. Postdebridement measurement is 1.2 x 1.8 x 0.2 cm. Post-Debridement Measurements and Additional Note: Post-Debridement Measurements/Treatment - Nurse 1 - General Ulcer Assessment Start: 03/13/25 15:20 Freq: Status: Active Protocol: [email or web address] Activity Type Activity Date Activity User E-sign Co-sign Detail Recorded Client Recorded Date Recorded By Document 03/13/25 15:20 GM [id number] 03/13/25 15:44 GM Document 03/15/25 15:43 RB [id number] 03/15/25 15:48 RB Document 03/22/25 14:00 CP [id number] 03/22/25 14:14 CP 03/13/25 03/15/25 03/22/25 15:20 15:43 14:00 - Today's Visit Information Type of service Initial Visit Follow-up Visit Follow-up Visit (Physician/PRACTICE COORDINATOR (Physician/PRACTICE COORDINATOR ) ) Arrival Mode Ambulatory Ambulatory Ambulatory Transfer Assistance None Manual Accompanied by Patient Identification Verified (Name & Yes Yes Yes ) Patient Requires Transmission-Based No No Precautions Height and Weight Height 5 ft 11 in Weight 88.904 kg Weight in Pounds 196.0 lbs Body Mass Index (BMI) 27.3 27.3 27.3 BMI Classification Overweight Overweight Overweight Vital Signs Temperature (97.8 F-99.1 F) 97.1 F L 96.9 F L 97.4 F L Temperature Source Temporal Temporal Temporal Pulse Rate (60-100) 66 69 77 Pulse Location Monitor Monitor Monitor Respiratory Rate (12-18) 16 18 16 Respiratory rate source Observation Observation Observation Oxygen Delivery Method Room Air Blood Pressure (90/60-120/80) 146/55 H 148/58 H 147/74 H Blood Pressure Mean (mm Hg) 85 88 98 Source Monitor Monitor Monitor Position Sitting Semi-Fowlers Sitting Blood Pressure Location Right Arm Left Arm Right Arm History Since Last Visit- (Skip if this is Patient's initial visit) Have you changed medications since your No No No last visit? Any new allergies or adverse reactions No No No Had a fall/change in ADL's that may No No No increase risk of falls Signs or symptoms of abuse and/or No No No neglect since last visit Have you been in the hospital since your No No No last visit? Has dressing in place as prescribed Yes Yes Has compression in place as prescribed N/A Yes Has offloadiing in place as prescribed N/A N/A Experienced any changes in pain level or No No management Left Footwear Regular Shoe Regular Shoe Right Footwear Regular Shoe Regular Shoe Pain Scale: 0-10 Numeric Is Patient Pain Free? Yes Yes Yes Lower Extremity Assessment/ Foot Assessment/ Toe Nail Assessment Right -Extremity Color Hyperpigmented, Hemosiderin -Hair Growth on Legs No -Temperature of Extremity Warm -Dependent Rubor No -Foot Assessment Not Applicable -Prior Foot Ulcer Yes Teaching Assessment Preferences Verbal Barriers to Learning None Readiness To Learn Excellent Willingness to Engage in Self Management High Activies Readiness to Engage in Self Management High Activities Anxiety Level Calm Cooperation Cooperative Perception Coherent Interest in Health Problem Asks Questions Education Importance Acknowledges Need Does Patient Smoke tobacco or other No substances Smoking Status Never smoker Functional Assessment Recent Decline in Ability to Perform Denies Any Declines Culture/Latter Day/Dental Assistant Medical Assistant Cultural/Latter Day Needs that may affect No Treatment Plan Would you allow our hospital display card writer to No meet you for the purpose of spiritual/ emotional support? Dental Assistant Medical Assistant to contact place of christianity No WC - Nurse 1 - General Ulcer Measurement Start: 03/13/25 15:20 Freq: Status: Active Protocol: Activity Type Activity Date Activity User E-sign Co-sign Detail Recorded Client Recorded Date Recorded By Document 03/13/25 15:20 GM [id number] 03/13/25 15:44 GM Document 03/15/25 15:43 RB [id number] 03/15/25 15:48 RB Edit Result 03/15/25 15:43 RB (1) [id number] 03/15/25 15:52 RB Edit Result 03/15/25 15:43 RB (2) [id number] 03/15/25 15:52 RB Document 03/22/25 14:00 CP [id number] 03/22/25 14:14 CP (1) right anterior ankle - Structure Exposed N/A => Bone (2) right anterior ankle - Structure Exposed Bone => Tendon,Fascia,Bone 03/13/25 03/15/25 03/22/25 15:20 15:43 14:00 Wound Center Nurse 1 Right Lateral Leg -Combined with other wound No -Current Size (cm) - Length 1.0 1 0.9 -Current Size (cm) - Width 1.2 1 1.2 -Current Size (cm) - Depth 0.1 0.4 0.1 -Total Square Cm 1.20 1 1.08 -Date of Last Picture (Recall this 03/13/25 03/22/25 field) -Photo Taken Yes Yes -Tunneling No No -Undermining/Tunneling No No -Circular Undermining No No -Change in Wound Grade/Stage No -Exudate Amt Small Medium Small -Exudate Type Yellow/Green Serosanguineous -Wound Margin Distinct, Thickened & Flat & Intact Outline Rolled Under Attached -Granulation Amt Small (1-33%) Medium (34-66%) Large (67-100%) -Granulation Quality Show Low Show Low Red -Slough/Fibrin Yes Yes -Necrosis Amt Medium (34-66%) Small (1-33%) -Necrotic Tissue Type Adherent Slough Adherent Slough Adherent Slough -Structure Exposed N/A -Texture (Marta-wound Skin Appearance) Assessed Assessed No Abnormality -Moisture (Marta-wound Skin Appearance) Assessed,Dry/ Assessed No Abnormality Scaly -Color (Marta-wound Skin Appearance) Assessed Assessed, No Abnormality Hemosiderin Staining -Temperature (Marta-wound Skin No Abnormality No Abnormality Appearance) (Pt Warm) (Pt Warm) -Tenderness on Palpation (Marta-wound No No Skin Appearance) -Ulcer Cleansing Soap and Water Wound Cleanser Soap and Water -Foul Odor after Cleansing No No -Anesthetic Used 5% Lidocaine 4% Lidocaine 5% Lidocaine Gel Solution Gel Right dorsum/TMA -Combined with other wound No -Current Size (cm) - Length 0.8 0.1 5 -Current Size (cm) - Width 1.8 0.1 5.5 -Current Size (cm) - Depth 0.1 0.1 0.2 -Total Square Cm 1.44 0.01 27.5 -Date of Last Picture (Recall this 03/13/25 03/22/25 field) -Photo Taken Yes Yes -Epithelialization None Present -Tunneling No No -Undermining/Tunneling No No -Circular Undermining No No -Exudate Amt Medium Small Small -Exudate Type Yellow/Green Serosanguineous Serosanguineous -Wound Margin Distinct, Distinct, Flat & Intact Outline Outline Attached Attached -Granulation Amt None Present (0 Medium (34-66%) Medium (34-66%) %) -Granulation Quality Show Low Red -Slough/Fibrin Yes Yes Yes -Necrosis Amt Medium (34-66%) Medium (34-66%) Medium (34-66%) -Necrotic Tissue Type Adherent Slough Adherent Slough Adherent Slough -Structure Exposed N/A -Texture (Marta-wound Skin Appearance) Assessed, Assessed Localized Edema -Moisture (Marta-wound Skin Appearance) Assessed Assessed -Color (Marta-wound Skin Appearance) Assessed, Assessed Erythema -Temperature (Marta-wound Skin No Abnormality No Abnormality No Abnormality Appearance) (Pt Warm) (Pt Warm) (Pt Warm) -Tenderness on Palpation (Marta-wound No No No Skin Appearance) -Ulcer Cleansing Soap and Water Wound Cleanser Soap and Water -Foul Odor after Cleansing No No -Anesthetic Used 5% Lidocaine 4% Lidocaine 5% Lidocaine Gel Solution Gel right anterior ankle -Combined with other wound No No -Current Size (cm) - Length 4.5 5 -Current Size (cm) - Width 6.0 5.5 -Current Size (cm) - Depth 0.1 0.5 -Total Square Cm 27.00 27.5 -Date of Last Picture (Recall this 03/13/25 field) -Photo Taken Yes -Epithelialization None Present -Tunneling No No -Undermining/Tunneling No No -Circular Undermining No No -Classification - Thickness Full Thickness with Exposed Support Structure -Exudate Amt Medium Medium -Exudate Type Yellow/Green Serosanguineous -Wound Margin Distinct, Thickened & Outline Rolled Under Attached -Granulation Amt Small (1-33%) Medium (34-66%) -Granulation Quality Show Low -Slough/Fibrin Yes Yes -Necrosis Amt Medium (34-66%) Medium (34-66%) -Necrotic Tissue Type Eschar Adherent Slough -Structure Exposed Tendon,Fascia, Bone -Texture (Marta-wound Skin Appearance) Assessed, Assessed, Localized Edema Friable -Moisture (Marta-wound Skin Appearance) Assessed,Dry/ Assessed Scaly -Color (Marta-wound Skin Appearance) Assessed, Assessed, Erythema Erythema -Temperature (Marta-wound Skin No Abnormality No Abnormality Appearance) (Pt Warm) (Pt Warm) -Tenderness on Palpation (Marta-wound No No Skin Appearance) -Ulcer Cleansing Soap and Water Wound Cleanser -Foul Odor after Cleansing No No -Anesthetic Used 5% Lidocaine 4% Lidocaine Gel Solution Lower Limb Edema Present Yes Right Calf (cm) 40.5 Right Ankle (cm) 27.5 WC - Nurse 2 - General Ulcer CM Notes Start: 03/13/25 15:20 Freq: Status: Active Protocol: Activity Type Activity Date Activity User E-sign Co-sign Detail Recorded Client Recorded Date Recorded By Document 03/13/25 16:03 DS [id number] 03/13/25 16:11 DS Document 03/15/25 16:01 JF [id number] 03/15/25 16:10 JF Document 03/22/25 14:25 JF [id number] 03/22/25 14:34 JF 03/13/25 03/15/25 03/22/25 16:03 16:01 14:25 Wound Center Nurse 2 right plantar foot -Correct Patient Yes -Correct Side, Site, Position No -Correct Procedure No -Procedure Performed No -Post Debridement (cm) - Length 0.7 -Post Debridement (cm) - Width 2.2 -Post Debridement (cm) - Depth 0.1 -Total Square (Post) (cm) 1.54 -Area of Debridement (cm) - Length 0.7 -Area of Debridement (cm) - Width 2.2 -Total Square (Area) (cm) 1.54 -Wound/Ulcer Outcome Not Healed Right Lateral Leg -Time 16:03 16:06 14:26 -Correct Patient Yes Yes Yes -Correct Side, Site, Position Yes Yes Yes -Correct Procedure Yes Yes -Procedure Performed No Yes Yes -Type of Procedure Debridement Debridement -Clinical Debridement Subcutaneous Subcutaneous -Tissue Removed Subcutaneous Subcutaneous -Post Debridement (cm) - Length 1.0 1.2 -Post Debridement (cm) - Width 1.4 1.2 -Post Debridement (cm) - Depth 0.3 0.2 -Total Square (Post) (cm) 1.40 1.44 -Area of Debridement (cm) - Length 1.0 1.2 -Area of Debridement (cm) - Width 1.4 1.2 -Total Square (Area) (cm) 1.40 1.44 -Tunneling No No -Undermining/Tunneling No No -Circular Undermining No No -Wound/Ulcer Outcome Not Healed Not Healed Not Healed -Ulcer Cleansing Rinsed/ Rinsed/ Irrigated with Irrigated with Saline Saline -Foul Odor after Cleansing No No -Bioengineered Tissue No No -Bleeding Controlled with Pressure Pressure -Treatment Response Procedure Procedure Tolerated Well Tolerated Well -Offloading Yes -Type of Offloading Surgical Shoe -Debridement - Subq, 1st 20sq cm Yes Yes Right dorsum/TMA -Time 16:03 16:03 14:26 -Correct Patient Yes Yes Yes -Correct Side, Site, Position Yes Yes Yes -Correct Procedure Yes Yes -Procedure Performed No Yes Yes -Type of Procedure Debridement Debridement -Clinical Debridement Bone Bone -Tissue Removed Non-viable Non-viable tissue tissue -Post Debridement (cm) - Length 6.2 5.5 -Post Debridement (cm) - Width 6.5 5.5 -Post Debridement (cm) - Depth 0.3 0.7 -Total Square (Post) (cm) 40.30 30.25 -Area of Debridement (cm) - Length 6.2 5.5 -Area of Debridement (cm) - Width 6.5 5.5 -Total Square (Area) (cm) 40.30 30.25 -Tunneling No No -Undermining/Tunneling No No -Circular Undermining No No -Wound/Ulcer Outcome Not Healed Not Healed Not Healed -Ulcer Cleansing Rinsed/ Rinsed/ Irrigated with Irrigated with Saline Saline -Foul Odor after Cleansing No No -Bioengineered Tissue No No -Bleeding Controlled with Pressure, Pressure Surgifoam 3 1/8 x 5 (lg) -Surgifoam (3 1/8 x 5) Large 1 -Treatment Response Procedure Procedure Tolerated Well Tolerated Well -Offloading Yes No -Type of Offloading Surgical Shoe -Debridement - Bone, 1st 20sq cm Yes Yes -Debridement, Bone, ea addt'l 20sq cm 1 or part thereof right anterior ankle -Time 16:03 14:29 -Correct Patient Yes Yes -Correct Side, Site, Position Yes Yes -Correct Procedure Yes -Procedure Performed No Yes -Type of Procedure Debridement -Clinical Debridement Muscle / Fascia -Tissue Removed Muscle -Post Debridement (cm) - Length 1.2 -Post Debridement (cm) - Width 1.8 -Post Debridement (cm) - Depth 0.2 -Total Square (Post) (cm) 2.16 -Area of Debridement (cm) - Length 1.2 -Area of Debridement (cm) - Width 1.8 -Total Square (Area) (cm) 2.16 -Tunneling No -Undermining/Tunneling No -Circular Undermining No -Wound/Ulcer Outcome Not Healed Not Healed -Ulcer Cleansing Rinsed/ Irrigated with Saline -Foul Odor after Cleansing No -Bioengineered Tissue No -Bleeding Controlled with Pressure -Treatment Response Procedure Tolerated Well -Offloading No -Assistive Device(s) Wheelchair -Debridement - Subq, 1st 20sq cm No -Debridement - Muscle / Fascia, 1st Yes 20sq cm Pain Scale: 0-10 Numeric Is Patient Pain Free? Yes Yes Yes WC - Nurse 3 - General Ulcer D/C NN Start: 03/13/25 15:20 Freq: Status: Active Protocol: Activity Type Activity Date Activity User E-sign Co-sign Detail Recorded Client Recorded Date Recorded By Document 03/13/25 16:20 GM [id number] 03/13/25 16:21 GM Edit Result 03/13/25 16:20 GM (1) [id number] 03/13/25 16:25 GM Document 03/15/25 16:20 GM [id number] 03/15/25 16:21 GM Edit Result 03/15/25 16:20 GM (2) [id number] 03/15/25 16:23 GM Document 03/22/25 15:00 CP [id number] 03/22/25 15:02 CP (1) RLE - Lotion applied to leg before => No compression wrap - Tubular Bandage => Single Layer - Size of Tubigrip Used => Size D - Size D ($) => 1 (2) Right Lateral Leg - Primary Dressing Applied AMD Dressing 4x4 => AMD Dressing 4x4, => Hysept - Hysept => 1 03/13/25 03/15/25 03/22/25 16:20 16:20 15:00 Wound Care Center Nurse 3 right plantar foot -Primary Dressing Covered/Secured with Dry Gauze & Roll Gauze -Other Covering betadine Right Lateral Leg -Ulcer Cleansing Not Cleansed Not Cleansed dakins -Foul Odor after Cleansing No No -Primary Dressing Applied AMD Dressing 4x4,Hysept -Primary Dressing Covered/Secured with Dry Gauze Dry Gauze & Dry Gauze & Roll Gauze, Roll Gauze, Secured with Secured with Tape Tape -AMD Dressing 4x4 1 -Hysept 1 Right dorsum/TMA -Ulcer Cleansing Not Cleansed Not Cleansed dakins -Foul Odor after Cleansing No No -Primary Dressing Applied AMD Dressing 4x8 -Other Dressing Dakins wet to dry -Primary Dressing Covered/Secured with Dry Gauze Dry Gauze & Dry Gauze & Roll Gauze, Roll Gauze, Secured with Secured with Tape Tape -AMD Dressing 4x8 1 right anterior ankle -Ulcer Cleansing Not Cleansed dakins -Foul Odor after Cleansing No -Primary Dressing Applied Hysept -Primary Dressing Covered/Secured with Dry Gauze,Dry Dry Gauze & Gauze & Roll Roll Gauze Gauze,Secured with Tape -Hysept 1 RLE -Lotion applied to leg before No No compression wrap -Tubular Bandage Single Layer Single Layer Double Layer -Size of Tubigrip Used Size D Size E Size E -Size D ($) 1 -Size E ($) 1 2 Pain Scale: 0-10 Numeric Is Patient Pain Free? Yes Yes Yes WC - Visit Discharge Discharge Condition Stable Stable Stable Ambulatory Status Ambulatory Ambulatory Ambulatory Transportation Private Auto Private Auto Private Auto Clinical Summary of Care Provided Yes Assessment/Plan Assessment/Plan (1) Non-pressure chronic ulcer of other part of right foot with necrosis of bone: CODE(S): L97.514 - Non-pressure chronic ulcer of other part of right foot with necrosis of bone PLAN: Patient was examined and evaluated. All findings were discussed with the patient. All questions were answered to the patient satisfaction. Excisional debridement down to and including subcutaneous tissue, fascia muscle and bone to the right lower extremity TMA site done with a rongeur to remove the bone and a 5 mm dermal curette to clean up the full-thickness wound done without incident. Predebridement measurement 5.3 x 6.4 x 0.4 cm. Postdebridement measurement is 5.5 x 5.5 x 0.7 cm. Excisional debridement down to and including subcutaneous tissue with a number 5 mm dermal curette the right proximal lateral full-thickness wound done without incident. Predebridement measurement 1.0 x 0.9 x 0.1 cm. Postdebridement measurement is 1.2 x 1.2 x 0.2 cm. Excisional debridement down to and including subcutaneous tissue with a number 5 mm dermal curette the right ankle lateral full-thickness wound done without incident. Predebridement measurement 1.0 x 1.6 x 0.1 cm. Postdebridement measurement is 1.2 x 1.8 x 0.2 cm. The right lower extremity was wiped clean and patted dry. Dakin's 4 x 4 soaked gauze followed by dry sterile dressing and light compression wrap to the right lower extremity. I educated the patient on the importance of elevation and watch his walking. He was understanding this. Review of the patient's bacterial culture show growth of polymicrobial bacteria. Patient be referred to infectious disease for possible PICC line versus oral antibiotics. Will plan for surgical washout and grafting of the multiple full-thickness wounds to the right lower extremity. I did have discussion with the patient that if things do fail with outpatient conservative treatment as well as surgical treatment I will recommend below-knee amputation at this time we will continue the path that we are going as he is showing some improvement. Patient was given an order for right foot x-ray as well as A1c lab order to make sure the patient is not diabetic. He will continue to follow the vascular surgery postoperative plans. Continue all antibiotics as prescribed. Patient will follow-up with Dr. 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
[2025-03-29 09:29] VITALS: BP 176/64; PULSE 88; RESP 16; TEMP 36.4; BMI 27.3
--- NOTE | 2025-03-30 09:27 | WC ---
PHOTO: RIGHT DORSAL FOOT 03/29/25
--- NOTE | 2025-03-30 09:28 | WC ---
PHOTO: RIGHT PLANTAR 03/29/25
--- NOTE | 2025-03-30 09:30 | WC ---
PHOTO: RIGHT TMA 03/29/25
--- NOTE | 2025-04-01 16:18 | PN.PCM_ITS ---
History of Present Illness Date of Service: 03/29/25 Chief Complaint: Full-thickness wound to the TMA site right lower extremity History of Wound: Evidence of traumatic full-thickness wound to the right TMA site after striking it on oil rig gear. Wound has been treated with Betadine soaked gauze as well as on oral doxycycline 100 mg twice daily. Patient is borderline diabetic. Progress of Wound: Slow healing full-thickness wound right TMA site Subjective Subjective Patient is 84-year-old male presented clinic today follow-up evaluation of multiple full-thickness wounds right lower extremity. Patient has been doing dressing changes as discussed. He is taking antibiotics as prescribed. He admitts some improvement with the wound and cauterization. He denies any trauma or drainage. Denies constitutional symptoms. No other pedal complaints at this time. Objective Data Objective Data Vital Signs: Vital Signs Temp Pulse Resp BP O2 Del Method 97.5 F L 88 16 176/64 H Room Air 03/29/25 09:29 03/29/25 09:29 03/29/25 09:29 03/29/25 09:29 03/29/25 09:29 Oxygen Delivery Method Room Air Weight: 88.904 kg Body Mass Index (BMI) 27.3 Lab / Micro Data Micro: Microbiology 03/15/25 15:55 Bone - Right Foot Gram Stain - Final 03/15/25 15:55 Bone - Right Foot Wound Culture - Final Klebsiella pneumoniae sp pneum Escherichia coli Stenotrophomonas maltophilia Staphylococcus aureus Staphylococcus epidermidis Enterococcus faecalis Corynebacterium amycolatum 03/15/25 15:55 Bone - Right Foot Anaerobic Culture - Final No anaerobic bacteria isolated. Physical Exam Narrative Vascular: Peroneal, AT and PT pulses are monophasic on Doppler to the right lower extremity. DP and PT pulses are nonpalpable. Skin temperature gradient is warm to warm from proximal ankles to TMA stump with mild focal increase. Blanchable erythema is appreciated. Neurological: Light touch is intact. Protective station is absent. Dermatological: Evidence of full-thickness wound with exposed bone to the right lower extremity TMA site measuring 5.2 x 5.7 x 0.5 cm. Wound base is fibrogranular nature. Positive probe to bone. Evidence of full-thickness wound to the right proximal lateral leg measuring 1 0.9 x 1.1 x 0.1 cm. Wound base is fibrogranular nature. Serous drainage is noted. Right plantar full-thickness wound with central eschar measuring 0.7 x 2.2 x 0.1 cm. Wound base is central eschar with fibrogranular tissue surrounding. Evidence of small full-thickness wound to the ankle measuring 0.9 x 2.0 x 0.2 cm. Wound base is fibrogranular nature. Excisional debridement down to and including subcutaneous tissue, fascia muscle and bone to the right lower extremity TMA site done with a rongeur to remove the bone and a 5 mm dermal curette as well as with rongeur to clean up the full- thickness wound done without incident. Predebridement measurement 5.0 x 5.5 x 0.3 cm. Postdebridement measurement is 5.2 x 5.7 x 0.5 cm. Excisional debridement down to and including subcutaneous tissue with a number 5 mm dermal curette the right proximal lateral leg full-thickness wound done without incident. Predebridement measurement 0.8 x 1.0 x 0.1 cm. Postdebridement measurement is 0.9 x 1.1 x 0.1 cm. Excisional debridement down to and including subcutaneous tissue, fascia and muscle with a number 5 mm dermal curette the right ankle lateral full-thickness wound done without incident. Predebridement measurement 0.8 x 1.8 x 0.1 cm. Postdebridement measurement is 0.9 x 2.0 x 0.2 cm. Muscle skeletal: No pain to palpation to the full-thickness wounds to the right lower extremity. No pain with calf pressure. Const alert, oriented x3 and no apparent distress Debridement Note Debridement Note Debridement Free Text: Excisional debridement down to and including subcutaneous tissue, fascia muscle and bone to the right lower extremity TMA site done with a rongeur to remove the bone and a 5 mm dermal curette as well as with rongeur to clean up the full-thickness wound done without incident. Predebridement measurement 5.0 x 5.5 x 0.3 cm. Postdebridement measurement is 5.2 x 5.7 x 0.5 cm. Excisional debridement down to and including subcutaneous tissue with a number 5 mm dermal curette the right proximal lateral leg full-thickness wound done without incident. Predebridement measurement 0.8 x 1.0 x 0.1 cm. P ostdebridement measurement is 0.9 x 1.1 x 0.1 cm. Excisional debridement down to and including subcutaneous tissue, fascia and muscle with a number 5 mm dermal curette the right ankle lateral full-thickness wound done without incident. Predebridement measurement 0.8 x 1.8 x 0.1 cm. Postdebridement measurement is 0.9 x 2.0 x 0.2 cm. Post-Debridement Measurements and Additional Note: Post-Debridement Measurements/Treatment - Nurse 1 - General Ulcer Assessment Start: 03/13/25 15:20 Freq: Status: Active Protocol: [email or web address] Activity Type Activity Date Activity User E-sign Co-sign Detail Recorded Client Recorded Date Recorded By Document 03/13/25 15:20 GM [id number] 03/13/25 15:44 GM Document 03/15/25 15:43 RB [id number] 03/15/25 15:48 RB Document 03/22/25 14:00 CP [id number] 03/22/25 14:14 CP Document 03/29/25 09:29 GM [id number] 03/29/25 09:44 03/13/25 03/15/25 03/22/25 15:20 15:43 14:00 - Today's Visit Information Type of service Initial Visit Follow-up Visit Follow-up Visit (Physician/MEDICAL REGISTRAR (Physician/MEDICAL REGISTRAR ) ) Arrival Mode Ambulatory Ambulatory Ambulatory Transfer Assistance None Manual Accompanied by Patient Identification Verified (Name & Yes Yes Yes ) Patient Requires Transmission-Based No No Precautions Height and Weight Height 5 ft 11 in Weight 88.904 kg Weight in Pounds 196.0 lbs Body Mass Index (BMI) 27.3 27.3 27.3 BMI Classification Overweight Overweight Overweight Vital Signs Temperature (97.8 F-99.1 F) 97.1 F L 96.9 F L 97.4 F L Temperature Source Temporal Temporal Temporal Pulse Rate (60-100) 66 69 77 Pulse Location Monitor Monitor Monitor Respiratory Rate (12-18) 16 18 16 Respiratory rate source Observation Observation Observation Oxygen Delivery Method Room Air Blood Pressure (90/60-120/80) 146/55 H 148/58 H 147/74 H Blood Pressure Mean (mm Hg) 85 88 98 Source Monitor Monitor Monitor Position Sitting Semi-Fowlers Sitting Blood Pressure Location Right Arm Left Arm Right Arm History Since Last Visit- (Skip if this is Patient's initial visit) Have you changed medications since your No No No last visit? Any new allergies or adverse reactions No No No Had a fall/change in ADL's that may No No No increase risk of falls Signs or symptoms of abuse and/or No No No neglect since last visit Have you been in the hospital since your No No No last visit? Has dressing in place as prescribed Yes Yes Has compression in place as prescribed N/A Yes Has offloadiing in place as prescribed N/A N/A Experienced any changes in pain level or No No management Left Footwear Regular Shoe Regular Shoe Right Footwear Regular Shoe Regular Shoe Pain Scale: 0-10 Numeric Is Patient Pain Free? Yes Yes Yes Lower Extremity Assessment/ Foot Assessment/ Toe Nail Assessment Right -Extremity Color Hyperpigmented, Hemosiderin -Hair Growth on Legs No -Temperature of Extremity Warm -Dependent Rubor No -Foot Assessment Not Applicable -Prior Foot Ulcer Yes Teaching Assessment Preferences Verbal Barriers to Learning None Readiness To Learn Excellent Willingness to Engage in Self Management High Activies Readiness to Engage in Self Management High Activities Anxiety Level Calm Cooperation Cooperative Perception Coherent Interest in Health Problem Asks Questions Education Importance Acknowledges Need Does Patient Smoke tobacco or other No substances Smoking Status Never smoker Functional Assessment Recent Decline in Ability to Perform Denies Any Declines Culture/Christianity/Dental Biller Cultural/Christianity Needs that may affect No Treatment Plan Would you allow our hospital day habilitation specialist to No meet you for the purpose of spiritual/ emotional support? Dental Biller to contact place of nondenominational No 03/29/25 09:29 WC - Today's Visit Information Type of service Initial Visit Arrival Mode Ambulatory Transfer Assistance None Accompanied by Patient Identification Verified (Name & Yes ) Patient Requires Transmission-Based No Precautions Height and Weight Height Weight Weight in Pounds Body Mass Index (BMI) 27.3 BMI Classification Overweight Vital Signs Temperature (97.8 F-99.1 F) 97.5 F L Temperature Source Temporal Pulse Rate (60-100) 88 Pulse Location Monitor Respiratory Rate (12-18) 16 Respiratory rate source Observation Oxygen Delivery Method Room Air Blood Pressure (90/60-120/80) 176/64 H Blood Pressure Mean (mm Hg) 101 Source Monitor Position Sitting Blood Pressure Location Left Arm History Since Last Visit- (Skip if this is Patient's initial visit) Have you changed medications since your No last visit? Any new allergies or adverse reactions No Had a fall/change in ADL's that may No increase risk of falls Signs or symptoms of abuse and/or No neglect since last visit Have you been in the hospital since your No last visit? Has dressing in place as prescribed Yes Has compression in place as prescribed Yes Has offloadiing in place as prescribed No Experienced any changes in pain level or management Left Footwear Regular Shoe Right Footwear Regular Shoe Pain Scale: 0-10 Numeric Is Patient Pain Free? Yes Lower Extremity Assessment/ Foot Assessment/ Toe Nail Assessment Right -Extremity Color -Hair Growth on Legs -Temperature of Extremity -Dependent Rubor -Foot Assessment -Prior Foot Ulcer Teaching Assessment Preferences Barriers to Learning Readiness To Learn Willingness to Engage in Self Management Activies Readiness to Engage in Self Management Activities Anxiety Level Cooperation Perception Interest in Health Problem Education Importance Does Patient Smoke tobacco or other substances Smoking Status Functional Assessment Recent Decline in Ability to Perform Culture/Christianity/Dental Biller Cultural/Christianity Needs that may affect Treatment Plan Would you allow our hospital day habilitation specialist to meet you for the purpose of spiritual/ emotional support? Dental Biller to contact place of nondenominational WC - Nurse 1 - General Ulcer Measurement Start: 03/13/25 15:20 Freq: Status: Active Protocol: Activity Type Activity Date Activity User E-sign Co-sign Detail Recorded Client Recorded Date Recorded By Document 03/13/25 15:20 GM [id number] 03/13/25 15:44 GM Document 03/15/25 15:43 RB [id number] 03/15/25 15:48 RB Edit Result 03/15/25 15:43 RB (1) [id number] 03/15/25 15:52 RB Edit Result 03/15/25 15:43 RB (2) [id number] 03/15/25 15:52 RB Document 03/22/25 14:00 CP [id number] 03/22/25 14:14 CP Document 03/29/25 09:29 GM [id number] 03/29/25 09:44 GM (1) right anterior ankle - Structure Exposed N/A => Bone (2) right anterior ankle - Structure Exposed Bone => Tendon,Fascia,Bone 03/13/25 03/15/25 03/22/25 15:20 15:43 14:00 Wound Center Nurse 1 right plantar foot -Current Size (cm) - Length -Current Size (cm) - Width -Current Size (cm) - Depth -Total Square Cm -Date of Last Picture (Recall this field) -Photo Taken -Epithelialization -Tunneling -Undermining/Tunneling -Circular Undermining -Exudate Amt -Exudate Type -Wound Margin -Granulation Amt -Granulation Quality -Slough/Fibrin -Necrosis Amt -Necrotic Tissue Type -Texture (Marta-wound Skin Appearance) -Moisture (Marta-wound Skin Appearance) -Color (Marta-wound Skin Appearance) -Temperature (Marta-wound Skin Appearance) -Tenderness on Palpation (Marta-wound Skin Appearance) -Ulcer Cleansing -Foul Odor after Cleansing -Anesthetic Used Right Lateral Leg -Combined with other wound No -Current Size (cm) - Length 1.0 1 0.9 -Current Size (cm) - Width 1.2 1 1.2 -Current Size (cm) - Depth 0.1 0.4 0.1 -Total Square Cm 1.20 1 1.08 -Date of Last Picture (Recall this 03/13/25 03/22/25 field) -Photo Taken Yes Yes -Epithelialization -Tunneling No No -Undermining/Tunneling No No -Circular Undermining No No -Change in Wound Grade/Stage No -Exudate Amt Small Medium Small -Exudate Type Yellow/Green Serosanguineous -Wound Margin Distinct, Thickened & Flat & Intact Outline Rolled Under Attached -Granulation Amt Small (1-33%) Medium (34-66%) Large (67-100%) -Granulation Quality [place] Red -Slough/Fibrin Yes Yes -Necrosis Amt Medium (34-66%) Small (1-33%) -Necrotic Tissue Type Adherent Slough Adherent Slough Adherent Slough -Structure Exposed N/A -Texture (Marta-wound Skin Appearance) Assessed Assessed No Abnormality -Moisture (Marta-wound Skin Appearance) Assessed,Dry/ Assessed No Abnormality Scaly -Color (Marta-wound Skin Appearance) Assessed Assessed, No Abnormality Hemosiderin Staining -Temperature (Marta-wound Skin No Abnormality No Abnormality Appearance) (Pt Warm) (Pt Warm) -Tenderness on Palpation (Marta-wound No No Skin Appearance) -Ulcer Cleansing Soap and Water Wound Cleanser Soap and Water -Foul Odor after Cleansing No No -Anesthetic Used 5% Lidocaine 4% Lidocaine 5% Lidocaine Gel Solution Gel Right dorsum/TMA -Combined with other wound No -Current Size (cm) - Length 0.8 0.1 5 -Current Size (cm) - Width 1.8 0.1 5.5 -Current Size (cm) - Depth 0.1 0.1 0.2 -Total Square Cm 1.44 0.01 27.5 -Date of Last Picture (Recall this 03/13/25 03/22/25 field) -Photo Taken Yes Yes -Epithelialization None Present -Tunneling No No -Undermining/Tunneling No No -Circular Undermining No No -Exudate Amt Medium Small Small -Exudate Type Yellow/Green Serosanguineous Serosanguineous -Wound Margin Distinct, Distinct, Flat & Intact Outline Outline Attached Attached -Granulation Amt None Present (0 Medium (34-66%) Medium (34-66%) %) -Granulation Quality [place] Red -Slough/Fibrin Yes Yes Yes -Necrosis Amt Medium (34-66%) Medium (34-66%) Medium (34-66%) -Necrotic Tissue Type Adherent Slough Adherent Slough Adherent Slough -Structure Exposed N/A -Texture (Marta-wound Skin Appearance) Assessed, Assessed Localized Edema -Moisture (Marta-wound Skin Appearance) Assessed Assessed -Color (Marta-wound Skin Appearance) Assessed, Assessed Erythema -Temperature (Marta-wound Skin No Abnormality No Abnormality No Abnormality Appearance) (Pt Warm) (Pt Warm) (Pt Warm) -Tenderness on Palpation (Marta-wound No No No Skin Appearance) -Ulcer Cleansing Soap and Water Wound Cleanser Soap and Water -Foul Odor after Cleansing No No -Anesthetic Used 5% Lidocaine 4% Lidocaine 5% Lidocaine Gel Solution Gel right anterior ankle -Combined with other wound No No -Current Size (cm) - Length 4.5 5 -Current Size (cm) - Width 6.0 5.5 -Current Size (cm) - Depth 0.1 0.5 -Total Square Cm 27.00 27.5 -Date of Last Picture (Recall this 03/13/25 field) -Photo Taken Yes -Epithelialization None Present -Tunneling No No -Undermining/Tunneling No No -Circular Undermining No No -Classification - Thickness Full Thickness with Exposed Support Structure -Exudate Amt Medium Medium -Exudate Type Yellow/Green Serosanguineous -Wound Margin Distinct, Thickened & Outline Rolled Under Attached -Granulation Amt Small (1-33%) Medium (34-66%) -Granulation Quality [place] -Slough/Fibrin Yes Yes -Necrosis Amt Medium (34-66%) Medium (34-66%) -Necrotic Tissue Type Eschar Adherent Slough -Structure Exposed Tendon,Fascia, Bone -Texture (Marta-wound Skin Appearance) Assessed, Assessed, Localized Edema Friable -Moisture (Marta-wound Skin Appearance) Assessed,Dry/ Assessed Scaly -Color (Marta-wound Skin Appearance) Assessed, Assessed, Erythema Erythema -Temperature (Marta-wound Skin No Abnormality No Abnormality Appearance) (Pt Warm) (Pt Warm) -Tenderness on Palpation (Marta-wound No No Skin Appearance) -Ulcer Cleansing Soap and Water Wound Cleanser -Foul Odor after Cleansing No No -Anesthetic Used 5% Lidocaine 4% Lidocaine Gel Solution Lower Limb Edema Present Yes Right Calf (cm) 40.5 Point of measurement (cm from the medial instep) Right Ankle (cm) 27.5 Point of Measurement (cm from the medial instep) 03/29/25 09:29 Wound Center Nurse 1 right plantar foot -Current Size (cm) - Length 0.1 -Current Size (cm) - Width 0.1 -Current Size (cm) - Depth 0.1 -Total Square Cm 0.01 -Date of Last Picture (Recall this 03/29/25 field) -Photo Taken Yes -Epithelialization None Present -Tunneling No -Undermining/Tunneling No -Circular Undermining No -Exudate Amt Medium -Exudate Type Serosanguineous -Wound Margin Distinct, Outline Attached -Granulation Amt Small (1-33%) -Granulation Quality Red -Slough/Fibrin Yes -Necrosis Amt Small (1-33%) -Necrotic Tissue Type Adherent Slough -Texture (Marta-wound Skin Appearance) Assessed -Moisture (Marta-wound Skin Appearance) Assessed -Color (Marta-wound Skin Appearance) Assessed -Temperature (Marta-wound Skin No Abnormality Appearance) (Pt Warm) -Tenderness on Palpation (Marta-wound No Skin Appearance) -Ulcer Cleansing Wound Cleanser -Foul Odor after Cleansing No -Anesthetic Used 5% Lidocaine Gel Right Lateral Leg -Combined with other wound -Current Size (cm) - Length 0.1 -Current Size (cm) - Width 0.1 -Current Size (cm) - Depth 0.1 -Total Square Cm 0.01 -Date of Last Picture (Recall this 03/29/25 field) -Photo Taken Yes -Epithelialization None Present -Tunneling No -Undermining/Tunneling No -Circular Undermining No -Change in Wound Grade/Stage -Exudate Amt Small -Exudate Type Serosanguineous -Wound Margin Distinct, Outline Attached -Granulation Amt Large (67-100%) -Granulation Quality Red -Slough/Fibrin No -Necrosis Amt -Necrotic Tissue Type -Structure Exposed -Texture (Marta-wound Skin Appearance) Assessed -Moisture (Marta-wound Skin Appearance) Assessed -Color (Marta-wound Skin Appearance) Assessed -Temperature (Marta-wound Skin No Abnormality Appearance) (Pt Warm) -Tenderness on Palpation (Marta-wound No Skin Appearance) -Ulcer Cleansing Wound Cleanser -Foul Odor after Cleansing No -Anesthetic Used 5% Lidocaine Gel Right dorsum/TMA -Combined with other wound -Current Size (cm) - Length 0.1 -Current Size (cm) - Width 0.1 -Current Size (cm) - Depth 0.1 -Total Square Cm 0.01 -Date of Last Picture (Recall this 03/29/25 field) -Photo Taken Yes -Epithelialization None Present -Tunneling No -Undermining/Tunneling No -Circular Undermining No -Exudate Amt Large -Exudate Type Yellow/Green -Wound Margin Distinct, Outline Attached -Granulation Amt Medium (34-66%) -Granulation Quality Red -Slough/Fibrin Yes -Necrosis Amt Medium (34-66%) -Necrotic Tissue Type Adherent Slough -Structure Exposed -Texture (Marta-wound Skin Appearance) Assessed -Moisture (Marta-wound Skin Appearance) Assessed -Color (Marta-wound Skin Appearance) Assessed -Temperature (Marta-wound Skin No Abnormality Appearance) (Pt Warm) -Tenderness on Palpation (Marta-wound No Skin Appearance) -Ulcer Cleansing Wound Cleanser -Foul Odor after Cleansing No -Anesthetic Used 4% Lidocaine Solution right anterior ankle -Combined with other wound -Current Size (cm) - Length 0.1 -Current Size (cm) - Width 0.1 -Current Size (cm) - Depth 0.1 -Total Square Cm 0.01 -Date of Last Picture (Recall this 03/29/25 field) -Photo Taken Yes -Epithelialization None Present -Tunneling No -Undermining/Tunneling No -Circular Undermining No -Classification - Thickness -Exudate Amt Medium -Exudate Type Yellow/Green -Wound Margin Distinct, Outline Attached -Granulation Amt Small (1-33%) -Granulation Quality [place] -Slough/Fibrin Yes -Necrosis Amt Medium (34-66%) -Necrotic Tissue Type Adherent Slough -Structure Exposed -Texture (Marta-wound Skin Appearance) Assessed -Moisture (Marta-wound Skin Appearance) Assessed -Color (Marta-wound Skin Appearance) Assessed -Temperature (Marta-wound Skin No Abnormality Appearance) (Pt Warm) -Tenderness on Palpation (Marta-wound No Skin Appearance) -Ulcer Cleansing Wound Cleanser -Foul Odor after Cleansing No -Anesthetic Used 5% Lidocaine Gel Lower Limb Edema Present Yes Right Calf (cm) Point of measurement (cm from the medial 38.5 instep) Right Ankle (cm) Point of Measurement (cm from the medial 24.5 instep) WC - Nurse 2 - General Ulcer CM Notes Start: 03/13/25 15:20 Freq: Status: Active Protocol: Activity Type Activity Date Activity User E-sign Co-sign Detail Recorded Client Recorded Date Recorded By Document 03/13/25 16:03 DS [id number] 03/13/25 16:11 DS Document 03/15/25 16:01 JF [id number] 03/15/25 16:10 JF Document 03/22/25 14:25 JF [id number] 03/22/25 14:34 JF Document 03/29/25 10:12 JF [id number] 03/29/25 10:20 JF Edit Result 03/29/25 10:12 JF (1) [id number] 03/29/25 10:34 JF Document 03/29/25 10:37 GM [id number] 03/29/25 10:57 GM (1) Right dorsum/TMA - Surgifoam (3 8 x 5) Large 1 => 2 03/13/25 03/15/25 03/22/25 16:03 16:01 14:25 Wound Center Nurse 2 right plantar foot -Time -Correct Patient Yes -Correct Side, Site, Position No -Correct Procedure No -Procedure Performed No -Tissue Removed -Post Debridement (cm) - Length 0.7 -Post Debridement (cm) - Width 2.2 -Post Debridement (cm) - Depth 0.1 -Total Square (Post) (cm) 1.54 -Area of Debridement (cm) - Length 0.7 -Area of Debridement (cm) - Width 2.2 -Total Square (Area) (cm) 1.54 -Tunneling -Undermining/Tunneling -Circular Undermining -Wound/Ulcer Outcome Not Healed -Ulcer Cleansing -Foul Odor after Cleansing -Bioengineered Tissue -Surgifoam (3 1/8 x 5) Large Right Lateral Leg -Time 16:03 16:06 14:26 -Correct Patient Yes Yes Yes -Correct Side, Site, Position Yes Yes Yes -Correct Procedure Yes Yes -Procedure Performed No Yes Yes -Type of Procedure Debridement Debridement -Clinical Debridement Subcutaneous Subcutaneous -Tissue Removed Subcutaneous Subcutaneous -Post Debridement (cm) - Length 1.0 1.2 -Post Debridement (cm) - Width 1.4 1.2 -Post Debridement (cm) - Depth 0.3 0.2 -Total Square (Post) (cm) 1.40 1.44 -Area of Debridement (cm) - Length 1.0 1.2 -Area of Debridement (cm) - Width 1.4 1.2 -Total Square (Area) (cm) 1.40 1.44 -Tunneling No No -Undermining/Tunneling No No -Circular Undermining No No -Wound/Ulcer Outcome Not Healed Not Healed Not Healed -Ulcer Cleansing Rinsed/ Rinsed/ Irrigated with Irrigated with Saline Saline -Foul Odor after Cleansing No No -Bioengineered Tissue No No -Bleeding Controlled with Pressure Pressure -Treatment Response Procedure Procedure Tolerated Well Tolerated Well -Offloading Yes -Type of Offloading Surgical Shoe -Debridement - Subq, 1st 20sq cm Yes Yes Right dorsum/TMA -Time 16:03 16:03 14:26 -Correct Patient Yes Yes Yes -Correct Side, Site, Position Yes Yes Yes -Correct Procedure Yes Yes -Procedure Performed No Yes Yes -Type of Procedure Debridement Debridement -Clinical Debridement Bone Bone -Tissue Removed Non-viable Non-viable tissue tissue -Post Debridement (cm) - Length 6.2 5.5 -Post Debridement (cm) - Width 6.5 5.5 -Post Debridement (cm) - Depth 0.3 0.7 -Total Square (Post) (cm) 40.30 30.25 -Area of Debridement (cm) - Length 6.2 5.5 -Area of Debridement (cm) - Width 6.5 5.5 -Total Square (Area) (cm) 40.30 30.25 -Tunneling No No -Undermining/Tunneling No No -Circular Undermining No No -Wound/Ulcer Outcome Not Healed Not Healed Not Healed -Ulcer Cleansing Rinsed/ Rinsed/ Irrigated with Irrigated with Saline Saline -Foul Odor after Cleansing No No -Bioengineered Tissue No No -Bleeding Controlled with Pressure, Pressure Surgifoam 3 1/8 x 5 (lg) -Surgifoam (3/4 x 2 3/8) Small -Surgifoam (3 8 x 5) Large 1 -Treatment Response Procedure Procedure Tolerated Well Tolerated Well -Offloading Yes No -Type of Offloading Surgical Shoe -Debridement - Bone, 1st 20sq cm Yes Yes -Debridement, Bone, ea addt'l 20sq cm 1 or part thereof right anterior ankle -Time 16:03 14:29 -Correct Patient Yes Yes -Correct Side, Site, Position Yes Yes -Correct Procedure Yes -Procedure Performed No Yes -Type of Procedure Debridement -Clinical Debridement Muscle / Fascia -Tissue Removed Muscle -Post Debridement (cm) - Length 1.2 -Post Debridement (cm) - Width 1.8 -Post Debridement (cm) - Depth 0.2 -Total Square (Post) (cm) 2.16 -Area of Debridement (cm) - Length 1.2 -Area of Debridement (cm) - Width 1.8 -Total Square (Area) (cm) 2.16 -Tunneling No -Undermining/Tunneling No -Circular Undermining No -Wound/Ulcer Outcome Not Healed Not Healed -Ulcer Cleansing Rinsed/ Irrigated with Saline -Foul Odor after Cleansing No -Bioengineered Tissue No -Bleeding Controlled with Pressure -Treatment Response Procedure Tolerated Well -Offloading No -Type of Offloading -Assistive Device(s) Wheelchair -Debridement - Subq, 1st 20sq cm No -Debridement - Muscle / Fascia, 1st Yes 20sq cm Pain Scale: 0-10 Numeric Is Patient Pain Free? Yes Yes Yes 03/29/25 03/29/25 10:12 10:37 Wound Center Nurse 2 right plantar foot -Time 10:14 10:37 -Correct Patient No Yes -Correct Side, Site, Position No Yes -Correct Procedure No -Procedure Performed No -Tissue Removed Non-viable tissue -Post Debridement (cm) - Length -Post Debridement (cm) - Width -Post Debridement (cm) - Depth -Total Square (Post) (cm) -Area of Debridement (cm) - Length -Area of Debridement (cm) - Width -Total Square (Area) (cm) -Tunneling No -Undermining/Tunneling No -Circular Undermining No -Wound/Ulcer Outcome Not Healed -Ulcer Cleansing Rinsed/ Irrigated with Saline -Foul Odor after Cleansing No -Bioengineered Tissue No -Surgifoam (3 1/8 x 5) Large 1 Right Lateral Leg -Time 10:15 -Correct Patient Yes -Correct Side, Site, Position Yes -Correct Procedure Yes -Procedure Performed Yes -Type of Procedure Debridement -Clinical Debridement Subcutaneous -Tissue Removed Subcutaneous -Post Debridement (cm) - Length 0.9 -Post Debridement (cm) - Width 1.1 -Post Debridement (cm) - Depth 0.1 -Total Square (Post) (cm) 0.99 -Area of Debridement (cm) - Length 0.9 -Area of Debridement (cm) - Width 1.1 -Total Square (Area) (cm) 0.99 -Tunneling No -Undermining/Tunneling No -Circular Undermining No -Wound/Ulcer Outcome Not Healed -Ulcer Cleansing Rinsed/ Irrigated with Saline -Foul Odor after Cleansing No -Bioengineered Tissue No -Bleeding Controlled with Pressure -Treatment Response Procedure Tolerated Well -Offloading No -Type of Offloading -Debridement - Subq, 1st 20sq cm Yes Right dorsum/TMA -Time 10:16 -Correct Patient Yes -Correct Side, Site, Position Yes -Correct Procedure Yes -Procedure Performed Yes -Type of Procedure Debridement -Clinical Debridement Bone -Tissue Removed Non-viable tissue -Post Debridement (cm) - Length 5.2 -Post Debridement (cm) - Width 5.7 -Post Debridement (cm) - Depth 0.5 -Total Square (Post) (cm) 29.64 -Area of Debridement (cm) - Length 5.2 -Area of Debridement (cm) - Width 5.7 -Total Square (Area) (cm) 29.64 -Tunneling No -Undermining/Tunneling No -Circular Undermining No -Wound/Ulcer Outcome Not Healed -Ulcer Cleansing Rinsed/ Irrigated with Saline -Foul Odor after Cleansing No -Bioengineered Tissue No -Bleeding Controlled with Pressure, Surgifoam ¾ x 2 3/8 (sm), Surgifoam 3 1/8 x 5 (lg) -Surgifoam (3/4 x 2 3/8) Small 1 -Surgifoam (3 1/8 x 5) Large 2 -Treatment Response Procedure Tolerated Well -Offloading Yes -Type of Offloading Surgical Shoe -Debridement - Bone, 1st 20sq cm Yes -Debridement, Bone, ea addt'l 20sq cm 1 or part thereof right anterior ankle -Time 10:17 -Correct Patient Yes -Correct Side, Site, Position Yes -Correct Procedure Yes -Procedure Performed Yes -Type of Procedure Debridement -Clinical Debridement Muscle / Fascia -Tissue Removed Muscle -Post Debridement (cm) - Length 0.9 -Post Debridement (cm) - Width 2.0 -Post Debridement (cm) - Depth 0.2 -Total Square (Post) (cm) 1.80 -Area of Debridement (cm) - Length 0.9 -Area of Debridement (cm) - Width 2.0 -Total Square (Area) (cm) 1.80 -Tunneling No -Undermining/Tunneling No -Circular Undermining No -Wound/Ulcer Outcome Not Healed -Ulcer Cleansing Rinsed/ Irrigated with Saline -Foul Odor after Cleansing No -Bioengineered Tissue No -Bleeding Controlled with Pressure -Treatment Response Procedure Tolerated Well -Offloading Yes -Type of Offloading Surgical Shoe -Assistive Device(s) -Debridement - Subq, 1st 20sq cm -Debridement - Muscle / Fascia, 1st Yes 20sq cm Pain Scale: 0-10 Numeric Is Patient Pain Free? Yes Yes WC - Nurse 3 - General Ulcer D/C NN Start: 03/13/25 15:20 Freq: Status: Active Protocol: Activity Type Activity Date Activity User E-sign Co-sign Detail Recorded Client Recorded Date Recorded By Document 03/13/25 16:20 GM [id number] 03/13/25 16:21 GM Edit Result 03/13/25 16:20 GM (1) [id number] 03/13/25 16:25 GM Document 03/15/25 16:20 GM [id number] 03/15/25 16:21 GM Edit Result 03/15/25 16:20 GM (2) [id number] 03/15/25 16:23 GM Document 03/22/25 15:00 CP [id number] 03/22/25 15:02 CP Document 03/29/25 10:37 GM [id number] 03/29/25 10:39 GM (1) RLE - Lotion applied to leg before => No compression wrap - Tubular Bandage => Single Layer - Size of Tubigrip Used => Size D - Size D ($) => 1 (2) Right Lateral Leg - Primary Dressing Applied AMD Dressing 4x4 => AMD Dressing 4x4, => Hysept - Hysept => 1 03/13/25 03/15/25 03/22/25 16:20 16:20 15:00 Wound Care Center Nurse 3 right plantar foot -Ulcer Cleansing -Foul Odor after Cleansing -Other Dressing -Primary Dressing Covered/Secured with Dry Gauze & Roll Gauze -Other Covering betadine Right Lateral Leg -Ulcer Cleansing Not Cleansed Not Cleansed dakins -Foul Odor after Cleansing No No -Primary Dressing Applied AMD Dressing 4x4,Hysept -Other Dressing -Primary Dressing Covered/Secured with Dry Gauze Dry Gauze & Dry Gauze & Roll Gauze, Roll Gauze, Secured with Secured with Tape Tape -AMD Dressing 4x4 1 -Hysept 1 Right dorsum/TMA -Ulcer Cleansing Not Cleansed Not Cleansed dakins -Foul Odor after Cleansing No No -Primary Dressing Applied AMD Dressing 4x8 -Other Dressing Dakins wet to dry -Primary Dressing Covered/Secured with Dry Gauze Dry Gauze & Dry Gauze & Roll Gauze, Roll Gauze, Secured with Secured with Tape Tape -AMD Dressing 4x8 1 right anterior ankle -Ulcer Cleansing Not Cleansed dakins -Foul Odor after Cleansing No -Primary Dressing Applied Hysept -Other Dressing -Primary Dressing Covered/Secured with Dry Gauze,Dry Dry Gauze & Gauze & Roll Roll Gauze Gauze,Secured with Tape -Hysept 1 RLE -Lotion applied to leg before No No compression wrap -Tubular Bandage Single Layer Single Layer Double Layer -Size of Tubigrip Used Size D Size E Size E -Size D ($) 1 -Size E ($) 1 2 Pain Scale: 0-10 Numeric Is Patient Pain Free? Yes Yes Yes WC - Visit Discharge Discharge Condition Stable Stable Stable Ambulatory Status Ambulatory Ambulatory Ambulatory Transportation Private Auto Private Auto [employer] Clinical Summary of Care Provided Yes 03/29/25 10:37 Wound Care Center Nurse 3 right plantar foot -Ulcer Cleansing Not Cleansed -Foul Odor after Cleansing No -Other Dressing betadine -Primary Dressing Covered/Secured with Dry Gauze -Other Covering Right Lateral Leg -Ulcer Cleansing Not Cleansed -Foul Odor after Cleansing No -Primary Dressing Applied -Other Dressing dakins -Primary Dressing Covered/Secured with Dry Gauze & Roll Gauze, Secured with Tape -AMD Dressing 4x4 -Hysept Right dorsum/TMA -Ulcer Cleansing Not Cleansed -Foul Odor after Cleansing No -Primary Dressing Applied -Other Dressing dakins and abd pad -Primary Dressing Covered/Secured with Dry Gauze,Dry Gauze & Roll Gauze,Secured with Tape -AMD Dressing 4x8 right anterior ankle -Ulcer Cleansing Not Cleansed -Foul Odor after Cleansing No -Primary Dressing Applied -Other Dressing dakins moist gauze -Primary Dressing Covered/Secured with Dry Gauze -Hysept RLE -Lotion applied to leg before Yes compression wrap -Tubular Bandage Double Layer -Size of Tubigrip Used Size E -Size D ($) -Size E ($) 2 Pain Scale: 0-10 Numeric Is Patient Pain Free? Yes WC - Visit Discharge Discharge Condition Stable Ambulatory Status Ambulatory Transportation Private Auto Clinical Summary of Care Provided Assessment/Plan Assessment/Plan (1) Non-pressure chronic ulcer of other part of right foot with necrosis of bone: CODE(S): L97.514 - Non-pressure chronic ulcer of other part of right foot with necrosis of bone PLAN: Patient was examined and evaluated. All findings were discussed with the patient. All questions were answered to the patient satisfaction. Excisional debridement down to and including subcutaneous tissue, fascia muscle and bone to the right lower extremity TMA site done with a rongeur to remove the bone and a 5 mm dermal curette as well as with rongeur to clean up the full- thickness wound done without incident. Predebridement measurement 5.0 x 5.5 x 0.3 cm. Postdebridement measurement is 5.2 x 5.7 x 0.5 cm. Excisional debridement down to and including subcutaneous tissue with a number 5 mm dermal curette the right proximal lateral leg full-thickness wound done without incident. Predebridement measurement 0.8 x 1.0 x 0.1 cm. Postdebridement measurement is 0.9 x 1.1 x 0.1 cm. Excisional debridement down to and including subcutaneous tissue, fascia and muscle with a number 5 mm dermal curette the right ankle lateral full-thickness wound done without incident. Predebridement measurement 0.8 x 1.8 x 0.1 cm. Postdebridement measurement is 0.9 x 2.0 x 0.2 cm. The right lower extremity was wiped clean and patted dry. Dakin's 4 x 4 soaked gauze followed by dry sterile dressing and light compression wrap to the right lower extremity. I educated the patient on the importance of elevation and watch his walking. He was understanding this. Review of the patient's bacterial culture show growth of polymicrobial bacteria. Patient be referred to infectious disease for possible PICC line versus oral antibiotics. Patient will continue antibiotics as prescribed. Will plan for surgical intervention to plan for graft application to the TMA site and right lower extremity. All risk and benefits were discussed with patient great detail. He was understanding of this. Patient will follow-up with Dr. 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
[2025-04-05 15:13] VITALS: BP 175/80; PULSE 92; RESP 17; TEMP 36.6; BMI 27.3
--- NOTE | 2025-04-06 22:18 | PN.PCM_ITS ---
History of Present Illness Date of Service: 04/05/25 Chief Complaint: Full-thickness wound to the TMA site right lower extremity History of Wound: Evidence of traumatic full-thickness wound to the right TMA site after striking it on oil rig gear. Wound has been treated with Betadine soaked gauze as well as on oral doxycycline 100 mg twice daily. Patient is borderline diabetic. Progress of Wound: Slow healing full-thickness wound right TMA site Subjective Subjective Patient is 84-year-old nondiabetic male presenting to wound care center today follow-up evaluation of multiple full-thickness wounds and TMA to the right lower extremity. Patient is compliant with dressing changes using Dakin soaked gauze dry sterile dressing and compression wrap. He is taking antibiotics and has finished his ciprofloxacin as prescribed. He admits improvement to the wound. He denies any drainage. Malodor has improved. Denies trauma. Denies constitutional symptoms. No other pedal complaints at this time. Objective Data Objective Data Vital Signs: Vital Signs Temp Pulse Resp BP O2 Del Method 97.8 F 92 17 175/80 H Room Air 04/05/25 15:13 04/05/25 15:13 04/05/25 15:13 04/05/25 15:13 04/05/25 15:13 Oxygen Delivery Method Room Air Weight: 88.904 kg Body Mass Index (BMI) 27.3 Lab / Micro Data Micro: Microbiology 03/15/25 15:55 Bone - Right Foot Gram Stain - Final 03/15/25 15:55 Bone - Right Foot Wound Culture - Final Klebsiella pneumoniae sp pneum Escherichia coli Stenotrophomonas maltophilia Staphylococcus aureus Staphylococcus epidermidis Enterococcus faecalis Corynebacterium amycolatum 03/15/25 15:55 Bone - Right Foot Anaerobic Culture - Final No anaerobic bacteria isolated. Physical Exam Narrative Vascular: Peroneal, AT and PT pulses are monophasic on Doppler to the right lower extremity. DP and PT pulses are nonpalpable. Skin temperature gradient is warm to warm from proximal ankles to TMA stump with mild focal increase. Blanchable erythema is improved. Neurological: Light touch is intact. Protective station is absent. Dermatological: Evidence of full-thickness wound with exposed bone to the right lower extremity TMA site measuring 5.0 x 5.1 x 0.7 cm. Wound base is fibrogranular nature. Positive probe to bone. Evidence of full-thickness wound to the right proximal lateral leg measuring 0.7 x 0.7 x 0.1 cm.. Wound base is fibrogranular nature. No drainage. Right plantar full-thickness wound measuri ng 1.2 x 1.4 x 0.2 cm. Wound base is fibrogranular tissue. Evidence of full- thickness wound to the ankle measuring 0.7 x 1.5 x 0.2 cm. Wound base is fibrogranular nature. Excisional debridement down to and including subcutaneous tissue, fascia muscle and bone to the right lower extremity TMA site done with a rongeur to remove the bone and a 5 mm dermal curette as well as with rongeur to clean up the full- thickness wound done without incident. Predebridement measurement 4.9 x 5.0 x 0.5 cm. Postdebridement measurement is 5.0 x 5.1 x 0.7 cm Excisional debridement down to and including subcutaneous tissue with a number 5 mm dermal curette the right proximal lateral leg full-thickness wound done without incident. Predebridement measurement 0.5 x 0.6 x 0.1 cm. Postdebridement measurement is 0.7 x 0.7 x 0.1 cm. Excisional debridement down to and including subcutaneous tissue, fascia and muscle with a number 5 mm dermal curette the right ankle lateral full-thickness wound done without incident. Predebridement measurement 0.6 x 1.3 x 0.1 cm. Postdebridement measurement is 0.7 x 1.5 x 0.2 cm. Excisional debridement down to and including subcutaneous tissue with a number 5 mm dermal curette to the right plantar full-thickness wound done without incident. Predebridement measurement was 1.0 x 1.1 x 0.1 cm. Postdebridement measurement is 1.2 x 1.4 x 0.2 cm. Muscle skeletal: No pain to palpation to the full-thickness wounds to the right lower extremity. No pain with calf pressure. Const alert, oriented x3 and no apparent distress Debridement Note Debridement Note Debridement Free Text: Excisional debridement down to and including subcutaneous tissue, fascia muscle and bone to the right lower extremity TMA site done with a rongeur to remove the bone and a 5 mm dermal curette as well as with rongeur to clean up the full-thickness wound done without incident. Predebridement measurement 4.9 x 5.0 x 0.5 cm. Postdebridement measurement is 5.0 x 5.1 x 0.7 cm Excisional debridement down to and including subcutaneous tissue with a number 5 mm dermal curette the right proximal lateral leg full-thickness wound done without incident. Predebridement measurement 0.5 x 0.6 x 0.1 cm. Postdebridement measurement is 0.7 x 0.7 x 0.1 cm. Excisional debridement down to and including subcutaneous tissue, fascia and muscle with a number 5 mm dermal curette the right ankle lateral full-thickness wound done without incident. Predebridement measurement 0.6 x 1.3 x 0.1 cm. Postdebridement measurement is 0.7 x 1.5 x 0.2 cm. Excisional debridement down to and including subcutaneous tissue with a number 5 mm dermal curette to the right plantar full-thickness wound done without incident. Predebridement measurement was 1.0 x 1.1 x 0.1 cm. Postdebridement measurement is 1.2 x 1.4 x 0.2 cm. Post-Debridement Measurements and Additional Note: Post-Debridement Measurements/Treatment - Nurse 1 - General Ulcer Assessment Start: 03/13/25 15:20 Freq: Status: Active Protocol: [facility] Activity Type Activity Date Activity User E-sign Co-sign Detail Recorded Client Recorded Date Recorded By Document 03/13/25 15:20 [id number] 03/13/25 15:44 GM Document 03/15/25 15:43 RB [id number] 03/15/25 15:48 RB Document 03/22/25 14:00 CP [id number] 03/22/25 14:14 CP Document 03/29/25 09:29 [id number] 03/29/25 09:44 GM Document 04/05/25 15:13 TS [id number] 04/05/25 15:23 TS 03/13/25 03/15/25 03/22/25 15:20 15:43 14:00 - Today's Visit Information Type of service Initial Visit Follow-up Visit Follow-up Visit (Physician/PLANNING AND ANALYSIS MANAGER (Physician/PLANNING AND ANALYSIS MANAGER ) ) Arrival Mode Ambulatory Ambulatory Ambulatory Transfer Assistance None Manual Accompanied by Patient Identification Verified (Name & Yes Yes Yes ) Patient Requires Transmission-Based No No Precautions Safety Precautions Height and Weight Height 5 ft 11 in Weight 88.904 kg Weight in Pounds 196.0 lbs Body Mass Index (BMI) 27.3 27.3 27.3 BMI Classification Overweight Overweight Overweight Vital Signs Temperature (97.8 F-99.1 F) 97.1 F L 96.9 F L 97.4 F L Temperature Source Temporal Temporal Temporal Pulse Rate (60-100) 66 69 77 Pulse Location Monitor Monitor Monitor Respiratory Rate (12-18) 16 18 16 Respiratory rate source Observation Observation Observation Oxygen Delivery Method Room Air Blood Pressure (90/60-120/80) 146/55 H 148/58 H 147/74 H Blood Pressure Mean (mm Hg) 85 88 98 Source Monitor Monitor Monitor Position Sitting Semi-Fowlers Sitting Blood Pressure Location Right Arm Left Arm Right Arm History Since Last Visit- (Skip if this is Patient's initial visit) Have you changed medications since your No No No last visit? Any new allergies or adverse reactions No No No Had a fall/change in ADL's that may No No No increase risk of falls Signs or symptoms of abuse and/or No No No neglect since last visit Have you been in the hospital since your No No No last visit? Has dressing in place as prescribed Yes Yes Has compression in place as prescribed N/A Yes Has offloadiing in place as prescribed N/A N/A Experienced any changes in pain level or No No management Left Footwear Regular Shoe Regular Shoe Right Footwear Regular Shoe Regular Shoe Pain Scale: 0-10 Numeric Is Patient Pain Free? Yes Yes Yes Lower Extremity Assessment/ Foot Assessment/ Toe Nail Assessment Right -Extremity Color Hyperpigmented, Hemosiderin -Hair Growth on Legs No -Temperature of Extremity Warm -Dependent Rubor No -Foot Assessment Not Applicable -Prior Foot Ulcer Yes Teaching Assessment Preferences Verbal Barriers to Learning None Readiness To Learn Excellent Willingness to Engage in Self Management High Activies Readiness to Engage in Self Management High Activities Anxiety Level Calm Cooperation Cooperative Perception Coherent Interest in Health Problem Asks Questions Education Importance Acknowledges Need Does Patient Smoke tobacco or other No substances Smoking Status Never smoker Functional Assessment Recent Decline in Ability to Perform Denies Any Declines Culture/Congregational/Lab Specialist Cultural/Congregational Needs that may affect No Treatment Plan Would you allow our hospital forestry support specialist to No meet you for the purpose of spiritual/ emotional support? Lab Specialist to contact place of confucianist No 03/29/25 04/05/25 09:29 15:13 WC - Today's Visit Information Type of service Initial Visit Follow-up Visit (Physician/PLANNING AND ANALYSIS MANAGER ) Arrival Mode Ambulatory Ambulatory Transfer Assistance None Accompanied by Patient Identification Verified (Name & Yes Yes ) Patient Requires Transmission-Based No No Precautions Safety Precautions Fall Prevention Height and Weight Height Weight Weight in Pounds Body Mass Index (BMI) 27.3 27.3 BMI Classification Overweight Overweight Vital Signs Temperature (97.8 F-99.1 F) 97.5 F L 97.8 F Temperature Source Temporal Temporal Pulse Rate (60-100) 88 92 Pulse Location Monitor Monitor Respiratory Rate (12-18) 16 17 Respiratory rate source Observation Observation Oxygen Delivery Method Room Air Room Air Blood Pressure (90/60-120/80) 176/64 H 175/80 H Blood Pressure Mean (mm Hg) 101 111 Source Monitor Monitor Position Sitting Sitting Blood Pressure Location Left Arm Left Arm History Since Last Visit- (Skip if this is Patient's initial visit) Have you changed medications since your No No last visit? Any new allergies or adverse reactions No No Had a fall/change in ADL's that may No No increase risk of falls Signs or symptoms of abuse and/or No No neglect since last visit Have you been in the hospital since your No No last visit? Has dressing in place as prescribed Yes Yes Has compression in place as prescribed Yes Yes Has offloadiing in place as prescribed No N/A Experienced any changes in pain level or No management Left Footwear Regular Shoe Regular Shoe Right Footwear Regular Shoe Regular Shoe Pain Scale: 0-10 Numeric Is Patient Pain Free? Yes Yes Lower Extremity Assessment/ Foot Assessment/ Toe Nail Assessment Right -Extremity Color -Hair Growth on Legs -Temperature of Extremity -Dependent Rubor -Foot Assessment -Prior Foot Ulcer Teaching Assessment Preferences Barriers to Learning Readiness To Learn Willingness to Engage in Self Management Activies Readiness to Engage in Self Management Activities Anxiety Level Cooperation Perception Interest in Health Problem Education Importance Does Patient Smoke tobacco or other substances Smoking Status Functional Assessment Recent Decline in Ability to Perform Culture/Congregational/Lab Specialist Cultural/Congregational Needs that may affect Treatment Plan Would you allow our hospital forestry support specialist to meet you for the purpose of spiritual/ emotional support? Lab Specialist to contact place of confucianist WC - Nurse 1 - General Ulcer Measurement Start: 03/13/25 15:20 Freq: Status: Active Protocol: Activity Type Activity Date Activity User E-sign Co-sign Detail Recorded Client Recorded Date Recorded By Document 03/13/25 15:20 GM [id number] 03/13/25 15:44 GM Document 03/15/25 15:43 RB [id number] 03/15/25 15:48 RB Edit Result 03/15/25 15:43 RB (1) [id number] 03/15/25 15:52 RB Edit Result 03/15/25 15:43 RB (2) [id number] 03/15/25 15:52 RB Document 03/22/25 14:00 CP [id number] 03/22/25 14:14 CP Document 03/29/25 09:29 GM [id number] 03/29/25 09:44 GM Document 04/05/25 15:13 TS [id number] 04/05/25 15:23 TS (1) right anterior ankle - Structure Exposed N/A => Bone (2) right anterior ankle - Structure Exposed Bone => Tendon,Fascia,Bone 03/13/25 03/15/25 03/22/25 15:20 15:43 14:00 Wound Center Nurse 1 right plantar foot -Combined with other wound -Current Size (cm) - Length -Current Size (cm) - Width -Current Size (cm) - Depth -Total Square Cm -Date of Last Picture (Recall this field) -Photo Taken -Epithelialization -Tunneling -Undermining/Tunneling -Circular Undermining -Exudate Amt -Exudate Type -Wound Margin -Granulation Amt -Granulation Quality -Slough/Fibrin -Necrosis Amt -Necrotic Tissue Type -Structure Exposed -Texture (Marta-wound Skin Appearance) -Moisture (Marta-wound Skin Appearance) -Color (Marta-wound Skin Appearance) -Temperature (Marta-wound Skin Appearance) -Tenderness on Palpation (Marta-wound Skin Appearance) -Ulcer Cleansing -Foul Odor after Cleansing -Anesthetic Used Right Lateral Leg -Combined with other wound No -Current Size (cm) - Length 1.0 1 0.9 -Current Size (cm) - Width 1.2 1 1.2 -Current Size (cm) - Depth 0.1 0.4 0.1 -Total Square Cm 1.20 1 1.08 -Date of Last Picture (Recall this 03/13/25 03/22/25 field) -Photo Taken Yes Yes -Epithelialization -Tunneling No No -Undermining/Tunneling No No -Circular Undermining No No -Change in Wound Grade/Stage No -Exudate Amt Small Medium Small -Exudate Type Yellow/Green Serosanguineous -Wound Margin Distinct, Thickened & Flat & Intact Outline Rolled Under Attached -Granulation Amt Small (1-33%) Medium (34-66%) Large (67-100%) -Granulation Quality [place] Red -Slough/Fibrin Yes Yes -Necrosis Amt Medium (34-66%) Small (1-33%) -Necrotic Tissue Type Adherent Slough Adherent Slough Adherent Slough -Structure Exposed N/A -Texture (Marta-wound Skin Appearance) Assessed Assessed No Abnormality -Moisture (Marta-wound Skin Appearance) Assessed,Dry/ Assessed No Abnormality Scaly -Color (Marta-wound Skin Appearance) Assessed Assessed, No Abnormality Hemosiderin Staining -Temperature (Marta-wound Skin No Abnormality No Abnormality Appearance) (Pt Warm) (Pt Warm) -Tenderness on Palpation (Marta-wound No No Skin Appearance) -Ulcer Cleansing Soap and Water Wound Cleanser Soap and Water -Foul Odor after Cleansing No No -Anesthetic Used 5% Lidocaine 4% Lidocaine 5% Lidocaine Gel Solution Gel Right dorsum/TMA -Combined with other wound No -Current Size (cm) - Length 0.8 0.1 5 -Current Size (cm) - Width 1.8 0.1 5.5 -Current Size (cm) - Depth 0.1 0.1 0.2 -Total Square Cm 1.44 0.01 27.5 -Date of Last Picture (Recall this 03/13/25 03/22/25 field) -Photo Taken Yes Yes -Epithelialization None Present -Tunneling No No -Undermining/Tunneling No No -Circular Undermining No No -Exudate Amt Medium Small Small -Exudate Type Yellow/Green Serosanguineous Serosanguineous -Wound Margin Distinct, Distinct, Flat & Intact Outline Outline Attached Attached -Granulation Amt None Present (0 Medium (34-66%) Medium (34-66%) %) -Granulation Quality [place] Red -Slough/Fibrin Yes Yes Yes -Necrosis Amt Medium (34-66%) Medium (34-66%) Medium (34-66%) -Necrotic Tissue Type Adherent Slough Adherent Slough Adherent Slough -Structure Exposed N/A -Texture (Marta-wound Skin Appearance) Assessed, Assessed Localized Edema -Moisture (Marta-wound Skin Appearance) Assessed Assessed -Color (Marta-wound Skin Appearance) Assessed, Assessed Erythema -Temperature (Marta-wound Skin No Abnormality No Abnormality No Abnormality Appearance) (Pt Warm) (Pt Warm) (Pt Warm) -Tenderness on Palpation (Marta-wound No No No Skin Appearance) -Ulcer Cleansing Soap and Water Wound Cleanser Soap and Water -Foul Odor after Cleansing No No -Anesthetic Used 5% Lidocaine 4% Lidocaine 5% Lidocaine Gel Solution Gel right anterior ankle -Combined with other wound No No -Current Size (cm) - Length 4.5 5 -Current Size (cm) - Width 6.0 5.5 -Current Size (cm) - Depth 0.1 0.5 -Total Square Cm 27.00 27.5 -Date of Last Picture (Recall this 03/13/25 field) -Photo Taken Yes -Epithelialization None Present -Tunneling No No -Undermining/Tunneling No No -Circular Undermining No No -Classification - Thickness Full Thickness with Exposed Support Structure -Exudate Amt Medium Medium -Exudate Type Yellow/Green Serosanguineous -Wound Margin Distinct, Thickened & Outline Rolled Under Attached -Granulation Amt Small (1-33%) Medium (34-66%) -Granulation Quality [place] -Slough/Fibrin Yes Yes -Necrosis Amt Medium (34-66%) Medium (34-66%) -Necrotic Tissue Type Eschar Adherent Slough -Structure Exposed Tendon,Fascia, Bone -Texture (Marta-wound Skin Appearance) Assessed, Assessed, Localized Edema Friable -Moisture (Marta-wound Skin Appearance) Assessed,Dry/ Assessed Scaly -Color (Marta-wound Skin Appearance) Assessed, Assessed, Erythema Erythema -Temperature (Marta-wound Skin No Abnormality No Abnormality Appearance) (Pt Warm) (Pt Warm) -Tenderness on Palpation (Marta-wound No No Skin Appearance) -Ulcer Cleansing Soap and Water Wound Cleanser -Foul Odor after Cleansing No No -Anesthetic Used 5% Lidocaine 4% Lidocaine Gel Solution Lower Limb Edema Present Yes Right Calf (cm) 40.5 Point of measurement (cm from the medial instep) Right Ankle (cm) 27.5 Point of Measurement (cm from the medial instep) 03/29/25 04/05/25 09:29 15:13 Wound Center Nurse 1 right plantar foot -Combined with other wound No -Current Size (cm) - Length 0.1 0.1 -Current Size (cm) - Width 0.1 0.1 -Current Size (cm) - Depth 0.1 1 -Total Square Cm 0.01 0.01 -Date of Last Picture (Recall this 03/29/25 field) -Photo Taken Yes -Epithelialization None Present -Tunneling No -Undermining/Tunneling No No -Circular Undermining No No -Exudate Amt Medium None Present -Exudate Type Serosanguineous -Wound Margin Distinct, Distinct, Outline Outline Attached Attached -Granulation Amt Small (1-33%) -Granulation Quality Red -Slough/Fibrin Yes Yes -Necrosis Amt Small (1-33%) Medium (34-66%) -Necrotic Tissue Type Adherent Slough Eschar -Structure Exposed None/Limited to Skin Breakdown -Texture (Marta-wound Skin Appearance) Assessed Assessed -Moisture (Marta-wound Skin Appearance) Assessed Assessed -Color (Marta-wound Skin Appearance) Assessed Assessed -Temperature (Marta-wound Skin No Abnormality No Abnormality Appearance) (Pt Warm) (Pt Warm) -Tenderness on Palpation (Marta-wound No No Skin Appearance) -Ulcer Cleansing Wound Cleanser Soap and Water -Foul Odor after Cleansing No No -Anesthetic Used 5% Lidocaine 5% Lidocaine Gel Gel Right Lateral Leg -Combined with other wound No -Current Size (cm) - Length 0.1 -Current Size (cm) - Width 0.1 -Current Size (cm) - Depth 0.1 -Total Square Cm 0.01 -Date of Last Picture (Recall this 03/29/25 field) -Photo Taken Yes -Epithelialization None Present -Tunneling No No -Undermining/Tunneling No No -Circular Undermining No No -Change in Wound Grade/Stage -Exudate Amt Small Large -Exudate Type Serosanguineous -Wound Margin Distinct, Distinct, Outline Outline Attached Attached -Granulation Amt Large (67-100%) -Granulation Quality Red -Slough/Fibrin No -Necrosis Amt -Necrotic Tissue Type Adherent Slough -Structure Exposed None/Limited to Skin Breakdown -Texture (Marta-wound Skin Appearance) Assessed Assessed -Moisture (Marta-wound Skin Appearance) Assessed Assessed -Color (Marta-wound Skin Appearance) Assessed Assessed -Temperature (Marta-wound Skin No Abnormality No Abnormality Appearance) (Pt Warm) (Pt Warm) -Tenderness on Palpation (Marta-wound No Skin Appearance) -Ulcer Cleansing Wound Cleanser Soap and Water -Foul Odor after Cleansing No No -Anesthetic Used 5% Lidocaine 5% Lidocaine Gel Gel Right dorsum/TMA -Combined with other wound -Current Size (cm) - Length 0.1 0.1 -Current Size (cm) - Width 0.1 0.1 -Current Size (cm) - Depth 0.1 0.1 -Total Square Cm 0.01 0.01 -Date of Last Picture (Recall this 03/29/25 field) -Photo Taken Yes -Epithelialization None Present -Tunneling No -Undermining/Tunneling No No -Circular Undermining No No -Exudate Amt Large Large -Exudate Type Yellow/Green Serosanguineous -Wound Margin Distinct, Distinct, Outline Outline Attached Attached -Granulation Amt Medium (34-66%) -Granulation Quality Red -Slough/Fibrin Yes -Necrosis Amt Medium (34-66%) -Necrotic Tissue Type Adherent Slough -Structure Exposed None/Limited to Skin Breakdown -Texture (Marta-wound Skin Appearance) Assessed Assessed -Moisture (Marta-wound Skin Appearance) Assessed Assessed -Color (Marta-wound Skin Appearance) Assessed Assessed -Temperature (Marta-wound Skin No Abnormality Appearance) (Pt Warm) -Tenderness on Palpation (Marta-wound No Skin Appearance) -Ulcer Cleansing Wound Cleanser Soap and Water -Foul Odor after Cleansing No No -Anesthetic Used 4% Lidocaine 5% Lidocaine Solution Gel right anterior ankle -Combined with other wound -Current Size (cm) - Length 0.1 0.1 -Current Size (cm) - Width 0.1 0.1 -Current Size (cm) - Depth 0.1 0.1 -Total Square Cm 0.01 0.01 -Date of Last Picture (Recall this 03/29/25 field) -Photo Taken Yes -Epithelialization None Present -Tunneling No -Undermining/Tunneling No No -Circular Undermining No No -Classification - Thickness -Exudate Amt Medium Medium -Exudate Type Yellow/Green Serosanguineous -Wound Margin Distinct, Distinct, Outline Outline Attached Attached -Granulation Amt Small (1-33%) -Granulation Quality [place] -Slough/Fibrin Yes -Necrosis Amt Medium (34-66%) -Necrotic Tissue Type Adherent Slough Adherent Slough -Structure Exposed None/Limited to Skin Breakdown -Texture (Marta-wound Skin Appearance) Assessed Assessed -Moisture (Marta-wound Skin Appearance) Assessed Assessed -Color (Marta-wound Skin Appearance) Assessed Assessed -Temperature (Marta-wound Skin No Abnormality No Abnormality Appearance) (Pt Warm) (Pt Warm) -Tenderness on Palpation (Marta-wound No No Skin Appearance) -Ulcer Cleansing Wound Cleanser Soap and Water -Foul Odor after Cleansing No No -Anesthetic Used 5% Lidocaine 5% Lidocaine Gel Gel Lower Limb Edema Present Yes Right Calf (cm) Point of measurement (cm from the medial 38.5 instep) Right Ankle (cm) Point of Measurement (cm from the medial 24.5 instep) WC - Nurse 2 - General Ulcer CM Notes Start: 03/13/25 15:20 Freq: Status: Active Protocol: Activity Type Activity Date Activity User E-sign Co-sign Detail Recorded Client Recorded Date Recorded By Document 03/13/25 16:03 DS [id number] 03/13/25 16:11 DS Document 03/15/25 16:01 JF [id number] 03/15/25 16:10 JF Document 03/22/25 14:25 JF [id number] 03/22/25 14:34 JF Document 03/29/25 10:12 JF [id number] 03/29/25 10:20 JF Edit Result 03/29/25 10:12 JF (1) [id number] 03/29/25 10:34 JF Document 03/29/25 10:37 GM [id number] 03/29/25 10:57 GM Document 04/05/25 15:28 JF [id number] 04/05/25 15:35 JF (1) Right dorsum/TMA - Surgifoam (3 1/8 x 5) Large 1 => 2 03/13/25 03/15/25 03/22/25 16:03 16:01 14:25 Wound Center Nurse 2 right plantar foot -Time -Correct Patient Yes -Correct Side, Site, Position No -Correct Procedure No -Procedure Performed No -Type of Procedure -Clinical Debridement -Tissue Removed -Post Debridement (cm) - Length 0.7 -Post Debridement (cm) - Width 2.2 -Post Debridement (cm) - Depth 0.1 -Total Square (Post) (cm) 1.54 -Area of Debridement (cm) - Length 0.7 -Area of Debridement (cm) - Width 2.2 -Total Square (Area) (cm) 1.54 -Tunneling -Undermining/Tunneling -Circular Undermining -Wound/Ulcer Outcome Not Healed -Ulcer Cleansing -Foul Odor after Cleansing -Bioengineered Tissue -Bleeding Controlled with -Surgifoam (3 1/8 x 5) Large -Treatment Response -Offloading -Debridement - Subq, 1st 20sq cm Right Lateral Leg -Time 16:03 16:06 14:26 -Correct Patient Yes Yes Yes -Correct Side, Site, Position Yes Yes Yes -Correct Procedure Yes Yes -Procedure Performed No Yes Yes -Type of Procedure Debridement Debridement -Clinical Debridement Subcutaneous Subcutaneous -Tissue Removed Subcutaneous Subcutaneous -Post Debridement (cm) - Length 1.0 1.2 -Post Debridement (cm) - Width 1.4 1.2 -Post Debridement (cm) - Depth 0.3 0.2 -Total Square (Post) (cm) 1.40 1.44 -Area of Debridement (cm) - Length 1.0 1.2 -Area of Debridement (cm) - Width 1.4 1.2 -Total Square (Area) (cm) 1.40 1.44 -Tunneling No No -Undermining/Tunneling No No -Circular Undermining No No -Wound/Ulcer Outcome Not Healed Not Healed Not Healed -Ulcer Cleansing Rinsed/ Rinsed/ Irrigated with Irrigated with Saline Saline -Foul Odor after Cleansing No No -Bioengineered Tissue No No -Bleeding Controlled with Pressure Pressure -Treatment Response Procedure Procedure Tolerated Well Tolerated Well -Offloading Yes -Type of Offloading Surgical Shoe -Debridement - Subq, 1st 20sq cm Yes Yes Right dorsum/TMA -Time 16:03 16:03 14:26 -Correct Patient Yes Yes Yes -Correct Side, Site, Position Yes Yes Yes -Correct Procedure Yes Yes -Procedure Performed No Yes Yes -Type of Procedure Debridement Debridement -Clinical Debridement Bone Bone -Tissue Removed Non-viable Non-viable tissue tissue -Post Debridement (cm) - Length 6.2 5.5 -Post Debridement (cm) - Width 6.5 5.5 -Post Debridement (cm) - Depth 0.3 0.7 -Total Square (Post) (cm) 40.30 30.25 -Area of Debridement (cm) - Length 6.2 5.5 -Area of Debridement (cm) - Width 6.5 5.5 -Total Square (Area) (cm) 40.30 30.25 -Tunneling No No -Undermining/Tunneling No No -Circular Undermining No No -Wound/Ulcer Outcome Not Healed Not Healed Not Healed -Ulcer Cleansing Rinsed/ Rinsed/ Irrigated with Irrigated with Saline Saline -Foul Odor after Cleansing No No -Bioengineered Tissue No No -Bleeding Controlled with Pressure, Pressure Surgifoam 3 / x 5 (lg) -Surgifoam (3/4 x 2 38) Small -Surgifoam (3 06/15 x 5) Large 1 -Treatment Response Procedure Procedure Tolerated Well Tolerated Well -Offloading Yes No -Type of Offloading Surgical Shoe -Debridement - Bone, 1st 20sq cm Yes Yes -Debridement, Bone, ea addt'l 20sq cm 1 or part thereof right anterior ankle -Time 16:03 14:29 -Correct Patient Yes Yes -Correct Side, Site, Position Yes Yes -Correct Procedure Yes -Procedure Performed No Yes -Type of Procedure Debridement -Clinical Debridement Muscle / Fascia -Tissue Removed Muscle -Post Debridement (cm) - Length 1.2 -Post Debridement (cm) - Width 1.8 -Post Debridement (cm) - Depth 0.2 -Total Square (Post) (cm) 2.16 -Area of Debridement (cm) - Length 1.2 -Area of Debridement (cm) - Width 1.8 -Total Square (Area) (cm) 2.16 -Tunneling No -Undermining/Tunneling No -Circular Undermining No -Wound/Ulcer Outcome Not Healed Not Healed -Ulcer Cleansing Rinsed/ Irrigated with Saline -Foul Odor after Cleansing No -Bioengineered Tissue No -Bleeding Controlled with Pressure -Treatment Response Procedure Tolerated Well -Offloading No -Type of Offloading -Assistive Device(s) Wheelchair -Debridement - Subq, 1st 20sq cm No -Debridement - Muscle / Fascia, 1st Yes 20sq cm Pain Scale: 0-10 Numeric Is Patient Pain Free? Yes Yes Yes 03/29/25 03/29/25 04/05/25 10:12 10:37 15:28 Wound Center Nurse 2 right plantar foot -Time 10:14 10:37 15:29 -Correct Patient No Yes Yes -Correct Side, Site, Position No Yes Yes -Correct Procedure No Yes -Procedure Performed No Yes -Type of Procedure Debridement -Clinical Debridement Subcutaneous -Tissue Removed Non-viable Subcutaneous tissue -Post Debridement (cm) - Length 1.2 -Post Debridement (cm) - Width 1.4 -Post Debridement (cm) - Depth 0.2 -Total Square (Post) (cm) 1.68 -Area of Debridement (cm) - Length 1.2 -Area of Debridement (cm) - Width 1.4 -Total Square (Area) (cm) 1.68 -Tunneling No No -Undermining/Tunneling No No -Circular Undermining No No -Wound/Ulcer Outcome Not Healed Not Healed -Ulcer Cleansing Rinsed/ Rinsed/ Irrigated with Irrigated with Saline Saline -Foul Odor after Cleansing No No -Bioengineered Tissue No No -Bleeding Controlled with Pressure -Surgifoam (3 1/8 x 5) Large 1 -Treatment Response Procedure Tolerated Well -Offloading No -Debridement - Subq, 1st 20sq cm Yes Right Lateral Leg -Time 10:15 15:31 -Correct Patient Yes Yes -Correct Side, Site, Position Yes Yes -Correct Procedure Yes Yes -Procedure Performed Yes Yes -Type of Procedure Debridement Debridement -Clinical Debridement Subcutaneous Subcutaneous -Tissue Removed Subcutaneous Subcutaneous -Post Debridement (cm) - Length 0.9 0.7 -Post Debridement (cm) - Width 1.1 0.7 -Post Debridement (cm) - Depth 0.1 0.1 -Total Square (Post) (cm) 0.99 0.49 -Area of Debridement (cm) - Length 0.9 0.7 -Area of Debridement (cm) - Width 1.1 0.7 -Total Square (Area) (cm) 0.99 0.49 -Tunneling No No -Undermining/Tunneling No No -Circular Undermining No No -Wound/Ulcer Outcome Not Healed Not Healed -Ulcer Cleansing Rinsed/ Rinsed/ Irrigated with Irrigated with Saline Saline -Foul Odor after Cleansing No No -Bioengineered Tissue No No -Bleeding Controlled with Pressure Pressure -Treatment Response Procedure Procedure Tolerated Well Tolerated Well -Offloading No No -Type of Offloading -Debridement - Subq, 1st 20sq cm Yes No Right dorsum/TMA -Time 10:16 15:31 -Correct Patient Yes Yes -Correct Side, Site, Position Yes Yes -Correct Procedure Yes Yes -Procedure Performed Yes Yes -Type of Procedure Debridement Debridement -Clinical Debridement Bone Bone -Tissue Removed Non-viable Non-viable tissue tissue -Post Debridement (cm) - Length 5.2 5 -Post Debridement (cm) - Width 5.7 5.1 -Post Debridement (cm) - Depth 0.5 0.7 -Total Square (Post) (cm) 29.64 25.5 -Area of Debridement (cm) - Length 5.2 5 -Area of Debridement (cm) - Width 5.7 5.1 -Total Square (Area) (cm) 29.64 25.5 -Tunneling No No -Undermining/Tunneling No No -Circular Undermining No No -Wound/Ulcer Outcome Not Healed Not Healed -Ulcer Cleansing Rinsed/ Rinsed/ Irrigated with Irrigated with Saline Saline -Foul Odor after Cleansing No No -Bioengineered Tissue No No -Bleeding Controlled with Pressure, Pressure Surgifoam ¾ x 2 3/8 (sm), Surgifoam 3 1/8 x 5 (lg) -Surgifoam (3/4 x 2 3/8) Small 1 -Surgifoam (3 1/8 x 5) Large 2 -Treatment Response Procedure Procedure Tolerated Well Tolerated Well -Offloading Yes No -Type of Offloading Surgical Shoe -Debridement - Bone, 1st 20sq cm Yes Yes -Debridement, Bone, ea addt'l 20sq cm 1 1 or part thereof right anterior ankle -Time 10:17 15:32 -Correct Patient Yes Yes -Correct Side, Site, Position Yes Yes -Correct Procedure Yes Yes -Procedure Performed Yes Yes -Type of Procedure Debridement Debridement -Clinical Debridement Muscle / Fascia Muscle / Fascia -Tissue Removed Muscle Tendon -Post Debridement (cm) - Length 0.9 0.7 -Post Debridement (cm) - Width 2.0 1.5 -Post Debridement (cm) - Depth 0.2 0.2 -Total Square (Post) (cm) 1.80 1.05 -Area of Debridement (cm) - Length 0.9 0.7 -Area of Debridement (cm) - Width 2.0 1.5 -Total Square (Area) (cm) 1.80 1.05 -Tunneling No No -Undermining/Tunneling No No -Circular Undermining No No -Wound/Ulcer Outcome Not Healed Not Healed -Ulcer Cleansing Rinsed/ Rinsed/ Irrigated with Irrigated with Saline Saline -Foul Odor after Cleansing No No -Bioengineered Tissue No No -Bleeding Controlled with Pressure Pressure -Treatment Response Procedure Procedure Tolerated Well Tolerated Well -Offloading Yes No -Type of Offloading Surgical Shoe -Assistive Device(s) -Debridement - Subq, 1st 20sq cm -Debridement - Muscle / Fascia, 1st Yes Yes 20sq cm Pain Scale: 0-10 Numeric Is Patient Pain Free? Yes Yes Yes WC - Nurse 3 - General Ulcer D/C NN Start: 03/13/25 15:20 Freq: Status: Active Protocol: Activity Type Activity Date Activity User E-sign Co-sign Detail Recorded Client Recorded Date Recorded By Document 03/13/25 16:20 GM [id number] 03/13/25 16:21 GM Edit Result 03/13/25 16:20 GM (1) [id number] 03/13/25 16:25 GM Document 03/15/25 16:20 GM [id number] 03/15/25 16:21 GM Edit Result 03/15/25 16:20 GM (2) [id number] 03/15/25 16:23 GM Document 03/22/25 15:00 CP [id number] 03/22/25 15:02 CP Document 03/29/25 10:37 GM [id number] 03/29/25 10:39 GM Document 04/05/25 15:52 TS [id number] 04/05/25 15:54 TS (1) RLE - Lotion applied to leg before => No compression wrap - Tubular Bandage => Single Layer - Size of Tubigrip Used => Size D - Size D ($) => 1 (2) Right Lateral Leg - Primary Dressing Applied AMD Dressing 4x4 => AMD Dressing 4x4, => Hysept - Hysept => 1 03/13/25 03/15/25 03/22/25 16:20 16:20 15:00 Wound Care Center Nurse 3 right plantar foot -Ulcer Cleansing -Foul Odor after Cleansing -Primary Dressing Applied -Other Dressing -Primary Dressing Covered/Secured with Dry Gauze & Roll Gauze -Other Covering betadine -Hysept Right Lateral Leg -Ulcer Cleansing Not Cleansed Not Cleansed dakins -Foul Odor after Cleansing No No -Primary Dressing Applied AMD Dressing 4x4,Hysept -Other Dressing -Primary Dressing Covered/Secured with Dry Gauze Dry Gauze & Dry Gauze & Roll Gauze, Roll Gauze, Secured with Secured with Tape Tape -AMD Dressing 4x4 1 -Hysept 1 Right dorsum/TMA -Ulcer Cleansing Not Cleansed Not Cleansed dakins -Foul Odor after Cleansing No No -Primary Dressing Applied AMD Dressing 4x8 -Other Dressing Dakins wet to dry -Primary Dressing Covered/Secured with Dry Gauze Dry Gauze & Dry Gauze & Roll Gauze, Roll Gauze, Secured with Secured with Tape Tape -AMD Dressing 4x8 1 -Hysept right anterior ankle -Ulcer Cleansing Not Cleansed dakins -Foul Odor after Cleansing No -Primary Dressing Applied Hysept -Other Dressing -Primary Dressing Covered/Secured with Dry Gauze,Dry Dry Gauze & Gauze & Roll Roll Gauze Gauze,Secured with Tape -Hysept 1 RLE -Lotion applied to leg before No No compression wrap -Compression Wrap -Tubular Bandage Single Layer Single Layer Double Layer -Size of Tubigrip Used Size D Size E Size E -Size D ($) 1 -Size E ($) 1 2 Pain Scale: 0-10 Numeric Is Patient Pain Free? Yes Yes Yes WC - Visit Discharge Discharge Condition Stable Stable Stable Ambulatory Status Ambulatory Ambulatory Ambulatory Transportation Private Auto Private Auto Private Auto Accompanied by Medication Reconcilliation completed & provided to patient/care provider Clinical Summary of Care Provided Yes 03/29/25 04/05/25 10:37 15:52 Wound Care Center Nurse 3 right plantar foot -Ulcer Cleansing Not Cleansed Rinsed/ Irrigated with Saline -Foul Odor after Cleansing No -Primary Dressing Applied Hysept -Other Dressing betadine -Primary Dressing Covered/Secured with Dry Gauze Dry Gauze & Roll Gauze, Secured with Tape -Other Covering -Hysept 1 Right Lateral Leg -Ulcer Cleansing Not Cleansed Rinsed/ Irrigated with Saline -Foul Odor after Cleansing No -Primary Dressing Applied Hysept -Other Dressing dakins -Primary Dressing Covered/Secured with Dry Gauze & Dry Gauze & Roll Gauze, Roll Gauze, Secured with Secured with Tape Tape -AMD Dressing 4x4 -Hysept 0 Right dorsum/TMA -Ulcer Cleansing Not Cleansed Rinsed/ Irrigated with Saline -Foul Odor after Cleansing No -Primary Dressing Applied Hysept -Other Dressing dakins and abd pad -Primary Dressing Covered/Secured with Dry Gauze,Dry Gauze & Roll Gauze,Secured with Tape -AMD Dressing 4x8 -Hysept 0 right anterior ankle -Ulcer Cleansing Not Cleansed Rinsed/ Irrigated with Saline -Foul Odor after Cleansing No -Primary Dressing Applied Hysept -Other Dressing dakins moist gauze -Primary Dressing Covered/Secured with Dry Gauze Dry Gauze & Roll Gauze, Secured with Tape -Hysept 0 RLE -Lotion applied to leg before Yes compression wrap -Compression Wrap William Wrap -Tubular Bandage Double Layer -Size of Tubigrip Used Size E -Size D ($) -Size E ($) 2 Pain Scale: 0-10 Numeric Is Patient Pain Free? Yes Yes WC - Visit Discharge Discharge Condition Stable Stable Ambulatory Status Ambulatory Ambulatory Transportation Private Auto Private Auto Accompanied by Medication Reconcilliation completed & No provided to patient/care provider Clinical Summary of Care Provided Yes Assessment/Plan Assessment/Plan (1) Non-pressure chronic ulcer of other part of right foot with necrosis of bone: CODE(S): L97.514 - Non-pressure chronic ulcer of other part of right foot with necrosis of bone PLAN: Patient was examined and evaluated. All findings were discussed with the patient. All questions were answered to the patient satisfaction. Excisional debridement down to and including subcutaneous tissue, fascia muscle and bone to the right lower extremity TMA site done with a rongeur to remove the bone and a 5 mm dermal curette as well as with rongeur to clean up the full-thickness wound done without incident. Predebridement measurement 4.9 x 5.0 x 0.5 cm. Postdebridement measurement is 5.0 x 5.1 x 0.7 cm Excisional debridement down to and including subcutaneous tissue with a number 5 mm dermal curette the right proximal lateral leg full-thickness wound done without incident. Predebridement measurement 0.5 x 0.6 x 0.1 cm. Postdebridement measurement is 0.7 x 0.7 x 0.1 cm. Excisional debridement down to and including subcutaneous tissue, fascia and muscle with a number 5 mm dermal curette the right ankle lateral full-thickness wound done without incident. Predebridement measurement 0.6 x 1.3 x 0.1 cm. Postdebridement measurement is 0.7 x 1.5 x 0.2 cm. Excisional debridement down to and including subcutaneous tissue with a number 5 mm dermal curette to the right plantar full-thickness wound done without incident. Predebridement measurement was 1.0 x 1.1 x 0.1 cm. Postdebridement measurement is 1.2 x 1.4 x 0.2 cm. The right lower extremity was wiped clean and patted dry. Dakin soaked solution followed by dry sterile dressing and compression wrap was donned to the right lower extremity. Patient will change daily. Patient will have his ciprofloxacin 750 mg twice daily renewed for additional 2 weeks. We are authorizing surgical intervention with washout and skin graft substitute applied to the full-thickness wound to right lower extremity with all risk and benefit discussed with patient great detail. Patient will follow-up with Dr. 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
== END 2025-04-07 23:59 | disposition home or self-care (01) ==
LOC: WC 15:15
PROVIDERS: PCP Internal Medicine; Referring Provider Podiatrist Foot & Ankle Surgery; Visit Provider Podiatrist Foot & Ankle Surgery
DX: I70.239 Atherosclerosis of native arteries of right leg with ulceration of unspecified site (principal); L97.514 Non-pressure chronic ulcer of other part of right foot with necrosis of bone; L97.313 Non-pressure chronic ulcer of right ankle with necrosis of muscle; L97.812 Non-pressure chronic ulcer of other part of right lower leg with fat layer exposed; Z89.431 Acquired absence of right foot; I11.0 Hypertensive heart disease with heart failure; I50.32 Chronic diastolic (congestive) heart failure; Z79.01 Long term (current) use of anticoagulants; I25.10 Atherosclerotic heart disease of native coronary artery without angina pectoris; E78.5 Hyperlipidemia, unspecified; R73.03 Prediabetes; Z89.421 Acquired absence of other right toe(s); Z79.899 Other long term (current) drug therapy; Z95.2 Presence of prosthetic heart valve
CPT/HCPCS: 11042; 11043; 11044; 11047; 36415; 73630; 83036; 84134; 87070; 87075; 87077; 87186; 87205; 99213; G0463

== ENCOUNTER 2025-04-26 15:00 | Outpatient (RCR) | payer MEDICARE, OTHER, SELFPAY ==
[2025-04-12 14:05] VITALS: BP 131/49; PULSE 55; RESP 15; TEMP 36.7
--- NOTE | 2025-04-12 15:09 | PCM.WC.PN ---
History of Present Illness Date of Service: 04/12/25 Chief Complaint: Full-thickness wound to the TMA site right lower extremity History of Wound: Evidence of traumatic full-thickness wound to the right TMA site after striking it on oil rig gear. Wound has been treated with Betadine soaked gauze as well as on oral doxycycline 100 mg twice daily. Patient is borderline diabetic. Progress of Wound: Stable improving full-thickness wounds to right lower extremity. Subjective Subjective Patient is 84-year-old male presenting to clinic today for follow-up evaluation of full-thickness wounds to the right lower extremity. Patient has been compliant with dressing changes, and has been changing them daily. He has followed up with infectious disease to get his antibiotics adjusted for better coverage. He denies any new onset of trauma. He admits his wound improving. Denies constitutional symptoms. No other pedal complaints at this time. Objective Data Objective Data Vital Signs: Vital Signs Temp Pulse Resp BP 98.0 F 55 L 15 131/49 H 04/12/25 14:05 04/12/25 14:05 04/12/25 14:05 04/12/25 14:05 Lab / Micro Data Micro: Microbiology 03/15/25 15:55 Bone - Right Foot Gram Stain - Final 03/15/25 15:55 Bone - Right Foot Wound Culture - Final Klebsiella pneumoniae sp pneum Escherichia coli Stenotrophomonas maltophilia Staphylococcus aureus Staphylococcus epidermidis Enterococcus faecalis Corynebacterium amycolatum 03/15/25 15:55 Bone - Right Foot Anaerobic Culture - Final No anaerobic bacteria isolated. Physical Exam Narrative Vascular: Peroneal, AT and PT pulses are monophasic on Doppler to the right lower extremity. Skin temperature gradient is warm to warm from proximal ankles to TMA stump with mild focal increase. No erythema. Neurological: Light touch is intact. Protective station is absent. Dermatological: Evidence of full-thickness wound with exposed bone to the right lower extremity TMA site measuring 4.8 x 5.2 x 0.5 cm. Wound base is fibrogranular nature. Positive probe to bone. Evidence of full-thickness wound to the right proximal lateral leg is now healed. Right plantar full-thickness wound measuring 1.0 x 1.3 x 0.1 cm. Wound base is fibrogranular tissue. Evidence of full-thickness wound to the ankle measuring 0.7 x 1.3 x 0.2 cm. Wound base is fibrogranular nature. Excisional debridement down to and including subcutaneous tissue, fascia muscle and bone to the right lower extremity TMA site done with a rongeur to remove the bone and a 5 mm dermal curette as well as with rongeur to clean up the full-thickness wound done without incident. Predebridement measurement 4.6 x 5.1 x 0.3 cm. Postdebridement measurement is 4.8 x 5.2 x 0.5 cm Excisional debridement down to and including subcutaneous tissue, fascia and muscle with a number 5 mm dermal curette the right ankle lateral full-thickness wound done without incident. Predebridement measurement 0.5 x 1.1 x 0.1 cm. Postdebridement measurement is 0.7 x 1.3 x 0.2 cm. Excisional debridement down to and including subcutaneous tissue with a number 5 mm dermal curette to the right plantar full-thickness wound done without incident. Predebridement measurement was 0.8 x 1.0 x 0.1 cm. Postdebridement measurement is 1.0 x 1.3 x 0.1 cm. Muscle skeletal: No pain to palpation to the full-thickness wounds to the right lower extremity. No pain with calf pressure. Const alert, oriented x3 and no apparent distress Debridement Note Debridement Note Debridement Free Text: Excisional debridement down to and including subcutaneous tissue, fascia muscle and bone to the right lower extremity TMA site done with a rongeur to remove the bone and a 5 mm dermal curette as well as with rongeur to clean up the full-thickness wound done without incident. Predebridement measurement 4.9 x 5.0 x 0.5 cm. Postdebridement measurement is 5.0 x 5.1 x 0.7 cm Excisional debridement down to and including subcutaneous tissue with a number 5 mm dermal curette the right proximal lateral leg full-thickness wound done without incident. Predebridement measurement 0.5 x 0.6 x 0.1 cm. Postdebridement measurement is 0.7 x 0.7 x 0.1 cm. Excisional debridement down to and including subcutaneous tissue, fascia and muscle with a number 5 mm dermal curette the right ankle lateral full-thickness wound done without incident. Predebridement measurement 0.6 x 1.3 x 0.1 cm. Postdebridement measurement is 0.7 x 1.5 x 0.2 cm. Excisional debridement down to and including subcutaneous tissue with a number 5 mm dermal curette to the right plantar full-thickness wound done without incident. Predebridement measurement was 1.0 x 1.1 x 0.1 cm. Postdebridement measurement is 1.2 x 1.4 x 0.2 cm. 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 Any new allergies or adverse reactions No Had a fall/change in ADL's that may No increase risk of falls Signs or symptoms of abuse and/or No neglect since last visit Have you been in the hospital since your No last visit? Has dressing in place as prescribed Yes Has compression in place as prescribed Yes Has offloadiing in place as prescribed N/A Experienced any changes in pain level or No management Pain Scale: 0-10 Numeric Is Patient Pain Free? Yes - Nurse 1 - General Ulcer Measurement Start: 04/12/25 14:05 Freq: Status: Active Protocol: Activity Type Activity Date Activity User E-sign Co-sign Detail Recorded Client Recorded Date Recorded By Document 04/12/25 14:05 ML [id number] 04/12/25 14:10 ML 04/12/25 14:05 Wound Center Nurse 1 Right Lateral Leg -Current Size (cm) - Length 0.1 -Current Size (cm) - Width 0.1 -Current Size (cm) - Depth 0.1 -Total Square Cm 0.01 -Exudate Amt Medium -Exudate Type Serosanguineous -Granulation Amt Medium (34-66%) -Slough/Fibrin Yes -Necrosis Amt Medium (34-66%) -Necrotic Tissue Type Adherent Slough -Texture (Marta-wound Skin Appearance) Assessed -Moisture (Marta-wound Skin Appearance) Assessed -Color (Marta-wound Skin Appearance) Assessed -Temperature (Marta-wound Skin No Abnormality Appearance) (Pt Warm) -Tenderness on Palpation (Marta-wound Yes Skin Appearance) -Ulcer Cleansing Soap and Water -Foul Odor after Cleansing No -Anesthetic Used 5% Lidocaine Gel right plantar foot -Current Size (cm) - Length 0.2 -Current Size (cm) - Width 0.2 -Current Size (cm) - Depth 0.1 -Total Square Cm 0.04 -Exudate Amt Medium -Exudate Type Serosanguineous -Wound Margin Distinct, Outline Attached -Granulation Amt Medium (34-66%) -Slough/Fibrin Yes -Necrosis Amt Medium (34-66%) -Necrotic Tissue Type Adherent Slough -Texture (Marta-wound Skin Appearance) Assessed -Moisture (Marta-wound Skin Appearance) Assessed -Color (Marta-wound Skin Appearance) Assessed -Foul Odor after Cleansing No -Anesthetic Used 5% Lidocaine Gel Right dorsum/TMA -Current Size (cm) - Length 0.4 -Current Size (cm) - Width 0.5 -Current Size (cm) - Depth 0.3 -Total Square Cm 0.20 -Exudate Amt Medium -Exudate Type Serosanguineous -Granulation Amt Medium (34-66%) -Slough/Fibrin Yes -Necrosis Amt Medium (34-66%) -Texture (Marta-wound Skin Appearance) Assessed -Color (Marta-wound Skin Appearance) Assessed -Temperature (Marta-wound Skin No Abnormality Appearance) (Pt Warm) -Ulcer Cleansing Soap and Water -Foul Odor after Cleansing No -Anesthetic Used 5% Lidocaine Gel right anterior ankle -Current Size (cm) - Length 2 -Current Size (cm) - Width 2 -Current Size (cm) - Depth 0.3 -Total Square Cm 4 -Exudate Amt Medium -Exudate Type Serosanguineous -Granulation Amt Medium (34-66%) -Slough/Fibrin Yes -Necrosis Amt Medium (34-66%) -Necrotic Tissue Type Adherent Slough -Texture (Marta-wound Skin Appearance) Assessed -Moisture (Marta-wound Skin Appearance) Assessed -Color (Marta-wound Skin Appearance) Assessed -Tenderness on Palpation (Marta-wound No Skin Appearance) -Ulcer Cleansing Soap and Water -Foul Odor after Cleansing No -Anesthetic Used 5% Lidocaine Gel WC - Nurse 2 - General Ulcer CM Notes Start: 04/12/25 14:05 Freq: Status: Active Protocol: Activity Type Activity Date Activity User E-sign Co-sign Detail Recorded Client Recorded Date Recorded By Document 04/12/25 14:21 CHAZ [id number] 04/12/25 14:25 CHAZ 04/12/25 14:21 Wound Center Nurse 2 Right Lateral Leg -Correct Patient Yes -Correct Side, Site, Position No -Correct Procedure No -Procedure Performed No -Post Debridement (cm) - Length 0 -Post Debridement (cm) - Width 0 -Post Debridement (cm) - Depth 0 -Total Square (Post) (cm) 0 -Area of Debridement (cm) - Length 0 -Area of Debridement (cm) - Width 0 -Total Square (Area) (cm) 0 -Wound/Ulcer Outcome Healed- Epithelialized right plantar foot -Time 14:22 -Correct Patient Yes -Correct Side, Site, Position Yes -Correct Procedure Yes -Procedure Performed Yes -Type of Procedure Debridement -Clinical Debridement Subcutaneous -Tissue Removed Subcutaneous -Post Debridement (cm) - Length 1 -Post Debridement (cm) - Width 1.3 -Post Debridement (cm) - Depth 0.1 -Total Square (Post) (cm) 1.3 -Area of Debridement (cm) - Length 1 -Area of Debridement (cm) - Width 1.3 -Total Square (Area) (cm) 1.3 -Tunneling No -Undermining/Tunneling No -Circular Undermining No -Wound/Ulcer Outcome Not Healed -Ulcer Cleansing Rinsed/ Irrigated with Saline -Foul Odor after Cleansing No -Bioengineered Tissue No -Bleeding Controlled with Pressure -Treatment Response Procedure Tolerated Well -Offloading Yes -Type of Offloading Surgical Shoe -Debridement - Subq, 1st 20sq cm Yes Right dorsum/TMA -Time 14:23 -Correct Patient Yes -Correct Side, Site, Position Yes -Correct Procedure Yes -Procedure Performed Yes -Type of Procedure Debridement -Clinical Debridement Bone -Tissue Removed Non-viable tissue -Post Debridement (cm) - Length 4.8 -Post Debridement (cm) - Width 5.2 -Post Debridement (cm) - Depth 0.5 -Total Square (Post) (cm) 24.96 -Area of Debridement (cm) - Length 4.8 -Area of Debridement (cm) - Width 5.2 -Total Square (Area) (cm) 24.96 -Tunneling No -Undermining/Tunneling No -Circular Undermining No -Wound/Ulcer Outcome Not Healed -Ulcer Cleansing Rinsed/ Irrigated with Saline -Foul Odor after Cleansing No -Bioengineered Tissue No -Bleeding Controlled with Pressure -Treatment Response Procedure Tolerated Well -Offloading Yes -Type of Offloading Surgical Shoe -Debridement - Bone, 1st 20sq cm Yes -Debridement, Bone, ea addt'l 20sq cm 1 or part thereof right anterior ankle -Time 14:24 -Correct Patient Yes -Correct Side, Site, Position Yes -Correct Procedure Yes -Procedure Performed Yes -Type of Procedure Debridement -Clinical Debridement Muscle / Fascia -Tissue Removed Tendon -Post Debridement (cm) - Length 0.7 -Post Debridement (cm) - Width 1.3 -Post Debridement (cm) - Depth 0.2 -Total Square (Post) (cm) 0.91 -Area of Debridement (cm) - Length 0.7 -Area of Debridement (cm) - Width 1.3 -Total Square (Area) (cm) 0.91 -Tunneling No -Undermining/Tunneling No -Circular Undermining No -Wound/Ulcer Outcome Not Healed -Ulcer Cleansing Rinsed/ Irrigated with Saline -Foul Odor after Cleansing No -Bioengineered Tissue No -Bleeding Controlled with Pressure -Treatment Response Procedure Tolerated Well -Offloading Yes -Type of Offloading Surgical Shoe -Debridement - Muscle / Fascia, 1st Yes 20sq cm Pain Scale: 0-10 Numeric Is Patient Pain Free? Yes WC - Nurse 3 - General Ulcer D/C NN Start: 04/12/25 14:05 Freq: Status: Active Protocol: Activity Type Activity Date Activity User E-sign Co-sign Detail Recorded Client Recorded Date Recorded By Document 04/12/25 14:56 RB [id number] 04/12/25 14:58 RB 04/12/25 14:56 Wound Care Center Nurse 3 right plantar foot -Primary Dressing Applied Hysept -Other Dressing dakinsa moistened gauze / abd -Primary Dressing Covered/Secured with Dry Gauze & Roll Gauze, Secured with Tape -Hysept 1 Right dorsum/TMA -Other Dressing dakins moistened gauze -Primary Dressing Covered/Secured with Dry Gauze & Roll Gauze, Secured with Tape right anterior ankle -Other Dressing dakins moistened gauze -Primary Dressing Covered/Secured with Dry Gauze & Roll Gauze, Secured with Tape -Wound Comment(s) pt requersted tubigrip instead of STEVENSON due pt states STEVENSON is too thick RLE -Tubular Bandage Single Layer -Size of Tubigrip Used Size E -Size E ($) 1 Treatment Response Procedure Tolerated Well Pain Scale: 0-10 Numeric Is Patient Pain Free? Yes WC - Visit Discharge Discharge Condition Stable Ambulatory Status Ambulatory Transportation Private Auto Medication Reconcilliation completed & No provided to patient/care provider Clinical Summary of Care Provided Yes Assessment/Plan Assessment/Plan (1) Non-pressure chronic ulcer of other part of right foot with necrosis of bone: CODE(S): L97.514 - Non-pressure chronic ulcer of other part of right foot with necrosis of bone PLAN: Patient was examined and evaluated. All findings were discussed with the patient. All questions were answered to the patient satisfaction. Excisional debridement down to and including subcutaneous tissue, fascia muscle and bone to the right lower extremity TMA site done with a rongeur to remove the bone and a 5 mm dermal curette as well as with rongeur to clean up the full-thickness wound done without incident. Predebridement measurement 4.6 x 5.1 x 0.3 cm. Postdebridement measurement is 4.8 x 5.2 x 0.5 cm Excisional debridement down to and including subcutaneous tissue, fascia and muscle with a number 5 mm dermal curette the right ankle lateral full-thickness wound done without incident. Predebridement measurement 0.5 x 1.1 x 0.1 cm. Postdebridement measurement is 0.7 x 1.3 x 0.2 cm. Excisional debridement down to and including subcutaneous tissue with a number 5 mm dermal curette to the right plantar full-thickness wound done without incident. Predebridement measurement was 0.8 x 1.0 x 0.1 cm. Postdebridement measurement is 1.0 x 1.3 x 0.1 cm. The right lower extremity was wiped clean and patted dry. Dakin soaked gauze was applied to all full-thickness wound dry sterile dressing with light compression wrap. Patient met with infectious disease today and had his antibiotics adjusted and will continue the new regiment as prescribed. Patient will follow-up with Dr. 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
--- NOTE | 2025-04-13 12:00 | WC ---
PHOTO-RIGHT CRUZ 04/12/25
--- NOTE | 2025-04-13 12:02 | WC ---
PHOTO-RIGHT PLANTAR 04/12/25
--- NOTE | 2025-04-13 12:05 | WC ---
PHOTO-RIGHT DORSAL/RIGHT TMA 04/12/25
[2025-04-19 14:11] VITALS: RESP 17; TEMP 36.2
--- NOTE | 2025-04-20 09:32 | WC ---
PHOTO-R TMA 04/19/25
--- NOTE | 2025-04-20 09:33 | WC ---
PHOTO-RIGHT PLANTAR 04/19/25
--- NOTE | 2025-04-20 09:36 | WC ---
PHOTO-RIGHT PLANTAR 04/19/25
--- NOTE | 2025-04-20 09:40 | WC ---
PHOTO-RIGHT ANT ANKLE 04/19/25
--- NOTE | 2025-04-21 23:08 | PCM.WC.PN ---
History of Present Illness Date of Service: 04/19/25 Chief Complaint: Full-thickness wound to the TMA site right lower extremity History of Wound: Evidence of traumatic full-thickness wound to the right TMA site after striking it on oil rig gear. Wound has been treated with Betadine soaked gauze as well as on oral doxycycline 100 mg twice daily. Patient is borderline diabetic. Progress of Wound: Stable improving full-thickness wounds to right lower extremity. Subjective Subjective Patient is 84-year-old nondiabetic male presenting to clinic today for follow-up evaluation of full-thickness wounds to the right lower extremity. Patient has been doing dressing changes as discussed. His wounds are greatly improving. He has booked for surgery in the next couple weeks. He denies any trauma. Denies constitutional symptoms. No other pedal complaints at this time. Objective Data Objective Data Vital Signs: Vital Signs Temp Pulse Resp BP O2 Del Method 97.2 F L 55 L 17 131/49 H Room Air 04/19/25 14:11 04/12/25 14:05 04/19/25 14:11 04/12/25 14:05 04/19/25 14:11 Oxygen Delivery Method Room Air Lab / Micro Data Micro: Microbiology 03/15/25 15:55 Bone - Right Foot Gram Stain - Final 03/15/25 15:55 Bone - Right Foot Wound Culture - Final Klebsiella pneumoniae sp pneum Escherichia coli Stenotrophomonas maltophilia Staphylococcus aureus Staphylococcus epidermidis Enterococcus faecalis Corynebacterium amycolatum 03/15/25 15:55 Bone - Right Foot Anaerobic Culture - Final No anaerobic bacteria isolated. Physical Exam Narrative Vascular: Peroneal, AT and PT pulses are monophasic on Doppler to the right lower extremity. Skin temperature gradient is warm to warm from proximal ankles to TMA stump with mild focal increase. No erythema. Neurological: Light touch is intact. Protective station is absent. Dermatological: Full-thickness wound to the right lower extremity TMA site measuring 4.5 x 5.2 x 0.3 cm. Wound base is fibrogranular nature. Negative probe to bone. Right plantar full-thickness wound measuring 0.8 x 1.3 x 0.1 cm. Wound base is fibrogranular tissue. Evidence of full-thickness wound to the ankle measuring 0.5 x 1.4 x 0.2 cm. Wound base is fibrogranular nature. Excisional debridement down to and including subcutaneous tissue, fascia muscle to the right lower extremity TMA site done with a rongeur to remove the bone and a 5 mm dermal curette as well as with rongeur to clean up the full-thickness wound done without incident. Predebridement measurement 4.4 x 5.0 x 0.2 cm. Postdebridement measurement is 4.5 x 5.2 x 0.3 cm. Excisional debridement down to and including subcutaneous tissue with a number 5 mm dermal curette the right ankle lateral full-thickness wound done without incident. Predebridement measurement 0.4 x 1.2 x 0.1 cm. Postdebridement measurement is 0.5 x 1.4 x 0.2 cm. Excisional debridement down to and including subcutaneous tissue with a number 5 mm dermal curette to the right plantar full-thickness wound done without incident. Predebridement measurement was 0.5 x 1 x 0.1 cm. Postdebridement measurement is 0.8 x 1.3 x 0.1 cm. Muscle skeletal: No pain to palpation to the full-thickness wounds to the right lower extremity. No pain with calf pressure. Const alert, oriented x3 and no apparent distress Debridement Note Debridement Note Debridement Free Text: Excisional debridement down to and including subcutaneous tissue, fascia muscle to the right lower extremity TMA site done with a rongeur to remove the bone and a 5 mm dermal curette as well as with rongeur to clean up the full-thickness wound done without incident. Predebridement measurement 4.4 x 5.0 x 0.2 cm. Postdebridement measurement is 4.5 x 5.2 x 0.3 cm. Excisional debridement down to and including subcutaneous tissue with a number 5 mm dermal curette the right ankle lateral full-thickness wound done without incident. Predebridement measurement 0.4 x 1.2 x 0.1 cm. Postdebridement measurement is 0.5 x 1.4 x 0.2 cm. Excisional debridement down to and including subcutaneous tissue with a number 5 mm dermal curette to the right plantar full-thickness wound done without incident. Predebridement measurement was 0.5 x 1 x 0.1 cm. Postdebridement measurement is 0.8 x 1.3 x 0.1 cm. Post-Debridement Measurements and Additional Note: Post-Debridement Measurements/Treatment WC - Nurse 1 - General Ulcer Assessment Start: 04/12/25 14:05 Freq: Status: Active Protocol: [facility] Activity Type Activity Date Activity User E-sign Co-sign Detail Recorded Client Recorded Date Recorded By Document 04/12/25 14:05 ML [id number] 04/12/25 14:10 ML Document 04/19/25 14:11 TS [id number] 04/19/25 14:22 TS 04/12/25 04/19/25 14:05 14:11 WC - Today's Visit Information Type of service Follow-up Visit Follow-up Visit (Physician/CELLULAR PHONE REPAIRER (Physician/CELLULAR PHONE REPAIRER ) ) Arrival Mode Ambulatory Ambulatory Transfer Assistance None Patient Identification Verified (Name & Yes Yes ) Patient Requires Transmission-Based No No Precautions Safety Precautions Fall Prevention Vital Signs Temperature (97.8 F-99.1 F) 98.0 F 97.2 F L Temperature Source Temporal Temporal Pulse Rate (60-100) 55 L Pulse Location Monitor Monitor Respiratory Rate (12-18) 15 17 Respiratory rate source Observation Observation Oxygen Delivery Method Room Air Blood Pressure (90/60-120/80) 131/49 H Blood Pressure Mean (mm Hg) 76 Source Monitor Monitor Position Sitting Sitting Blood Pressure Location Right Forearm Left Arm History Since Last Visit- (Skip if this is Patient's initial visit) Have you changed medications since your No No last visit? Any new allergies or adverse reactions No No Had a fall/change in ADL's that may No No increase risk of falls Signs or symptoms of abuse and/or No No neglect since last visit Have you been in the hospital since your No No last visit? Has dressing in place as prescribed Yes Yes Has compression in place as prescribed Yes Yes Has offloadiing in place as prescribed N/A N/A Experienced any changes in pain level or No management Left Footwear Regular Shoe Right Footwear Surgical Shoe with pressure relief insole Pain Scale: 0-10 Numeric Is Patient Pain Free? Yes Yes - Nurse 1 - General Ulcer Measurement Start: 04/12/25 14:05 Freq: Status: Active Protocol: Activity Type Activity Date Activity User E-sign Co-sign Detail Recorded Client Recorded Date Recorded By Document 04/12/25 14:05 ML [id number] 04/12/25 14:10 ML Document 04/19/25 14:11 TS [id number] 04/19/25 14:22 TS 04/12/25 04/19/25 14:05 14:11 Wound Center Nurse 1 Right Lateral Leg -Current Size (cm) - Length 0.1 -Current Size (cm) - Width 0.1 -Current Size (cm) - Depth 0.1 -Total Square Cm 0.01 -Exudate Amt Medium -Exudate Type Serosanguineous -Granulation Amt Medium (34-66%) -Slough/Fibrin Yes -Necrosis Amt Medium (34-66%) -Necrotic Tissue Type Adherent Slough -Texture (Marta-wound Skin Appearance) Assessed -Moisture (Marta-wound Skin Appearance) Assessed -Color (Marta-wound Skin Appearance) Assessed -Temperature (Marta-wound Skin No Abnormality Appearance) (Pt Warm) -Tenderness on Palpation (Marta-wound Yes Skin Appearance) -Ulcer Cleansing Soap and Water -Foul Odor after Cleansing No -Anesthetic Used 5% Lidocaine Gel right plantar foot -Combined with other wound No -Current Size (cm) - Length 0.2 1 -Current Size (cm) - Width 0.2 1.2 -Current Size (cm) - Depth 0.1 0.1 -Total Square Cm 0.04 1.2 -Date of Last Picture (Recall this 04/19/25 field) -Photo Taken Yes -Tunneling No -Undermining/Tunneling No -Circular Undermining No -Exudate Amt Medium Medium -Exudate Type Serosanguineous Serosanguineous -Wound Margin Distinct, Distinct, Outline Outline Attached Attached -Granulation Amt Medium (34-66%) Medium (34-66%) -Granulation Quality [place],Red -Slough/Fibrin Yes Yes -Necrosis Amt Medium (34-66%) Medium (34-66%) -Necrotic Tissue Type Adherent Slough -Structure Exposed None/Limited to Skin Breakdown -Texture (Marta-wound Skin Appearance) Assessed Assessed -Moisture (Marta-wound Skin Appearance) Assessed Assessed,Dry/ Scaly -Color (Marta-wound Skin Appearance) Assessed Assessed -Temperature (Marta-wound Skin No Abnormality Appearance) (Pt Warm) -Ulcer Cleansing Soap and Water -Foul Odor after Cleansing No No -Anesthetic Used 5% Lidocaine 5% Lidocaine Gel Gel Right dorsum/TMA -Combined with other wound No -Current Size (cm) - Length 0.4 4.5 -Current Size (cm) - Width 0.5 5.1 -Current Size (cm) - Depth 0.3 0.2 -Total Square Cm 0.20 22.95 -Date of Last Picture (Recall this 04/19/25 field) -Photo Taken Yes -Tunneling No -Undermining/Tunneling No -Circular Undermining No -Exudate Amt Medium Medium -Exudate Type Serosanguineous Serosanguineous -Wound Margin Distinct, Outline Attached -Granulation Amt Medium (34-66%) -Granulation Quality [place],Red -Slough/Fibrin Yes -Necrosis Amt Medium (34-66%) Medium (34-66%) -Necrotic Tissue Type Adherent Slough -Structure Exposed None/Limited to Skin Breakdown -Texture (Marta-wound Skin Appearance) Assessed Assessed -Moisture (Marta-wound Skin Appearance) Assessed,Dry/ Scaly -Color (Marta-wound Skin Appearance) Assessed Assessed -Temperature (Marta-wound Skin No Abnormality No Abnormality Appearance) (Pt Warm) (Pt Warm) -Ulcer Cleansing Soap and Water Soap and Water -Foul Odor after Cleansing No No -Anesthetic Used 5% Lidocaine 5% Lidocaine Gel Gel right anterior ankle -Combined with other wound No -Current Size (cm) - Length 2 0.3 -Current Size (cm) - Width 2 1 -Current Size (cm) - Depth 0.3 0.1 -Total Square Cm 4 0.3 -Date of Last Picture (Recall this 04/19/25 field) -Photo Taken Yes -Tunneling No -Undermining/Tunneling No -Circular Undermining No -Exudate Amt Medium None Present -Exudate Type Serosanguineous -Wound Margin Distinct, Outline Attached -Granulation Amt Medium (34-66%) -Granulation Quality [place],Red -Slough/Fibrin Yes No -Necrosis Amt Medium (34-66%) -Necrotic Tissue Type Adherent Slough -Structure Exposed None/Limited to Skin Breakdown -Texture (Marta-wound Skin Appearance) Assessed Assessed -Moisture (Marta-wound Skin Appearance) Assessed Assessed,Dry/ Scaly -Color (Marta-wound Skin Appearance) Assessed Assessed -Temperature (Marta-wound Skin No Abnormality Appearance) (Pt Warm) -Tenderness on Palpation (Marta-wound No Skin Appearance) -Ulcer Cleansing Soap and Water Soap and Water -Foul Odor after Cleansing No No -Anesthetic Used 5% Lidocaine 5% Lidocaine Gel Gel Point of measurement (cm from the medial 37.5 instep) Point of Measurement (cm from the medial 25 instep) WC - Nurse 2 - General Ulcer CM Notes Start: 04/12/25 14:05 Freq: Status: Active Protocol: Activity Type Activity Date Activity User E-sign Co-sign Detail Recorded Client Recorded Date Recorded By Document 04/12/25 14:21 [id number] 04/12/25 14:25 Document 04/19/25 14:40 [id number] 04/19/25 14:44 04/12/25 04/19/25 14:21 14:40 Wound Center Nurse 2 Right Lateral Leg -Correct Patient Yes -Correct Side, Site, Position No -Correct Procedure No -Procedure Performed No -Post Debridement (cm) - Length 0 -Post Debridement (cm) - Width 0 -Post Debridement (cm) - Depth 0 -Total Square (Post) (cm) 0 -Area of Debridement (cm) - Length 0 -Area of Debridement (cm) - Width 0 -Total Square (Area) (cm) 0 -Wound/Ulcer Outcome Healed- Epithelialized right plantar foot -Time 14:22 14:40 -Correct Patient Yes Yes -Correct Side, Site, Position Yes Yes -Correct Procedure Yes Yes -Procedure Performed Yes Yes -Type of Procedure Debridement Debridement -Clinical Debridement Subcutaneous Subcutaneous -Tissue Removed Subcutaneous Subcutaneous -Post Debridement (cm) - Length 1 0.8 -Post Debridement (cm) - Width 1.3 1.3 -Post Debridement (cm) - Depth 0.1 0.1 -Total Square (Post) (cm) 1.3 1.04 -Area of Debridement (cm) - Length 1 0.8 -Area of Debridement (cm) - Width 1.3 1.3 -Total Square (Area) (cm) 1.3 1.04 -Tunneling No No -Undermining/Tunneling No No -Circular Undermining No No -Wound/Ulcer Outcome Not Healed Not Healed -Ulcer Cleansing Rinsed/ Rinsed/ Irrigated with Irrigated with Saline Saline -Foul Odor after Cleansing No No -Bioengineered Tissue No No -Bleeding Controlled with Pressure Pressure -Treatment Response Procedure Procedure Tolerated Well Tolerated Well -Offloading Yes No -Type of Offloading Surgical Shoe -Debridement - Subq, 1st 20sq cm Yes Yes Right dorsum/TMA -Time 14:23 14:41 -Correct Patient Yes Yes -Correct Side, Site, Position Yes Yes -Correct Procedure Yes Yes -Procedure Performed Yes Yes -Type of Procedure Debridement Debridement -Clinical Debridement Bone Muscle / Fascia -Tissue Removed Non-viable Muscle tissue -Post Debridement (cm) - Length 4.8 4.5 -Post Debridement (cm) - Width 5.2 5.2 -Post Debridement (cm) - Depth 0.5 0.3 -Total Square (Post) (cm) 24.96 23.40 -Area of Debridement (cm) - Length 4.8 4.5 -Area of Debridement (cm) - Width 5.2 5.2 -Total Square (Area) (cm) 24.96 23.40 -Tunneling No No -Undermining/Tunneling No No -Circular Undermining No No -Wound/Ulcer Outcome Not Healed Not Healed -Ulcer Cleansing Rinsed/ Rinsed/ Irrigated with Irrigated with Saline Saline -Foul Odor after Cleansing No No -Bioengineered Tissue No No -Bleeding Controlled with Pressure Pressure, Surgifoam ? x 2 3/8 (sm) -Surgifoam (3/4 x 2 3/8) Small 1 -Treatment Response Procedure Procedure Tolerated Well Tolerated Well -Offloading Yes No -Type of Offloading Surgical Shoe -Debridement - Muscle / Fascia, 1st Yes 20sq cm -Debridement, Muscle/Fascia, ea addt'l 1 20sq cm or part thereof -Debridement - Bone, 1st 20sq cm Yes -Debridement, Bone, ea addt'l 20sq cm 1 or part thereof right anterior ankle -Time 14:24 14:41 -Correct Patient Yes Yes -Correct Side, Site, Position Yes Yes -Correct Procedure Yes Yes -Procedure Performed Yes Yes -Type of Procedure Debridement Debridement -Clinical Debridement Muscle / Fascia Muscle / Fascia -Tissue Removed Tendon Muscle -Post Debridement (cm) - Length 0.7 0.5 -Post Debridement (cm) - Width 1.3 1.4 -Post Debridement (cm) - Depth 0.2 0.2 -Total Square (Post) (cm) 0.91 0.70 -Area of Debridement (cm) - Length 0.7 0.5 -Area of Debridement (cm) - Width 1.3 1.4 -Total Square (Area) (cm) 0.91 0.70 -Tunneling No No -Undermining/Tunneling No No -Circular Undermining No No -Wound/Ulcer Outcome Not Healed Not Healed -Ulcer Cleansing Rinsed/ Rinsed/ Irrigated with Irrigated with Saline Saline -Foul Odor after Cleansing No No -Bioengineered Tissue No No -Bleeding Controlled with Pressure Pressure -Treatment Response Procedure Procedure Tolerated Well Tolerated Well -Offloading Yes No -Type of Offloading Surgical Shoe -Debridement - Muscle / Fascia, 1st Yes No 20sq cm Pain Scale: 0-10 Numeric Is Patient Pain Free? Yes Yes - Nurse 3 - General Ulcer D/C NN Start: 04/12/25 14:05 Freq: Status: Active Protocol: Activity Type Activity Date Activity User E-sign Co-sign Detail Recorded Client Recorded Date Recorded By Document 04/12/25 14:56 RB [id number] 04/12/25 14:58 RB Document 04/19/25 14:58 RB [id number] 04/19/25 15:00 RB 04/12/25 04/19/25 14:56 14:58 Wound Care Center Nurse 3 right plantar foot -Primary Dressing Applied Hysept -Other Dressing dakinsa dakins , moistened gauze moistened gauze / abd -Primary Dressing Covered/Secured with Dry Gauze & Dry Gauze & Roll Gauze, Roll Gauze, Secured with Secured with Tape Tape -Hysept 1 Right dorsum/TMA -Other Dressing dakins dakins moistened gauze moistened gauze /ABD -Primary Dressing Covered/Secured with Dry Gauze & Dry Gauze & Roll Gauze, Roll Gauze, Secured with Secured with Tape Tape right anterior ankle -Other Dressing dakins dakins moistened gauze moistened gauze -Primary Dressing Covered/Secured with Dry Gauze & Dry Gauze & Roll Gauze, Roll Gauze, Secured with Secured with Tape Tape -Wound Comment(s) pt requersted tubigrip instead of WILLIAM due pt states WILLIAM is too thick RLE -Compression Wrap William Wrap -Tubular Bandage Single Layer -Size of Tubigrip Used Size E -Size E ($) 1 Treatment Response Procedure Procedure Tolerated Well Tolerated Well Pain Scale: 0-10 Numeric Is Patient Pain Free? Yes Yes - Visit Discharge Discharge Condition Stable Stable Ambulatory Status Ambulatory Ambulatory Transportation Private Auto Private Auto Medication Reconcilliation completed & No No provided to patient/care provider Clinical Summary of Care Provided Yes Yes Assessment/Plan Assessment/Plan (1) Non-pressure chronic ulcer of other part of right foot with necrosis of muscle: CODE(S): L97.513 - Non-pressure chronic ulcer of other part of right foot with necrosis of muscle PLAN: Patient was examined and evaluated. All findings were discussed with the patient. All questions were answered to the patient satisfaction. Excisional debridement down to and including subcutaneous tissue, fascia muscle to the right lower extremity TMA site done with a rongeur to remove the bone and a 5 mm dermal curette as well as with rongeur to clean up the full-thickness wound done without incident. Predebridement measurement 4.4 x 5.0 x 0.2 cm. Postdebridement measurement is 4.5 x 5.2 x 0.3 cm. Excisional debridement down to and including subcutaneous tissue with a number 5 mm dermal curette the right ankle lateral full-thickness wound done without incident. Predebridement measurement 0.4 x 1.2 x 0.1 cm. Postdebridement measurement is 0.5 x 1.4 x 0.2 cm. Excisional debridement down to and including subcutaneous tissue with a number 5 mm dermal curette to the right plantar full-thickness wound done without incident. Predebridement measurement was 0.5 x 1 x 0.1 cm. Postdebridement measurement is 0.8 x 1.3 x 0.1 cm. The right lower extremity was wiped clean and patted dry. [place] soaked gauze was applied to all full-thickness wound dry sterile dressing with light compression wrap. Currently the patient is booked to move forward with surgical intervention with amniotic skin graft substitute application in the operating room at [facility]. Due to the improvement of the full-thickness wound to the TMA site with no exposed bone we will begin authorization for amniotic skin graft substitute to be applied in clinic to help speed up the recovery of the full-thickness wound that has been treated greater than 4 weeks at this time. If we are showing great improvement we will remove the patient from the operating room schedule and cancel his surgical case as it will not be needed at that time. Patient will follow-up with Dr. 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
[2025-04-26 14:57] VITALS: BP 171/69; PULSE 68; RESP 18; TEMP 36.4
--- NOTE | 2025-04-26 15:46 | PCM.WC.PN ---
History of Present Illness Date of Service: 04/26/25 Chief Complaint: Full-thickness wound to the TMA site right lower extremity History of Wound: Evidence of traumatic full-thickness wound to the right TMA site after striking it on oil rig gear. Wound has been treated with Betadine soaked gauze as well as on oral doxycycline 100 mg twice daily. Patient is borderline diabetic. Progress of Wound: Stable improving full-thickness wounds to right lower extremity. Subjective Subjective Patient is 84-year-old male presented to clinic today follow-up evaluation of full-thickness wounds to right lower extremity. Patient is compliant with dressing changes. He is complete all antibiotics. He has improvement to the wound. He will sign surgical paperwork for surgical intervention in the next upcoming weeks. We will begin amniotic skin graft substitute application today. He denies trauma. Denies constitutional symptoms. No other pedal complaints at this time. Objective Data Objective Data Vital Signs: Vital Signs Temp Pulse Resp BP O2 Del Method 97.5 F L 68 18 171/69 H Room Air 04/26/25 14:57 04/26/25 14:57 04/26/25 14:57 04/26/25 14:57 04/26/25 14:57 Oxygen Delivery Method Room Air Lab / Micro Data Micro: Microbiology 03/15/25 15:55 Bone - Right Foot Gram Stain - Final 03/15/25 15:55 Bone - Right Foot Wound Culture - Final Klebsiella pneumoniae sp pneum Escherichia coli Stenotrophomonas maltophilia Staphylococcus aureus Staphylococcus epidermidis Enterococcus faecalis Corynebacterium amycolatum 03/15/25 15:55 Bone - Right Foot Anaerobic Culture - Final No anaerobic bacteria isolated. Physical Exam Narrative Vascular: Peroneal, AT and PT pulses are monophasic on Doppler to the right lower extremity. Skin temperature gradient is warm to warm from proximal ankles to TMA stump with mild focal increase. No erythema. Neurological: Light touch is intact. Protective station is absent. Dermatological: Full-thickness wound to the right lower extremity TMA site measuring 4.4 x 4.8 x 0.5 cm. Wound base is fibrogranular nature. Negative probe to bone. Right plantar full-thickness wound measuring 0.9 x 0.8 x 0.1 cm. Wound base is fibrogranular tissue. Evidence of full-thickness wound to the ankle measuring 0.5 x 1.2 x 0.2 cm. Wound base is fibrogranular nature. Excisional debridement down to and including subcutaneous tissue, fascia muscle to the right lower extremity TMA site done with a rongeur to remove the bone and a 5 mm dermal curette to the full-thickness wound done without incident. Predebridement measurement 4.2 x 4.5 x 0.4 cm. Postdebridement measurement is 4.4 x 4.8 x 0.5 cm. EpiFix 4.0 x 4.5 cm mesh was applied to the right TMA full-thickness ulceration with 100% use. First application. The graft site was free and clear of any infection. The wound/skin graft substitute was dressed with nonadherent bandage secured in place with Steri-Strips followed by bolster dressing as well as a single layer Tubigrip. Excisional debridement down to and including subcutaneous tissue, fascia and muscle with a number 5 mm dermal curette the right ankle lateral full-thickness wound done without incident. Predebridement measurement 0.4 x 1.0 x 0.1 cm. Postdebridement measurement is 0.5 x 1.2 x 0.2 cm. Excisional debridement down to and including subcutaneous tissue with a number 5 mm dermal curette to the right plantar full-thickness wound done without incident. Predebridement measurement was 0.7 x 0.5 x 0.1 cm. Postdebridement measurement is 0.9 x 0.8 x 0.1 cm. Muscle skeletal: No pain to palpation to the full-thickness wounds to the right lower extremity. No pain with calf pressure. Const alert, oriented x3 and no apparent distress Debridement Note Debridement Note Debridement Free Text: Excisional debridement down to and including subcutaneous tissue, fascia muscle to the right lower extremity TMA site done with a rongeur to remove the bone and a 5 mm dermal curette to the full-thickness wound done without incident. Predebridement measurement 4.2 x 4.5 x 0.4 cm. Postdebridement measurement is 4.4 x 4.8 x 0.5 cm. EpiFix 4.0 x 4.5 cm mesh was applied to the right TMA full-thickness ulceration with 100% use. First application. The graft site was free and clear of any infection. The wound/skin graft substitute was dressed with nonadherent bandage secured in place with Steri-Strips followed by bolster dressing as well as a single layer Tubigrip. Excisional debridement down to and including subcutaneous tissue, fascia and muscle with a number 5 mm dermal curette the right ankle lateral full-thickness wound done without incident. Predebridement measurement 0.4 x 1.0 x 0.1 cm. Postdebridement measurement is 0.5 x 1.2 x 0.2 cm. Excisional debridement down to and including subcutaneous tissue with a number 5 mm dermal curette to the right plantar full-thickness wound done without incident. Predebridement measurement was 0.7 x 0.5 x 0.1 cm. Postdebridement measurement is 0.9 x 0.8 x 0.1 cm. Post-Debridement Measurements and Additional Note: Post-Debridement Measurements/Treatment WC - Nurse 1 - General Ulcer Assessment Start: 04/12/25 14:05 Freq: Status: Active Protocol: WC.LOWEXT Activity Type Activity Date Activity User E-sign Co-sign Detail Recorded Client Recorded Date Recorded By Document 04/12/25 14:05 ML [id number] 04/12/25 14:10 ML Document 04/19/25 14:11 TS [id number] 04/19/25 14:22 TS Document 04/26/25 14:57 GM [id number] 04/26/25 15:04 GM 04/12/25 04/19/25 04/26/25 14:05 14:11 14:57 - Today's Visit Information Type of service Follow-up Visit Follow-up Visit Follow-up Visit (Physician/FINANCIAL DATA ANALYST (Physician/FINANCIAL DATA ANALYST (Physician/FINANCIAL DATA ANALYST ) ) ) Arrival Mode Ambulatory Ambulatory Ambulatory Transfer Assistance None Patient Identification Verified (Name & Yes Yes Yes ) Patient Requires Transmission-Based No No Precautions Safety Precautions Fall Prevention Vital Signs Temperature (97.8 F-99.1 F) 98.0 F 97.2 F L 97.5 F L Temperature Source Temporal Temporal Temporal Pulse Rate (60-100) 55 L 68 Pulse Location Monitor Monitor Monitor Respiratory Rate (12-18) 15 17 18 Respiratory rate source Observation Observation Monitor Oxygen Delivery Method Room Air Room Air Blood Pressure (90/60-120/80) 131/49 H 171/69 H Blood Pressure Mean (mm Hg) 76 103 Source Monitor Monitor Monitor Position Sitting Sitting Sitting Blood Pressure Location Right Forearm Left Arm Right Arm History Since Last Visit- (Skip if this is Patient's initial visit) Have you changed medications since your No No No last visit? Any new allergies or adverse reactions No No No Had a fall/change in ADL's that may No No No increase risk of falls Signs or symptoms of abuse and/or No No No neglect since last visit Have you been in the hospital since your No No No last visit? Has dressing in place as prescribed Yes Yes Yes Has compression in place as prescribed Yes Yes Yes Has offloadiing in place as prescribed N/A N/A Yes Experienced any changes in pain level or No No management Left Footwear Regular Shoe Right Footwear Surgical Shoe with pressure relief insole Pain Scale: 0-10 Numeric Is Patient Pain Free? Yes Yes Yes WC - Nurse 1 - General Ulcer Measurement Start: 04/12/25 14:05 Freq: Status: Active Protocol: Activity Type Activity Date Activity User E-sign Co-sign Detail Recorded Client Recorded Date Recorded By Document 04/12/25 14:05 ML [id number] 04/12/25 14:10 ML Document 04/19/25 14:11 TS [id number] 04/19/25 14:22 TS Document 04/26/25 14:57 GM [id number] 04/26/25 15:04 GM 04/12/25 04/19/25 04/26/25 14:05 14:11 14:57 Wound Center Nurse 1 Right Lateral Leg -Current Size (cm) - Length 0.1 -Current Size (cm) - Width 0.1 -Current Size (cm) - Depth 0.1 -Total Square Cm 0.01 -Exudate Amt Medium -Exudate Type Serosanguineous -Granulation Amt Medium (34-66%) -Slough/Fibrin Yes -Necrosis Amt Medium (34-66%) -Necrotic Tissue Type Adherent Slough -Texture (Marta-wound Skin Appearance) Assessed -Moisture (Marta-wound Skin Appearance) Assessed -Color (Marta-wound Skin Appearance) Assessed -Temperature (Marta-wound Skin No Abnormality Appearance) (Pt Warm) -Tenderness on Palpation (Marta-wound Yes Skin Appearance) -Ulcer Cleansing Soap and Water -Foul Odor after Cleansing No -Anesthetic Used 5% Lidocaine Gel right plantar foot -Combined with other wound No -Current Size (cm) - Length 0.2 1 0.4 -Current Size (cm) - Width 0.2 1.2 0.6 -Current Size (cm) - Depth 0.1 0.1 0.2 -Total Square Cm 0.04 1.2 0.24 -Date of Last Picture (Recall this 04/19/25 04/26/25 field) -Photo Taken Yes Yes -Epithelialization Small 1-33% -Tunneling No No -Undermining/Tunneling No No -Circular Undermining No No -Exudate Amt Medium Medium Medium -Exudate Type Serosanguineous Serosanguineous Yellow/Green -Wound Margin Distinct, Distinct, Distinct, Outline Outline Outline Attached Attached Attached -Granulation Amt Medium (34-66%) Medium (34-66%) Medium (34-66%) -Granulation Quality [place],Red [place] -Slough/Fibrin Yes Yes No -Necrosis Amt Medium (34-66%) Medium (34-66%) Small (1-33%) -Necrotic Tissue Type Adherent Slough Adherent Slough -Structure Exposed None/Limited to Skin Breakdown -Texture (Marta-wound Skin Appearance) Assessed Assessed Assessed -Moisture (Marta-wound Skin Appearance) Assessed Assessed,Dry/ Assessed Scaly -Color (Marta-wound Skin Appearance) Assessed Assessed Assessed -Temperature (Marta-wound Skin No Abnormality No Abnormality Appearance) (Pt Warm) (Pt Warm) -Tenderness on Palpation (Marta-wound No Skin Appearance) -Ulcer Cleansing Soap and Water Soap and Water -Foul Odor after Cleansing No No No -Anesthetic Used 5% Lidocaine 5% Lidocaine 5% Lidocaine Gel Gel Gel Right dorsum/TMA -Combined with other wound No -Current Size (cm) - Length 0.4 4.5 4.5 -Current Size (cm) - Width 0.5 5.1 4.9 -Current Size (cm) - Depth 0.3 0.2 0.1 -Total Square Cm 0.20 22.95 22.05 -Date of Last Picture (Recall this 04/19/25 04/26/25 field) -Photo Taken Yes Yes -Epithelialization Small 1-33% -Tunneling No No -Undermining/Tunneling No No -Circular Undermining No No -Change in Wound Grade/Stage No -Exudate Amt Medium Medium Large -Exudate Type Serosanguineous Serosanguineous Yellow/Green -Wound Margin Distinct, Distinct, Outline Outline Attached Attached -Granulation Amt Medium (34-66%) Medium (34-66%) -Granulation Quality [place],Red [place] -Slough/Fibrin Yes Yes -Necrosis Amt Medium (34-66%) Medium (34-66%) Small (1-33%) -Necrotic Tissue Type Adherent Slough Adherent Slough -Structure Exposed None/Limited to Skin Breakdown -Texture (Marta-wound Skin Appearance) Assessed Assessed Assessed -Moisture (Marta-wound Skin Appearance) Assessed,Dry/ Assessed Scaly -Color (Marta-wound Skin Appearance) Assessed Assessed Assessed -Temperature (Marta-wound Skin No Abnormality No Abnormality No Abnormality Appearance) (Pt Warm) (Pt Warm) (Pt Warm) -Tenderness on Palpation (Marta-wound No Skin Appearance) -Ulcer Cleansing Soap and Water Soap and Water Soap and Water -Foul Odor after Cleansing No No No -Anesthetic Used 5% Lidocaine 5% Lidocaine 5% Lidocaine Gel Gel Gel right anterior ankle -Combined with other wound No -Current Size (cm) - Length 2 0.3 0.1 -Current Size (cm) - Width 2 1 0.1 -Current Size (cm) - Depth 0.3 0.1 0.1 -Total Square Cm 4 0.3 0.01 -Date of Last Picture (Recall this 04/19/25 field) -Photo Taken Yes No -Epithelialization Large 67-100% -Tunneling No No -Undermining/Tunneling No No -Circular Undermining No No -Change in Wound Grade/Stage No -Exudate Amt Medium None Present None Present -Exudate Type Serosanguineous -Wound Margin Distinct, Distinct, Outline Outline Attached Attached -Granulation Amt Medium (34-66%) Large (67-100%) -Granulation Quality [place],Red [place] -Slough/Fibrin Yes No Yes -Necrosis Amt Medium (34-66%) Large (67-100%) -Necrotic Tissue Type Adherent Slough Adherent Slough -Structure Exposed None/Limited to Skin Breakdown -Texture (Marta-wound Skin Appearance) Assessed Assessed Assessed -Moisture (Marta-wound Skin Appearance) Assessed Assessed,Dry/ Assessed Scaly -Color (Marta-wound Skin Appearance) Assessed Assessed Assessed -Temperature (Marta-wound Skin No Abnormality No Abnormality Appearance) (Pt Warm) (Pt Warm) -Tenderness on Palpation (Marta-wound No No Skin Appearance) -Ulcer Cleansing Soap and Water Soap and Water Soap and Water -Foul Odor after Cleansing No No No -Anesthetic Used 5% Lidocaine 5% Lidocaine 5% Lidocaine Gel Gel Gel Lower Limb Edema Present No Right Calf (cm) 38 Point of measurement (cm from the medial 37.5 instep) Right Ankle (cm) 26 Point of Measurement (cm from the medial 25 instep) WC - Nurse 2 - General Ulcer CM Notes Start: 04/12/25 14:05 Freq: Status: Active Protocol: Activity Type Activity Date Activity User E-sign Co-sign Detail Recorded Client Recorded Date Recorded By Document 04/12/25 14:21 [id number] 04/12/25 14:25 Document 04/19/25 14:40 [id number] 04/19/25 14:44 Document 04/26/25 15:14 [id number] 04/26/25 15:23 04/12/25 04/19/25 04/26/25 14:21 14:40 15:14 Wound Center Nurse 2 Right Lateral Leg -Correct Patient Yes -Correct Side, Site, Position No -Correct Procedure No -Procedure Performed No -Post Debridement (cm) - Length 0 -Post Debridement (cm) - Width 0 -Post Debridement (cm) - Depth 0 -Total Square (Post) (cm) 0 -Area of Debridement (cm) - Length 0 -Area of Debridement (cm) - Width 0 -Total Square (Area) (cm) 0 -Wound/Ulcer Outcome Healed- Epithelialized right plantar foot -Time 14:22 14:40 15:19 -Correct Patient Yes Yes Yes -Correct Side, Site, Position Yes Yes Yes -Correct Procedure Yes Yes Yes -Procedure Performed Yes Yes Yes -Type of Procedure Debridement Debridement Debridement -Clinical Debridement Subcutaneous Subcutaneous Subcutaneous -Tissue Removed Subcutaneous Subcutaneous Subcutaneous -Post Debridement (cm) - Length 1 0.8 0.9 -Post Debridement (cm) - Width 1.3 1.3 0.8 -Post Debridement (cm) - Depth 0.1 0.1 0.1 -Total Square (Post) (cm) 1.3 1.04 0.72 -Area of Debridement (cm) - Length 1 0.8 0.9 -Area of Debridement (cm) - Width 1.3 1.3 0.8 -Total Square (Area) (cm) 1.3 1.04 0.72 -Tunneling No No No -Undermining/Tunneling No No No -Circular Undermining No No No -Wound/Ulcer Outcome Not Healed Not Healed Not Healed -Ulcer Cleansing Rinsed/ Rinsed/ Rinsed/ Irrigated with Irrigated with Irrigated with Saline Saline Saline -Foul Odor after Cleansing No No No -Bioengineered Tissue No No No -Bleeding Controlled with Pressure Pressure Pressure -Treatment Response Procedure Procedure Procedure Tolerated Well Tolerated Well Tolerated Well -Offloading Yes No Yes -Type of Offloading Surgical Shoe Surgical Shoe -Debridement - Subq, 1st 20sq cm Yes Yes Yes Right dorsum/TMA -Time 14:23 14:41 15:20 -Correct Patient Yes Yes Yes -Correct Side, Site, Position Yes Yes Yes -Correct Procedure Yes Yes Yes -Procedure Performed Yes Yes Yes -Type of Procedure Debridement Debridement Debridement -Clinical Debridement Bone Muscle / Fascia Muscle / Fascia -Tissue Removed Non-viable Muscle Muscle tissue -Post Debridement (cm) - Length 4.8 4.5 4.4 -Post Debridement (cm) - Width 5.2 5.2 4.8 -Post Debridement (cm) - Depth 0.5 0.3 0.5 -Total Square (Post) (cm) 24.96 23.40 21.12 -Area of Debridement (cm) - Length 4.8 4.5 4.4 -Area of Debridement (cm) - Width 5.2 5.2 4.8 -Total Square (Area) (cm) 24.96 23.40 21.12 -Tunneling No No No -Undermining/Tunneling No No No -Circular Undermining No No No -Wound/Ulcer Outcome Not Healed Not Healed Not Healed -Ulcer Cleansing Rinsed/ Rinsed/ Rinsed/ Irrigated with Irrigated with Irrigated with Saline Saline Saline -Foul Odor after Cleansing No No No -Bioengineered Tissue No No Yes -Type of Bioengineered Tissue Epifix Mesh -Expiration Date 11/06/29 -Product Lot Number [id number] -Percent Used 100 -Lot number of Saline Used [id number] -Bleeding Controlled with Pressure Pressure, Pressure Surgifoam ? x 2 3/8 (sm) -Surgifoam (3/4 x 2 3/8) Small 1 -Treatment Response Procedure Procedure Procedure Tolerated Well Tolerated Well Tolerated Well -Offloading Yes No Yes -Type of Offloading Surgical Shoe Surgical Shoe -Debridement - Muscle / Fascia, 1st Yes No 20sq cm -Debridement, Muscle/Fascia, ea addt'l 1 20sq cm or part thereof -Debridement - Bone, 1st 20sq cm Yes -Debridement, Bone, ea addt'l 20sq cm 1 or part thereof -Apply Skin Sub - 1st 25 sq cm - Feet 1 -Epifix Mesh Application 1-4 (per sq 11 cm) right anterior ankle -Time 14:24 14:41 15:21 -Correct Patient Yes Yes Yes -Correct Side, Site, Position Yes Yes Yes -Correct Procedure Yes Yes Yes -Procedure Performed Yes Yes Yes -Type of Procedure Debridement Debridement Debridement -Clinical Debridement Muscle / Fascia Muscle / Fascia Muscle / Fascia -Tissue Removed Tendon Muscle Muscle -Post Debridement (cm) - Length 0.7 0.5 0.5 -Post Debridement (cm) - Width 1.3 1.4 1.2 -Post Debridement (cm) - Depth 0.2 0.2 0.2 -Total Square (Post) (cm) 0.91 0.70 0.60 -Area of Debridement (cm) - Length 0.7 0.5 0.5 -Area of Debridement (cm) - Width 1.3 1.4 1.2 -Total Square (Area) (cm) 0.91 0.70 0.60 -Tunneling No No No -Undermining/Tunneling No No No -Circular Undermining No No No -Wound/Ulcer Outcome Not Healed Not Healed Not Healed -Ulcer Cleansing Rinsed/ Rinsed/ Rinsed/ Irrigated with Irrigated with Irrigated with Saline Saline Saline -Foul Odor after Cleansing No No No -Bioengineered Tissue No No No -Bleeding Controlled with Pressure Pressure Pressure -Treatment Response Procedure Procedure Procedure Tolerated Well Tolerated Well Tolerated Well -Offloading Yes No Yes -Type of Offloading Surgical Shoe Surgical Shoe -Debridement - Muscle / Fascia, 1st Yes No Yes 20sq cm Pain Scale: 0-10 Numeric Is Patient Pain Free? Yes Yes Yes WC - Nurse 3 - General Ulcer D/C NN Start: 04/12/25 14:05 Freq: Status: Active Protocol: Activity Type Activity Date Activity User E-sign Co-sign Detail Recorded Client Recorded Date Recorded By Document 04/12/25 14:56 RB [id number] 04/12/25 14:58 RB Document 04/19/25 14:58 RB [id number] 04/19/25 15:00 RB Document 04/26/25 15:28 [id number] 04/26/25 15:36 04/12/25 04/19/25 04/26/25 14:56 14:58 15:28 Wound Care Center Nurse 3 right plantar foot -Ulcer Cleansing Not Cleansed -Foul Odor after Cleansing No -Primary Dressing Applied Hysept -Other Dressing dakinsa dakins , Abd pad moistened gauze moistened gauze / abd -Primary Dressing Covered/Secured with Dry Gauze & Dry Gauze & Dry Gauze & Roll Gauze, Roll Gauze, Roll Gauze, Secured with Secured with Secured with Tape Tape Tape -Hysept 1 Right dorsum/TMA -Ulcer Cleansing Not Cleansed -Foul Odor after Cleansing No -Primary Dressing Applied Other -Other Dressing dakins dakins abd pad moistened gauze moistened gauze /ABD -Primary Dressing Covered/Secured with Dry Gauze & Dry Gauze & Roll Gauze, Roll Gauze, Secured with Secured with Tape Tape right anterior ankle -Ulcer Cleansing Not Cleansed -Foul Odor after Cleansing No -Primary Dressing Applied Other -Other Dressing dakins dakins abd pad moistened gauze moistened gauze -Primary Dressing Covered/Secured with Dry Gauze & Dry Gauze & Roll Gauze, Roll Gauze, Secured with Secured with Tape Tape -Wound Comment(s) pt requersted tubigrip instead of WILLIAM due pt states WILLIAM is too thick RLE -Lotion applied to leg before No compression wrap -Compression Wrap William Wrap -Tubular Bandage Single Layer Single Layer -Size of Tubigrip Used Size E Size E -Size E ($) 1 1 Treatment Response Procedure Procedure Tolerated Well Tolerated Well Pain Scale: 0-10 Numeric Is Patient Pain Free? Yes Yes Yes WC - Visit Discharge Discharge Condition Stable Stable Stable Ambulatory Status Ambulatory Ambulatory Ambulatory Transportation Private Auto Private Auto Private Auto Medication Reconcilliation completed & No No provided to patient/care provider Clinical Summary of Care Provided Yes Yes Assessment/Plan Assessment/Plan (1) Non-pressure chronic ulcer of other part of right foot with necrosis of muscle: CODE(S): L97.513 - Non-pressure chronic ulcer of other part of right foot with necrosis of muscle PLAN: Patient was examined and evaluated. All findings were discussed with the patient. All questions were answered to the patient satisfaction. Excisional debridement down to and including subcutaneous tissue, fascia muscle to the right lower extremity TMA site done with a rongeur to remove the bone and a 5 mm dermal curette to the full-thickness wound done without incident. Predebridement measurement 4.2 x 4.5 x 0.4 cm. Postdebridement measurement is 4.4 x 4.8 x 0.5 cm. EpiFix 4.0 x 4.5 cm mesh was applied to the right TMA full-thickness ulceration with 100% use. First application. The graft site was free and clear of any infection. The wound/skin graft substitute was dressed with nonadherent bandage secured in place with Steri-Strips followed by bolster dressing as well as a single layer Tubigrip. Excisional debridement down to and including subcutaneous tissue, fascia and muscle with a number 5 mm dermal curette the right ankle lateral full-thickness wound done without incident. Predebridement measurement 0.4 x 1.0 x 0.1 cm. Postdebridement measurement is 0.5 x 1.2 x 0.2 cm. Excisional debridement down to and including subcutaneous tissue with a number 5 mm dermal curette to the right plantar full-thickness wound done without incident. Predebridement measurement was 0.7 x 0.5 x 0.1 cm. Postdebridement measurement is 0.9 x 0.8 x 0.1 cm. Patient is improving well to the full-thickness wound to the TMA site. Will continue amnio skin graft substitute moving forward. Patient will sign surgical paperwork however if the patient's continues to show improvement we will remove the patient from the OR schedule which she is understanding of. Patient will continue daily dressing changes to the plantar foot and ankle but will leave the amniotic skin graft substitute clean dry and intact. Patient was educated on signs symptoms of infection. Patient will follow-up with Dr. 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
== END 2025-05-07 23:59 | disposition home or self-care (01) ==
LOC: WC 15:00
PROVIDERS: PCP Internal Medicine; Referring Provider Podiatrist Foot & Ankle Surgery; Visit Provider Podiatrist Foot & Ankle Surgery
DX: I70.239 Atherosclerosis of native arteries of right leg with ulceration of unspecified site (principal); L97.514 Non-pressure chronic ulcer of other part of right foot with necrosis of bone; L97.313 Non-pressure chronic ulcer of right ankle with necrosis of muscle; L97.812 Non-pressure chronic ulcer of other part of right lower leg with fat layer exposed; R73.03 Prediabetes
CPT/HCPCS: 11042; 11043; 11044; 11046; 11047; 15275; Q4186

== ENCOUNTER 2025-06-07 14:00 | Outpatient (RCR) | payer MEDICARE, OTHER, SELFPAY ==
[2025-05-10 14:36] VITALS: BP 168/76; PULSE 80; RESP 18; TEMP 36.3
--- NOTE | 2025-05-10 16:08 | PCM.WC.PN ---
History of Present Illness Date of Service: 05/10/25 Chief Complaint: Full-thickness wound to the TMA site right lower extremity History of Wound: Evidence of traumatic full-thickness wound to the right TMA site after striking it on oil rig gear. Wound has been treated with Betadine soaked gauze as well as on oral doxycycline 100 mg twice daily. Patient is borderline diabetic. Progress of Wound: Healing full-thickness wounds right lower extremity. Subjective Subjective Patient is 84-year-old male presenting to the wound care center today for follow-up evaluation of full-thickness wounds to the right lower extremity. Patient states that the proximal wound and right ankle wound is now healed. He has been leaving the amniotic skin graft substitute clean dry and intact. He admits to changing the outer wound but leaving the wound graft to fail alone. He mitts improvement to the wound he is very grateful for his care. Denies trauma. Denies constitutional symptoms. No other pedal complaints at this time. Objective Data Objective Data Vital Signs: Vital Signs Temp Pulse Resp BP O2 Del Method 97.3 F L 80 18 168/76 H Room Air 05/10/25 14:36 05/10/25 14:36 05/10/25 14:36 05/10/25 14:36 05/10/25 14:36 Oxygen Delivery Method Room Air Lab / Micro Data Micro: Microbiology 03/15/25 15:55 Bone - Right Foot Gram Stain - Final 03/15/25 15:55 Bone - Right Foot Wound Culture - Final Klebsiella pneumoniae sp pneum Escherichia coli Stenotrophomonas maltophilia Staphylococcus aureus Staphylococcus epidermidis Enterococcus faecalis Corynebacterium amycolatum 03/15/25 15:55 Bone - Right Foot Anaerobic Culture - Final No anaerobic bacteria isolated. Physical Exam Narrative Vascular: Peroneal, AT and PT pulses are monophasic on Doppler to the right lower extremity. Skin temperature gradient is warm to warm from proximal ankles to TMA stump with mild focal increase. No erythema. Neurological: Light touch is intact. Protective station is absent. Dermatological: Full-thickness wound to the right lower extremity TMA site measuring 3.8 x 4.8 x 0.4 cm. Wound base is fibrogranular nature. Negative probe to bone. Right plantar full-thickness wound measuring 0.6 x 0.9 x 0.1 cm wound base is granular tissue. Full-thickness wound to the ankle is now healed. Excisional debridement down to and including subcutaneous tissue, fascia muscle to the right lower extremity TMA site done with a rongeur to remove the bone and a 5 mm dermal curette to the full-thickness wound done without incident. Predebridement measurement 3.6 x 4.5 x 0.3 cm. Postdebridement measurement is 3.8 x 4.8 x 0.4 cm. EpiFix 4.0 x 4.5 cm mesh was applied to the right TMA full-thickness ulceration with 100% use. Second application. The graft site was free and clear of any infection. The wound/skin graft substitute was dressed with nonadherent bandage secured in place with Steri-Strips followed by bolster dressing as well as a single layer Tubigrip. Excisional debridement down to and including subcutaneous tissue with a number 5 mm dermal curette to the right plantar full-thickness wound done without incident. Predebridement measurement was 0.5 x 0.7 x 0.1 cm. Postdebridement measurement is 0.6 x 0.9 x 0.1 cm Muscle skeletal: No pain to palpation to the full-thickness wounds to the right lower extremity. No pain with calf pressure. Const alert, oriented x3 and no apparent distress Debridement Note Debridement Note Debridement Free Text: Excisional debridement down to and including subcutaneous tissue, fascia muscle to the right lower extremity TMA site done with a rongeur to remove the bone and a 5 mm dermal curette to the full-thickness wound done without incident. Predebridement measurement 3.6 x 4.5 x 0.3 cm. Postdebridement measurement is 3.8 x 4.8 x 0.4 cm. EpiFix 4.0 x 4.5 cm mesh was applied to the right TMA full-thickness ulceration with 100% use. Second application. The graft site was free and clear of any infection. The wound/skin graft substitute was dressed with nonadherent bandage secured in place with Steri-Strips followed by bolster dressing as well as a single layer Tubigrip. Excisional debridement down to and including subcutaneous tissue with a number 5 mm dermal curette to the right plantar full-thickness wound done without incident. Predebridement measurement was 0.5 x 0.7 x 0.1 cm. 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 ) Arrival Mode Ambulatory Transfer Assistance None Patient Identification Verified (Name & Yes ) Patient Requires Transmission-Based No Precautions Vital Signs Temperature (97.8 F-99.1 F) 97.3 F L Temperature Source Temporal Pulse Rate (60-100) 80 Pulse Location Monitor Respiratory Rate (12-18) 18 Respiratory rate source Observation Oxygen Delivery Method Room Air Blood Pressure (90/60-120/80) 168/76 H Blood Pressure Mean (mm Hg) 106 Source Monitor Position Sitting Blood Pressure Location Left Arm History Since Last Visit- (Skip if this is Patient's initial visit) Have you changed medications since your No last visit? Any new allergies or adverse reactions No Had a fall/change in ADL's that may No increase risk of falls Signs or symptoms of abuse and/or No neglect since last visit Have you been in the hospital since your No last visit? Has dressing in place as prescribed Yes Has compression in place as prescribed N/A Has offloadiing in place as prescribed N/A Experienced any changes in pain level or No management Pain Scale: 0-10 Numeric Is Patient Pain Free? Yes - Nurse 1 - General Ulcer Measurement Start: 05/10/25 14:36 Freq: Status: Active Protocol: Activity Type Activity Date Activity User E-sign Co-sign Detail Recorded Client Recorded Date Recorded By Document 05/10/25 14:36 FELICITA [id number] 05/10/25 14:52 RB 05/10/25 14:36 Wound Center Nurse 1 4. right plantar foot -Combined with other wound No -Current Size (cm) - Length 0.5 -Current Size (cm) - Width 0.8 -Current Size (cm) - Depth 0.2 -Total Square Cm 0.40 -Date of Last Picture (Recall this 05/10/25 field) -Photo Taken Yes -Tunneling No -Undermining/Tunneling No -Circular Undermining No -Exudate Amt Medium -Exudate Type Serosanguineous -Wound Margin Thickened & Rolled Under -Granulation Amt Medium (34-66%) -Granulation Quality [place] -Slough/Fibrin Yes -Necrosis Amt Medium (34-66%) -Necrotic Tissue Type Adherent Slough -Structure Exposed N/A -Texture (Marta-wound Skin Appearance) Assessed -Moisture (Marta-wound Skin Appearance) Assessed -Color (Marta-wound Skin Appearance) Assessed -Temperature (Marta-wound Skin No Abnormality Appearance) (Pt Warm) -Tenderness on Palpation (Marta-wound No Skin Appearance) -Ulcer Cleansing Wound Cleanser -Foul Odor after Cleansing No -Anesthetic Used 5% Lidocaine Gel 2. Right dorsum/TMA -Combined with other wound No -Current Size (cm) - Length 4.5 -Current Size (cm) - Width 5 -Current Size (cm) - Depth 0.1 -Total Square Cm 22.5 -Date of Last Picture (Recall this 05/10/25 field) -Photo Taken Yes -Tunneling No -Undermining/Tunneling No -Circular Undermining No -Exudate Amt Medium -Exudate Type Serosanguineous -Wound Margin Thickened & Rolled Under -Granulation Amt Medium (34-66%) -Granulation Quality [place] -Slough/Fibrin Yes -Necrosis Amt Medium (34-66%) -Necrotic Tissue Type Adherent Slough -Structure Exposed N/A -Texture (Marta-wound Skin Appearance) Assessed,Callus -Moisture (Marta-wound Skin Appearance) Assessed -Color (Marta-wound Skin Appearance) Assessed -Temperature (Marta-wound Skin No Abnormality Appearance) (Pt Warm) -Tenderness on Palpation (Marta-wound No Skin Appearance) -Ulcer Cleansing Wound Cleanser -Foul Odor after Cleansing No -Anesthetic Used 5% Lidocaine Gel 1. right anterior ankle -Combined with other wound No -Current Size (cm) - Length 0.1 -Current Size (cm) - Width 0.1 -Current Size (cm) - Depth 0.1 -Total Square Cm 0.01 -Date of Last Picture (Recall this 05/10/25 field) -Photo Taken Yes -Tunneling No -Undermining/Tunneling No -Circular Undermining No -Exudate Amt Medium -Exudate Type Serosanguineous -Wound Margin Distinct, Outline Attached -Granulation Amt Medium (34-66%) -Granulation Quality [place] -Slough/Fibrin Yes -Necrosis Amt Medium (34-66%) -Necrotic Tissue Type Adherent Slough -Structure Exposed N/A -Texture (Marta-wound Skin Appearance) Assessed -Moisture (Marta-wound Skin Appearance) Assessed,Dry/ Scaly -Color (Marta-wound Skin Appearance) Assessed -Temperature (Marta-wound Skin No Abnormality Appearance) (Pt Warm) -Tenderness on Palpation (Marta-wound No Skin Appearance) -Ulcer Cleansing Wound Cleanser -Foul Odor after Cleansing No -Anesthetic Used 5% Lidocaine Gel Lower Limb Edema Present Yes Right Calf (cm) 38.5 Right Ankle (cm) 25 WC - Nurse 2 - General Ulcer CM Notes Start: 05/10/25 14:36 Freq: Status: Active Protocol: Activity Type Activity Date Activity User E-sign Co-sign Detail Recorded Client Recorded Date Recorded By Document 05/10/25 14:56 RB [id number] 05/10/25 15:04 RB 05/10/25 14:56 Wound Center Nurse 2 4. right plantar foot -Time 14:57 -Correct Patient Yes -Correct Side, Site, Position Yes -Correct Procedure Yes -Procedure Performed Yes -Type of Procedure Debridement -Clinical Debridement Subcutaneous -Tissue Removed Subcutaneous -Post Debridement (cm) - Length 0.6 -Post Debridement (cm) - Width 0.9 -Post Debridement (cm) - Depth 0.1 -Total Square (Post) (cm) 0.54 -Area of Debridement (cm) - Length 0.6 -Area of Debridement (cm) - Width 0.9 -Total Square (Area) (cm) 0.54 -Tunneling No -Undermining/Tunneling No -Circular Undermining No -Wound/Ulcer Outcome Not Healed -Ulcer Cleansing Rinsed/ Irrigated with Saline -Foul Odor after Cleansing No -Bioengineered Tissue No -Bleeding Controlled with Pressure -Treatment Response Procedure Tolerated Well -Offloading Yes -Type of Offloading Surgical Shoe -Debridement - Subq, 1st 20sq cm Yes 2. Right dorsum/TMA -Time 14:57 -Correct Patient Yes -Correct Side, Site, Position Yes -Correct Procedure Yes -Procedure Performed Yes -Type of Procedure Debridement -Clinical Debridement Muscle / Fascia -Tissue Removed Muscle -Post Debridement (cm) - Length 3.8 -Post Debridement (cm) - Width 4.8 -Post Debridement (cm) - Depth 0.4 -Total Square (Post) (cm) 18.24 -Area of Debridement (cm) - Length 3.8 -Area of Debridement (cm) - Width 4.8 -Total Square (Area) (cm) 18.24 -Tunneling No -Undermining/Tunneling No -Circular Undermining No -Wound/Ulcer Outcome Not Healed -Ulcer Cleansing Rinsed/ Irrigated with Saline -Foul Odor after Cleansing No -Bioengineered Tissue Yes -Type of Bioengineered Tissue Epifix Mesh -Expiration Date 11/06/29 -Product Lot Number [id number] -Percent Used 100 -Lot number of Saline Used [id number] -Bleeding Controlled with Pressure -Treatment Response Procedure Tolerated Well -Offloading Yes -Type of Offloading Surgical Shoe -Debridement - Muscle / Fascia, 1st No 20sq cm 1. right anterior ankle -Time 14:58 -Correct Patient Yes -Correct Side, Site, Position Yes -Correct Procedure Yes -Procedure Performed Yes -Type of Procedure Debridement -Clinical Debridement Muscle / Fascia -Tissue Removed Muscle -Tunneling No -Undermining/Tunneling No -Circular Undermining No -Wound/Ulcer Outcome Not Healed -Ulcer Cleansing Rinsed/ Irrigated with Saline -Foul Odor after Cleansing No -Bioengineered Tissue No -Bleeding Controlled with Pressure -Treatment Response Procedure Tolerated Well -Offloading Yes -Type of Offloading Surgical Shoe -Debridement - Muscle / Fascia, 1st No 20sq cm Pain Scale: 0-10 Numeric Is Patient Pain Free? Yes - Nurse 3 - General Ulcer D/C NN Start: 05/10/25 14:36 Freq: Status: Active Protocol: Activity Type Activity Date Activity User E-sign Co-sign Detail Recorded Client Recorded Date Recorded By Document 05/10/25 15:57 RB [id number] 05/10/25 15:59 RB 05/10/25 15:57 Wound Care Center Nurse 3 4. right plantar foot -Other Dressing ABD -Primary Dressing Covered/Secured with Dry Gauze & Roll Gauze, Secured with Tape 2. Right dorsum/TMA -Other Dressing ABD -Primary Dressing Covered/Secured with Dry Gauze & Roll Gauze, Secured with Tape 1. right anterior ankle -Primary Dressing Covered/Secured with Dry Gauze & Roll Gauze, Secured with Tape RLE -Compression Wrap William Wrap Treatment Response Procedure Tolerated Well Pain Scale: 0-10 Numeric Is Patient Pain Free? Yes WC - Visit Discharge Discharge Condition Stable Ambulatory Status Wheelchair Transportation Private Auto Medication Reconcilliation completed & No provided to patient/care provider Clinical Summary of Care Provided Yes Assessment/Plan Assessment/Plan (1) Non-pressure chronic ulcer of other part of right foot with necrosis of muscle: CODE(S): L97.513 - Non-pressure chronic ulcer of other part of right foot with necrosis of muscle PLAN: Patient was examined and evaluated. All findings were discussed with the patient. All questions were answered to the patient satisfaction. Excisional debridement down to and including subcutaneous tissue, fascia muscle to the right lower extremity TMA site done with a rongeur to remove the bone and a 5 mm dermal curette to the full-thickness wound done without incident. Predebridement measurement 4.2 x 4.5 x 0.4 cm. Postdebridement measurement is 4.4 x 4.8 x 0.5 cm. Excisional debridement down to and including subcutaneous tissue, fascia muscle to the right lower extremity TMA site done with a rongeur to remove the bone and a 5 mm dermal curette to the full-thickness wound done without incident. Predebridement measurement 3.6 x 4.5 x 0.3 cm. Postdebridement measurement is 3.8 x 4.8 x 0.4 cm. EpiFix 4.0 x 4.5 cm mesh was applied to the right TMA full-thickness ulceration with 100% use. Second application. The graft site was free and clear of any infection. The wound/skin graft substitute was dressed with nonadherent bandage secured in place with Steri-Strips followed by bolster dressing as well as a single layer Tubigrip. Excisional debridement down to and including subcutaneous tissue with a number 5 mm dermal curette to the right plantar full-thickness wound done without incident. Predebridement measurement was 0.5 x 0.7 x 0.1 cm. Postdebridement measurement is 0.6 x 0.9 x 0.1 cm After exam and application of a second amniotic graft substitute. Will cancel the patient's surgical intervention as she is showing excellent progress at the wound care center will continue outpatient wound care conservative treatment. Patient will follow-up with Dr. 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
--- NOTE | 2025-05-11 09:30 | WC ---
PHOTO-RIGHT DORSAL FOOT 05/10/25
--- NOTE | 2025-05-11 09:32 | WC ---
PHOTO-RIGHT TMA 05/10/25
[2025-05-17 14:32] VITALS: BP 154/67; PULSE 101; RESP 16; TEMP 35.9
--- NOTE | 2025-05-17 16:01 | PN.PCM_ITS ---
History of Present Illness Date of Service: 05/17/25 Chief Complaint: Full-thickness wound to the TMA site right lower extremity History of Wound: Evidence of traumatic full-thickness wound to the right TMA site after striking it on oil rig gear. Wound has been treated with Betadine soaked gauze as well as on oral doxycycline 100 mg twice daily. Patient is borderline diabetic. Progress of Wound: Healing full-thickness wounds right lower extremity. Subjective Subjective Patient is 84-year-old male presented clinic today follow-up evaluation of full- thickness wound to the TMA site of the right lower extremity. He has been compliant with keeping the dressing clean dry and intact as well as a skin graft substitute. He denies any pain. He is ambulating without discomfort. Denies trauma. Denies constitutional symptoms. No other pedal complaints at this time. Objective Data Objective Data Vital Signs: Vital Signs Temp Pulse Resp BP O2 Del Method 96.6 F L 101 H 16 154/67 H Room Air 05/17/25 14:32 05/17/25 14:32 05/17/25 14:32 05/17/25 14:32 05/17/25 14:32 Oxygen Delivery Method Room Air Lab / Micro Data Micro: Microbiology 03/15/25 15:55 Bone - Right Foot Gram Stain - Final 03/15/25 15:55 Bone - Right Foot Wound Culture - Final Klebsiella pneumoniae sp pneum Escherichia coli Stenotrophomonas maltophilia Staphylococcus aureus Staphylococcus epidermidis Enterococcus faecalis Corynebacterium amycolatum 03/15/25 15:55 Bone - Right Foot Anaerobic Culture - Final No anaerobic bacteria isolated. Physical Exam Narrative Vascular: Peroneal, AT and PT pulses are monophasic on Doppler to the right lower extremity. Skin temperature gradient is warm to warm from proximal ankles to TMA stump with mild focal increase. No erythema. Neurological: Light touch is intact. Protective station is absent. Dermatological: Full-thickness wound to the right lower extremity TMA site measuring 3.7 x 4.9 x 0.3 cm.. Wound base is fibrogranular nature. Negative probe to bone. Right plantar full-thickness wound measuring 0.5 x 0.8 x 0.2 cm. Wound base is granular tissue. Full-thickness wound to the ankle is now healed. Excisional debridement down to and including subcutaneous tissue, fascia muscle to the right lower extremity TMA site done with a rongeur to remove the bone and a 5 mm dermal curette to the full-thickness wound done without incident. Predebridement measurement 3.5 x 4.7 x 0.2 cm. Postdebridement measurement is 3.7 x 4.9 x 0.3 cm. EpiFix 4.0 x 4.5 cm mesh was applied to the right TMA full-thickness ulceration with 100% use. Third application. The graft site was free and clear of any infection. The wound/skin graft substitute was dressed with nonadherent bandage secured in place with Steri-Strips followed by bolster dressing as well as a single layer Tubigrip. Excisional debridement down to and including subcutaneous tissue with a number 5 mm dermal curette to the right plantar full-thickness wound done without incident. Predebridement measurement was 0.4 x 0.7 x 0.1 cm. Postdebridement measurement is 0.5 x 0.8 x 0.2 cm. Muscle skeletal: No pain to palpation to the full-thickness wounds to the right lower extremity. No pain with calf pressure. Const alert, oriented x3 and no apparent distress Debridement Note Debridement Note Debridement Free Text: Excisional debridement down to and including subcutaneous tissue, fascia muscle to the right lower extremity TMA site done with a rongeur to remove the bone and a 5 mm dermal curette to the full-thickness wound done without incident. Predebridement measurement 3.5 x 4.7 x 0.2 cm. Post debridement measurement is 3.7 x 4.9 x 0.3 cm. EpiFix 4.0 x 4.5 cm mesh was applied to the right TMA full-thickness ulceration with 100% use. Third application. The graft site was free and clear of any infection. The wound/skin graft substitute was dressed with nonadherent bandage secured in place with Steri-Strips followed by bolster dressing as well as a single layer Tubigrip. Excisional debridement down to and including subcutaneous tissue with a number 5 mm dermal curette to the right plantar full-thickness wound done without incident. Predebridement measurement was 0.4 x 0.7 x 0.1 cm. Postdebridement measurement is 0.5 x 0.8 x 0.2 cm. Post-Debridement Measurements and Additional Note: Post-Debridement Measurements/Treatment WC - Nurse 1 - General Ulcer Assessment Start: 05/10/25 14:36 Freq: Status: Active Protocol: [facility]IN[facility] Activity Type Activity Date Activity User E-sign Co-sign Detail Recorded Client Recorded Date Recorded By Document 05/10/25 14:36 RB [id number] 05/10/25 14:52 RB Document 05/17/25 14:32 TS [id number] 05/17/25 14:41 TS 05/10/25 05/17/25 14:36 14:32 - Today's Visit Information Type of service Follow-up Visit Follow-up Visit (Physician/PROFESSOR OF BIOLOGY (Physician/PROFESSOR OF BIOLOGY ) ) Arrival Mode Ambulatory Ambulatory Transfer Assistance None Patient Identification Verified (Name & Yes Yes ) Patient Requires Transmission-Based No No Precautions Safety Precautions Fall Prevention Vital Signs Temperature (97.8 F-99.1 F) 97.3 F L 96.6 F L Temperature Source Temporal Temporal Pulse Rate (60-100) 80 101 H Pulse Location Monitor Monitor Respiratory Rate (12-18) 18 16 Respiratory rate source Observation Observation Oxygen Delivery Method Room Air Room Air Blood Pressure (90/60-120/80) 168/76 H 154/67 H Blood Pressure Mean (mm Hg) 106 96 Source Monitor Monitor Position Sitting Sitting Blood Pressure Location Left Arm Left Arm History Since Last Visit- (Skip if this is Patient's initial visit) Have you changed medications since your No No last visit? Any new allergies or adverse reactions No No Had a fall/change in ADL's that may No No increase risk of falls Signs or symptoms of abuse and/or No No neglect since last visit Have you been in the hospital since your No last visit? Has dressing in place as prescribed Yes Yes Has compression in place as prescribed N/A N/A Has offloadiing in place as prescribed N/A Experienced any changes in pain level or No No management Left Footwear Regular Shoe Right Footwear Surgical Shoe with pressure relief insole Pain Scale: 0-10 Numeric Is Patient Pain Free? Yes Yes - Nurse 1 - General Ulcer Measurement Start: 05/10/25 14:36 Freq: Status: Active Protocol: Activity Type Activity Date Activity User E-sign Co-sign Detail Recorded Client Recorded Date Recorded By Document 05/10/25 14:36 RB [id number] 05/10/25 14:52 RB Document 05/17/25 14:32 TS [id number] 05/17/25 14:41 TS 05/10/25 05/17/25 14:36 14:32 Wound Center Nurse 1 1. right anterior ankle -Combined with other wound No -Current Size (cm) - Length 0.1 -Current Size (cm) - Width 0.1 -Current Size (cm) - Depth 0.1 -Total Square Cm 0.01 -Date of Last Picture (Recall this 05/10/25 field) -Photo Taken Yes -Tunneling No -Undermining/Tunneling No -Circular Undermining No -Exudate Amt Medium -Exudate Type Serosanguineous -Wound Margin Distinct, Outline Attached -Granulation Amt Medium (34-66%) -Granulation Quality [place] -Slough/Fibrin Yes -Necrosis Amt Medium (34-66%) -Necrotic Tissue Type Adherent Slough -Structure Exposed N/A -Texture (Marta-wound Skin Appearance) Assessed -Moisture (Marta-wound Skin Appearance) Assessed,Dry/ Scaly -Color (Marta-wound Skin Appearance) Assessed -Temperature (Marta-wound Skin No Abnormality Appearance) (Pt Warm) -Tenderness on Palpation (Marta-wound No Skin Appearance) -Ulcer Cleansing Wound Cleanser -Foul Odor after Cleansing No -Anesthetic Used 5% Lidocaine Gel 4. right plantar foot -Combined with other wound No No -Current Size (cm) - Length 0.5 1 -Current Size (cm) - Width 0.8 0.5 -Current Size (cm) - Depth 0.2 0.1 -Total Square Cm 0.40 0.5 -Date of Last Picture (Recall this 05/10/25 05/17/25 field) -Photo Taken Yes Yes -Tunneling No -Undermining/Tunneling No No -Circular Undermining No No -Exudate Amt Medium Small -Exudate Type Serosanguineous Serosanguineous -Wound Margin Thickened & Distinct, Rolled Under Outline Attached -Granulation Amt Medium (34-66%) Small (1-33%) -Granulation Quality [place],Red -Slough/Fibrin Yes Yes -Necrosis Amt Medium (34-66%) Small (1-33%) -Necrotic Tissue Type Adherent Slough Adherent Slough -Structure Exposed N/A None/Limited to Skin Breakdown -Texture (Marta-wound Skin Appearance) Assessed Assessed -Moisture (Marta-wound Skin Appearance) Assessed Assessed -Color (Marta-wound Skin Appearance) Assessed Assessed -Temperature (Marta-wound Skin No Abnormality No Abnormality Appearance) (Pt Warm) (Pt Warm) -Tenderness on Palpation (Marta-wound No Skin Appearance) -Ulcer Cleansing Wound Cleanser Soap and Water -Foul Odor after Cleansing No No -Anesthetic Used 5% Lidocaine 5% Lidocaine Gel Gel 2. Right dorsum/TMA -Combined with other wound No No -Current Size (cm) - Length 4.5 3.5 -Current Size (cm) - Width 5 5 -Current Size (cm) - Depth 0.1 0.3 -Total Square Cm 22.5 17.5 -Date of Last Picture (Recall this 05/10/25 05/17/25 field) -Photo Taken Yes Yes -Tunneling No -Undermining/Tunneling No No -Circular Undermining No No -Exudate Amt Medium Medium -Exudate Type Serosanguineous Serosanguineous -Wound Margin Thickened & Distinct, Rolled Under Outline Attached -Granulation Amt Medium (34-66%) Small (1-33%) -Granulation Quality [place],Red -Slough/Fibrin Yes Yes -Necrosis Amt Medium (34-66%) -Necrotic Tissue Type Adherent Slough Adherent Slough -Structure Exposed N/A None/Limited to Skin Breakdown -Texture (Marta-wound Skin Appearance) Assessed,Callus Assessed -Moisture (Marta-wound Skin Appearance) Assessed Assessed -Color (Marta-wound Skin Appearance) Assessed Assessed -Temperature (Marta-wound Skin No Abnormality No Abnormality Appearance) (Pt Warm) (Pt Warm) -Tenderness on Palpation (Marta-wound No Skin Appearance) -Ulcer Cleansing Wound Cleanser Soap and Water -Foul Odor after Cleansing No No -Anesthetic Used 5% Lidocaine 5% Lidocaine Gel Gel Lower Limb Edema Present Yes Right Calf (cm) 38.5 Right Ankle (cm) 25 WC - Nurse 2 - General Ulcer CM Notes Start: 05/10/25 14:36 Freq: Status: Active Protocol: Activity Type Activity Date Activity User E-sign Co-sign Detail Recorded Client Recorded Date Recorded By Document 05/10/25 14:56 RB [id number] 05/10/25 15:04 RB Edit Result 05/10/25 14:56 RB (1) [id number] 05/17/25 12:10 GM Document 05/17/25 15:03 GM [id number] 05/17/25 15:09 GM (1) 2. Right dorsum/TMA - Apply Skin Sub - 1st 25 sq cm - Feet => 1 05/10/25 05/17/25 14:56 15:03 Wound Center Nurse 2 1. right anterior ankle -Time 14:58 -Correct Patient Yes -Correct Side, Site, Position Yes -Correct Procedure Yes -Procedure Performed Yes -Type of Procedure Debridement -Clinical Debridement Muscle / Fascia -Tissue Removed Muscle -Tunneling No -Undermining/Tunneling No -Circular Undermining No -Wound/Ulcer Outcome Not Healed -Ulcer Cleansing Rinsed/ Irrigated with Saline -Foul Odor after Cleansing No -Bioengineered Tissue No -Bleeding Controlled with Pressure -Treatment Response Procedure Tolerated Well -Offloading Yes -Type of Offloading Surgical Shoe -Debridement - Muscle / Fascia, 1st No 20sq cm 4. right plantar foot -Time 14:57 15:03 -Correct Patient Yes Yes -Correct Side, Site, Position Yes Yes -Correct Procedure Yes Yes -Procedure Performed Yes Yes -Type of Procedure Debridement Debridement -Clinical Debridement Subcutaneous Subcutaneous -Tissue Removed Subcutaneous Subcutaneous -Post Debridement (cm) - Length 0.6 0.5 -Post Debridement (cm) - Width 0.9 0.8 -Post Debridement (cm) - Depth 0.1 0.1 -Total Square (Post) (cm) 0.54 0.40 -Area of Debridement (cm) - Length 0.6 0.5 -Area of Debridement (cm) - Width 0.9 0.8 -Total Square (Area) (cm) 0.54 0.40 -Tunneling No No -Undermining/Tunneling No No -Circular Undermining No No -Wound/Ulcer Outcome Not Healed Not Healed -Ulcer Cleansing Rinsed/ Rinsed/ Irrigated with Irrigated with Saline Saline -Foul Odor after Cleansing No No -Bioengineered Tissue No No -Bleeding Controlled with Pressure Pressure -Treatment Response Procedure Procedure Tolerated Well Tolerated Well -Offloading Yes No -Type of Offloading Surgical Shoe -Debridement - Subq, 1st 20sq cm Yes Yes 2. Right dorsum/TMA -Time 14:57 15:04 -Correct Patient Yes Yes -Correct Side, Site, Position Yes Yes -Correct Procedure Yes Yes -Procedure Performed Yes Yes -Type of Procedure Debridement Debridement -Clinical Debridement Muscle / Fascia Muscle / Fascia -Tissue Removed Muscle Muscle -Post Debridement (cm) - Length 3.8 3.7 -Post Debridement (cm) - Width 4.8 4.9 -Post Debridement (cm) - Depth 0.4 0.3 -Total Square (Post) (cm) 18.24 18.13 -Area of Debridement (cm) - Length 3.8 3.7 -Area of Debridement (cm) - Width 4.8 4.9 -Total Square (Area) (cm) 18.24 18.13 -Tunneling No No -Undermining/Tunneling No No -Circular Undermining No No -Wound/Ulcer Outcome Not Healed Not Healed -Ulcer Cleansing Rinsed/ Rinsed/ Irrigated with Irrigated with Saline Saline -Foul Odor after Cleansing No No -Bioengineered Tissue Yes Yes -Type of Bioengineered Tissue Epifix Mesh Epifix Mesh -Expiration Date 11/06/29 11/06/29 -Product Lot Number [id number] -Percent Used 100 100 -Lot number of Saline Used [id number] -Bleeding Controlled with Pressure Pressure -Treatment Response Procedure Procedure Tolerated Well Tolerated Well -Offloading Yes No -Type of Offloading Surgical Shoe -Debridement - Muscle / Fascia, 1st No Yes 20sq cm -Apply Skin Sub - 1st 25 sq cm - Legs 1 -Apply Skin Sub - 1st 25 sq cm - Feet 1 -NuShield (per sq cm) 11 Pain Scale: 0-10 Numeric Is Patient Pain Free? Yes Yes WC - Nurse 3 - General Ulcer D/C NN Start: 05/10/25 14:36 Freq: Status: Active Protocol: Activity Type Activity Date Activity User E-sign Co-sign Detail Recorded Client Recorded Date Recorded By Document 05/10/25 15:57 RB [id number] 05/10/25 15:59 RB Document 05/17/25 15:26 RB [id number] 05/17/25 15:27 RB 05/10/25 05/17/25 15:57 15:26 Wound Care Center Nurse 3 1. right anterior ankle -Primary Dressing Covered/Secured with Dry Gauze & Roll Gauze, Secured with Tape 4. right plantar foot -Other Dressing ABD ABD -Primary Dressing Covered/Secured with Dry Gauze & Dry Gauze & Roll Gauze, Roll Gauze, Secured with Secured with Tape Tape 2. Right dorsum/TMA -Other Dressing ABD ABD -Primary Dressing Covered/Secured with Dry Gauze & Dry Gauze & Roll Gauze, Roll Gauze, Secured with Secured with Tape Tape -Wound Comment(s) william toes to knee RLE -Compression Wrap William Wrap William Wrap Treatment Response Procedure Procedure Tolerated Well Tolerated Well Pain Scale: 0-10 Numeric Is Patient Pain Free? Yes Yes WC - Visit Discharge Discharge Condition Stable Stable Ambulatory Status Wheelchair Ambulatory Transportation Private Auto Private Auto Medication Reconcilliation completed & No No provided to patient/care provider Clinical Summary of Care Provided Yes Yes Assessment/Plan Assessment/Plan (1) Non-pressure chronic ulcer of other part of right foot with necrosis of muscle: CODE(S): L97.513 - Non-pressure chronic ulcer of other part of right foot with necrosis of muscle PLAN: Patient was examined and evaluated. All findings were discussed with the patient. All questions were answered to the patient satisfaction. Excisional debridement down to and including subcutaneous tissue, fascia muscle to the right lower extremity TMA site done with a rongeur to remove the bone and a 5 mm dermal curette to the full-thickness wound done without incident. Predebridement measurement 3.5 x 4.7 x 0.2 cm. Postdebridement measurement is 3.7 x 4.9 x 0.3 cm. EpiFix 4.0 x 4.5 cm mesh was applied to the right TMA full-thickness ulceration with 100% use. Third application. The graft site was free and clear of any infection. The wound/skin graft substitute was dressed with nonadherent bandage secured in place with Steri-Strips followed by bolster dressing as well as a single layer Tubigrip. Excisional debridement down to and including subcutaneous tissue with a number 5 mm dermal curette to the right plantar full-thickness wound done without incident. Predebridement measurement was 0.4 x 0.7 x 0.1 cm. Postdebridement measurement is 0.5 x 0.8 x 0.2 cm. After exam and application of a second amniotic graft substitute. Will cancel the patient's surgical intervention as she is showing excellent progress at the wound care center will continue outpatient wound care conservative treatment. Patient will follow-up with Dr. 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
--- NOTE | 2025-05-18 09:28 | WC ---
PHOTO-RIGHT PLANTAR 05/17/25
--- NOTE | 2025-05-18 09:29 | WC ---
PHOTO-RIGHT TMA 05/17/25
[2025-05-24 15:32] VITALS: BP 161/85; PULSE 91; RESP 16; TEMP 36.4
--- NOTE | 2025-05-24 16:20 | PCM.WC.PN ---
History of Present Illness Date of Service: 05/24/25 Chief Complaint: Full-thickness wound to the TMA site right lower extremity History of Wound: Evidence of traumatic full-thickness wound to the right TMA site after striking it on oil rig gear. Wound has been treated with Betadine soaked gauze as well as on oral doxycycline 100 mg twice daily. Patient is borderline diabetic. Progress of Wound: Healing full-thickness wounds right lower extremity. Subjective Subjective Patient is 84-year-old male presenting to clinic today for follow-up evaluation of full-thickness wounds to the right lower extremity. Patient has been compliant with leaving the dressing clean dry and intact. He denies any drainage. He denies trauma. Denies constitutional symptoms. No other pedal complaints at this time. Objective Data Objective Data Vital Signs: Vital Signs Temp Pulse Resp BP O2 Del Method 97.5 F L 91 16 161/85 H Room Air 05/24/25 15:32 05/24/25 15:32 05/24/25 15:32 05/24/25 15:32 05/24/25 15:32 Oxygen Delivery Method Room Air Lab / Micro Data Micro: Microbiology 03/15/25 15:55 Bone - Right Foot Gram Stain - Final 03/15/25 15:55 Bone - Right Foot Wound Culture - Final Klebsiella pneumoniae sp pneum Escherichia coli Stenotrophomonas maltophilia Staphylococcus aureus Staphylococcus epidermidis Enterococcus faecalis Corynebacterium amycolatum 03/15/25 15:55 Bone - Right Foot Anaerobic Culture - Final No anaerobic bacteria isolated. Physical Exam Narrative Vascular: Peroneal, AT and PT pulses are monophasic on Doppler to the right lower extremity. Skin temperature gradient is warm to warm from proximal ankles to TMA stump with mild focal increase. No erythema. Neurological: Light touch is intact. Protective station is absent. Dermatological: Full-thickness wound to the right lower extremity TMA site measuring 3.4 x 4.6 x 0.2 cm. Wound base is fibrogranular nature. Negative probe to bone. Right plantar full-thickness wound measuring 0.3 x 0.5 x 0.1 cm. Wound base is granular tissue. Full-thickness wound to the ankle is now healed. Excisional debridement down to and including subcutaneous tissue, fascia muscle to the right lower extremity TMA site done with a rongeur to remove the bone and a 5 mm dermal curette to the full-thickness wound done without incident. Predebridement measurement 3.2 x 4.5 x 0.1 cm. Postdebridement measurement is 3.4 x 4.6 x 0.2 cm. EpiFix 4.0 x 4.5 cm mesh was applied to the right TMA full-thickness ulceration with 100% use. Fourth application. The graft site was free and clear of any infection. The wound/skin graft substitute was dressed with nonadherent bandage secured in place with Steri-Strips followed by bolster dressing as well as a single layer Tubigrip. Excisional debridement down to and including subcutaneous tissue with a number 5 mm dermal curette to the right plantar full-thickness wound done without incident. Predebridement measurement was 3.2 x 0.3 x 0.1 cm. Postdebridement measurement is 0.3 x 0.5 x 0.1 cm. Muscle skeletal: No pain to palpation to the full-thickness wounds to the right lower extremity. No pain with calf pressure. Const alert, oriented x3 and no apparent distress Debridement Note Debridement Note Debridement Free Text: Excisional debridement down to and including subcutaneous tissue, fascia muscle to the right lower extremity TMA site done with a rongeur to remove the bone and a 5 mm dermal curette to the full-thickness wound done without incident. Predebridement measurement 3.2 x 4.5 x 0.1 cm. Postdebridement measurement is 3.4 x 4.6 x 0.2 cm. EpiFix 4.0 x 4.5 cm mesh was applied to the right TMA full-thickness ulceration with 100% use. Fourth application. The graft site was free and clear of any infection. The wound/skin graft substitute was dressed with nonadherent bandage secured in place with Steri-Strips followed by bolster dressing as well as a single layer Tubigrip. Excisional debridement down to and including subcutaneous tissue with a number 5 mm dermal curette to the right plantar full-thickness wound done without incident. Predebridement measurement was 3.2 x 0.3 x 0.1 cm. Postdebridement measurement is 0.3 x 0.5 x 0.1 cm. Post-Debridement Measurements and Additional Note: Post-Debridement Measurements/Treatment WC - Nurse 1 - General Ulcer Assessment Start: 05/10/25 14:36 Freq: Status: Active Protocol: GABRIELLE.LOWEXT Activity Type Activity Date Activity User E-sign Co-sign Detail Recorded Client Recorded Date Recorded By Document 05/10/25 14:36 RB [id number] 05/10/25 14:52 RB Document 05/17/25 14:32 TS [id number] 05/17/25 14:41 TS Document 05/24/25 15:32 TS [id number] 05/24/25 15:40 TS 05/10/25 05/17/25 05/24/25 14:36 14:32 15:32 - Today's Visit Information Type of service Follow-up Visit Follow-up Visit Follow-up Visit (Physician/EQUIPMENT HIRE MANAGER (Physician/EQUIPMENT HIRE MANAGER (Physician/EQUIPMENT HIRE MANAGER ) ) ) Arrival Mode Ambulatory Ambulatory Ambulatory Transfer Assistance None Patient Identification Verified (Name & Yes Yes Yes ) Patient Requires Transmission-Based No No No Precautions Safety Precautions Fall Prevention Fall Prevention Vital Signs Temperature (97.8 F-99.1 F) 97.3 F L 96.6 F L 97.5 F L Temperature Source Temporal Temporal Temporal Pulse Rate (60-100) 80 101 H 91 Pulse Location Monitor Monitor Monitor Respiratory Rate (12-18) 18 16 16 Respiratory rate source Observation Observation Observation Oxygen Delivery Method Room Air Room Air Room Air Blood Pressure (90/60-120/80) 168/76 H 154/67 H 161/85 H Blood Pressure Mean (mm Hg) 106 96 110 Source Monitor Monitor Monitor Position Sitting Sitting Sitting Blood Pressure Location Left Arm Left Arm Right Arm History Since Last Visit- (Skip if this is Patient's initial visit) Have you changed medications since your No No No last visit? Any new allergies or adverse reactions No No No Had a fall/change in ADL's that may No No No increase risk of falls Signs or symptoms of abuse and/or No No No neglect since last visit Have you been in the hospital since your No last visit? Has dressing in place as prescribed Yes Yes Yes Has compression in place as prescribed N/A N/A N/A Has offloadiing in place as prescribed N/A N/A Experienced any changes in pain level or No No No management Left Footwear Regular Shoe Regular Shoe Right Footwear Surgical Shoe Regular Shoe with pressure relief insole Pain Scale: 0-10 Numeric Is Patient Pain Free? Yes Yes Yes - Nurse 1 - General Ulcer Measurement Start: 05/10/25 14:36 Freq: Status: Active Protocol: Activity Type Activity Date Activity User E-sign Co-sign Detail Recorded Client Recorded Date Recorded By Document 05/10/25 14:36 RB [id number] 05/10/25 14:52 RB Document 05/17/25 14:32 TS [id number] 05/17/25 14:41 TS Document 05/24/25 15:32 TS [id number] 05/24/25 15:40 TS 05/10/25 05/17/25 05/24/25 14:36 14:32 15:32 Wound Center Nurse 1 1. right anterior ankle -Combined with other wound No -Current Size (cm) - Length 0.1 -Current Size (cm) - Width 0.1 -Current Size (cm) - Depth 0.1 -Total Square Cm 0.01 -Date of Last Picture (Recall this 05/10/25 field) -Photo Taken Yes -Tunneling No -Undermining/Tunneling No -Circular Undermining No -Exudate Amt Medium -Exudate Type Serosanguineous -Wound Margin Distinct, Outline Attached -Granulation Amt Medium (34-66%) -Granulation Quality [place] -Slough/Fibrin Yes -Necrosis Amt Medium (34-66%) -Necrotic Tissue Type Adherent Slough -Structure Exposed N/A -Texture (Marta-wound Skin Appearance) Assessed -Moisture (Marta-wound Skin Appearance) Assessed,Dry/ Scaly -Color (Marta-wound Skin Appearance) Assessed -Temperature (Marta-wound Skin No Abnormality Appearance) (Pt Warm) -Tenderness on Palpation (Marta-wound No Skin Appearance) -Ulcer Cleansing Wound Cleanser -Foul Odor after Cleansing No -Anesthetic Used 5% Lidocaine Gel 4. right plantar foot -Combined with other wound No No No -Current Size (cm) - Length 0.5 1 0.3 -Current Size (cm) - Width 0.8 0.5 0.5 -Current Size (cm) - Depth 0.2 0.1 0.1 -Total Square Cm 0.40 0.5 0.15 -Date of Last Picture (Recall this 05/10/25 05/17/25 05/24/25 field) -Photo Taken Yes Yes Yes -Tunneling No -Undermining/Tunneling No No No -Circular Undermining No No No -Exudate Amt Medium Small Large -Exudate Type Serosanguineous Serosanguineous -Wound Margin Thickened & Distinct, Distinct, Rolled Under Outline Outline Attached Attached -Granulation Amt Medium (34-66%) Small (1-33%) Medium (34-66%) -Granulation Quality [place],Red [place],Red -Slough/Fibrin Yes Yes Yes -Necrosis Amt Medium (34-66%) Small (1-33%) Large (67-100%) -Necrotic Tissue Type Adherent Slough Adherent Slough Adherent Slough -Structure Exposed N/A None/Limited to None/Limited to Skin Breakdown Skin Breakdown -Texture (Marta-wound Skin Appearance) Assessed Assessed Assessed -Moisture (Marta-wound Skin Appearance) Assessed Assessed Assessed -Color (Marta-wound Skin Appearance) Assessed Assessed Assessed -Temperature (Marta-wound Skin No Abnormality No Abnormality No Abnormality Appearance) (Pt Warm) (Pt Warm) (Pt Warm) -Tenderness on Palpation (Marta-wound No Skin Appearance) -Ulcer Cleansing Wound Cleanser Soap and Water Soap and Water -Foul Odor after Cleansing No No -Anesthetic Used 5% Lidocaine 5% Lidocaine 5% Lidocaine Gel Gel Gel 2. Right dorsum/TMA -Combined with other wound No No No -Current Size (cm) - Length 4.5 3.5 4 -Current Size (cm) - Width 5 5 5 -Current Size (cm) - Depth 0.1 0.3 0.3 -Total Square Cm 22.5 17.5 20 -Date of Last Picture (Recall this 05/10/25 05/17/25 05/24/25 field) -Photo Taken Yes Yes Yes -Tunneling No -Undermining/Tunneling No No No -Circular Undermining No No No -Exudate Amt Medium Medium Medium -Exudate Type Serosanguineous Serosanguineous Serosanguineous -Wound Margin Thickened & Distinct, Distinct, Rolled Under Outline Outline Attached Attached -Granulation Amt Medium (34-66%) Small (1-33%) Small (1-33%) -Granulation Quality [place],Red -Slough/Fibrin Yes Yes Yes -Necrosis Amt Medium (34-66%) Large (67-100%) -Necrotic Tissue Type Adherent Slough Adherent Slough Adherent Slough -Structure Exposed N/A None/Limited to None/Limited to Skin Breakdown Skin Breakdown -Texture (Marta-wound Skin Appearance) Assessed,Callus Assessed Assessed -Moisture (Marta-wound Skin Appearance) Assessed Assessed Assessed -Color (Marta-wound Skin Appearance) Assessed Assessed Assessed -Temperature (Marta-wound Skin No Abnormality No Abnormality No Abnormality Appearance) (Pt Warm) (Pt Warm) (Pt Warm) -Tenderness on Palpation (Marta-wound No Skin Appearance) -Ulcer Cleansing Wound Cleanser Soap and Water Soap and Water -Foul Odor after Cleansing No No No -Anesthetic Used 5% Lidocaine 5% Lidocaine 5% Lidocaine Gel Gel Gel Lower Limb Edema Present Yes Right Calf (cm) 38.5 Right Ankle (cm) 25 WC - Nurse 2 - General Ulcer CM Notes Start: 05/10/25 14:36 Freq: Status: Active Protocol: Activity Type Activity Date Activity User E-sign Co-sign Detail Recorded Client Recorded Date Recorded By Document 05/10/25 14:56 RB [id number] 05/10/25 15:04 RB Edit Result 05/10/25 14:56 RB (1) [id number] 05/17/25 12:10 GM Edit Result 05/10/25 14:56 RB (2) [id number] 05/18/25 12:11 DS Document 05/17/25 15:03 GM [id number] 05/17/25 15:09 GM Edit Result 05/17/25 15:03 GM (3) [id number] 05/18/25 12:13 DS Document 05/24/25 15:50 GM [id number] 05/24/25 15:56 GM (1) 2. Right dorsum/TMA - Apply Skin Sub - 1st 25 sq cm - Feet => 1 (2) 2. Right dorsum/TMA - Epifix Mesh Application 1-4 (per sq cm => 11 ) (3) 2. Right dorsum/TMA - Debridement - Muscle / Fascia, 1st Yes => No 20sq cm - Apply Skin Sub - 1st 25 sq cm - Legs 1 => - Apply Skin Sub - 1st 25 sq cm - Feet => 1 - Epifix Mesh Application 1-4 (per sq cm => 11 ) - NuShield (per sq cm) 11 => 05/10/25 05/17/25 05/24/25 14:56 15:03 15:50 Wound Center Nurse 2 1. right anterior ankle -Time 14:58 -Correct Patient Yes -Correct Side, Site, Position Yes -Correct Procedure Yes -Procedure Performed Yes -Type of Procedure Debridement -Clinical Debridement Muscle / Fascia -Tissue Removed Muscle -Tunneling No -Undermining/Tunneling No -Circular Undermining No -Wound/Ulcer Outcome Not Healed -Ulcer Cleansing Rinsed/ Irrigated with Saline -Foul Odor after Cleansing No -Bioengineered Tissue No -Bleeding Controlled with Pressure -Treatment Response Procedure Tolerated Well -Offloading Yes -Type of Offloading Surgical Shoe -Debridement - Muscle / Fascia, 1st No 20sq cm 4. right plantar foot -Time 14 15:03 15:50 -Correct Patient Yes Yes Yes -Correct Side, Site, Position Yes Yes Yes -Correct Procedure Yes Yes Yes -Procedure Performed Yes Yes Yes -Type of Procedure Debridement Debridement Debridement -Clinical Debridement Subcutaneous Subcutaneous Subcutaneous -Tissue Removed Subcutaneous Subcutaneous Subcutaneous -Post Debridement (cm) - Length 0.6 0.5 0.3 -Post Debridement (cm) - Width 0.9 0.8 0.5 -Post Debridement (cm) - Depth 0.1 0.1 0.1 -Total Square (Post) (cm) 0.54 0.40 0.15 -Area of Debridement (cm) - Length 0.6 0.5 0.3 -Area of Debridement (cm) - Width 0.9 0.8 0.5 -Total Square (Area) (cm) 0.54 0.40 0.15 -Tunneling No No No -Undermining/Tunneling No No No -Circular Undermining No No No -Wound/Ulcer Outcome Not Healed Not Healed Not Healed -Ulcer Cleansing Rinsed/ Rinsed/ Rinsed/ Irrigated with Irrigated with Irrigated with Saline Saline Saline -Foul Odor after Cleansing No No No -Bioengineered Tissue No No No -Bleeding Controlled with Pressure Pressure Pressure -Treatment Response Procedure Procedure Procedure Tolerated Well Tolerated Well Tolerated Well -Offloading Yes No No -Type of Offloading Surgical Shoe -Debridement - Subq, 1st 20sq cm Yes Yes Yes 2. Right dorsum/TMA -Time 14: 15:04 15:50 -Correct Patient Yes Yes Yes -Correct Side, Site, Position Yes Yes Yes -Correct Procedure Yes Yes Yes -Procedure Performed Yes Yes Yes -Type of Procedure Debridement Debridement Debridement -Clinical Debridement Muscle / Fascia Muscle / Fascia Muscle / Fascia -Tissue Removed Muscle Muscle Muscle -Post Debridement (cm) - Length 3.8 3.7 3.4 -Post Debridement (cm) - Width 4.8 4.9 4.6 -Post Debridement (cm) - Depth 0.4 0.3 0.2 -Total Square (Post) (cm) 18.24 18.13 15.64 -Area of Debridement (cm) - Length 3.8 3.7 3.4 -Area of Debridement (cm) - Width 4.8 4.9 4.6 -Total Square (Area) (cm) 18.24 18.13 15.64 -Tunneling No No No -Undermining/Tunneling No No No -Circular Undermining No No No -Wound/Ulcer Outcome Not Healed Not Healed Not Healed -Ulcer Cleansing Rinsed/ Rinsed/ Rinsed/ Irrigated with Irrigated with Irrigated with Saline Saline Saline -Foul Odor after Cleansing No No No -Bioengineered Tissue Yes Yes Yes -Type of Bioengineered Tissue Epifix Mesh Epifix Mesh Epifix Mesh -Expiration Date 11/06/29 11/06/29 11/06/29 -Product Lot Number [id number] -Percent Used 100 100 100 -Lot number of Saline Used [id number] -Bleeding Controlled with Pressure Pressure Pressure -Treatment Response Procedure Procedure Procedure Tolerated Well Tolerated Well Tolerated Well -Offloading Yes No No -Type of Offloading Surgical Shoe -Debridement - Muscle / Fascia, 1st No No No 20sq cm -Apply Skin Sub - 1st 25 sq cm - Feet 1 1 1 -Epifix Mesh Application 1-4 (per sq 11 11 11 cm) Pain Scale: 0-10 Numeric Is Patient Pain Free? Yes Yes Yes - Nurse 3 - General Ulcer D/C NN Start: 05/10/25 14:36 Freq: Status: Active Protocol: Activity Type Activity Date Activity User E-sign Co-sign Detail Recorded Client Recorded Date Recorded By Document 05/10/25 15:57 RB [id number] 05/10/25 15:59 RB Document 05/17/25 15:26 RB [id number] 05/17/25 15:27 RB Document 05/24/25 15:56 [id number] 05/24/25 15:57 05/10/25 05/17/25 05/24/25 15:57 15:26 15:56 Wound Care Center Nurse 3 1. right anterior ankle -Primary Dressing Covered/Secured with Dry Gauze & Roll Gauze, Secured with Tape 4. right plantar foot -Ulcer Cleansing Not Cleansed -Foul Odor after Cleansing No -Other Dressing ABD ABD -Primary Dressing Covered/Secured with Dry Gauze & Dry Gauze & Dry Gauze & Roll Gauze, Roll Gauze, Roll Gauze, Secured with Secured with Secured with Tape Tape Tape 2. Right dorsum/TMA -Ulcer Cleansing Not Cleansed -Foul Odor after Cleansing No -Other Dressing ABD ABD -Primary Dressing Covered/Secured with Dry Gauze & Dry Gauze & Dry Gauze Roll Gauze, Roll Gauze, Secured with Secured with Tape Tape -Wound Comment(s) william toes to knee RLE -Lotion applied to leg before No compression wrap -Compression Wrap William Wrap William Wrap William Wrap Treatment Response Procedure Procedure Tolerated Well Tolerated Well Pain Scale: 0-10 Numeric Is Patient Pain Free? Yes Yes Yes WC - Visit Discharge Discharge Condition Stable Stable Stable Ambulatory Status Wheelchair Ambulatory Ambulatory Transportation Private Auto Private Auto Private Auto Medication Reconcilliation completed & No No provided to patient/care provider Clinical Summary of Care Provided Yes Yes Assessment/Plan Assessment/Plan (1) Non-pressure chronic ulcer of other part of right foot with necrosis of muscle: CODE(S): L97.513 - Non-pressure chronic ulcer of other part of right foot with necrosis of muscle PLAN: Patient was examined and evaluated. All findings were discussed with the patient. All questions were answered to the patient satisfaction. Excisional debridement down to and including subcutaneous tissue, fascia muscle to the right lower extremity TMA site done with a rongeur to remove the bone and a 5 mm dermal curette to the full-thickness wound done without incident. Predebridement measurement 3.2 x 4.5 x 0.1 cm. Postdebridement measurement is 3.4 x 4.6 x 0.2 cm. EpiFix 4.0 x 4.5 cm mesh was applied to the right TMA full-thickness ulceration with 100% use. Fourth application. The graft site was free and clear of any infection. The wound/skin graft substitute was dressed with nonadherent bandage secured in place with Steri-Strips followed by bolster dressing as well as a single layer Tubigrip. Excisional debridement down to and including subcutaneous tissue with a number 5 mm dermal curette to the right plantar full-thickness wound done without incident. Predebridement measurement was 3.2 x 0.3 x 0.1 cm. Postdebridement measurement is 0.3 x 0.5 x 0.1 cm. Patient will follow-up with Dr. 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
--- NOTE | 2025-05-25 09:10 | WC ---
PHOTO 05/24/25
--- NOTE | 2025-05-25 09:11 | WC ---
PHOTO-RIGHT TMA 05/24/25
[2025-05-31 08:56] VITALS: BP 187/94; PULSE 79; RESP 18; TEMP 36.9
--- NOTE | 2025-05-31 09:31 | PCM.WC.PN ---
History of Present Illness Date of Service: 05/31/25 Chief Complaint: Full-thickness wound to the TMA site right lower extremity History of Wound: Evidence of traumatic full-thickness wound to the right TMA site after striking it on oil rig gear. Wound has been treated with Betadine soaked gauze as well as on oral doxycycline 100 mg twice daily. Patient is borderline diabetic. Progress of Wound: Healing full-thickness wounds right lower extremity. Subjective Subjective Patient is 84-year-old male presenting to wound care center today for evaluation of full-thickness wound to the right TMA and plantar foot. He has been compliant with leaving the dressing and graft clean dry and intact. He is watching his weightbearing. He denies any pain or trauma. Denies constitutional symptoms. No other pedal complaints at this time. Objective Data Objective Data Vital Signs: Vital Signs Temp Pulse Resp BP O2 Del Method 98.4 F 79 18 187/94 H Room Air 05/31/25 08:56 05/31/25 08:56 05/31/25 08:56 05/31/25 08:56 05/31/25 08:56 Oxygen Delivery Method Room Air Lab / Micro Data Micro: Microbiology 03/15/25 15:55 Bone - Right Foot Gram Stain - Final 03/15/25 15:55 Bone - Right Foot Wound Culture - Final Klebsiella pneumoniae sp pneum Escherichia coli Stenotrophomonas maltophilia Staphylococcus aureus Staphylococcus epidermidis Enterococcus faecalis Corynebacterium amycolatum 03/15/25 15:55 Bone - Right Foot Anaerobic Culture - Final No anaerobic bacteria isolated. Physical Exam Narrative Vascular: Peroneal, AT and PT pulses are monophasic on Doppler to the right lower extremity. Skin temperature gradient is warm to warm from proximal ankles to TMA stump with mild focal increase. No erythema. Neurological: Light touch is intact. Protective station is absent. Dermatological: Full-thickness wound to the right lower extremity TMA site measuring 3.5 x 4.2 x 0.3 cm wound base is fibrogranular nature. Negative probe to bone. Right plantar full-thickness wound measuring 0.3 x 0.4 x 0.1 cm. Wound base is granular tissue. Excisional debridement down to and including subcutaneous tissue, fascia muscle to the right lower extremity TMA site done with a rongeur to remove the bone and a 5 mm dermal curette to the full-thickness wound done without incident. Predebridement measurement 3.3 x 4.0 x 0.2 cm. Postdebridement measurement is 3.5 x 4.2 x 0.3 cm. EpiFix 4.0 x 4.5 cm mesh was applied to the right TMA full-thickness ulceration with 100% use. Fifth application. The graft site was free and clear of any infection. The wound/skin graft substitute was dressed with nonadherent bandage secured in place with Steri-Strips followed by bolster dressing as well as a single layer Tubigrip. Excisional debridement down to and including subcutaneous tissue with a number 5 mm dermal curette to the right plantar full-thickness wound done without incident. Predebridement measurement was 0.2 x 0.3 x 0.1 cm. Postdebridement measurement is 0.3 x 0.4 x 0.1 cm. Muscle skeletal: No pain to palpation to the full-thickness wounds to the right lower extremity. No pain with calf pressure. Const alert, oriented x3 and no apparent distress Debridement Note Debridement Note Debridement Free Text: Excisional debridement down to and including subcutaneous tissue, fascia muscle to the right lower extremity TMA site done with a rongeur to remove the bone and a 5 mm dermal curette to the full-thickness wound done without incident. Predebridement measurement 3.3 x 4.0 x 0.2 cm. Postdebridement measurement is 3.5 x 4.2 x 0.3 cm. EpiFix 4.0 x 4.5 cm mesh was applied to the right TMA full-thickness ulceration with 100% use. Fifth application. The graft site was free and clear of any infection. The wound/skin graft substitute was dressed with nonadherent bandage secured in place with Steri-Strips followed by bolster dressing as well as a single layer Tubigrip. Excisional debridement down to and including subcutaneous tissue with a number 5 mm dermal curette to the right plantar full-thickness wound done without incident. Predebridement measurement was 0.2 x 0.3 x 0.1 cm. Postdebridement measurement is 0.3 x 0.4 x 0.1 cm. Post-Debridement Measurements and Additional Note: Post-Debridement Measurements/Treatment GABRIELLE - Nurse 1 - General Ulcer Assessment Start: 05/10/25 14:36 Freq: Status: Active Protocol: LOWEXT Activity Type Activity Date Activity User E-sign Co-sign Detail Recorded Client Recorded Date Recorded By Document 05/10/25 14:36 RB [id number] 05/10/25 14:52 RB Document 05/17/25 14:32 TS [id number] 05/17/25 14:41 TS Document 05/24/25 15:32 TS [id number] 05/24/25 15:40 TS Document 05/31/25 08:56 GM [id number] 05/31/25 09:01 05/10/25 05/17/25 05/24/25 14:36 14:32 15:32 - Today's Visit Information Type of service Follow-up Visit Follow-up Visit Follow-up Visit (Physician/AC/DC REWINDER (Physician/AC/DC REWINDER (Physician/AC/DC REWINDER ) ) ) Arrival Mode Ambulatory Ambulatory Ambulatory Transfer Assistance None Patient Identification Verified (Name & Yes Yes Yes ) Patient Requires Transmission-Based No No No Precautions Safety Precautions Fall Prevention Fall Prevention Vital Signs Temperature (97.8 F-99.1 F) 97.3 F L 96.6 F L 97.5 F L Temperature Source Temporal Temporal Temporal Pulse Rate (60-100) 80 101 H 91 Pulse Location Monitor Monitor Monitor Respiratory Rate (12-18) 18 16 16 Respiratory rate source Observation Observation Observation Oxygen Delivery Method Room Air Room Air Room Air Blood Pressure (90/60-120/80) 168/76 H 154/67 H 161/85 H Blood Pressure Mean (mm Hg) 106 96 110 Source Monitor Monitor Monitor Position Sitting Sitting Sitting Blood Pressure Location Left Arm Left Arm Right Arm History Since Last Visit- (Skip if this is Patient's initial visit) Have you changed medications since your No No No last visit? Any new allergies or adverse reactions No No No Had a fall/change in ADL's that may No No No increase risk of falls Signs or symptoms of abuse and/or No No No neglect since last visit Have you been in the hospital since your No last visit? Has dressing in place as prescribed Yes Yes Yes Has compression in place as prescribed N/A N/A N/A Has offloadiing in place as prescribed N/A N/A Experienced any changes in pain level or No No No management Left Footwear Regular Shoe Regular Shoe Right Footwear Surgical Shoe Regular Shoe with pressure relief insole Pain Scale: 0-10 Numeric Is Patient Pain Free? Yes Yes Yes 05/31/25 08:56 - Today's Visit Information Type of service Initial Visit Arrival Mode Ambulatory Transfer Assistance Patient Identification Verified (Name & Yes ) Patient Requires Transmission-Based Precautions Safety Precautions Vital Signs Temperature (97.8 F-99.1 F) 98.4 F Temperature Source Temporal Pulse Rate (60-100) 79 Pulse Location Monitor Respiratory Rate (12-18) 18 Respiratory rate source Ausculation Oxygen Delivery Method Room Air Blood Pressure (90/60-120/80) 187/94 H Blood Pressure Mean (mm Hg) 125 Source Monitor Position Sitting Blood Pressure Location Left Arm History Since Last Visit- (Skip if this is Patient's initial visit) Have you changed medications since your No last visit? Any new allergies or adverse reactions No Had a fall/change in ADL's that may No increase risk of falls Signs or symptoms of abuse and/or No neglect since last visit Have you been in the hospital since your No last visit? Has dressing in place as prescribed Yes Has compression in place as prescribed Yes Has offloadiing in place as prescribed N/A Experienced any changes in pain level or No management Left Footwear Regular Shoe Right Footwear Regular Shoe Pain Scale: 0-10 Numeric Is Patient Pain Free? Yes - Nurse 1 - General Ulcer Measurement Start: 05/10/25 14:36 Freq: Status: Active Protocol: Activity Type Activity Date Activity User E-sign Co-sign Detail Recorded Client Recorded Date Recorded By Document 05/10/25 14:36 RB [id number] 05/10/25 14:52 RB Document 05/17/25 14:32 TS [id number] 05/17/25 14:41 TS Document 05/24/25 15:32 TS [id number] 05/24/25 15:40 TS Document 05/31/25 08:56 [id number] 05/31/25 09:01 05/10/25 05/17/25 05/24/25 14:36 14:32 15:32 Wound Center Nurse 1 1. right anterior ankle -Combined with other wound No -Current Size (cm) - Length 0.1 -Current Size (cm) - Width 0.1 -Current Size (cm) - Depth 0.1 -Total Square Cm 0.01 -Date of Last Picture (Recall this 05/10/25 field) -Photo Taken Yes -Tunneling No -Undermining/Tunneling No -Circular Undermining No -Exudate Amt Medium -Exudate Type Serosanguineous -Wound Margin Distinct, Outline Attached -Granulation Amt Medium (34-66%) -Granulation Quality [place] -Slough/Fibrin Yes -Necrosis Amt Medium (34-66%) -Necrotic Tissue Type Adherent Slough -Structure Exposed N/A -Texture (Marta-wound Skin Appearance) Assessed -Moisture (Marta-wound Skin Appearance) Assessed,Dry/ Scaly -Color (Marta-wound Skin Appearance) Assessed -Temperature (Marat-wound Skin No Abnormality Appearance) (Pt Warm) -Tenderness on Palpation (Marta-wound No Skin Appearance) -Ulcer Cleansing Wound Cleanser -Foul Odor after Cleansing No -Anesthetic Used 5% Lidocaine Gel 4. right plantar foot -Combined with other wound No No No -Current Size (cm) - Length 0.5 1 0.3 -Current Size (cm) - Width 0.8 0.5 0.5 -Current Size (cm) - Depth 0.2 0.1 0.1 -Total Square Cm 0.40 0.5 0.15 -Date of Last Picture (Recall this 05/10/25 05/17/25 05/24/25 field) -Photo Taken Yes Yes Yes -Epithelialization -Tunneling No -Undermining/Tunneling No No No -Circular Undermining No No No -Exudate Amt Medium Small Large -Exudate Type Serosanguineous Serosanguineous -Wound Margin Thickened & Distinct, Distinct, Rolled Under Outline Outline Attached Attached -Granulation Amt Medium (34-66%) Small (1-33%) Medium (34-66%) -Granulation Quality [place],Red -Slough/Fibrin Yes Yes Yes -Necrosis Amt Medium (34-66%) Small (1-33%) Large (67-100%) -Necrotic Tissue Type Adherent Slough Adherent Slough Adherent Slough -Structure Exposed N/A None/Limited to None/Limited to Skin Breakdown Skin Breakdown -Texture (Marta-wound Skin Appearance) Assessed Assessed Assessed -Moisture (Marta-wound Skin Appearance) Assessed Assessed Assessed -Color (Marta-wound Skin Appearance) Assessed Assessed Assessed -Temperature (Marta-wound Skin No Abnormality No Abnormality No Abnormality Appearance) (Pt Warm) (Pt Warm) (Pt Warm) -Tenderness on Palpation (Marta-wound No Skin Appearance) -Ulcer Cleansing Wound Cleanser Soap and Water Soap and Water -Foul Odor after Cleansing No No -Anesthetic Used 5% Lidocaine 5% Lidocaine 5% Lidocaine Gel Gel Gel 2. Right dorsum/TMA -Combined with other wound No No No -Current Size (cm) - Length 4.5 3.5 4 -Current Size (cm) - Width 5 5 5 -Current Size (cm) - Depth 0.1 0.3 0.3 -Total Square Cm 22.5 17.5 20 -Date of Last Picture (Recall this 05/10/25 05/17/25 05/24/25 field) -Photo Taken Yes Yes Yes -Epithelialization -Tunneling No -Undermining/Tunneling No No No -Circular Undermining No No No -Change in Wound Grade/Stage -Exudate Amt Medium Medium Medium -Exudate Type Serosanguineous Serosanguineous Serosanguineous -Wound Margin Thickened & Distinct, Distinct, Rolled Under Outline Outline Attached Attached -Granulation Amt Medium (34-66%) Small (1-33%) Small (1-33%) -Granulation Quality [place],Red -Slough/Fibrin Yes Yes Yes -Necrosis Amt Medium (34-66%) Large (67-100%) -Necrotic Tissue Type Adherent Slough Adherent Slough Adherent Slough -Structure Exposed N/A None/Limited to None/Limited to Skin Breakdown Skin Breakdown -Texture (Marta-wound Skin Appearance) Assessed,Callus Assessed Assessed -Moisture (Marta-wound Skin Appearance) Assessed Assessed Assessed -Color (Marta-wound Skin Appearance) Assessed Assessed Assessed -Temperature (Marta-wound Skin No Abnormality No Abnormality No Abnormality Appearance) (Pt Warm) (Pt Warm) (Pt Warm) -Tenderness on Palpation (Marta-wound No Skin Appearance) -Ulcer Cleansing Wound Cleanser Soap and Water Soap and Water -Foul Odor after Cleansing No No No -Anesthetic Used 5% Lidocaine 5% Lidocaine 5% Lidocaine Gel Gel Gel Lower Limb Edema Present Yes Right Calf (cm) 38.5 Right Ankle (cm) 05/31/25 08:56 Wound Center Nurse 1 1. right anterior ankle -Combined with other wound -Current Size (cm) - Length -Current Size (cm) - Width -Current Size (cm) - Depth -Total Square Cm -Date of Last Picture (Recall this field) -Photo Taken -Tunneling -Undermining/Tunneling -Circular Undermining -Exudate Amt -Exudate Type -Wound Margin -Granulation Amt -Granulation Quality -Slough/Fibrin -Necrosis Amt -Necrotic Tissue Type -Structure Exposed -Texture (Marta-wound Skin Appearance) -Moisture (Marta-wound Skin Appearance) -Color (Marta-wound Skin Appearance) -Temperature (Marta-wound Skin Appearance) -Tenderness on Palpation (Marta-wound Skin Appearance) -Ulcer Cleansing -Foul Odor after Cleansing -Anesthetic Used 4. right plantar foot -Combined with other wound -Current Size (cm) - Length 0.5 -Current Size (cm) - Width 0.7 -Current Size (cm) - Depth 0.1 -Total Square Cm 0.35 -Date of Last Picture (Recall this 05/31/25 field) -Photo Taken Yes -Epithelialization Small 1-33% -Tunneling No -Undermining/Tunneling No -Circular Undermining No -Exudate Amt Small -Exudate Type Yellow/Green -Wound Margin Distinct, Outline Attached -Granulation Amt Small (1-33%) -Granulation Quality [place] -Slough/Fibrin No -Necrosis Amt Small (1-33%) -Necrotic Tissue Type Adherent Slough -Structure Exposed -Texture (Marta-wound Skin Appearance) Assessed -Moisture (Marta-wound Skin Appearance) Assessed -Color (Marta-wound Skin Appearance) Assessed -Temperature (Marta-wound Skin No Abnormality Appearance) (Pt Warm) -Tenderness on Palpation (Marta-wound No Skin Appearance) -Ulcer Cleansing Soap and Water -Foul Odor after Cleansing No -Anesthetic Used 5% Lidocaine Gel 2. Right dorsum/TMA -Combined with other wound -Current Size (cm) - Length 3.5 -Current Size (cm) - Width 4.5 -Current Size (cm) - Depth 0.1 -Total Square Cm 15.75 -Date of Last Picture (Recall this 05/31/25 field) -Photo Taken Yes -Epithelialization Small 1-33% -Tunneling No -Undermining/Tunneling No -Circular Undermining No -Change in Wound Grade/Stage No -Exudate Amt Medium -Exudate Type Yellow/Green -Wound Margin Distinct, Outline Attached -Granulation Amt Large (67-100%) -Granulation Quality [place] -Slough/Fibrin Yes -Necrosis Amt Small (1-33%) -Necrotic Tissue Type Adherent Slough -Structure Exposed -Texture (Marta-wound Skin Appearance) Assessed -Moisture (Marta-wound Skin Appearance) Assessed -Color (Marta-wound Skin Appearance) Assessed -Temperature (Marta-wound Skin No Abnormality Appearance) (Pt Warm) -Tenderness on Palpation (Marta-wound No Skin Appearance) -Ulcer Cleansing Soap and Water -Foul Odor after Cleansing No -Anesthetic Used 5% Lidocaine Gel Lower Limb Edema Present Yes Right Calf (cm) 39 Right Ankle (cm) 25.5 WC - Nurse 2 - General Ulcer CM Notes Start: 05/10/25 14:36 Freq: Status: Active Protocol: Activity Type Activity Date Activity User E-sign Co-sign Detail Recorded Client Recorded Date Recorded By Document 05/10/25 14:56 RB [id number] 05/10/25 15:04 RB Edit Result 05/10/25 14:56 RB (1) [id number] 05/17/25 12:10 GM Edit Result 05/10/25 14:56 RB (2) [id number] 05/18/25 12:11 DS Document 05/17/25 15:03 GM [id number] 05/17/25 15:09 GM Edit Result 05/17/25 15:03 GM (3) [id number] 05/18/25 12:13 DS Document 05/24/25 15:50 GM [id number] 05/24/25 15:56 GM Document 05/31/25 09:08 DS [id number] 05/31/25 09:15 DS (1) 2. Right dorsum/TMA - Apply Skin Sub - 1st 25 sq cm - Feet => 1 (2) 2. Right dorsum/TMA - Epifix Mesh Application 1-4 (per sq cm => 11 ) (3) 2. Right dorsum/TMA - Debridement - Muscle / Fascia, 1st Yes => No 20sq cm - Apply Skin Sub - 1st 25 sq cm - Legs 1 => - Apply Skin Sub - 1st 25 sq cm - Feet => 1 - Epifix Mesh Application 1-4 (per sq cm => 11 ) - NuShield (per sq cm) 11 => 05/10/25 05/17/25 05/24/25 14:56 15:03 15:50 Wound Center Nurse 2 1. right anterior ankle -Time 14:58 -Correct Patient Yes -Correct Side, Site, Position Yes -Correct Procedure Yes -Procedure Performed Yes -Type of Procedure Debridement -Clinical Debridement Muscle / Fascia -Tissue Removed Muscle -Tunneling No -Undermining/Tunneling No -Circular Undermining No -Wound/Ulcer Outcome Not Healed -Ulcer Cleansing Rinsed/ Irrigated with Saline -Foul Odor after Cleansing No -Bioengineered Tissue No -Bleeding Controlled with Pressure -Treatment Response Procedure Tolerated Well -Offloading Yes -Type of Offloading Surgical Shoe -Debridement - Muscle / Fascia, 1st No 20sq cm 4. right plantar foot -Time 14:57 15:03 15:50 -Correct Patient Yes Yes Yes -Correct Side, Site, Position Yes Yes Yes -Correct Procedure Yes Yes Yes -Procedure Performed Yes Yes Yes -Type of Procedure Debridement Debridement Debridement -Clinical Debridement Subcutaneous Subcutaneous Subcutaneous -Tissue Removed Subcutaneous Subcutaneous Subcutaneous -Post Debridement (cm) - Length 0.6 0.5 0.3 -Post Debridement (cm) - Width 0.9 0.8 0.5 -Post Debridement (cm) - Depth 0.1 0.1 0.1 -Total Square (Post) (cm) 0.54 0.40 0.15 -Area of Debridement (cm) - Length 0.6 0.5 0.3 -Area of Debridement (cm) - Width 0.9 0.8 0.5 -Total Square (Area) (cm) 0.54 0.40 0.15 -Tunneling No No No -Undermining/Tunneling No No No -Circular Undermining No No No -Wound/Ulcer Outcome Not Healed Not Healed Not Healed -Ulcer Cleansing Rinsed/ Rinsed/ Rinsed/ Irrigated with Irrigated with Irrigated with Saline Saline Saline -Foul Odor after Cleansing No No No -Bioengineered Tissue No No No -Type of Bioengineered Tissue -Bleeding Controlled with Pressure Pressure Pressure -Treatment Response Procedure Procedure Procedure Tolerated Well Tolerated Well Tolerated Well -Offloading Yes No No -Type of Offloading Surgical Shoe -Debridement - Subq, 1st 20sq cm Yes Yes Yes 2. Right dorsum/TMA -Time 14:57 15:04 15:50 -Correct Patient Yes Yes Yes -Correct Side, Site, Position Yes Yes Yes -Correct Procedure Yes Yes Yes -Procedure Performed Yes Yes Yes -Type of Procedure Debridement Debridement Debridement -Clinical Debridement Muscle / Fascia Muscle / Fascia Muscle / Fascia -Tissue Removed Muscle Muscle Muscle -Post Debridement (cm) - Length 3.8 3.7 3.4 -Post Debridement (cm) - Width 4.8 4.9 4.6 -Post Debridement (cm) - Depth 0.4 0.3 0.2 -Total Square (Post) (cm) 18.24 18.13 15.64 -Area of Debridement (cm) - Length 3.8 3.7 3.4 -Area of Debridement (cm) - Width 4.8 4.9 4.6 -Total Square (Area) (cm) 18.24 18.13 15.64 -Tunneling No No No -Undermining/Tunneling No No No -Circular Undermining No No No -Wound/Ulcer Outcome Not Healed Not Healed Not Healed -Ulcer Cleansing Rinsed/ Rinsed/ Rinsed/ Irrigated with Irrigated with Irrigated with Saline Saline Saline -Foul Odor after Cleansing No No No -Bioengineered Tissue Yes Yes Yes -Type of Bioengineered Tissue Epifix Mesh Epifix Mesh Epifix Mesh -Expiration Date 11/06/29 11/06/29 11/06/29 -Product Lot Number [id number] -Percent Used 100 100 100 -Lot number of Saline Used [id number] -Bleeding Controlled with Pressure Pressure Pressure -Treatment Response Procedure Procedure Procedure Tolerated Well Tolerated Well Tolerated Well -Offloading Yes No No -Type of Offloading Surgical Shoe -Debridement - Muscle / Fascia, 1st No No No 20sq cm -Apply Skin Sub - 1st 25 sq cm - Feet 1 1 1 -Epifix Mesh Application 1-4 (per sq 11 11 11 cm) Pain Scale: 0-10 Numeric Is Patient Pain Free? Yes Yes Yes 05/31/25 09:08 Wound Center Nurse 2 1. right anterior ankle -Time -Correct Patient -Correct Side, Site, Position -Correct Procedure -Procedure Performed -Type of Procedure -Clinical Debridement -Tissue Removed -Tunneling -Undermining/Tunneling -Circular Undermining -Wound/Ulcer Outcome -Ulcer Cleansing -Foul Odor after Cleansing -Bioengineered Tissue -Bleeding Controlled with -Treatment Response -Offloading -Type of Offloading -Debridement - Muscle / Fascia, 1st 20sq cm 4. right plantar foot -Time 09:08 -Correct Patient Yes -Correct Side, Site, Position Yes -Correct Procedure Yes -Procedure Performed Yes -Type of Procedure Debridement -Clinical Debridement Subcutaneous -Tissue Removed Subcutaneous -Post Debridement (cm) - Length 0.3 -Post Debridement (cm) - Width 0.4 -Post Debridement (cm) - Depth 0.1 -Total Square (Post) (cm) 0.12 -Area of Debridement (cm) - Length 0.3 -Area of Debridement (cm) - Width 0.4 -Total Square (Area) (cm) 0.12 -Tunneling No -Undermining/Tunneling No -Circular Undermining No -Wound/Ulcer Outcome Not Healed -Ulcer Cleansing Rinsed/ Irrigated with Saline -Foul Odor after Cleansing No -Bioengineered Tissue -Type of Bioengineered Tissue Epifix 18mm Disc -Bleeding Controlled with Pressure -Treatment Response Procedure Tolerated Well -Offloading -Type of Offloading -Debridement - Subq, 1st 20sq cm Yes 2. Right dorsum/TMA -Time 09:11 -Correct Patient Yes -Correct Side, Site, Position Yes -Correct Procedure Yes -Procedure Performed Yes -Type of Procedure Debridement -Clinical Debridement Muscle / Fascia -Tissue Removed Muscle -Post Debridement (cm) - Length 3.5 -Post Debridement (cm) - Width 4.2 -Post Debridement (cm) - Depth 0.3 -Total Square (Post) (cm) 14.70 -Area of Debridement (cm) - Length 3.5 -Area of Debridement (cm) - Width 4.2 -Total Square (Area) (cm) 14.70 -Tunneling No -Undermining/Tunneling No -Circular Undermining No -Wound/Ulcer Outcome Not Healed -Ulcer Cleansing Rinsed/ Irrigated with Saline -Foul Odor after Cleansing No -Bioengineered Tissue Yes -Type of Bioengineered Tissue Epifix Mesh -Expiration Date 11/06/29 -Product Lot Number [id number] -Percent Used 100 -Lot number of Saline Used [id number] -Bleeding Controlled with Pressure -Treatment Response Procedure Tolerated Well -Offloading -Type of Offloading -Debridement - Muscle / Fascia, 1st No 20sq cm -Apply Skin Sub - 1st 25 sq cm - Feet 1 -Epifix Mesh Application 1-4 (per sq 11 cm) Pain Scale: 0-10 Numeric Is Patient Pain Free? Yes - Nurse 3 - General Ulcer D/C NN Start: 05/10/25 14:36 Freq: Status: Active Protocol: Activity Type Activity Date Activity User E-sign Co-sign Detail Recorded Client Recorded Date Recorded By Document 05/10/25 15:57 RB [id number] 05/10/25 15:59 RB Document 05/17/25 15:26 RB [id number] 05/17/25 15:27 RB Document 05/24/25 15:56 GM [id number] 05/24/25 15:57 GM Document 05/31/25 09:24 RB [id number] 05/31/25 09:25 RB Edit Result 05/31/25 09:24 RB (1) [id number] 05/31/25 09:29 RB (1) Ambulatory Status Wheelchair => Ambulatory 05/10/25 05/17/25 05/24/25 15:57 15:26 15:56 Wound Care Center Nurse 3 1. right anterior ankle -Primary Dressing Covered/Secured with Dry Gauze & Roll Gauze, Secured with Tape 4. right plantar foot -Ulcer Cleansing Not Cleansed -Foul Odor after Cleansing No -Other Dressing ABD ABD -Primary Dressing Covered/Secured with Dry Gauze & Dry Gauze & Dry Gauze & Roll Gauze, Roll Gauze, Roll Gauze, Secured with Secured with Secured with Tape Tape Tape 2. Right dorsum/TMA -Ulcer Cleansing Not Cleansed -Foul Odor after Cleansing No -Other Dressing ABD ABD -Primary Dressing Covered/Secured with Dry Gauze & Dry Gauze & Dry Gauze Roll Gauze, Roll Gauze, Secured with Secured with Tape Tape -Wound Comment(s) william toes to knee RLE -Lotion applied to leg before No compression wrap -Compression Wrap William Wrap William Wrap William Wrap -Tubular Bandage -Size of Tubigrip Used -Size E ($) Treatment Response Procedure Procedure Tolerated Well Tolerated Well Pain Scale: 0-10 Numeric Is Patient Pain Free? Yes Yes Yes WC - Visit Discharge Discharge Condition Stable Stable Stable Ambulatory Status Wheelchair Ambulatory Ambulatory Transportation Private Auto Private Auto Private Auto Medication Reconcilliation completed & No No provided to patient/care provider Clinical Summary of Care Provided Yes Yes 05/31/25 09:24 Wound Care Center Nurse 3 1. right anterior ankle -Primary Dressing Covered/Secured with 4. right plantar foot -Ulcer Cleansing -Foul Odor after Cleansing -Other Dressing ABD -Primary Dressing Covered/Secured with Dry Gauze & Roll Gauze, Secured with Tape 2. Right dorsum/TMA -Ulcer Cleansing -Foul Odor after Cleansing -Other Dressing ABD -Primary Dressing Covered/Secured with Dry Gauze & Roll Gauze, Secured with Tape -Wound Comment(s) RLE -Lotion applied to leg before compression wrap -Compression Wrap -Tubular Bandage Single Layer -Size of Tubigrip Used Size E -Size E ($) 1 Treatment Response Procedure Tolerated Well Pain Scale: 0-10 Numeric Is Patient Pain Free? Yes WC - Visit Discharge Discharge Condition Stable Ambulatory Status Ambulatory Transportation Private Auto Medication Reconcilliation completed & No provided to patient/care provider Clinical Summary of Care Provided Yes Assessment/Plan Assessment/Plan (1) Non-pressure chronic ulcer of other part of right foot with necrosis of muscle: CODE(S): L97.513 - Non-pressure chronic ulcer of other part of right foot with necrosis of muscle PLAN: Patient was examined and evaluated. All findings were discussed with the patient. All questions were answered to the patient satisfaction. Excisional debridement down to and including subcutaneous tissue, fascia muscle to the right lower extremity TMA site done with a rongeur to remove the bone and a 5 mm dermal curette to the full-thickness wound done without incident. Predebridement measurement 3.3 x 4.0 x 0.2 cm. Postdebridement measurement is 3.5 x 4.2 x 0.3 cm. EpiFix 4.0 x 4.5 cm mesh was applied to the right TMA full-thickness ulceration with 100% use. Fifth application. The graft site was free and clear of any infection. The wound/skin graft substitute was dressed with nonadherent bandage secured in place with Steri-Strips followed by bolster dressing as well as a single layer Tubigrip. Excisional debridement down to and including subcutaneous tissue with a number 5 mm dermal curette to the right plantar full-thickness wound done without incident. Predebridement measurement was 0.2 x 0.3 x 0.1 cm. Postdebridement measurement is 0.3 x 0.4 x 0.1 cm. Patient will follow-up with Dr. 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
--- NOTE | 2025-06-06 12:48 | WC ---
PHOTO: RIGHT TMA 05/31/25
--- NOTE | 2025-06-06 12:52 | WC ---
PHOTO: RIGHT FOOT 05/31/25
[2025-06-07 14:35] VITALS: BP 145/57; PULSE 82; RESP 18; TEMP 35.8
--- NOTE | 2025-06-07 16:12 | PN.PCM_ITS ---
History of Present Illness Date of Service: 06/07/25 Chief Complaint: Full-thickness wound to the TMA site right lower extremity History of Wound: Evidence of traumatic full-thickness wound to the right TMA site after striking it on oil rig gear. Wound has been treated with Betadine soaked gauze as well as on oral doxycycline 100 mg twice daily. Patient is borderline diabetic. Progress of Wound: Healing full-thickness wounds right lower extremity. Subjective Subjective Patient is 84-year-old male presenting to clinic today for evaluation of full- thickness wound to the TMA site of the right lower extremity with amniotic skin graft substitute. Patient has been compliant with leaving the dressing clean dry and intact. He has been taking antibiotics per infectious disease recomm endation. Denies trauma or pain. Denies constitutional symptoms. No other pedal complaints at this time. Objective Data Objective Data Vital Signs: Vital Signs Temp Pulse Resp BP O2 Del Method 96.5 F L 82 18 145/57 H Room Air 06/07/25 14:35 06/07/25 14:35 06/07/25 14:35 06/07/25 14:35 06/07/25 14:35 Oxygen Delivery Method Room Air Lab / Micro Data Micro: Microbiology 03/15/25 15:55 Bone - Right Foot Gram Stain - Final 03/15/25 15:55 Bone - Right Foot Wound Culture - Final Klebsiella pneumoniae sp pneum Escherichia coli Stenotrophomonas maltophilia Staphylococcus aureus Staphylococcus epidermidis Enterococcus faecalis Corynebacterium amycolatum 03/15/25 15:55 Bone - Right Foot Anaerobic Culture - Final No anaerobic bacteria isolated. Physical Exam Narrative Vascular: Peroneal, AT and PT pulses are monophasic on Doppler to the right lower extremity. Skin temperature gradient is warm to warm from proximal ankles to TMA stump with mild focal increase. No erythema. Neurological: Light touch is intact. Protective station is absent. Dermatological: Full-thickness wound to the right lower extremity TMA site measuring 3.0 x 4.3 x 0.3 cm. Wound base is fibrogranular nature. Negative probe to bone. Right plantar full-thickness wound measuring 0.2 x 0.5 x 0.1 cm. Wound base is granular tissue. Excisional debridement down to and including subcutaneous tissue, fascia muscle to the right lower extremity TMA site done with a rongeur to remove the bone and a 5 mm dermal curette to the full-thickness wound done without incident. Predebridement measurement 2.8 x 4.1 x 0.2 cm. Postdebridement measurement is 3.0 x 4.3 x 0.3 cm EpiFix 4.0 x 4.5 cm mesh was applied to the right TMA full-thickness ulceration with 100% use. 6th application. The graft site was free and clear of any infection. The wound/skin graft substitute was dressed with nonadherent bandage secured in place with Steri-Strips followed by bolster dressing as well as a single layer Tubigrip. Excisional debridement down to and including subcutaneous tissue with a number 5 mm dermal curette to the right plantar full-thickness wound done without incident. Predebridement measurement was 0.1 x 0.2 x 0.1 cm. Postdebridement measurement is 0.2 x 0.5 x 0.1 cm. Muscle skeletal: No pain to palpation to the full-thickness wounds to the right lower extremity. No pain with calf pressure. Const alert, oriented x3 and no apparent distress Debridement Note Debridement Note Debridement Free Text: Excisional debridement down to and including subcutaneous tissue, fascia muscle to the right lower extremity TMA site done with a rongeur to remove the bone and a 5 mm dermal curette to the full-thickness wound done without incident. Predebridement measurement 2.8 x 4.1 x 0.2 cm. Postdebridement measurement is 3.0 x 4.3 x 0.3 cm EpiFix 4.0 x 4.5 cm mesh was applied to the right TMA full-thickness ulceration with 100% use. 6th application. The graft site was free and clear of any infection. The wound/skin graft substitute was dressed with nonadherent bandage secured in place with Steri-Strips followed by bolster dressing as well as a single layer Tubigrip. Excisional debridement down to and including subcutaneous tissue with a number 5 mm dermal curette to the right plantar full-thickness wound done without incident. Predebridement measurement was 0.1 x 0.2 x 0.1 cm. Postdebridement measurement is 0.2 x 0.5 x 0.1 cm. Post-Debridement Measurements and Additional Note: Post-Debridement Measurements/Treatment WC - Nurse 1 - General Ulcer Assessment Start: 05/10/25 14:36 Freq: Status: Active Protocol: [email or web address].LOWEXT Activity Type Activity Date Activity User E-sign Co-sign Detail Recorded Client Recorded Date Recorded By Document 05/10/25 14:36 RB [id number] 05/10/25 14:52 RB Document 05/17/25 14:32 TS [id number] 05/17/25 14:41 TS Document 05/24/25 15:32 TS [id number] 05/24/25 15:40 TS Document 05/31/25 08:56 GM [id number] 05/31/25 09:01 GM Document 06/07/25 14:35 GM(2) [id number] 06/07/25 14:42 GM(2) 05/10/25 05/17/25 05/24/25 14:36 14:32 15:32 WC - Today's Visit Information Type of service Follow-up Visit Follow-up Visit Follow-up Visit (Physician/FOOD SERVICE LEAD (Physician/FOOD SERVICE LEAD (Physician/FOOD SERVICE LEAD ) ) ) Arrival Mode Ambulatory Ambulatory Ambulatory Transfer Assistance None Patient Identification Verified (Name & Yes Yes Yes ) Patient Requires Transmission-Based No No No Precautions Safety Precautions Fall Prevention Fall Prevention Vital Signs Temperature (97.8 F-99.1 F) 97.3 F L 96.6 F L 97.5 F L Temperature Source Temporal Temporal Temporal Pulse Rate (60-100) 80 101 H 91 Pulse Location Monitor Monitor Monitor Respiratory Rate (12-18) 18 16 16 Respiratory rate source Observation Observation Observation Oxygen Delivery Method Room Air Room Air Room Air Blood Pressure (90/60-120/80) 168/76 H 154/67 H 161/85 H Blood Pressure Mean (mm Hg) 106 96 110 Source Monitor Monitor Monitor Position Sitting Sitting Sitting Blood Pressure Location Left Arm Left Arm Right Arm History Since Last Visit- (Skip if this is Patient's initial visit) Have you changed medications since your No No No last visit? Any new allergies or adverse reactions No No No Had a fall/change in ADL's that may No No No increase risk of falls Signs or symptoms of abuse and/or No No No neglect since last visit Have you been in the hospital since your No last visit? Has dressing in place as prescribed Yes Yes Yes Has compression in place as prescribed N/A N/A N/A Has offloadiing in place as prescribed N/A N/A Experienced any changes in pain level or No No No management Left Footwear Regular Shoe Regular Shoe Right Footwear Surgical Shoe Regular Shoe with pressure relief insole Pain Scale: 0-10 Numeric Is Patient Pain Free? Yes Yes Yes 05/31/25 06/07/25 08:56 14:35 WC - Today's Visit Information Type of service Initial Visit Follow-up Visit (Physician/FOOD SERVICE LEAD ) Arrival Mode Ambulatory Ambulatory, Walker Transfer Assistance Patient Identification Verified (Name & Yes Yes ) Patient Requires Transmission-Based Precautions Safety Precautions Vital Signs Temperature (97.8 F-99.1 F) 98.4 F 96.5 F L Temperature Source Temporal Temporal Pulse Rate (60-100) 79 82 Pulse Location Monitor Monitor Respiratory Rate (12-18) 18 18 Respiratory rate source Ausculation Observation Oxygen Delivery Method Room Air Room Air Blood Pressure (90/60-120/80) 187/94 H 145/57 H Blood Pressure Mean (mm Hg) 125 86 Source Monitor Monitor Position Sitting Sitting Blood Pressure Location Left Arm Left Arm History Since Last Visit- (Skip if this is Patient's initial visit) Have you changed medications since your No No last visit? Any new allergies or adverse reactions No No Had a fall/change in ADL's that may No No increase risk of falls Signs or symptoms of abuse and/or No No neglect since last visit Have you been in the hospital since your No No last visit? Has dressing in place as prescribed Yes Yes Has compression in place as prescribed Yes N/A Has offloadiing in place as prescribed N/A Yes Experienced any changes in pain level or No No management Left Footwear Regular Shoe Right Footwear Regular Shoe Pain Scale: 0-10 Numeric Is Patient Pain Free? Yes Yes - Nurse 1 - General Ulcer Measurement Start: 05/10/25 14:36 Freq: Status: Active Protocol: Activity Type Activity Date Activity User E-sign Co-sign Detail Recorded Client Recorded Date Recorded By Document 05/10/25 14:36 RB [id number] 05/10/25 14:52 RB Document 05/17/25 14:32 TS [id number] 05/17/25 14:41 TS Document 05/24/25 15:32 TS [id number] 05/24/25 15:40 TS Document 05/31/25 08:56 GM [id number] 05/31/25 09:01 GM Document 06/07/25 14:35 GM(2) [id number] 06/07/25 14:42 GM(2) 05/10/25 05/17/25 05/24/25 14:36 14:32 15:32 Wound Center Nurse 1 1. right anterior ankle -Combined with other wound No -Current Size (cm) - Length 0.1 -Current Size (cm) - Width 0.1 -Current Size (cm) - Depth 0.1 -Total Square Cm 0.01 -Date of Last Picture (Recall this 05/10/25 field) -Photo Taken Yes -Tunneling No -Undermining/Tunneling No -Circular Undermining No -Exudate Amt Medium -Exudate Type Serosanguineous -Wound Margin Distinct, Outline Attached -Granulation Amt Medium (34-66%) -Granulation Quality [employer] -Slough/Fibrin Yes -Necrosis Amt Medium (34-66%) -Necrotic Tissue Type Adherent Slough -Structure Exposed N/A -Texture (Marta-wound Skin Appearance) Assessed -Moisture (Marta-wound Skin Appearance) Assessed,Dry/ Scaly -Color (Marta-wound Skin Appearance) Assessed -Temperature (Marta-wound Skin No Abnormality Appearance) (Pt Warm) -Tenderness on Palpation (Marta-wound No Skin Appearance) -Ulcer Cleansing Wound Cleanser -Foul Odor after Cleansing No -Anesthetic Used 5% Lidocaine Gel 4. right plantar foot -Combined with other wound No No No -Current Size (cm) - Length 0.5 1 0.3 -Current Size (cm) - Width 0.8 0.5 0.5 -Current Size (cm) - Depth 0.2 0.1 0.1 -Total Square Cm 0.40 0.5 0.15 -Date of Last Picture (Recall this 05/10/25 05/17/25 05/24/25 field) -Photo Taken Yes Yes Yes -Epithelialization -Tunneling No -Undermining/Tunneling No No No -Circular Undermining No No No -Exudate Amt Medium Small Large -Exudate Type Serosanguineous Serosanguineous -Wound Margin Thickened & Distinct, Distinct, Rolled Under Outline Outline Attached Attached -Granulation Amt Medium (34-66%) Small (1-33%) Medium (34-66%) -Granulation Quality [employer],Red -Slough/Fibrin Yes Yes Yes -Necrosis Amt Medium (34-66%) Small (1-33%) Large (67-100%) -Necrotic Tissue Type Adherent Slough Adherent Slough Adherent Slough -Structure Exposed N/A None/Limited to None/Limited to Skin Breakdown Skin Breakdown -Texture (Marta-wound Skin Appearance) Assessed Assessed Assessed -Moisture (Marta-wound Skin Appearance) Assessed Assessed Assessed -Color (Marta-wound Skin Appearance) Assessed Assessed Assessed -Temperature (Marta-wound Skin No Abnormality No Abnormality No Abnormality Appearance) (Pt Warm) (Pt Warm) (Pt Warm) -Tenderness on Palpation (Marta-wound No Skin Appearance) -Ulcer Cleansing Wound Cleanser Soap and Water Soap and Water -Foul Odor after Cleansing No No -Anesthetic Used 5% Lidocaine 5% Lidocaine 5% Lidocaine Gel Gel Gel 2. Right dorsum/TMA -Combined with other wound No No No -Current Size (cm) - Length 4.5 3.5 4 -Current Size (cm) - Width 5 5 5 -Current Size (cm) - Depth 0.1 0.3 0.3 -Total Square Cm 22.5 17.5 20 -Date of Last Picture (Recall this 05/10/25 05/17/25 05/24/25 field) -Photo Taken Yes Yes Yes -Epithelialization -Tunneling No -Undermining/Tunneling No No No -Circular Undermining No No No -Change in Wound Grade/Stage -Exudate Amt Medium Medium Medium -Exudate Type Serosanguineous Serosanguineous Serosanguineous -Wound Margin Thickened & Distinct, Distinct, Rolled Under Outline Outline Attached Attached -Granulation Amt Medium (34-66%) Small (1-33%) Small (1-33%) -Granulation Quality [employer],Red -Slough/Fibrin Yes Yes Yes -Necrosis Amt Medium (34-66%) Large (67-100%) -Necrotic Tissue Type Adherent Slough Adherent Slough Adherent Slough -Structure Exposed N/A None/Limited to None/Limited to Skin Breakdown Skin Breakdown -Texture (Marta-wound Skin Appearance) Assessed,Callus Assessed Assessed -Moisture (Marta-wound Skin Appearance) Assessed Assessed Assessed -Color (Marta-wound Skin Appearance) Assessed Assessed Assessed -Temperature (Marta-wound Skin No Abnormality No Abnormality No Abnormality Appearance) (Pt Warm) (Pt Warm) (Pt Warm) -Tenderness on Palpation (Marta-wound No Skin Appearance) -Ulcer Cleansing Wound Cleanser Soap and Water Soap and Water -Foul Odor after Cleansing No No No -Anesthetic Used 5% Lidocaine 5% Lidocaine 5% Lidocaine Gel Gel Gel Lower Limb Edema Present Yes Right Calf (cm) 38.5 Right Ankle (cm) 05/31/25 06/07/25 08:56 14:35 Wound Center Nurse 1 1. right anterior ankle -Combined with other wound -Current Size (cm) - Length -Current Size (cm) - Width -Current Size (cm) - Depth -Total Square Cm -Date of Last Picture (Recall this field) -Photo Taken -Tunneling -Undermining/Tunneling -Circular Undermining -Exudate Amt -Exudate Type -Wound Margin -Granulation Amt -Granulation Quality -Slough/Fibrin -Necrosis Amt -Necrotic Tissue Type -Structure Exposed -Texture (Marta-wound Skin Appearance) -Moisture (Marta-wound Skin Appearance) -Color (Marta-wound Skin Appearance) -Temperature (Marta-wound Skin Appearance) -Tenderness on Palpation (Marta-wound Skin Appearance) -Ulcer Cleansing -Foul Odor after Cleansing -Anesthetic Used 4. right plantar foot -Combined with other wound No -Current Size (cm) - Length 0.5 0.8 -Current Size (cm) - Width 0.7 0.5 -Current Size (cm) - Depth 0.1 0.1 -Total Square Cm 0.35 0.40 -Date of Last Picture (Recall this 05/31/25 06/07/25 field) -Photo Taken Yes Yes -Epithelialization Small 1-33% Small 1-33% -Tunneling No No -Undermining/Tunneling No No -Circular Undermining No No -Exudate Amt Small Medium -Exudate Type Yellow/Green Serosanguineous -Wound Margin Distinct, Distinct, Outline Outline Attached Attached -Granulation Amt Small (1-33%) Small (1-33%) -Granulation Quality [employer] Pale,[employer] -Slough/Fibrin No -Necrosis Amt Small (1-33%) Small (1-33%) -Necrotic Tissue Type Adherent Slough Adherent Slough -Structure Exposed N/A -Texture (Marta-wound Skin Appearance) Assessed Assessed, Localized Edema -Moisture (Marta-wound Skin Appearance) Assessed Assessed, Maceration -Color (Marta-wound Skin Appearance) Assessed Assessed -Temperature (Marta-wound Skin No Abnormality No Abnormality Appearance) (Pt Warm) (Pt Warm) -Tenderness on Palpation (Marta-wound No No Skin Appearance) -Ulcer Cleansing Soap and Water Soap and Water -Foul Odor after Cleansing No No -Anesthetic Used 5% Lidocaine 5% Lidocaine Gel Gel 2. Right dorsum/TMA -Combined with other wound No -Current Size (cm) - Length 3.5 3.0 -Current Size (cm) - Width 4.5 4.0 -Current Size (cm) - Depth 0.1 0.1 -Total Square Cm 15.75 12.00 -Date of Last Picture (Recall this 05/31/25 06/07/25 field) -Photo Taken Yes Yes -Epithelialization Small 1-33% Small 1-33% -Tunneling No No -Undermining/Tunneling No No -Circular Undermining No No -Change in Wound Grade/Stage No -Exudate Amt Medium Medium -Exudate Type Yellow/Green Serosanguineous -Wound Margin Distinct, Distinct, Outline Outline Attached Attached -Granulation Amt Large (67-100%) Small (1-33%) -Granulation Quality [employer],Red -Slough/Fibrin Yes Yes -Necrosis Amt Small (1-33%) -Necrotic Tissue Type Adherent Slough Adherent Slough -Structure Exposed N/A -Texture (Marta-wound Skin Appearance) Assessed Assessed -Moisture (Marta-wound Skin Appearance) Assessed -Color (Marta-wound Skin Appearance) Assessed Assessed -Temperature (Marta-wound Skin No Abnormality No Abnormality Appearance) (Pt Warm) (Pt Warm) -Tenderness on Palpation (Marta-wound No No Skin Appearance) -Ulcer Cleansing Soap and Water Soap and Water -Foul Odor after Cleansing No No -Anesthetic Used 5% Lidocaine 5% Lidocaine Gel Gel Lower Limb Edema Present Yes Yes Right Calf (cm) 39 37 Right Ankle (cm) 25.5 26 WC - Nurse 2 - General Ulcer CM Notes Start: 05/10/25 14:36 Freq: Status: Active Protocol: Activity Type Activity Date Activity User E-sign Co-sign Detail Recorded Client Recorded Date Recorded By Document 05/10/25 14:56 RB [id number] 05/10/25 15:04 RB Edit Result 05/10/25 14:56 RB (1) [id number] 05/17/25 12:10 GM Edit Result 05/10/25 14:56 RB (2) [id number] 05/18/25 12:11 DS Document 05/17/25 15:03 GM [id number] 05/17/25 15:09 GM Edit Result 05/17/25 15:03 GM (3) [id number] 05/18/25 12:13 DS Document 05/24/25 15:50 GM [id number] 05/24/25 15:56 GM Document 05/31/25 09:08 DS [id number] 05/31/25 09:15 DS Edit Result 05/31/25 09:08 DS (4) 1 05/31/25 13:36 DS Document 06/07/25 14:47 DS [id number] 06/07/25 14:52 DS Edit Result 06/07/25 14:47 DS (5) [id number] 06/07/25 15:40 DS (1) 2. Right dorsum/TMA - Apply Skin Sub - 1st 25 sq cm - Feet => 1 (2) 2. Right dorsum/TMA - Epifix Mesh Application 1-4 (per sq cm => 11 ) (3) 2. Right dorsum/TMA - Debridement - Muscle / Fascia, 1st Yes => No 20sq cm - Apply Skin Sub - 1st 25 sq cm - Legs 1 => - Apply Skin Sub - 1st 25 sq cm - Feet => 1 - Epifix Mesh Application 1-4 (per sq cm => 11 ) - NuShield (per sq cm) 11 => (4) 4. right plantar foot - Bioengineered Tissue => No - Type of Bioengineered Tissue Epifix 18mm Disc => (5) 4. right plantar foot - Clinical Debridement Muscle / Fascia => Subcutaneous - Tissue Removed Muscle => Subcutaneous - Debridement - Subq, 1st 20sq cm => Yes - Debridement - Muscle / Fascia, 1st Yes => 20sq cm 2. Right dorsum/TMA - Apply Skin Sub - 1st 25 sq cm - Feet => 1 05/10/25 05/17/25 05/24/25 14:56 15:03 15:50 Wound Center Nurse 2 1. right anterior ankle -Time 14:58 -Correct Patient Yes -Correct Side, Site, Position Yes -Correct Procedure Yes -Procedure Performed Yes -Type of Procedure Debridement -Clinical Debridement Muscle / Fascia -Tissue Removed Muscle -Tunneling No -Undermining/Tunneling No -Circular Undermining No -Wound/Ulcer Outcome Not Healed -Ulcer Cleansing Rinsed/ Irrigated with Saline -Foul Odor after Cleansing No -Bioengineered Tissue No -Bleeding Controlled with Pressure -Treatment Response Procedure Tolerated Well -Offloading Yes -Type of Offloading Surgical Shoe -Debridement - Muscle / Fascia, 1st No 20sq cm 4. right plantar foot -Time 14:57 15:03 15:50 -Correct Patient Yes Yes Yes -Correct Side, Site, Position Yes Yes Yes -Correct Procedure Yes Yes Yes -Procedure Performed Yes Yes Yes -Type of Procedure Debridement Debridement Debridement -Clinical Debridement Subcutaneous Subcutaneous Subcutaneous -Tissue Removed Subcutaneous Subcutaneous Subcutaneous -Post Debridement (cm) - Length 0.6 0.5 0.3 -Post Debridement (cm) - Width 0.9 0.8 0.5 -Post Debridement (cm) - Depth 0.1 0.1 0.1 -Total Square (Post) (cm) 0.54 0.40 0.15 -Area of Debridement (cm) - Length 0.6 0.5 0.3 -Area of Debridement (cm) - Width 0.9 0.8 0.5 -Total Square (Area) (cm) 0.54 0.40 0.15 -Tunneling No No No -Undermining/Tunneling No No No -Circular Undermining No No No -Wound/Ulcer Outcome Not Healed Not Healed Not Healed -Ulcer Cleansing Rinsed/ Rinsed/ Rinsed/ Irrigated with Irrigated with Irrigated with Saline Saline Saline -Foul Odor after Cleansing No No No -Bioengineered Tissue No No No -Bleeding Controlled with Pressure Pressure Pressure -Treatment Response Procedure Procedure Procedure Tolerated Well Tolerated Well Tolerated Well -Offloading Yes No No -Type of Offloading Surgical Shoe -Debridement - Subq, 1st 20sq cm Yes Yes Yes 2. Right dorsum/TMA -Time 14:57 15:04 15:50 -Correct Patient Yes Yes Yes -Correct Side, Site, Position Yes Yes Yes -Correct Procedure Yes Yes Yes -Procedure Performed Yes Yes Yes -Type of Procedure Debridement Debridement Debridement -Clinical Debridement Muscle / Fascia Muscle / Fascia Muscle / Fascia -Tissue Removed Muscle Muscle Muscle -Post Debridement (cm) - Length 3.8 3.7 3.4 -Post Debridement (cm) - Width 4.8 4.9 4.6 -Post Debridement (cm) - Depth 0.4 0.3 0.2 -Total Square (Post) (cm) 18.24 18.13 15.64 -Area of Debridement (cm) - Length 3.8 3.7 3.4 -Area of Debridement (cm) - Width 4.8 4.9 4.6 -Total Square (Area) (cm) 18.24 18.13 15.64 -Tunneling No No No -Undermining/Tunneling No No No -Circular Undermining No No No -Wound/Ulcer Outcome Not Healed Not Healed Not Healed -Ulcer Cleansing Rinsed/ Rinsed/ Rinsed/ Irrigated with Irrigated with Irrigated with Saline Saline Saline -Foul Odor after Cleansing No No No -Bioengineered Tissue Yes Yes Yes -Type of Bioengineered Tissue -Type of Bioengineered Tissue Epifix Mesh Epifix Mesh Epifix Mesh -Expiration Date 11/06/29 11/06/29 11/06/29 -Product Lot Number [id number] -Percent Used 100 100 100 -Lot number of Saline Used [id number] -Bleeding Controlled with Pressure Pressure Pressure -Treatment Response Procedure Procedure Procedure Tolerated Well Tolerated Well Tolerated Well -Offloading Yes No No -Type of Offloading Surgical Shoe -Debridement - Muscle / Fascia, 1st No No No 20sq cm -Apply Skin Sub - 1st 25 sq cm - Feet 1 1 1 -Epifix Mesh Application 1-4 (per sq 11 11 11 cm) -Epifix Mesh Application 5-8 (per sq cm) Pain Scale: 0-10 Numeric Is Patient Pain Free? Yes Yes Yes 05/31/25 06/07/25 09:08 14:47 Wound Center Nurse 2 1. right anterior ankle -Time -Correct Patient -Correct Side, Site, Position -Correct Procedure -Procedure Performed -Type of Procedure -Clinical Debridement -Tissue Removed -Tunneling -Undermining/Tunneling -Circular Undermining -Wound/Ulcer Outcome -Ulcer Cleansing -Foul Odor after Cleansing -Bioengineered Tissue -Bleeding Controlled with -Treatment Response -Offloading -Type of Offloading -Debridement - Muscle / Fascia, 1st 20sq cm 4. right plantar foot -Time 09:08 14:47 -Correct Patient Yes Yes -Correct Side, Site, Position Yes Yes -Correct Procedure Yes Yes -Procedure Performed Yes Yes -Type of Procedure Debridement Debridement -Clinical Debridement Subcutaneous Subcutaneous -Tissue Removed Subcutaneous Subcutaneous -Post Debridement (cm) - Length 0.3 0.2 -Post Debridement (cm) - Width 0.4 0.5 -Post Debridement (cm) - Depth 0.1 0.1 -Total Square (Post) (cm) 0.12 0.10 -Area of Debridement (cm) - Length 0.3 0.2 -Area of Debridement (cm) - Width 0.4 0.5 -Total Square (Area) (cm) 0.12 0.10 -Tunneling No No -Undermining/Tunneling No No -Circular Undermining No No -Wound/Ulcer Outcome Not Healed Not Healed -Ulcer Cleansing Rinsed/ Rinsed/ Irrigated with Irrigated with Saline Saline -Foul Odor after Cleansing No No -Bioengineered Tissue No No -Bleeding Controlled with Pressure Pressure -Treatment Response Procedure Procedure Tolerated Well Tolerated Well -Offloading -Type of Offloading -Debridement - Subq, 1st 20sq cm Yes Yes 2. Right dorsum/TMA -Time 09:11 14:47 -Correct Patient Yes Yes -Correct Side, Site, Position Yes Yes -Correct Procedure Yes Yes -Procedure Performed Yes Yes -Type of Procedure Debridement Debridement -Clinical Debridement Muscle / Fascia Muscle / Fascia -Tissue Removed Muscle Muscle -Post Debridement (cm) - Length 3.5 3.0 -Post Debridement (cm) - Width 4.2 4.3 -Post Debridement (cm) - Depth 0.3 0.3 -Total Square (Post) (cm) 14.70 12.90 -Area of Debridement (cm) - Length 3.5 3.0 -Area of Debridement (cm) - Width 4.2 4.3 -Total Square (Area) (cm) 14.70 12.90 -Tunneling No No -Undermining/Tunneling No No -Circular Undermining No No -Wound/Ulcer Outcome Not Healed Not Healed -Ulcer Cleansing Rinsed/ Rinsed/ Irrigated with Irrigated with Saline Saline -Foul Odor after Cleansing No No -Bioengineered Tissue Yes Yes -Type of Bioengineered Tissue Epifix Mesh Application 5-8 -Type of Bioengineered Tissue Epifix Mesh -Expiration Date 11/06/29 11/06/29 -Product Lot Number [id number] -Percent Used 100 100 -Lot number of Saline Used [id number] -Bleeding Controlled with Pressure Pressure -Treatment Response Procedure Procedure Tolerated Well Tolerated Well -Offloading -Type of Offloading -Debridement - Muscle / Fascia, 1st No No 20sq cm -Apply Skin Sub - 1st 25 sq cm - Feet 1 1 -Epifix Mesh Application 1-4 (per sq 11 cm) -Epifix Mesh Application 5-8 (per sq 11 cm) Pain Scale: 0-10 Numeric Is Patient Pain Free? Yes Yes WC - Nurse 3 - General Ulcer D/C NN Start: 05/10/25 14:36 Freq: Status: Active Protocol: Activity Type Activity Date Activity User E-sign Co-sign Detail Recorded Client Recorded Date Recorded By Document 05/10/25 15:57 RB [id number] 05/10/25 15:59 RB Document 05/17/25 15:26 RB [id number] 05/17/25 15:27 RB Document 05/24/25 15:56 GM [id number] 05/24/25 15:57 GM Document 05/31/25 09:24 RB [id number] 05/31/25 09:25 RB Edit Result 05/31/25 09:24 RB (1) [id number] 05/31/25 09:29 RB Document 06/07/25 15:16 TS [id number] 06/07/25 15:17 TS (1) Ambulatory Status Wheelchair => Ambulatory 05/10/25 05/17/25 05/24/25 15:57 15:26 15:56 Wound Care Center Nurse 3 1. right anterior ankle -Primary Dressing Covered/Secured with Dry Gauze & Roll Gauze, Secured with Tape 4. right plantar foot -Ulcer Cleansing Not Cleansed -Foul Odor after Cleansing No -Primary Dressing Applied -Other Dressing ABD ABD -Primary Dressing Covered/Secured with Dry Gauze & Dry Gauze & Dry Gauze & Roll Gauze, Roll Gauze, Roll Gauze, Secured with Secured with Secured with Tape Tape Tape 2. Right dorsum/TMA -Ulcer Cleansing Not Cleansed -Foul Odor after Cleansing No -Primary Dressing Applied -Other Dressing ABD ABD -Primary Dressing Covered/Secured with Dry Gauze & Dry Gauze & Dry Gauze Roll Gauze, Roll Gauze, Secured with Secured with Tape Tape -Wound Comment(s) william toes to knee RLE -Lotion applied to leg before No compression wrap -Compression Wrap William Wrap William Wrap William Wrap -Tubular Bandage -Size of Tubigrip Used -Size D ($) -Size E ($) Treatment Response Procedure Procedure Tolerated Well Tolerated Well Pain Scale: 0-10 Numeric Is Patient Pain Free? Yes Yes Yes WC - Visit Discharge Discharge Condition Stable Stable Stable Ambulatory Status Wheelchair Ambulatory Ambulatory Transportation Private Auto Private Auto Private Auto Medication Reconcilliation completed & No No provided to patient/care provider Clinical Summary of Care Provided Yes Yes 05/31/25 06/07/25 09:24 15:16 Wound Care Center Nurse 3 1. right anterior ankle -Primary Dressing Covered/Secured with 4. right plantar foot -Ulcer Cleansing -Foul Odor after Cleansing -Primary Dressing Applied NonAdherent Contact Layer -Other Dressing ABD abd -Primary Dressing Covered/Secured with Dry Gauze & Dry Gauze & Roll Gauze, Roll Gauze, Secured with Secured with Tape Tape 2. Right dorsum/TMA -Ulcer Cleansing -Foul Odor after Cleansing -Primary Dressing Applied NonAdherent Contact Layer -Other Dressing ABD abd -Primary Dressing Covered/Secured with Dry Gauze & Dry Gauze & Roll Gauze, Roll Gauze, Secured with Secured with Tape Tape -Wound Comment(s) RLE -Lotion applied to leg before compression wrap -Compression Wrap -Tubular Bandage Single Layer Single Layer -Size of Tubigrip Used Size E Size D -Size D ($) 1 -Size E ($) 1 Treatment Response Procedure Tolerated Well Pain Scale: 0-10 Numeric Is Patient Pain Free? 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 All findings were discussed with the patient. All questions were answered to the patient satisfaction. Excisional debridement down to and including subcutaneous tissue, fascia muscle to the right lower extremity TMA site done with a rongeur to remove the bone and a 5 mm dermal curette to the full-thickness wound done without incident. Predebridement measurement 2.8 x 4.1 x 0.2 cm. Postdebridement measurement is 3.0 x 4.3 x 0.3 cm EpiFix 4.0 x 4.5 cm mesh was applied to the right TMA full-thickness ulceration with 100% use. 6th application. The graft site was free and clear of any infection. The wound/skin graft substitute was dressed with nonadherent bandage secured in place with Steri-Strips followed by bolster dressing as well as a single layer Tubigrip. Excisional debridement down to and including subcutaneous tissue with a number 5 mm dermal curette to the right plantar full-thickness wound done without incident. Predebridement measurement was 0.1 x 0.2 x 0.1 cm. Postdebridement measurement is 0.2 x 0.5 x 0.1 cm. Patient will follow-up with Dr. 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
--- NOTE | 2025-06-09 11:46 | WC ---
PHOTO: RIGHT TMA 06/07/25
--- NOTE | 2025-06-09 11:46 | WC ---
PHOTO: RIGHT PLANTAR 06/07/25
== END 2025-06-07 23:59 | disposition home or self-care (01) ==
LOC: WC 14:00
PROVIDERS: PCP Internal Medicine; Referring Provider Podiatrist Foot & Ankle Surgery; Visit Provider Podiatrist Foot & Ankle Surgery
DX: I70.239 Atherosclerosis of native arteries of right leg with ulceration of unspecified site (principal); L97.513 Non-pressure chronic ulcer of other part of right foot with necrosis of muscle; L97.512 Non-pressure chronic ulcer of other part of right foot with fat layer exposed; R73.03 Prediabetes
CPT/HCPCS: 11042; 11043; 15271; 15275; Q4160; Q4186